=== PATIENT | female | born 1935 | race Caucasian/White ===

== ENCOUNTER → 2016-08-01 | Outpatient (CLI) | payer MEDICARE, BC ==
--- NOTE | 2016-08-01 14:17 | MM ---
Reason for exam: additional evaluation requested from abnormal screening. Last mammogram was performed 1 month ago. History: Patient is postmenopausal. Family history of breast cancer in daughter at age 50. Physical Findings: Nurse did not find any significant physical abnormalities on exam. MG 3D Work Up W/Cad LT Spot compression CC, spot compression MLO, and ML view(s) were taken of the left breast. Prior study comparison: July 16, 2016, bilateral MG 3d screening mammo w/cad. June 02, 2014, bilateral MG screening mammo w CAD. Nodularity upper outer left breast persists is less conspicuous. Ultrasound is recommended. These results were verbally communicated with the patient and result sheet given to the patient on 08/01/16. ASSESSMENT: Incomplete: need additional imaging evaluation, BI-RAD 0 RECOMMENDATION: Ultrasound of the left breast.
--- NOTE | 2016-08-01 14:18 | USB ---
Reason for exam: additional evaluation requested from abnormal screening. History: Patient is postmenopausal. Family history of breast cancer in daughter at age 50. US Breast Workup Limited LT Left breast ultrasound demonstrates no cystic or solid lesion seen greater than 0.50cm. These results were verbally communicated with the patient and result sheet given to the patient on 08/01/16. ASSESSMENT: Probably benign, BI-RAD 3 RECOMMENDATION: Follow-up diagnostic mammogram of the left breast in 6 months.
== END | disposition home or self-care (01) ==
LOC: RADMAMWWP 12:23
PROVIDERS: ATTEND Internal Medicine
DX: R92.8 Other abnormal and inconclusive findings on diagnostic imaging of breast (principal)
CPT/HCPCS: 77051; 76642; G0206; G0279

== ENCOUNTER 2019-05-24 14:25 | Emergency (ER) | payer MEDICARE, BC ==
[2019-05-24 14:34] VITALS: RESP 18; TEMP 97.8
--- NOTE | 2019-05-24 15:03 | ED ---
General Adult HPI - General Chief complaint: Chest Pain Stated complaint: Chest Pain, Abnormal EKG Time Seen by Provider: 05/24/19 14:55 Source: patient Mode of arrival: ambulatory Limitations: no limitations - History of Present Illness Initial comments: Dictation was produced using [employer] dictation software. please excuse any grammatical, word or spelling errors. Chief Complaint: 83-year-old female sent in by Dr. Sarkar for abnormal EKG. History of Present Illness: Patient is 83-year-old female presents today with abnormal EKG. Patient was at Dr. Sarkar's office who will be her new primary care physician. She states that she is finding PCP because her old PCP is not retired. Patient went in for routine visit. She had an EKG performed found to be abnormal. She denies any complaints at this time. She has no chest pain. No shortness of breath. She states that she has been at baseline. She has no medical complaints today. The ROS documented in this emergency department record has been reviewed and confirmed by me. Those systems with pertinent positive or negative responses have been documented in the HPI. All other systems are other negative and/or noncontributory. PHYSICAL EXAM: General Impression: Alert and oriented x3, not in acute distress HEENT: Normocephalic atraumatic, extra-ocular movements intact, pupils equal and reactive to light bilaterally, mucous membranes moist. Cardiovascular: Heart regular rate and rhythm, S1&S2 audible, no murmurs, rubs or gallops Chest: Lungs clear to auscultation bilaterally, no rhonchi, no wheeze, no rales Abdomen: Bowel sounds present, abdomen soft, non-tender, non-distended, no organomegaly Musculoskeletal: Pulses present and equal in all extremities, no peripheral edema Motor: no focal deficits noted Neurological: CN II-XII grossly intact, no focal motor or sensory deficits noted Skin: Intact with no visualized rashes Psych: Normal affect and mood ED course: 83 y Old female presents with abnormal EKG. Vital signs upon arrival shows blood pressure 187/75, rest of vital signs within acceptable limits. EKG from Dr. Sarkar's office was reviewed showing left bundle branch block. No criteria met for Sgarbossa. Furthermore she is asymptomatic. Repeat EKG was performed here at our facility 3 demonstrating left bundle branch block. Again no demonstration of scar Boso criteria. No old EKG for comparison. no complaints at this time. Laboratory evaluation obtained. CBC, metabolic panel, coag panel is unremarkable. Cardiac enzymes negative. Patient denies being symptomatic. She is observed in emergency department for several hours. Discussed patient case with Dr. Sarkar who states that he was not in the office today. It was likely 1 of his ancillary staff members and sent patient to the emergency department. Has left bundle branch block seen on EKG. He is unclear whether this is narcotic however given the patient's asymptomatic we will send patient home. Patient medically stable. She is given by mouth magnesium. Patient told to follow-up with Dr. Sarkar upon discharge. Temperature was discussed. EKG interpretation: Ventricular rate 75, normal sinus rhythm, FL interval 180, QS 160, QTc 556. On a branch block. No FL prolongation, no QTC prolongation, no ST or T-wave changes noted. - Related Data Home Medications Medication Instructions Recorded Confirmed Hydrochlorothiazide [Hydrodiuril] 25 mg PO DAILY 05/24/19 05/24/19 Ibuprofen [Advil] 400 mg PO DAILY 05/24/19 05/24/19 Metoprolol Succinate [Toprol XL] 25 mg PO DAILY 05/24/19 05/24/19 Ramipril 10 mg PO HS 05/24/19 05/24/19 Ramipril 20 mg PO DAILY 05/24/19 05/24/19 Allergies Allergy/AdvReac Type Severity Reaction Status Date / Time No Known Allergies Allergy Verified 05/24/19 15:12 Review of Systems ROS Statement: Those systems with pertinent positive or pertinent negative responses have been documented in the HPI. ROS Other: All systems not noted in ROS Statement are negative. Past Medical History Past Medical History: Cancer, Hypertension, Osteoarthritis (OA) History of Any Multi-Drug Resistant Organisms: None Reported Past Surgical History: Hysterectomy Additional Past Surgical History / Comment(s): skin cancer removal from R leg Past Psychological History: No Psychological Hx Reported Smoking Status: Never smoker Past Alcohol Use History: Occasional Past Drug Use History: None Reported General Exam Limitations: no limitations Course Vital Signs 05/24/19 05/24/19 14:31 14:34 Temperature 97.8 F Pulse Rate 81 Pulse Rate [ 62 Liquor Tester ] Respiratory 18 Rate Blood Pressure 187/75 O2 Sat by Pulse 99 Oximetry Medical Decision Making - Lab Data Result diagrams: 05/24/19 15:01 05/24/19 15:01 Lab Results 05/24/19 05/24/19 05/24/19 Range/Units 15:01 15:01 15:01 WBC 10.1 (3.8-10.6) k/uL RBC 4.22 (3.80-5.40) m/uL Hgb 13.6 (11.4-16.0) gm/dL Hct 40.3 (34.0-46.0) % MCV 95.3 (80.0-100.0) fL MCH 32.1 (25.0-35.0) pg MCHC 33.7 (31.0-37.0) g/dL RDW 12.4 (11.5-15.5) % Plt Count 234 (150-450) k/uL Neutrophils % 69 % Lymphocytes % 18 % Monocytes % 7 % Eosinophils % 2 % Basophils % 2 % Neutrophils # 7.0 (1.3-7.7) k/uL Lymphocytes # 1.8 (1.0-4.8) k/uL Monocytes # 0.7 (0-1.0) k/uL Eosinophils # 0.2 (0-0.7) k/uL Basophils # 0.2 (0-0.2) k/uL PT 10.7 (9.0-12.0) sec INR 1.0 (<1.2) APTT 27.0 (22.0-30.0) sec Sodium 139 (137-145) mmol/L Potassium 3.5 (3.5-5.1) mmol/L Chloride 103 (98-107) mmol/L Carbon Dioxide 24 (22-30) mmol/L Anion Gap 12 mmol/L BUN 24 H (7-17) mg/dL Creatinine 0.79 (0.52-1.04) mg/dL Est GFR (CKD-EPI)AfAm 82 (>60 ml/min/1.73 sqM) Est GFR (CKD-EPI)NonAf 71 (>60 ml/min/1.73 sqM) Glucose 117 H (74-99) mg/dL Calcium 9.7 (8.4-10.2) mg/dL Magnesium 1.3 L (1.6-2.3) mg/dL Total Bilirubin 0.9 (0.2-1.3) mg/dL AST 36 (14-36) U/L ALT 34 (9-52) U/L Alkaline Phosphatase 73 (38-126) U/L Troponin I (0.000-0.034) ng/mL Total Protein 7.0 (6.3-8.2) g/dL Albumin 4.3 (3.5-5.0) g/dL Lipase 140 (23-300) U/L 05/24/19 Range/Units 15:01 WBC (3.8-10.6) k/uL RBC (3.80-5.40) m/uL Hgb (11.4-16.0) gm/dL Hct (34.0-46.0) % MCV (80.0-100.0) fL MCH (25.0-35.0) pg MCHC (31.0-37.0) g/dL RDW (11.5-15.5) % Plt Count (150-450) k/uL Neutrophils % % Lymphocytes % % Monocytes % % Eosinophils % % Basophils % % Neutrophils # (1.3-7.7) k/uL Lymphocytes # (1.0-4.8) k/uL Monocytes # (0-1.0) k/uL Eosinophils # (0-0.7) k/uL Basophils # (0-0.2) k/uL PT (9.0-12.0) sec INR (<1.2) APTT (22.0-30.0) sec Sodium (137-145) mmol/L Potassium (3.5-5.1) mmol/L Chloride (98-107) mmol/L Carbon Dioxide (22-30) mmol/L Anion Gap mmol/L BUN (7-17) mg/dL Creatinine (0.52-1.04) mg/dL Est GFR (CKD-EPI)AfAm (>60 ml/min/1.73 sqM) Est GFR (CKD-EPI)NonAf (>60 ml/min/1.73 sqM) Glucose (74-99) mg/dL Calcium (8.4-10.2) mg/dL Magnesium (1.6-2.3) mg/dL Total Bilirubin (0.2-1.3) mg/dL AST (14-36) U/L ALT (9-52) U/L Alkaline Phosphatase (38-126) U/L Troponin I <0.012 (0.000-0.034) ng/mL Total Protein (6.3-8.2) g/dL Albumin (3.5-5.0) g/dL Lipase (23-300) U/L Disposition Clinical Impression: Abnormal EKG Disposition: HOME SELF-CARE Condition: Good Is patient prescribed a controlled substance at d/c from ED?: No Referrals: Jose M Sarkar MD [Primary Care Provider] - 1-2 days Time of Disposition: 15:58
[2019-05-24 15:19] LABS: Basophils # (A) 0.2 k/uL (0-0.2); Basophils % (A) 2 %; Eosinophils # (A) 0.2 k/uL (0-0.7); Eosinophils % (A) 2 %; HCT 40.3 % (34.0-46.0); HGB 13.6 gm/dL (11.4-16.0); Lymphocytes # (A) 1.8 k/uL (1.0-4.8); Lymphocytes % (A) 18 %; MCH 32.1 pg (25.0-35.0); MCHC 33.7 g/dL (31.0-37.0); MCV 95.3 fL (80.0-100.0); Mean Platelet Volume 7.3; Monocytes # (A) 0.7 k/uL (0-1.0); Monocytes % (A) 7 %; Neutrophils % (A) 69 %; Platelet Count 234 k/uL (150-450); RBC 4.22 m/uL (3.80-5.40); RDW 12.4 % (11.5-15.5); WBC 10.1 k/uL (3.8-10.6)
[2019-05-24 15:22] LABS: Albumin 4.3 g/dL (3.5-5.0); Calcium 9.7 mg/dL (8.4-10.2); Magnesium 1.3 mg/dL (1.6-2.3); Potassium 3.5 mmol/L (3.5-5.1); Total Bilirubin 0.9 mg/dL (0.2-1.3)
--- NOTE | 2019-05-24 15:32 | XR ---
EXAMINATION TYPE: XR chest 2V DATE OF EXAM: 05/24/2019 COMPARISON: NONE TECHNIQUE: PA and lateral views submitted. HISTORY: Chest pain FINDINGS: Limited inspiration with bibasilar subsegmental consolidation. No pneumothorax or overt failure. Hear t size mildly prominent. Degenerative change of the spine. Cannot exclude a right perihilar soft tiss ue nodule. Arthropathy of the AC joints. IMPRESSION: 1. Bibasilar infiltrate correlate clinically. 2. Nodularity in the left hilum recommend short-term follow-up CT chest.
[2019-05-24 15:33] LABS: Prothrombin Time 10.7 sec (9.0-12.0)
[2019-05-24] MEDS ORDERED: MAGNESIUM OXIDE 400 MG TAB PO STA (15:57)
[2019-05-24] MEDS ORDERED: MAGNESIUM SULFATE-D5W PMX 1 GM in DEXTROSE/WATER 1 100ML.BAG IVPB SCH (16:00)
[2019-05-24 16:13] VITALS: BP 173/77; PULSE 67
== END 2019-05-24 16:20 | disposition home or self-care (01) ==
LOC: EC 14:25
DX: R94.31 Abnormal electrocardiogram [ECG] [EKG] (principal); I44.7 Left bundle-branch block, unspecified; I10 Essential (primary) hypertension; Z79.899 Other long term (current) drug therapy; Z85.828 Personal history of other malignant neoplasm of skin
CPT/HCPCS: 36415; 71046; 80053; 83690; 83735; 84484; 85025; 85610; 85730; 93005; 99285

== ENCOUNTER → 2019-06-16 | Outpatient (CLI) | payer MEDICARE, BC ==
[~2019-06-16] MED LIST: REGADENOSON 0.4 MG/5 ML SYRINGE IV ONE
--- NOTE | 2019-06-16 10:29 | NM ---
EXAMINATION TYPE: NM stress lexiscan cardiolite DATE OF EXAM: 06/16/2019 COMPARISON: NONE HISTORY: Chest pain TECHNIQUE: After the intravenous administration of 9.9 mCi Tc 99m Sestamibi - Cardiolite resting SPE CT images acquired 45 minutes post injection. The patient received 0.4mg Lexiscan, 26.1 mCi Tc 99m Sestamibi - Stress images obtained [address] injection FINDINGS: Review of stress and rest SPECT images demonstrates no fixed defect in the mid and apical segments of the anterior septal ventricular wall greater on rest than stress imaging. No reversibility seen. Ga harshil analysis shows hypokinesis of the anteroseptal wall with an estimated left ventricular ejection f raction of 41 %. TID is calculated at 1.14. IMPRESSION: 1. No scintigraphic evidence for reversible ischemia. 2. 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 3. Abnormal estimated left ventricular ejection fraction of 41%.
--- NOTE | 2019-06-16 14:39 | EST ---
EXERCISE STRESS AGE: 83 SEX: F HT: 5'2" WT: 162 PROTOCOL: Lexiscan Cardiolite Stress Test HEART RATE REST: 62 BLOOD PRESSURE REST: 131/70 MAXIMUM HEART RATE ACHIEVED: 72 MAXIMUM BLOOD PRESSURE: 128/61 INDICATIONS: Chest pain. CLINICAL INFORMATION: Baseline EKG revealed normal sinus rhythm with a left bundle branch block pattern. With Lexiscan administration, patient's heart rate changed from 62-72 beats per minute, blood pressure changed from 131/70 to 128/61. EKG remained inconclusive. Patient did not have any significant symptoms. By EKG criteria, this is an inconclusive Lexiscan stress test because of resting EKG changes. The nuclear scan, which is more pertinent will be reported by the radiologist. MMODL / IJN: [id number] /
== END | disposition home or self-care (01) ==
LOC: RADNMMAIN 07:24
PROVIDERS: ATTEND Physician Assistant
DX: I51.89 Other ill-defined heart diseases (principal)
CPT/HCPCS: 93017; 78452; A9500; J2785

== ENCOUNTER → 2019-06-18 | Outpatient (CLI) | payer MEDICARE, BC ==
--- NOTE | 2019-06-18 12:44 | ECHOF ---
Referral Reason:R07.9 chest pain MEASUREMENTS -------- HEIGHT: 157.5 cm WEIGHT: 72.6 kg BP: RVIDd: 3.8 cm (< 3.3) IVSd: 1.5 cm (0.6 - 1.1) LVIDd: 3.9 cm (3.9 - 5.3) LVPWd: 1.4 cm (0.6 - 1.1) IVSs: 1.7 cm LVIDs: 2.4 cm LVPWs: 2.1 cm LAESV Index (A-L): 29.06 ml/m Ao Diam: 3.1 cm (2.0 - 3.7) AV Cusp: 1.9 cm (1.5 - 2.6) LA Diam: 2.9 cm (2.7 - 3.8) MV EXCURSION: 11.844 mm (> 18.000) MV EF SLOPE: 41 mm/s (70 - 150) EPSS: 0.9 cm MV E Gavino: 0.66 m/s MV DecT: 296 ms MV A Gavino: 1.04 m/s MV E/A Ratio: 0.63 RAP: 5.00 mmHg RVSP: 17.05 mmHg FINDINGS -------- Sinus rhythm. This was a technically adequate study. The left ventricular size is normal. There is moderate concentric left ventricular hypertrophy. O verall left ventricular systolic function is normal with, an EF between 55 - 60 %. Increased Lap Gr lucina II Diastolic Dysfunction. The right ventricle is mild to moderately enlarged. LA is midly dilated 29-33ml/m2. The right atrial size is normal. Interatrial and interventricular septum intact. There is moderate aortic valve sclerosis. There is no evidence of aortic regurgitation. There is no evidence of aortic stenosis. Mild mitral annular calcification present. Mild mitral regurgitation is present. Mild tricuspid regurgitation present. There is no evidence of pulmonary hypertension. The right v entricular systolic pressure, as measured by Doppler, is 17.05mmHg. There is no pulmonic regurgitation present. The aortic root size is normal. Normal inferior vena cava with normal inspiratory collapse consistent with estimated right atrial pre ssure of 5 mmHg. There is no pericardial effusion. CONCLUSIONS -------- 1. Sinus rhythm. 2. This was a technically adequate study. 3. The left ventricular size is normal. 4. There is moderate concentric left ventricular hypertrophy. 5. Overall left ventricular systolic function is normal with, an EF between 55 - 60 %. 6. Increased Lap Grade II Diastolic Dysfunction. 7. The right ventricle is mild to moderately enlarged. 8. LA is midly dilated 29-33ml/m2. 9. The right atrial size is normal. 10. Interatrial and interventricular septum intact. 11. There is moderate aortic valve sclerosis. 12. There is no evidence of aortic regurgitation. 13. There is no evidence of aortic stenosis. 14. Mild mitral annular calcification present. 15. Mild mitral regurgitation is present. 16. Mild tricuspid regurgitation present. 17. There is no evidence of pulmonary hypertension. 18. The right ventricular systolic pressure, as measured by Doppler, is 17.05mmHg. 19. There is no pulmonic regurgitation present. 20. The aortic root size is normal. 21. Normal inferior vena cava with normal inspiratory collapse consistent with estimated right atrial pressure of 5 mmHg. 22. There is no pericardial effusion. FLYING TEACHER: Dedra Brock RDCS
--- NOTE | 2019-06-18 13:05 | CT ---
EXAMINATION TYPE: CT chest w con DATE OF EXAM: 06/18/2019 COMPARISON: Chest x-ray dated 05/24/2019 HISTORY: Chest Pain CT DLP: 243.3 mGycm. Automated Exposure Control for Dose Reduction was Utilized. TECHNIQUE: CT scan of the thorax is performed following with IV Contrast, patient injected with 100 ml mL of Isovue 300. FINDINGS: LUNGS: There are numerous subtle groundglass subcentimeter scattered pulmonary nodules. These are mar ked on the images and there are approximately 6 on the right and 10 on the left. The lungs are grossl y clear, there is no concerning parenchymal mass or nodule identified. There is no pleural effusion or pneumothorax seen. The tracheobronchial tree is patent. Few pulmonary blebs and atelectasis. MEDIASTINUM: There are no greater than 1 cm hilar or mediastinal lymph nodes. Heart is borderline enl arged. No pericardial effusion. No significant coronary artery calcifications on CT. There is direct origin of the left vertebral artery from the aortic arch. OTHER: Numerous gallstones are seen within the gallbladder and appear laminated some containing minesh sterol. Mild multilevel degenerative changes of the spine. IMPRESSION: 1. There are multiple groundglass subcentimeter pulmonary nodules. Most typically these are infectiou s or inflammatory, possibly related to atelectasis given their subpleural location. Precautionary fol low-up CT could be performed in 6 months to ensure resolution. 2. Borderline cardiomegaly. 3. Cholelithiasis with numerous gallstones within the gallbladder.
== END ==
LOC: RADECHMAIN 08:00
PROVIDERS: ATTEND Family Medicine
DX: K80.20 Calculus of gallbladder without cholecystitis without obstruction (principal); I08.1 Rheumatic disorders of both mitral and tricuspid valves; R91.8 Other nonspecific abnormal finding of lung field
CPT/HCPCS: 93306; 82565; 84520; 71260; 36415; Q9967

== ENCOUNTER → 2022-05-21 | Outpatient (CLI) | payer MEDICARE ==
--- NOTE | 2022-05-21 09:59 | MM ---
Reason for Exam: Follow-up at short interval from prior study. Last mammogram was performed 5 year(s) and 10 month(s) ago. Patient History: Menarche at age 17. First Full-Term at age 23. Left ovary removed at age 48. Right ovary removed at age 48. Hysterectomy at age 48. Postmenopausal. Daughter had breast cancer, age 50. Risk Values: Supriya 5 year model risk: 2.4%. NCI Lifetime model risk: 2.7%. Prior Study Comparison: 05/30/2010 Screening Mammogram, [facility]. 11/15/2011 Screening Mammogram, [facility]. 06/02/2014 Bilateral Screening Mammogram, [facility]. 07/16/2016 Bilateral Screening Mammogram, [facility]. 08/01/2016 Left Diagnostic Mammogram, [facility]. 08/01/2016 Left Diagnostic Ultrasound, [facility]. Tissue Density: There are scattered fibroglandular densities. Findings: Analyzed By CAD. No new suspicious masses or worrisome cluster microcalcifications within either breast. Benign calcifications within both breasts. Overall Assessment: Benign, BI-RAD 2 Management: Screening Mammogram of both breasts in 1 year. A clinical breast exam by your physician is recommended on an annual basis and results should be correlated with mammographic findings. This exam should not preclude additional follow-up of suspicious palpable abnormalities. Results were given to the patient verbally at the time of exam. Electronically signed and approved by: Joey Clarke D.O.
--- NOTE | 2022-05-21 11:36 | BD ---
EXAMINATION TYPE: Axial Bone Density DATE OF EXAM: 05/21/2022 COMPARISON: 06/02/2014 CLINICAL HISTORY: 86 years year old Female. ICD-10 CODE: Z78.0 asymptomatic menopausal Height: 61 Weight: 154 FRAX RISK QUESTIONS: History of Fracture in Adulthood: YES ANKLE 10 YRS RISK FACTORS HISTORY OF: Active: LIMITED Diet low in dairy products/other sources of calcium: YES Postmenopausal woman: 52 MEDICATIONS: Additional Medications: HBP,MULTI VIT, EXAM MEASUREMENTS: Bone mineral densitometry was performed using the [employer] System. Bone mineral density as measured about the Lumbar spine is: ----- L1-L4(G/cm2): 1.491 T Score Values are as follows: ----- L1: -1.3 ----- L2: 1.6 ----- L3: 4.0 ----- L4: 6.0 ----- L1-L4: 2.6 Bone mineral density has: Increased 0.1% since study of: 06/02/2014 Bone mineral density about the R hip (g/cm2): 1.031 Bone mineral density about the L hip (g/cm2): 0.945 T Score values are as follows: -----R Neck: 0.0 -----L Neck: -0.7 -----R Total: 0.0 -----L Total: -0.4 Bone mineral density has: Decreased -0.4% since study of: 06/02/2014 FRAX%s: The graph provided illustrates a 15.2 chance for a major osteoporotic fx and a 2.7 chance for the hips probability for fx in 10 years time. IMPRESSION: Normal (Values between +1 and -1 indicate normal bone mass). Consider repeating this study in 5 year s or sooner if there is some new clinical indication. NOTE: T-SCORE=SD OF THE YOUNG ADULT MEAN.
== END | disposition home or self-care (01) ==
LOC: RADMAMWWP 09:28
PROVIDERS: ATTEND Family Medicine
DX: R92.8 Other abnormal and inconclusive findings on diagnostic imaging of breast (principal); Z78.0 Asymptomatic menopausal state; Z80.3 Family history of malignant neoplasm of breast
CPT/HCPCS: 77080; 77066; G0279; 77062

== ENCOUNTER → 2023-03-18 | Outpatient (CLI) | payer MEDICARE ==
--- NOTE | 2023-03-18 15:24 | US ---
EXAMINATION TYPE: US venous doppler duplex LE DATE OF EXAM: 03/18/2023 3:08 PM COMPARISON: NONE CLINICAL INDICATION: Female, 87 years old with history of R60.0 EDEMA; edema SIDE PERFORMED: Bilateral TECHNIQUE: The lower extremity deep venous system is examined utilizing real time linear array sonog toni with graded compression, doppler sonography and color-flow sonography. VESSELS IMAGED: Common Femoral Vein Deep Femoral Vein Greater Saphenous Vein * Femoral Vein Popliteal Vein Small Saphenous Vein * Proximal Calf Veins (* superficial vessels) Right Leg: Negative for DVT Left Leg: Negative for DVT rouleaux flow visualized color flow and compression seen. IMPRESSION: Grayscale, color doppler, spectral doppler imaging performed of the deep veins of the lo wer extremities. There is normal flow, compressibility, vascular waveforms.
== END | disposition home or self-care (01) ==
LOC: RADUSWWP 13:31
PROVIDERS: ATTEND Family Medicine
DX: R60.0 Localized edema (principal)
CPT/HCPCS: 93970

== ENCOUNTER → 2023-09-22 | Outpatient (CLI) | payer MEDICARE ==
[2023-09-22 11:47] LABS: INR 1.2 (<1.2); Partial Thromboplastin Time 31.1 sec (22.0-30.0); Prothrombin Time 12.6 sec (10.0-12.5)
[2023-09-22 15:37] LABS: ALT 25 U/L (8-44); AST 26 U/L (13-35); Albumin 4.4 g/dL (3.8-4.9); Alkaline Phosphatase 82 U/L (41-126); Blood Urea Nitrogen 32.8 mg/dL (9.0-27.0); Calcium 10.3 mg/dL (8.7-10.3); Carbon Dioxide 26.7 mmol/L (21.6-31.8); Chloride 104 mmol/L (96-109); Globulin 2.2 g/dL (1.6-3.3); Glucose 150 mg/dL (70-110); Sodium 142 mmol/L (135-145); Total Bilirubin 0.3 mg/dL (0.3-1.2); Total Protein 6.6 g/dL (6.2-8.2)
[2023-09-22 15:59] LABS: HCT 40.3 % (37.2-46.3); HGB 13.3 g/dL (12.0-15.0); MCH 33.2 pg (27.0-32.0); MCV 100.5 FL (80.0-97.0); NRBC Per 100 WBC 0 X 10*3/uL (0.00-0.01); Platelet Count 248 X 10*3/uL (140-440); RBC 4.01 X 10*6/uL (4.10-5.20); RDW 12.8 % (11.5-14.5)
== END | disposition home or self-care (01) ==
LOC: LABPAT 09:51
PROVIDERS: ATTEND Orthopaedic Surgery
DX: Z01.812 Encounter for preprocedural laboratory examination (principal); E11.9 Type 2 diabetes mellitus without complications
CPT/HCPCS: 36415; 80053; 83036; 85027; 85610; 85730; 86850; 86900; 86901; 87070

== ENCOUNTER 2023-11-12 10:23 | Inpatient (IN) | payer MEDICARE ==
[~2023-11-12 10:23] MED LIST changes: +ACETAMINOPHEN TAB 500 MG TAB PO PRN; +DEXAMETHASONE SOD PHOSPHATE 10 MG/ML 1 ML VIAL IV PRN; +DOCUSATE 100 MG CAP PO PRN; +FAMOTIDINE 20 MG/2 ML VIAL IVP PRN; +HYDROmorphone 0.5 MG/0.5 ML SYRINGE IVP PRN; +KETOROLAC 15 MG/ML 1 ML VIAL IVP PRN; +ONDANSETRON 4 MG/2 ML VIAL IVP PRN; -REGADENOSON 0.4 MG/5 ML SYRINGE IV ONE; +ROPIVACAINE/EPI/CLONIDINE/KET 50 ML SYRINGE MISCELLANE PRN; +TRANEXAMIC 1,000 MG/100ML-NACL 1,000 MG in SALINE 1 100ML.BAG IV PRN; +TRANEXAMIC 1,000 MG/100ML-NACL 1,000 MG in SALINE 1 100ML.BAG IVPB PRN; +oxyCODONE ER 10 MG TAB.ER.12H PO PRN
[2023-11-12 11:37] LABS: Glucose,Whole Blood 138 mg/dL (70-110)
[2023-11-12] MEDS: LACTATED RINGERS 1,000 ML IV SCH (11:48)
[2023-11-12] MEDS: ACETAMINOPHEN TAB 500 MG TAB PO PRN (11:54)
[2023-11-12] MEDS: oxyCODONE ER 10 MG TAB.ER.12H PO PRN (11:54)
[2023-11-12] MEDS: MIDAZOLAM 2 MG/2 ML VIAL IVP ONE (11:56)
[2023-11-12] MEDS: ONDANSETRON 4 MG/2 ML VIAL IVP PRN (12:07)
[2023-11-12 12:08] LABS: HCT 41.5 % (34.0-46.0); HGB 13.7 gm/dL (11.4-16.0); MCH 32.5 pg (25.0-35.0); MCV 98.5 fL (80.0-100.0); Mean Platelet Volume 9.4; Platelet Count 245 k/uL (150-450); RBC 4.22 m/uL (3.80-5.40); RDW 12.5 % (11.5-15.5); WBC 10.3 k/uL (3.8-10.6)
[2023-11-12] MEDS: DEXAMETHASONE SOD PHOSPHATE 10 MG/ML 1 ML VIAL IV PRN (12:08)
[2023-11-12] MEDS: FAMOTIDINE 20 MG/2 ML VIAL IVP PRN (12:09)
[2023-11-12] MEDS ORDERED: LIDOCAINE 1% INJ 10MG/ML (20 ML MDV) ONE (12:18)
[2023-11-12] MEDS ORDERED: ROPIVACAINE 5 MG/ML 30 ML VIAL ONE (12:18)
[2023-11-12] MEDS ORDERED: ESMOLOL 100 MG/10 ML VIAL ONE (12:18)
[2023-11-12] MEDS ORDERED: TRANEXAMIC 1,000 MG/100ML-NACL PREMIX BAG ONE (12:18)
[2023-11-12] MEDS ORDERED: PROPOFOL 10 MG/ML 20 ML VIAL IV ONE (12:18)
[2023-11-12] MEDS ORDERED: DEXAMETHASONE SOD PHOSPHATE 4 MG/ML 1 ML VIAL ONE (12:18)
[2023-11-12] MEDS ORDERED: HYDROmorphone (PF) 1 MG/ML ONE (12:18)
[2023-11-12] MEDS ORDERED: SUCCINYLCHOLINE CHLORIDE 200 MG/10 ML VIAL IV ONE (12:18)
[2023-11-12] MEDS ORDERED: GLYCOPYRROLATE 0.2 MG/ML 2 ML VIAL ONE (12:18)
[2023-11-12] MEDS ORDERED: NEOSTIGMINE 1 MG/ML 10 ML VIAL ONE (12:18)
[2023-11-12] MEDS ORDERED: ROCURONIUM 10 MG/ML (5 ML VIAL) IV ONE (12:18)
[2023-11-12] MEDS ORDERED: fentaNYL (PF) 50 MCG/ML 2 ML AMP ONE (12:18)
[2023-11-12 12:24] LABS: ALT 27 U/L (4-34); AST 35 U/L (14-36); African American GFR (CKD) 80 (>60 ml/min/1.73 sqM); Albumin 4.5 g/dL (3.5-5.0); Alkaline Phosphatase 79 U/L (38-126); Anion Gap 9 mmol/L; Blood Urea Nitrogen 23 mg/dL (7-17); Carbon Dioxide 24 mmol/L (22-30); Chloride 107 mmol/L (98-107); Glucose 137 mg/dL (74-99); Non-African American GFR(CKD) 69 (>60 ml/min/1.73 sqM); Potassium 4.2 mmol/L (3.5-5.1); Sodium 140 mmol/L (137-145); Total Bilirubin 0.7 mg/dL (0.2-1.3)
[2023-11-12] MEDS: ROPIVACAINE/EPI/CLONIDINE/KET 50 ML SYRINGE MISCELLANE PRN (13:15)
[2023-11-12 13:50] LABS: Partial Thromboplastin Time 26.7 sec (22.0-30.0); Prothrombin Time 11.4 sec (10.0-12.5)
[2023-11-12] MEDS: LACTATED RINGERS 1,000 ML IV ONE ×2 (13:54→16:58)
[2023-11-12] MEDS ORDERED: NALOXONE 0.4 MG/ML 1 ML VIAL IV PRN (14:25)
[2023-11-12] MEDS ORDERED: HYDROmorphone 0.5 MG/0.5 ML SYRINGE IVP PRN (14:25)
[2023-11-12] MEDS ORDERED: traMADol 50 MG TAB PO PRN (14:25)
[2023-11-12] MEDS ORDERED: ONDANSETRON 4 MG/2 ML VIAL IVP PRN (14:25)
[2023-11-12] MEDS ORDERED: MAGNESIUM HYDROXIDE 2,400 MG/30 ML CUP PO PRN (14:25)
--- NOTE | 2023-11-12 14:28 | XR ---
Fluoroscopy INDICATION: Pain FINDINGS: Fluoroscopy time: 36.6 seconds. Total dose area product (DAP) in uGy*m?, mGy*cm? (or similar): 1.3579 Images obtained: 6. IMPRESSION: 1. Documentation of fluoroscopy.
--- NOTE | 2023-11-12 14:33 | P.OP ---
Date of Procedure: 11/12/23 Preoperative Diagnosis: 1. Severe right hip osteoarthritis 2. History of DVT Postoperative Diagnosis: Same Procedure(s) Performed: Right direct anterior total hip arthroplasty Implants: 1. Lupe Trident II Acetabular Cup, Size #48 2. [place] Accolade C Size #3 Femoral Stem, Standard Offset 3. Dual Mobility OD 38 mm, ID 22.2 mm, +0 neck Anesthesia: JEREMY, regional Surgeon: Brody Brownlee Portable Power Tool Repairer #1: Sarmad Randle Estimated Blood Loss (ml): 200 IV fluids (ml): 800 Pathology: none sent Condition: stable Disposition: PACU Indications for Procedure: I had a long discussion with the patient in the office on the potential risks and complications of an elective total hip replacement through a direct anterior approach. Risks discussed include, but are certainly not limited to, risks from anesthesia, superficial infection requiring local wound care or antibiotics, deep nikki-prosthetic joint infection and the treatment required to eradicate infection, intraoperative fracture, postoperative periprosthetic fracture, damage to local blood vessels or nerves particularly the lateral femoral cutaneous nerve, delayed wound healing requiring local wound care or possibly surgical debridement, hip dislocation, leg length discrepancy, soft tissue irritation around the total hip implant such as iliopsoas tendinitis or trochanteric bursitis, wear and osteolysis from the implants, squeaking or audible noises, groin pain, thigh pain, heterotopic ossification, stiffness, aseptic loosening of the implants, dissatisfaction with surgical outcome, need for revision surgery, DVT, PE, swelling of the operative extremity, acute coronary event, stroke, failure to thrive, and possibly loss of life or limb. The patient understands that while these are the most common complications after an elective hip replacement there are certainly other less common complications possible. They were given ample time to ask questions regarding the potential complications of a hip replacement. Following our discussion the patient provided their verbal and written consent to go forward with an elective total hip replacement. Operative Findings: severe right hip osteoarthritis Description of Procedure: The patient was identified in the preoperative holding area and the correct hip was marked with my initials. I reviewed the procedure and consent with the patient. All of their questions were answered. The patient was then brought back into the operating room by anesthesia. While on the [facility] anesthesia was administered by the anesthesia team. Preoperative antibiotics and tranexamic acid were also given. After the patient was under anesthesia I examined their ankles to determine their preoperative leg length discrepancy. The skin over t he anterior aspect of the hip was shaved to remove hair over the site of planned incision. Both feet and ankles were padded with webril and boots for the [place] were applied. The patient was then carefully transferred onto the [place] table. A perineal post was immediately placed. The arms were placed on arm holders and were well-padded. Both boots were secured to the spars on the [place] table. The patient was positioned so that the pelvis was centered over the post. Nonsterile drapes were applied. A timeout was performed identifying the correct patient, operative extremity, and procedure. At this point fluoroscopy was brought in to take preoperative images of the pelvis and operative hip. Using the standing AP pelvis from the office as a template, a comparable image was obtained with fluoroscopy. A metallic bar was used to create a bi-ischial line for use as a reference to leg length adjustments during the procedure. Global offset was also measured on both the operative and nonoperative leg. Fluoroscopy was then brought out and a pre-scrub using a chlorhexidine scrub brush was performed. The operative limb was then prepped and draped in the standard sterile fashion. An anterior longitudinal incision was made lateral and distal to the ASIS. The skin and subcutaneous tissues were incised sharply. The underlying tensor fascia was identified and incised in its midportion. The fascia was dissected free from the underlying muscle and the muscle belly was retracted. A blunt tipped cobra retractor was placed over the superior neck under the muscle fibers of the gluteus minimus. The deep enveloping fascia of the tensor was incised. The anterior leash of vessels were then identified and cauterized. The fascia between the rectus and the capsule was then incised and the pre-capsular fat was excised. A second Cobra was placed inferior to the neck. The interval between the rectus and iliocapsularis and the hip capsule was developed and a retractor was placed carefully over the anterior rim of the acetabulum. A T-shaped anterior capsulotomy was performed. The superior capsular leaflet was left in place in the inferior capsular flap was excised. The Cobra retractors were placed intracapsularly. We then made a femoral neck osteotomy according to preoperative and intraoperative templating and confirmed the level of the osteotomy using fluoroscopic imaging. The femoral head was removed, passed off to the back table, and sized. The superior capsular flap was excised. Retractors were placed circumferentially exposing the acetabulum. We then circumferentially debrided the acetabulum free of labrum and osteophytes. The pulvinar was removed to fully visualize the cotyloid fossa. We then sequentially reamed to achieve peripheral fit and excellent bleeding subchondral bone. The socket was thoroughly irrigated. The acetabular component was impacted into the appropriate position using fluoroscopy to guide version, inclination, and depth of insertion taking care to have a comparable image of the AP pelvis to the standing image taken in the office. An excellent press-fit was achieved and final position was confirmed using fluoroscopy. The press fit was augmented with bony cancellus dome screws. The liner was then impacted into the socket. Attention was then turned to the femur. The remnant dorsal lateral capsule was excised. The short external rotators were visible and protected. A bone hook was used to confirm appropriate translation of the trochanter away from the acetabulum. The leg was then extended and adducted and the bone hook was used to elevate the femur for broaching. On inspection of the patient's proximal femur, they appeared to have poor bone quality so I elected to proceed with cemented fixation of the femoral component. A box osteotome and blunt tipped canal sound was then utilized to gain access to the femoral canal. We then sequentially broached the femur in appropriate anteversion until torsional stability was achieved and the implant was felt to have reached the appropriate size to allow trialing. The neck cut was brought flush to the trial broach with a calcar planar. A trial neck and head were then placed onto the broach and the hip was atraumatically reduced under direct visualization. External rotation to 90 was performed to assess stability. Fluoroscopy was brought in. An AP and lateral fluoroscopic image of the proximal femur was obtained to assess position and fill of the trial broach. An AP of the pelvis was then obtained and matched to the preoperative image taken. A bi-ischial bar was then placed and measurements were taken to assess changes in length and offset. The hip was then carefully dislocated, the proximal femur was exposed, and the trial implants were removed. The proximal femur was then prepared for cementing. The canal was thoroughly irrigated with pulsatile lavage to remove blood and marrow contents. A cement restrictor was placed to a depth just distal to the tip of the final implant. Epinephrine-soaked gauze was then packed into the proximal femur. 2 bags of cement were then mixed using a centrifuge and placed into a cement gun. Anesthesia was notified that cementing was about to commence to make sure the patient was appropriately ventilated and hydrated. Once the cement had reached appropriate consistency, the cement gun was used to fill the canal in a retrograde fashion starting at the restrictor. Cement was then pressurized into the canal with a blue tipped jacquard twine polisher operator. The stem was then carefully introduced into the cement taking care to guide the implant into appropriate version. The stem was held in position until the cement had fully set. All extra cement was removed while the cement was hardening. The trunnion was cleansed and the final head was tapped into place to engage the Chappell taper. The acetabulum was irrigated and visualized to be free of debris. The hip was carefully reduced. Stability was checked clinically with external rotation to 90 and there was no evidence of instability. Final fluoroscopic images were taken. The wound was then thoroughly irrigated and soaked with a dilute Betadine rinse for 3 minutes. 3 L of sterile saline was irrigated through the wound using pulsatile lavage. Local anesthetic cocktail was injected into the soft tissues around the surgical field. The wound was then closed in layers. A sterile dressing was placed over the surgical incision. The drapes were taken down and the patient was carefully transferred off of the [place] table. Following removal of the boots the leg lengths felt acceptable. The patient was then taken to recovery room having tolerated the procedure well. Sarmad Randle PA-C was required as a skilled assistant athletic trainer due to the complexity of surgery for patient positioning, draping, retraction, closure of wound, and application of dressing. PLAN: The patient can weight-bear as tolerated on the operative extremity. 2 doses of postoperative antibiotics. DVT prophylaxis with Eliquis given her history of DVT. Internal medicine for perioperative medical management. Physical therapy for gait training.
[2023-11-12 14:47] LABS: Glucose,Whole Blood 177 mg/dL (70-110)
[2023-11-12] MEDS: METOPROLOL TARTRATE 5 MG/5 ML VIAL IVP ONE ×4 (15:03→15:08)
[2023-11-12 15:44] LABS: INR 1.2 (<1.2); Prothrombin Time 12.6 sec (10.0-12.5)
--- NOTE | 2023-11-12 15:50 | CT ---
EXAMINATION TYPE: CODE STROKE: CT brain wo contr DATE OF EXAM: 11/12/2023 COMPARISON: 11/10/2023 HISTORY: 88-year-old female Neuro deficit, acute, stroke suspected, left leg weakness TECHNIQUE: Examination was done in axial plane without intravenous contrast. Coronal and sagittal r econstructions performed. CT DLP: 1647 mGycm Automated exposure control for dose reduction was used. FINDINGS: There is no evidence of acute intracranial hemorrhage, acute ischemic changes, mass, mass-effect, or extra-axial fluid collection. There is no effacement of cerebral sulci or basal subarachnoid cister ns. There is no hydrocephalus. There is no midline shift. Saleh-white matter distinction is preserv ed. Mild mucosal thickening floors of the maxillary sinuses. Otherwise, paranasal sinuses and mastoid air cells well pneumatized. Orbits and globes are intact. IMPRESSION: No acute intracranial abnormality seen.
[2023-11-12 15:57] LABS: ABG Base Excess -3.3 mmol/L; ABG HCO3 24 mmol/L (21-25); ABG PCO2 54 mmHg (35-45); ABG PH 7.25 (7.35-7.45); ABG TCO2 26 mmol/L (19-24); Allen Test Performed? Yes
[2023-11-12 15:58] LABS: ABG PO2 57 mmHg (83-108)
--- NOTE | 2023-11-12 16:01 | CT ---
EXAMINATION TYPE: CODE STROKE: CTA head neck DATE OF EXAM: 11/12/2023 COMPARISON: None HISTORY: 88-year-old female Neuro deficit, acute, stroke suspected, left leg weakness TECHNIQUE: Contiguous axial scanning of the head and neck performed with IV Contrast, patient injecte d with 65 mL of Isovue 370. Coronal and sagittal reconstructions performed. 3-D reconstructions gener ated on a dedicated independent workstation. CT DLP: 1647 mGycm Automated exposure control for dose reduction was used. FINDINGS: NECK: Small bilateral pleural effusions. Prominent left greater than right bibasilar opacities demonstrated . 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 Both vertebral arteries are codominant and patent throughout the course. The bilateral common carotid arteries are widely patent. Right internal carotid artery is widely rich nt. Atherosclerotic calcifications proximal left ICA resulting in mild, approximate 40% stenosis. Remaind er of the left ICA is patent. NASCET criteria was utilized. HEAD: Bilateral vertebral and basilar arteries as well as the remainder of the posterior circulation is pat ent. The dural venous sinuses are patent. There are scattered calcifications in the bilateral carotid siphons resulting in segmental mild to mo derate stenoses, left greater than right A1 segment left anterior cerebral artery is hypoplastic. There is tortuous proximal portion of the M1 segment left MCA with moderate focal stenosis, axial ser ies 509 image 56 Otherwise, the remainder of the anterior circulation is patent. No aneurysmal change is identified. IMPRESSION: Neck: 1. Mild, approximately 40% proximal left ICA stenosis. 2. 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 3. Small bilateral pleural effusions. Patchy left greater than right bibasilar opacities. Correlate w ith patient's respiratory symptoms and radiographic correlation. Head: 4. Atherosclerotic calcifications throughout the bilateral carotid siphons. This results in moderate segmental stenoses left ICA. 5. Additional moderate focal stenosis proximal M1 segment left MCA. 6. Otherwise, no large vessel intracranial arterial occlusion or aneurysmal change is seen.
[2023-11-12 16:05] LABS: Basophils # (A) 0.1 k/uL (0-0.2); Basophils % (A) 0 %; Eosinophils # (A) 0.1 k/uL (0-0.7); Eosinophils % (A) 0 %; HCT 33.8 % (34.0-46.0); HGB 11.1 gm/dL (11.4-16.0); Lymphocytes % (A) 13 %; MCH 32.8 pg (25.0-35.0); MCHC 32.8 g/dL (31.0-37.0); Mean Platelet Volume 9.1; Monocytes # (A) 0.3 k/uL (0-1.0); Monocytes % (A) 2 %; Neutrophils # (A) 13.2 k/uL (1.3-7.7); Neutrophils % (A) 83 %; Platelet Count 226 k/uL (150-450); RBC 3.39 m/uL (3.80-5.40); RDW 12.3 % (11.5-15.5); WBC 15.8 k/uL (3.8-10.6)
[2023-11-12 16:20] LABS: ALT 27 U/L (4-34); AST 45 U/L (14-36); African American GFR (CKD) 81 (>60 ml/min/1.73 sqM); Albumin 2.7 g/dL (3.5-5.0); Albumin/Globulin Ratio 1.3; Alkaline Phosphatase 61 U/L (38-126); Anion Gap 8 mmol/L; Blood Urea Nitrogen 21 mg/dL (7-17); Calcium 8.3 mg/dL (8.4-10.2); Carbon Dioxide 22 mmol/L (22-30); Chloride 107 mmol/L (98-107); Creatine Kinase 132 U/L (30-135); Globulin 2.1 g/dL; Glucose 206 mg/dL (74-99); Non-African American GFR(CKD) 70 (>60 ml/min/1.73 sqM); Potassium 3.4 mmol/L (3.5-5.1); Sodium 137 mmol/L (137-145); Total Bilirubin 0.5 mg/dL (0.2-1.3); Total Protein 4.8 g/dL (6.3-8.2)
--- NOTE | 2023-11-12 16:38 | XR ---
EXAMINATION TYPE: XR chest 1V portable DATE OF EXAM: 11/12/2023 4:30 PM CLINICAL INDICATION:Female, 88 years old with history of hypoxia, abnormal ABGs; COMPARISON: Chest radiographs from 05/24/2019 TECHNIQUE: XR chest 1V portable Frontal view of the chest. FINDINGS: Lungs/Pleura: There is no evidence of pleural effusion, focal consolidation, or pneumothorax. Pulmonary vascularity: Unremarkable. Heart/mediastinum: Cardiomediastinal silhouette is unremarkable. Musculoskeletal: No acute osseous pathology. Other findings: None IMPRESSION: No acute cardiopulmonary disease/process.
--- NOTE | 2023-11-12 17:18 | CT ---
EXAMINATION TYPE: CT chest angio for PE CT DLP: 292.8 mGycm, Automated exposure control for dose reduction was used. DATE OF EXAM: 11/12/2023 4:55 PM COMPARISON: CTA neck 11/12/2023. CLINICAL INDICATION:Female, 88 years old with history of RO PE; R/O PE post hip sx. TECHNIQUE/CONTRAST: CTA scan of the thorax is performed with IV Contrast, patient injected with 73ml of Isovue 370, MIP i mages are created and reviewed these are created on a separate workstation.. FINDINGS: Pulmonary Artery: Filling defects within the right lower lobe pulmonary arterial vasculature. Lungs/Pleura: Elevated right diaphragm with associated atelectasis. No evidence of focal consolidatio n, pleural effusion or pneumothorax. Airway: Large airways are patent. Heart: Atherosclerosis of the coronary arteries and aortic valve leaflets. Vasculature: No evidence of aortic aneurysm. There left vertebral artery originates off the aortic ar ch. Mediastinum: No gross evidence of adenopathy. Musculoskeletal: No acute osseous abnormalities Soft Tissues: Unremarkable. Lower neck: No significant findings. Upper Abdomen: Multiple layering gallstones in the gallbladder lumen. IMPRESSION: Couple small pulmonary emboli within the right upper and right lower lung. No evidence of right heart strain.
[2023-11-12 17:32] LABS: Glucose,Whole Blood 247 mg/dL (70-110)
[2023-11-12] MEDS ORDERED: HEPARIN SODIUM 1,000 UN/ML (10ML VL) IV PRN (17:39)
[2023-11-12] MEDS: CLEVIDIPINE BUTYRATE 25 MG in EMPTY BAG 1 BAG IV SCH (17:42)
[2023-11-12] MEDS: HEPARIN SODIUM 1,000 UN/ML (10ML VL) IV ONE (17:56)
[2023-11-12] MEDS: HEPARIN SOD,PORK IN 0.45% NACL 25,000 UNIT in 0.45% NACL 1 250ML.BAG IV SCH (17:56)
[2023-11-12] MEDS: SENNOSIDES-DOCUSATE SODIUM 1 EACH TAB PO SCH (21:11)
[2023-11-12] MEDS ORDERED: Potassium Replacement Protocol 1 EACH MISC MISCELLANE PRN (23:20)
[2023-11-12] MEDS ORDERED: Magnesium Replacement Protocol 1 EACH MISC MISCELLANE PRN (23:20)
[2023-11-12] MEDS: MAGNESIUM SULFATE-D5W PMX 1 GM in DEXTROSE/WATER 1 100ML.BAG IVPB SCH (23:53)
[2023-11-13] MEDS ORDERED: POTASSIUM CHLORIDE ER 20 MEQ TAB.ER PO SCH
[2023-11-13] MEDS: POTASSIUM CHLORIDE 10 MEQ in WATER FOR INJECTION 1 100ML.BAG IVPB SCH (00:19)
[2023-11-13] MEDS: HYDROmorphone 0.5 MG/0.5 ML SYRINGE IVP PRN ×2 (04:01→22:37)
[2023-11-13] MEDS: HYDROcodone/APAP 10-325MG 1 EACH TAB PO PRN (04:05)
--- NOTE | 2023-11-13 05:21 | P.CNPUL ---
History of Present Illness Consult date: 11/13/23 Requesting physician: Malia Casas Reason for consult: other (ICU management; code stroke; PE) Chief complaint: Status postelective right total hip replacement, left arm weakness History of present illness: Patient is an 88-year-old white female with past medical history significant for hypertension, osteoarthritis, and right lower extremity DVT. Patient recently diagnosed with right lower extremity DVT in March,, and she was placed on Eliquis. Eliquis was placed on hold 5 days prior to an elective right total hip arthroplasty. Patient was brought in yesterday for an elective right direct anterior total hip arthroplasty. While in PACU postoperatively, the patient could not move her left arm. A code stroke was initiated. Noncontrast brain CT did not show any acute intracranial abnormality, no hemorrhage or mass effect. Brain CTA showed mild approximately 40% left ICA stenosis, otherwise no large vessel intracranial arterial occlusion or aneurysmal change. Patient was evaluated by neuro-interventionalists, and risks outweighed benefits for thrombolytics. There were also some incidental pulmonary findings, warranting a dedicated film. Chest CTA showed a couple small pulmonary emboli within the right upper and lower lung gonzalez. No CT evidence of right-sided heart strain. There is also some bilateral atelectasis. The surgeon and Dr. Saldana discussed CT findings and the patient was ultimately started on a heparin infusion per protocol. Patient was also hypertensive postoperatively, and started on a Cleviprex infusion to be titrated to maintain systolic blood pressure of 170 or less to allow for permissive hypertension. Patient was transferred to the intensive care unit from PACU. Patient is currently lying in bed, on 6 L/min nasal cannula, in no acute distress. SpO2 currently 99%. Postoperative ABG showed a PaO2 of 77, pCO2 of 54, and pH of 7.25. She was temporarily on BiPAP support. No signs of hypercapnic encephalopathy. No focal neurological deficits. Patient's left upper extremity weakness has resolved. Overall, neurological exam is benign, consider TIA. Blood pressure is now normotensive. Heart rhythm is normal sinus on bedside monitor. Patient denies any chest pain. No lightheadedness or syncope. No coughing or hemoptysis. Postsurgical dressing is clean, dry, and intact. There is some nikki-incisional swelling. N eurovascular status intact. No obvious hematoma. Postoperative CBC: WBC count 15.8, hemoglobin 11.1, hematocrit 33.8, platelets 226. aPTT supratherapeutic, and heparin and was adjusted per protocol. Postoperative BMP: Sodium 137, testing 3.4, chloride 107, serum bicarb 22, BUN 21, creatinine 0.77, glucose 206. Magnesium 1.4. Electrolytes are being replaced. Troponins less 0.012. Patient will continue to be monitored in the intensive care unit at least overnight. Review of Systems REVIEW OF SYSTEMS: CONSTITUTIONAL: Denies any recent significant weight loss or weight gain. EYES: Denies change in vision. EARS, NOSE, MOUTH, THROAT: Denies headaches, denies sore throat. CARDIOVASCULAR: Denies chest pain, palpitations or syncopal episodes. RESPIRATORY: Denies shortness of breath, cough, congestion or hemoptysis. GASTROINTESTINAL: Denies change in appetite, abdominal pain, nausea and vomiting, or diarrhea GENITOURINARY: Denies hematuria, denies infections. MUSKULOSKELETAL: Admits postsurgical incisional pain. INTEGUMENTARY: Denies rash, denies eczema. NEUROLOGICAL: Denies recent memory loss, no recent seizure activity. No unilateral weakness. PSYCHIATRIC: Denies anxiety, denies depression. HEMATOLOGIC/LYMPHATIC: Denies anemia, denies enlarged lymph node Past Medical History Past Medical History: Cancer, Diabetes Mellitus, Deep Vein Thrombosis (DVT), Hypertension, Osteoarthritis (OA), Pulmonary Embolus (PE) Additional Past Medical History / Comment(s): Skin cancer on back of right leg, diet controlled dm, lft leg dvt 03/2023, bunion on rt foot with scab History of Any Multi-Drug Resistant Organisms: None Reported Past Surgical History: Hysterectomy, Orthopedic Surgery Additional Past Surgical History / Comment(s): skin cancer removal from R leg, thrombectomy lft leg Past Anesthesia/Blood Transfusion Reactions: No Reported Reaction Past Psychological History: No Psychological Hx Reported Smoking Status: Never smoker Past Alcohol Use History: Occasional Additional Past Alcohol Use History / Comment(s): wekends a couple of glasses of wine Past Drug Use History: None Reported - Past Family History Daughter(s) Family Medical History: Cancer Additional Family Medical History / Comment(s): breast Father Family Medical History: Hypertension Mother Family Medical History: Hypertension Brother(s) Family Medical History: Cancer, Hypertension Medications and Allergies Home Medications Medication Instructions Recorded Confirmed Type Ibuprofen [Advil] 400 mg PO DAILY 05/24/19 11/06/23 History Metoprolol Succinate [Toprol XL] 25 mg PO DAILY 05/24/19 11/06/23 History hydroCHLOROthiazide [Hydrodiuril] 25 mg PO DAILY 05/24/19 11/06/23 History ramipriL [Ramipril] 10 mg PO HS 05/24/19 11/12/23 History ramipriL [Ramipril] 20 mg PO DAILY 05/24/19 11/06/23 History Apixaban [Eliquis] 5 mg PO BID 09/29/23 11/12/23 History Allergies Allergy/AdvReac Type Severity Reaction Status Date / Time No Known Allergies Allergy Verified 11/12/23 10:59 Physical Exam Vitals: Vital Signs Temp Pulse Pulse Pulse Resp BP BP 11/13/23 02:00 77 13 113/62 11/13/23 01:00 80 15 115/67 11/13/23 00:00 97.9 F 93 15 111/69 11/12/23 23:00 84 13 170/71 11/12/23 22:07 11/12/23 22:05 16 11/12/23 22:00 76 12 113/72 11/12/23 21:00 71 12 138/75 11/12/23 20:01 11/12/23 20:00 78 12 145/72 11/12/23 19:45 72 12 120/77 11/12/23 19:30 78 12 135/74 11/12/23 19:15 83 14 170/88 11/12/23 19:00 81 18 178/85 11/12/23 18:10 84 20 166/70 11/12/23 18:00 83 18 162/71 11/12/23 17:50 81 12 162/71 11/12/23 17:40 79 16 185/91 11/12/23 17:30 80 14 11/12/23 17:29 13 11/12/23 17:08 74 18 211/85 11/12/23 16:59 11/12/23 16:53 79 12 189/80 11/12/23 16:35 74 18 174/73 11/12/23 16:31 73 18 174/73 11/12/23 16:26 76 18 180/77 11/12/23 16:16 79 14 158/65 11/12/23 16:12 11/12/23 16:11 11/12/23 16:10 83 14 183/72 11/12/23 16:05 85 20 135/64 11/12/23 16:00 84 23 139/64 11/12/23 15:50 90 19 125/58 11/12/23 15:44 87 18 137/62 11/12/23 15:30 90 20 145/67 11/12/23 15:25 90 19 199/81 11/12/23 15:20 86 15 165/74 11/12/23 15:15 82 37 H 127/68 11/12/23 15:13 82 23 151/67 11/12/23 15:05 227/93 11/12/23 15:03 201/92 11/12/23 14:43 89 18 185/80 11/12/23 14:32 97.0 F L 120 H 24 223/107 11/12/23 12:13 78 16 185/79 11/12/23 10:50 98.4 F 78 16 198/80 Pulse Ox FiO2 11/13/23 02:00 96 11/13/23 01:00 96 11/13/23 00:00 99 11/12/23 23:00 94 L 11/12/23 22:07 95 11/12/23 22:05 95 11/12/23 22:00 96 11/12/23 21:00 93 L 11/12/23 20:01 50 11/12/23 20:00 93 L 50 11/12/23 19:45 93 L 11/12/23 19:30 94 L 11/12/23 19:15 96 60 11/12/23 19:00 96 11/12/23 18:10 95 11/12/23 18:00 94 L 11/12/23 17:50 94 L 11/12/23 17:40 95 11/12/23 17:30 96 11/12/23 17:29 96 11/12/23 17:08 98 11/12/23 16:59 60 11/12/23 16:53 99 11/12/23 16:35 97 80 11/12/23 16:31 98 11/12/23 16:26 98 11/12/23 16:16 92 L 11/12/23 16:12 100 11/12/23 16:11 100 11/12/23 16:10 90 L 11/12/23 16:05 88 L 11/12/23 16:00 93 L 11/12/23 15:50 93 L 11/12/23 15:44 93 L 11/12/23 15:30 84 L 11/12/23 15:25 90 L 11/12/23 15:20 86 L 11/12/23 15:15 86 L 11/12/23 15:13 90 L 11/12/23 15:05 11/12/23 15:03 11/12/23 14:43 95 11/12/23 14:32 95 11/12/23 12:13 96 11/12/23 10:50 95 Intake and Output 11/12/23 11/12/23 11/13/23 14:59 22:59 06:59 Intake Total 1850 134.167 671.742 Output Total 200 300 150 Balance 1650 -165.833 521.742 Intake: IV 1850 130 580 Lactated Ringers 1,000 ml 80 80 @ 20 mls/hr IV .Q24H [facility] Rx#:[id number] Magnesium Sulfate-D5w Pmx 200 1 gm In Dextrose/Water 1 100ml.bag @ 100 mls/hr IVPB Q1H [facility] Rx#: [id number] Potassium Chloride 10 meq 300 In Water For Injection 1 100ml.bag @ 100 mls/hr IVPB Q1HR [facility] Rx#: [id number] ceFAZolin 2 gm In Sodium 50 Chloride 0.9% 50 ml @ 100 mls/hr IVPB ONCE PRN Rx# :[id number] Intake, IV Titration 4.167 91.742 Amount Clevidipine Butyrate 25 4.167 mg In Empty Bag 1 bag @ 1 MG/HR 2 mls/hr IV .Q24H [facility] Rx#:[id number] Heparin Sod,Pork in 0.45% 91.742 NaCl 25,000 unit In 0.45 % NaCl 1 250ml.bag @ 18 UNITS/KG/HR 12.654 mls/hr IV .[id number] [facility] Rx#: [id number] Output: Urine 300 150 Estimated Blood Loss 200 Other: Voiding Method External Catheter External Catheter # Voids 0 Weight 70.3 kg 70.307 kg GENERAL EXAM: Alert, 88-year-old white female, comfortable in no apparent distress. HEAD: Normocephalic and atraumatic EYES: Normal reaction of pupils, equal size. NOSE: Clear with pink turbinates. THROAT: No erythema or exudates. NECK: No masses, no JVD. CHEST: No chest wall deformity. LUNGS: Equal air entry with with diminished bibasilar lung sounds. No crackles, wheeze, rhonchi or dullness. On 6 L/min nasal cannula. No conversational dyspnea or accessory muscle use.. CVS: S1 and S2 normal with no audible murmur, regular rhythm. No extra heart sounds ABDOMEN: No hepatosplenomegaly, active bowel sounds, no guarding or rigidity. SPINE: No scoliosis or deformity SKIN: No rashes CENTRAL NERVOUS SYSTEM: Alert and oriented x 3, cranial nerves II through XII intact, bilateral upper extremity strength 5/5, left lower extremity strength 5/5, right lower extremity is postsurgical, bilateral patellar DTRs 2+ bilaterally, no ataxia, gait examination was deferred EXTREMITIES: There is no peripheral edema, clubbing, or cyanosis. Peripheral pulses are intact. Right hip incision is clean, dry, intact. There is some nikki-incisional edema, without ecchymosis or obvious hematoma. Results - Laboratory Findings CBC and BMP: 11/12/23 15:45 11/12/23 15:45 ABG ABG pH 7.25 (7.35-7.45) L 11/12/23 15:35 ABG pCO2 54 mmHg (35-45) H 11/12/23 15:35 ABG pO2 57 mmHg (83-108) L* 11/12/23 15:35 ABG O2 Saturation 87.0 % (94-97) L 11/12/23 15:35 PT/INR, D-dimer PT 12.6 sec (10.0-12.5) H 11/12/23 15:11 INR 1.2 (<1.2) H 11/12/23 15:11 Abnormal lab findings: Abnormal Labs 11/12/23 11/12/23 11/12/23 11:18 11:39 14:46 WBC RBC Hgb Hct Neutrophils # PT INR APTT ABG pH ABG pCO2 ABG pO2 ABG Total CO2 ABG O2 Saturation Potassium BUN 23 H Glucose 137 H POC Glucose (mg/dL) 138 H 177 H Calcium Magnesium AST Total Protein Albumin 11/12/23 11/12/23 11/12/23 15:11 15:35 15:45 WBC 15.8 H RBC 3.39 L Hgb 11.1 L Hct 33.8 L Neutrophils # 13.2 H PT 12.6 H INR 1.2 H APTT ABG pH 7.25 L ABG pCO2 54 H ABG pO2 57 L* ABG Total CO2 26 H ABG O2 Saturation 87.0 L Potassium BUN Glucose POC Glucose (mg/dL) Calcium Magnesium AST Total Protein Albumin 11/12/23 11/12/23 11/12/23 15:45 15:45 17:30 WBC RBC Hgb Hct Neutrophils # PT INR APTT ABG pH ABG pCO2 ABG pO2 ABG Total CO2 ABG O2 Saturation Potassium 3.4 L BUN 21 H Glucose 206 H POC Glucose (mg/dL) 247 H Calcium 8.3 L Magnesium 1.4 L AST 45 H Total Protein 4.8 L Albumin 2.7 L 11/12/23 23:57 WBC RBC Hgb Hct Neutrophils # PT INR APTT >200.0 H* ABG pH ABG pCO2 ABG pO2 ABG Total CO2 ABG O2 Saturation Potassium BUN Glucose POC Glucose (mg/dL) Calcium Magnesium AST Total Protein Albumin - Diagnostic Findings CT scan - chest: image reviewed Assessment and Plan Assessment: Right hip osteoarthritis status post operative day #1 following a direct right anterior total hip arthroplasty. Small pulmonary emboli, noted within the right upper and lower lung gonzalez, no CT evidence of right-sided heart strain. 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 Acute hypoxemic respiratory failure, secondary to above History of right lower extremity DVT, was on Eliquis, however placed on hold for the above-mentioned procedure. Left upper extremity weakness, improved, patient was code stroke while in PACU, Noncontrast brain CT did not show any acute intracranial abnormality, no he morrhage or mass effect. Brain CTA showed mild approximately 40% left ICA stenosis, otherwise no large vessel intracranial arterial occlusion or aneurysmal change. Patient was evaluated by neuro-interventionalists, and risks outweighed benefits for thrombolytics. Consider TIA Postoperative hypertension, transiently on Cleviprex infusion, improved Acute blood loss anemia, expected outcome of surgery Electrolyte abnormalities including hypokalemia and hypomagnesemia, being replaced Acute leukocytosis, likely reactive to surgery Plan: Patient's medications, labs, imaging reviewed Patient was moved to the intensive care unit postoperatively. Chest CTA results were reviewed, and a collaborative decision was made to start the patient on IV heparin per protocol. Monitor for postoperative bleeding. No CT evidence of right-sided heart strain. Currently on 6 L/min nasal cannula. Patient was also code stroke in PACU, neuro-interventionalist evaluated patient. No thrombolytics were given and patient's left arm weakness has resolved. Considered TIA and possible thromboembolic event Allow for permissive hypertension Transthoracic echocardiogram with bubble study ordered Neurology consulted As needed analgesics ordered Pepcid for GI prophylaxis Replace electrolytes per protocol Patient is asking to be made a DO NOT RESUSCITATE/DO NOT INTUBATE. She is of sound mind and able to make her own decisions. In the event of a cardiac arrest, she does not want any CPR, emergency medications, or defibrillation. She also does not want to be intubated for placed on the mechanical ventilator. Patient will remain in the intensive care unit at this time. I have personally seen and examined the patient, performed the documentation and the assessment and plan as written. Number of minutes spent on the visit:20 Time with Patient: Greater than 30
[2023-11-13 05:24] LABS: Basophils % (A) 0 %; Eosinophils % (A) 0 %; HCT 28.6 % (34.0-46.0); Lymphocytes # (A) 1.4 k/uL (1.0-4.8); Lymphocytes % (A) 7 %; MCH 32.8 pg (25.0-35.0); MCHC 32.2 g/dL (31.0-37.0); MCV 101.9 fL (80.0-100.0); Macrocytosis Slight; Mean Platelet Volume 8.9; Monocytes % (A) 5 %; Neutrophils # (A) 17.7 k/uL (1.3-7.7); Neutrophils % (A) 87 %; Platelet Count 219 k/uL (150-450); RBC 2.81 m/uL (3.80-5.40); RDW 13.1 % (11.5-15.5); WBC 20.3 k/uL (3.8-10.6)
[2023-11-13 05:25] LABS: HGB 9.2 gm/dL (11.4-16.0)
[2023-11-13 05:35] LABS: African American GFR (CKD) 52 (>60 ml/min/1.73 sqM); Anion Gap 9 mmol/L; Blood Urea Nitrogen 23 mg/dL (7-17); Calcium 8.3 mg/dL (8.4-10.2); Carbon Dioxide 19 mmol/L (22-30); Chloride 105 mmol/L (98-107); Glucose 240 mg/dL (74-99); Non-African American GFR(CKD) 45 (>60 ml/min/1.73 sqM); Potassium 5.2 mmol/L (3.5-5.1); Sodium 133 mmol/L (137-145)
[2023-11-13 06:39] LABS: Glucose,Whole Blood 268 mg/dL (70-110)
[2023-11-13] MEDS: INSULIN ASPART (NovoLOG) 100 UNIT/ML VIAL SQ SCH (06:43)
--- NOTE | 2023-11-13 07:33 | P.PN ---
Subjective Postoperative events noted.Per nursing the patient is presently on a heparin drip and has had labile blood pressures. The patient reports some pain in her hip overnight but it is better now. Objective - Vital Signs Vital signs: Vital Signs Temp 97.6 F 11/13/23 04:00 Pulse 90 11/13/23 07:00 Resp 14 11/13/23 07:00 BP 97/49 11/13/23 07:00 Pulse Ox 97 11/13/23 07:00 FiO2 50 11/12/23 20:01 Intake & Output 11/12/23 11/13/23 11/13/23 18:59 06:59 18:59 Intake Total 1850 1035.909 20 Output Total 200 450 0 Balance 1650 585.909 20 Weight 70.3 kg 71.6 kg Intake: IV 1850 940 20 Lactated Ringers 1,000 ml 240 20 @ 20 mls/hr IV .Q24H [facility] Rx#:[id number] Magnesium Sulfate-D5w Pmx 200 1 gm In Dextrose/Water 1 100ml.bag @ 100 mls/hr IVPB Q1H [facility] Rx#: [id number] Potassium Chloride 10 meq 400 In Water For Injection 1 100ml.bag @ 100 mls/hr IVPB Q1HR [facility] Rx#: [id number] ceFAZolin 2 gm In Sodium 100 Chloride 0.9% 50 ml @ 100 mls/hr IVPB ONCE PRN Rx# :[id number] Intake, IV Titration 95.909 Amount Clevidipine Butyrate 25 4.167 mg In Empty Bag 1 bag @ 1 MG/HR 2 mls/hr IV .Q24H [facility] Rx#:[id number] Heparin Sod,Pork in 0.45% 91.742 NaCl 25,000 unit In 0.45 % NaCl 1 250ml.bag @ 18 UNITS/KG/HR 12.654 mls/hr IV .[id number] [facility] Rx#: [id number] Output: Urine 450 0 Estimated Blood Loss 200 Other: Voiding Method External Catheter # Voids 1 0 - Exam Patient is resting comfortably in bed. She is no apparent distress and is able to answer questions. On inspection of the right hip there is no intact dressing with no drainage or strike through. There is moderate swelling over the right hip. Femoral nerve function is intact. She is able to actively plantarflex and dorsiflex her ankle and her toes. - Labs CBC & Chem 7: 11/13/23 04:53 11/13/23 04:53 Labs: Abnormal Lab Results - Last 24 Hours (Table) 11/12/23 11/12/23 11/12/23 Range/Units 11:18 11:39 14:46 WBC (3.8-10.6) k/uL RBC (3.80-5.40) m/uL Hgb (11.4-16.0) gm/dL Hct (34.0-46.0) % MCV (80.0-100.0) fL Neutrophils # (1.3-7.7) k/uL PT (10.0-12.5) sec INR (<1.2) APTT (22.0-30.0) sec ABG pH (7.35-7.45) ABG pCO2 (35-45) mmHg ABG pO2 (83-108) mmHg ABG Total CO2 (19-24) mmol/L ABG O2 Saturation (94-97) % Sodium (137-145) mmol/L Potassium (3.5-5.1) mmol/L Carbon Dioxide (22-30) mmol/L BUN 23 H (7-17) mg/dL Creatinine (0.52-1.04) mg/dL Glucose 137 H (74-99) mg/dL POC Glucose (mg/dL) 138 H 177 H (70-110) mg/dL Calcium (8.4-10.2) mg/dL Magnesium (1.6-2.3) mg/dL AST (14-36) U/L Total Protein (6.3-8.2) g/dL Albumin (3.5-5.0) g/dL 11/12/23 11/12/23 11/12/23 Range/Units 15:11 15:35 15:45 WBC 15.8 H (3.8-10.6) k/uL RBC 3.39 L (3.80-5.40) m/uL Hgb 11.1 L (11.4-16.0) gm/dL Hct 33.8 L (34.0-46.0) % MCV (80.0-100.0) fL Neutrophils # 13.2 H (1.3-7.7) k/uL PT 12.6 H (10.0-12.5) sec INR 1.2 H (<1.2) APTT (22.0-30.0) sec ABG pH 7.25 L (7.35-7.45) ABG pCO2 54 H (35-45) mmHg ABG pO2 57 L* (83-108) mmHg ABG Total CO2 26 H (19-24) mmol/L ABG O2 Saturation 87.0 L (94-97) % Sodium (137-145) mmol/L Potassium (3.5-5.1) mmol/L Carbon Dioxide (22-30) mmol/L BUN (7-17) mg/dL Creatinine (0.52-1.04) mg/dL Glucose (74-99) mg/dL POC Glucose (mg/dL) (70-110) mg/dL Calcium (8.4-10.2) mg/dL Magnesium (1.6-2.3) mg/dL AST (14-36) U/L Total Protein (6.3-8.2) g/dL Albumin (3.5-5.0) g/dL 11/12/23 11/12/23 11/12/23 Range/Units 15:45 15:45 17:30 WBC (3.8-10.6) k/uL RBC (3.80-5.40) m/uL Hgb (11.4-16.0) gm/dL Hct (34.0-46.0) % MCV (80.0-100.0) fL Neutrophils # (1.3-7.7) k/uL PT (10.0-12.5) sec INR (<1.2) APTT (22.0-30.0) sec ABG pH (7.35-7.45) ABG pCO2 (35-45) mmHg ABG pO2 (83-108) mmHg ABG Total CO2 (19-24) mmol/L ABG O2 Saturation (94-97) % Sodium (137-145) mmol/L Potassium 3.4 L (3.5-5.1) mmol/L Carbon Dioxide (22-30) mmol/L BUN 21 H (7-17) mg/dL Creatinine (0.52-1.04) mg/dL Glucose 206 H (74-99) mg/dL POC Glucose (mg/dL) 247 H (70-110) mg/dL Calcium 8.3 L (8.4-10.2) mg/dL Magnesium 1.4 L (1.6-2.3) mg/dL AST 45 H (14-36) U/L Total Protein 4.8 L (6.3-8.2) g/dL Albumin 2.7 L (3.5-5.0) g/dL 11/12/23 11/13/23 11/13/23 Range/Units 23:57 04:53 04:53 WBC 20.3 H (3.8-10.6) k/uL RBC 2.81 L (3.80-5.40) m/uL Hgb 9.2 L D (11.4-16.0) gm/dL Hct 28.6 L (34.0-46.0) % MCV 101.9 H (80.0-100.0) fL Neutrophils # 17.7 H (1.3-7.7) k/uL PT (10.0-12.5) sec INR (<1.2) APTT >200.0 H* (22.0-30.0) sec ABG pH (7.35-7.45) ABG pCO2 (35-45) mmHg ABG pO2 (83-108) mmHg ABG Total CO2 (19-24) mmol/L ABG O2 Saturation (94-97) % Sodium 133 L (137-145) mmol/L Potassium 5.2 H (3.5-5.1) mmol/L Carbon Dioxide 19 L (22-30) mmol/L BUN 23 H (7-17) mg/dL Creatinine 1.11 H (0.52-1.04) mg/dL Glucose 240 H (74-99) mg/dL POC Glucose (mg/dL) (70-110) mg/dL Calcium 8.3 L (8.4-10.2) mg/dL Magnesium (1.6-2.3) mg/dL AST (14-36) U/L Total Protein (6.3-8.2) g/dL Albumin (3.5-5.0) g/dL 11/13/23 Range/Units 06:38 WBC (3.8-10.6) k/uL RBC (3.80-5.40) m/uL Hgb (11.4-16.0) gm/dL Hct (34.0-46.0) % MCV (80.0-100.0) fL Neutrophils # (1.3-7.7) k/uL PT (10.0-12.5) sec INR (<1.2) APTT (22.0-30.0) sec ABG pH (7.35-7.45) ABG pCO2 (35-45) mmHg ABG pO2 (83-108) mmHg ABG Total CO2 (19-24) mmol/L ABG O2 Saturation (94-97) % Sodium (137-145) mmol/L Potassium (3.5-5.1) mmol/L Carbon Dioxide (22-30) mmol/L BUN (7-17) mg/dL Creatinine (0.52-1.04) mg/dL Glucose (74-99) mg/dL POC Glucose (mg/dL) 268 H (70-110) mg/dL Calcium (8.4-10.2) mg/dL Magnesium (1.6-2.3) mg/dL AST (14-36) U/L Total Protein (6.3-8.2) g/dL Albumin (3.5-5.0) g/dL Assessment and Plan Assessment: Postoperative day #1 status post right direct anterior total hip replacement Postoperative PE History of DVT and PE Plan: Appreciate internal medicine and ICU management. The patient can weight-bear as tolerated on her right hip. Mobilize out of bed to a chair when able. Leave surgical dressing in place. The patient is presently on a heparin drip for her PE And I will defer long-term choice of anticoagulation to internal medicine. Discharge planning and process.
[2023-11-13] MEDS: SODIUM CHLORIDE 0.9% 1,000 ML IV ONE (08:44)
[2023-11-13] MEDS: FAMOTIDINE 20 MG TAB PO SCH (08:44)
[2023-11-13 09:26] LABS: HCT 26.6 % (34.0-46.0); HGB 8.3 gm/dL (11.4-16.0); Hypochromasia Slight; MCH 32.4 pg (25.0-35.0); MCHC 31.3 g/dL (31.0-37.0); MCV 103.6 fL (80.0-100.0); Macrocytosis Slight; Mean Platelet Volume 8.8; Platelet Count 218 k/uL (150-450); RBC 2.57 m/uL (3.80-5.40); RDW 12.6 % (11.5-15.5); WBC 22.3 k/uL (3.8-10.6)
--- NOTE | 2023-11-13 10:03 | P.CNNES ---
History of Present Illness Consult date: 11/12/23 Requesting physician: Brody Brownlee Reason for Consult: Stroke History of Present Illness: Patient is a 88-year-old right-handed female, who has history of DVT, on anticoagulation with Eliquis, also had severe degenerative hip disease for which she came to the hospital this morning for elective right total hip arthroplasty. Patient underwent procedure well. Patient had stopped Eliquis for 5 days prior to the surgery. Postoperatively patient was noted to have weakness of the left arm and left leg. There was no facial droop. No slurred speech. Her initial NIH stroke scale was 13. Stroke code was activated. Patient underwent stat CT head, CTA of head and neck. Patient was not considered a candidate for tPA, because of recent hip surgery, and last known well > 4.5 hours. When she returned back from CT/CTA, her symptoms have remarkably improved with NIH stroke scale of 1. Patient was transferred to ICU. When I saw the patient, all symptoms have already resolved. Her NIH stroke scale was 0. Patient's daughter was also present by the bedside. Patient lives with her son. She has been using walker most of the time for the last 1 year because of bad hip. Sometimes she uses a cane. Patient has history of DVT in March 2023 for which she has been on Eliquis. No history of atrial fibri llation. Patient does have hypertension and mild diabetes. Denies any tobacco use. She drinks 2 glasses of wine a week. Denies any previous history of strokes or TIA. Patient and her daughter denies any history of memory loss or dementia. CT head revealed no acute intracranial abnormality. I personally reviewed CT head, agree with the findings. Blood test shows normal CBC, PT PTT, normal CMP. Review of Systems Constitutional: Denies chills, Denies fever Eyes: denies blurred vision, denies diplopia, denies pain, denies loss of peripheral vision, denies loss of vision Ears: deny: decreased hearing, ear discharge Ears, nose, mouth and throat: Denies headache, Denies sore throat, Denies vertigo Cardiovascular: Denies chest pain, Denies lightheadedness, Denies shortness of breath Respiratory: Denies cough, Denies excessive sputum Gastrointestinal: Denies abdominal pain, Denies diarrhea, Denies nausea, Denies vomiting Genitourinary: Reports mixed incontinence, Denies dysuria Musculoskeletal: Denies low back pain, Denies myalgias, Denies neck pain Integumentary: Denies pruritus, Denies rash Neurological: Reports as per HPI Psychiatric: Denies anxiety, Denies depression Hematologic/Lymphatic: Reports easy bruising, Denies easy bleeding Past Medical History Past Medical History: Cancer, Diabetes Mellitus, Deep Vein Thrombosis (DVT), Hypertension, Osteoarthritis (OA) Additional Past Medical History / Comment(s): skin on back of leg, diet controlled dm, lft leg dvt 03/2023, bunion on rt foot with scab History of Any Multi-Drug Resistant Organisms: None Reported Past Surgical History: Hysterectomy Additional Past Surgical History / Comment(s): skin cancer removal from R leg, removal of blood clot from lft leg Past Anesthesia/Blood Transfusion Reactions: No Reported Reaction Smoking Status: Never smoker - Past Family History Daughter(s) Family Medical History: Cancer Additional Family Medical History / Comment(s): breast Father Family Medical History: Hypertension Mother Family Medical History: Hypertension Brother(s) Family Medical History: Cancer, Hypertension Medications and Allergies Home Medications Medication Instructions Recorded Confirmed Type Ibuprofen [Advil] 400 mg PO DAILY 05/24/19 11/06/23 History Metoprolol Succinate [Toprol XL] 25 mg PO DAILY 05/24/19 11/06/23 History hydroCHLOROthiazide [Hydrodiuril] 25 mg PO DAILY 05/24/19 11/06/23 History ramipriL [Ramipril] 10 mg PO HS 05/24/19 11/12/23 History ramipriL [Ramipril] 20 mg PO DAILY 05/24/19 11/06/23 History Apixaban [Eliquis] 5 mg PO BID 09/29/23 11/12/23 History Allergies Allergy/AdvReac Type Severity Reaction Status Date / Time No Known Allergies Allergy Verified 11/12/23 10:59 Physical Examination - Vital Signs Vital Signs: Vital Signs Temp Pulse Pulse Resp BP Pulse Ox FiO2 11/12/23 16:59 60 11/12/23 16:53 79 12 189/80 99 11/12/23 16:35 74 18 174/73 97 80 11/12/23 16:31 73 18 174/73 98 11/12/23 16:26 76 18 180/77 98 11/12/23 16:16 79 14 158/65 92 L 11/12/23 16:12 100 11/12/23 16:11 100 11/12/23 16:10 83 14 183/72 90 L 11/12/23 16:05 85 20 135/64 88 L 11/12/23 16:00 84 23 139/64 93 L 11/12/23 15:50 90 19 125/58 93 L 11/12/23 15:44 87 18 137/62 93 L 11/12/23 15:30 90 20 145/67 84 L 11/12/23 15:25 90 19 199/81 90 L 11/12/23 15:20 86 15 165/74 86 L 11/12/23 15:15 82 37 H 127/68 86 L 11/12/23 15:13 82 23 151/67 90 L 11/12/23 15:05 227/93 11/12/23 15:03 201/92 11/12/23 14:43 89 18 185/80 95 11/12/23 14:32 97.0 F L 120 H 24 223/107 95 11/12/23 12:13 78 16 185/79 96 11/12/23 10:50 98.4 F 78 16 198/80 95 Intake and Output 11/12/23 11/12/23 11/12/23 06:59 14:59 22:59 Intake Total 1850 Output Total 200 Balance 1650 Intake: IV 1850 Output: Estimated Blood Loss 200 Other: Weight 70.3 kg Patient is an elderly female, very pleasant, in no acute distress. Patient is using BiPAP. Patient is alert awake oriented to time place and person. Speech and language functions are normal. Patient can name and repeat very well. No aphasia or dysarthria. Attention, concentration and fund of knowledge is adequate. On cranial nerve examination, pupils are equal, round and reacting to light, visual gonzalez are full on confrontation, with no neglect on double simultaneous stimulation. Extraocular muscles are intact with no nystagmus. Face is symmetric, tongue protrudes to the midline. Palatal elevation and sensation normal, hearing and shoulder shrug normal, facial sensation normal. On muscle strength testing, there is no pronator drift. 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 Deep tendon reflexes are symmetric 1+ at the biceps, 1+ brachioradialis, 1 at the knee bilaterally. Plantars downgoing. Sensory to touch is equal with no neglect on double simultaneous stimulation. Cerebellar function showed no ataxia for [id number] testing on either side. No dysdiadochokinesia. Did not check for ataxia in the lower limbs because of recent hip surgery. Tone and bulk of muscles normal. Gait deferred.. On general examination, there is no carotid bruit or murmur, S1-S2 audible. Chest is clear on consultation. Abdomen is soft nontender. No organomegaly, bowel sounds present. Peripheral pulses are present. No peripheral edema. Results - Laboratory Findings CBC and BMP: 11/13/23 09:07 11/13/23 04:53 Abnormal Lab Findings: Abnormal Labs 11/12/23 11/12/23 11/12/23 11:18 11:39 14:46 WBC RBC Hgb Hct Neutrophils # PT INR ABG pH ABG pCO2 ABG pO2 ABG Total CO2 ABG O2 Saturation Potassium BUN 23 H Glucose 137 H POC Glucose (mg/dL) 138 H 177 H Calcium AST Total Protein Albumin 11/12/23 11/12/23 11/12/23 15:11 15:35 15:45 WBC 15.8 H RBC 3.39 L Hgb 11.1 L Hct 33.8 L Neutrophils # 13.2 H PT 12.6 H INR 1.2 H ABG pH 7.25 L ABG pCO2 54 H ABG pO2 57 L* ABG Total CO2 26 H ABG O2 Saturation 87.0 L Potassium BUN Glucose POC Glucose (mg/dL) Calcium AST Total Protein Albumin 11/12/23 15:45 WBC RBC Hgb Hct Neutrophils # PT INR ABG pH ABG pCO2 ABG pO2 ABG Total CO2 ABG O2 Saturation Potassium 3.4 L BUN 21 H Glucose 206 H POC Glucose (mg/dL) Calcium 8.3 L AST 45 H Total Protein 4.8 L Albumin 2.7 L Assessment and Plan Assessment: * Acute stroke/TIA, manifesting with left hemiparesis, this seems to have mostly resolved. Although her NIH stroke scale at this time is 0, but she does have some weakness of the left biceps muscle, uncertain new or old. * Right hip osteoarthritis, status post total hip arthroplasty today, 11/12/2023. * History of DVT, on Eliquis. * Hypertension * Diabetes * Acute pulmonary embolism Plan: * Patient's symptoms have mostly resolved. * CTA of the neck revealed approximately 40% proximal left ICA stenosis. * CTA of the head showed atherosclerotic calcifications throughout the bilateral carotid siphons. This results in moderate segmental stenosis left ICA. Additional moderate focal stenosis proximal M1 segment left MCA. Otherwise no large vessel intracranial arterial occlusion or aneurysm. * Patient's vascular stenosis are on the ipsilateral side, therefore probably asymptomatic. Rule out cardiac source. * CTA of the chest performed showed couple small pulmonary emboli within the right upper and right lower lung. No evidence of right heart strain. * Patient has been started on heparin IV for PE. * Consider starting aspirin if cleared by orthopedic surgery. * Cleviprex started for uncontrolled blood pressure. Avoid hypotension. * 2D echo with bubble study rule out PFO * Fasting lipid panel * Hemoglobin A1c 6.9 on 09/22/2023. No need to repeat. * Telemetry monitoring. * PT OT. * DVT prophylaxis: Patient started on IV heparin. * Neurology will follow. Thank you for the consult. Time with Patient: Greater than 30
--- NOTE | 2023-11-13 10:38 | CA ---
Transthoracic Echo Report Name: Lucina Roberts Age: 88 Gender: F : 1935 Exam Date: 11/13/2023 07:08 Exam Location: [facility] Ht (in): 62 Wt (lb): 154 Ordering Physician: Edvin Smith MD Attending/Referring Phys: Roster Clerk Marga Retana RDCS Procedure CPT: Indications: stroke/tia Cardiac Hx: Technical Quality: Fair Contrast 1: Total Dose (mL): Contrast 2: Total Dose (mL): MEASUREMENTS (Male / Female) Normal Values 2D ECHO LV Diastolic Diameter PLAX 3.1 cm 4.2 - 5.9 / 3.9 - 5.3 cm LV Systolic Diameter PLAX 2.1 cm IVS Diastolic Thickness 1.3 cm 0.6 - 1.0 / 0.6 - 0.9 cm LVPW Diastolic Thickness 1.4 cm 0.6 - 1.0 / 0.6 - 0.9 cm LV Relative Wall Thickness 0.9 RV Internal Dim ED PLAX 2.1 cm LVOT Diameter 1.9 cm LA Systolic Diameter LX 3.3 cm 3.0 - 4.0 / 2.7 - 3.8 cm LV Diastolic Volume MOD BP 31.1 cm??? 67 - 155 / 56 - 104 cm??? LV Systolic Volume MOD BP 14.9 cm??? 22 - 58 / 19 - 49 cm??? LV Ejection Fraction MOD BP 52.1 % >= 55 % LV Cardiac Index MOD BP 788.0 cm???/min???m??? LV Diastolic Volume MOD 4C 32.1 cm??? LV Systolic Volume MOD 4C 11.3 cm??? LV Ejection Fraction MOD 4C 64.8 % LV Cardiac Index MOD 4C 1011.4 cm???/min???m??? LV Diastolic Length 4C 6.0 cm LV Systolic Length 4C 5.0 cm LV Diastolic Volume MOD 2C 28.5 cm??? LV Systolic Volume MOD 2C 16.2 cm??? LV Ejection Fraction MOD 2C 43.1 % LV Cardiac Index MOD 2C 597.1 cm???/min???m??? LV Diastolic Length 2C 5.4 cm LV Systolic Length 2C 4.9 cm M-MODE Aortic Root Diameter MM 3.0 cm LA Systolic Diameter MM 3.9 cm LA Ao Ratio MM 1.3 AV Cusp Separation MM 1.1 cm DOPPLER Mitral E Point Velocity 66.4 cm/s Mitral A Point Velocity 81.5 cm/s Mitral E to A Ratio 0.8 MV Deceleration Time 337.0 ms TR Peak Velocity 178.7 cm/s TR Peak Gradient 12.8 mmHg Right Ventricular Systolic Press 22.8 mmHg FINDINGS Left Ventricle Left ventricular ejection fraction is estimated at 50-55 %. Moderately increased septal wall thickness. Moderately increased posterior wall thickness. Mildly decreased left ventricular ejection fraction. Left ventricular cavity size normal. Atypical septal motin. Right Ventricle Normal right ventricular size and function. Right ventricular systolic pressure within normal limits. Right Atrium Normal right atrial size. Left Atrium Normal left atrial size. No hyzd-xy-oedac shunt seen at the atrial level. No yjubg-cx-jwga shunt seen at the atrial level with contrast. Mitral Valve Structurally normal mitral valve. No mitral stenosis. Trace mitral regurgitation. Mild mitral annular calcification. Aortic Valve Trileaflet aortic valve. Diffuse thickening of the aortic valve cusps with reduced excursion. Trace aortic regurgitation. Tricuspid Valve No tricuspid stenosis. Trace tricuspid regurgitation. Structurally normal tricuspid valve. Pulmonic Valve Structurally normal pulmonic valve. Trace pulmonic regurgitation. Pericardium No pericardial or pleural effusion. Aorta Normal size aortic root and proximal ascending aorta. CONCLUSIONS Normal LV function No swaal-vz-[id number] shunt seen with contrast Previewed by: Dr. Theodore Huggins MD (Electronically Signed) Final Date: 13 November 2023 10:37
[2023-11-13 11:29] LABS: Chol/HDL Ratio 3.53 Ratio; LDL Cholesterol,Calculated 83.4 mg/dL (0.0-131.0); VLDL Calculation 19.78 mg/dL (5.00-40.00)
--- NOTE | 2023-11-13 11:47 | XR ---
EXAMINATION TYPE: XR chest 1V DATE OF EXAM: 11/13/2023 COMPARISON: 11/12/2023 HISTORY: 88 year-old female shortness of breath TECHNIQUE: Single frontal view of the chest is obtained. FINDINGS: Patient is obliqued and rotated towards the left altering the normal cardiac and mediastin al contours. Lung volumes are also diminished with some crowded vascular markings. Focal patchy left basilar opacity has developed. IMPRESSION: Hypoventilatory changes and new focal patchy left basilar atelectasis versus infiltrate.
[2023-11-13 12:07] LABS: Glucose,Whole Blood 279 mg/dL (70-110)
[2023-11-13] MEDS: MULTIVITAMINS, THERA 1 EACH TAB PO SCH (12:20)
[2023-11-13] MEDS: NOREPINEPHRINE 4 MG in SODIUM CHLORIDE 0.9% 250 ML IV SCH (13:24)
[2023-11-13 13:27] LABS: HCT 24.6 % (34.0-46.0); HGB 7.7 gm/dL (11.4-16.0); Hypochromasia Moderate; MCH 32.9 pg (25.0-35.0); MCHC 31.2 g/dL (31.0-37.0); MCV 105.6 fL (80.0-100.0); Macrocytosis Slight; Mean Platelet Volume 8.8; Platelet Count 243 k/uL (150-450); RBC 2.33 m/uL (3.80-5.40); RDW 12.7 % (11.5-15.5); WBC 21.1 k/uL (3.8-10.6)
[2023-11-13] MEDS: HYDROcodone/APAP 5-325MG 1 EACH TAB PO PRN (13:39)
[2023-11-13 16:20] LABS: Glucose,Whole Blood 239 mg/dL (70-110)
[2023-11-13 19:51] LABS: Glucose,Whole Blood 228 mg/dL (70-110)
[2023-11-13 20:36] LABS: Basophils # (A) 0.1 k/uL (0-0.2); Basophils % (A) 0 %; Eosinophils % (A) 0 %; HCT 25.7 % (34.0-46.0); HGB 8.8 gm/dL (11.4-16.0); Lymphocytes # (A) 2.5 k/uL (1.0-4.8); Lymphocytes % (A) 11 %; MCH 33.3 pg (25.0-35.0); MCHC 34.1 g/dL (31.0-37.0); Mean Platelet Volume 9.7; Monocytes # (A) 1.7 k/uL (0-1.0); Monocytes % (A) 7 %; Neutrophils # (A) 18.2 k/uL (1.3-7.7); Neutrophils % (A) 80 %; Platelet Count 219 k/uL (150-450); RBC 2.64 m/uL (3.80-5.40); RDW 15.1 % (11.5-15.5); WBC 22.9 k/uL (3.8-10.6)
[2023-11-13 20:38] LABS: MCV 97.4 fL (80.0-100.0)
--- NOTE | 2023-11-13 21:11 | P.ANPRN ---
Procedure Note - Anesthesia - Nerve Block Performed Right Sandip Single Time Out Performed: Yes Date of Procedure: 11/12/23 Procedure Start Time: 11:54 Procedure Stop Time: 12:01 Location of Patient: PreOp Indication: Acute Post-Operative Pain, Requested by Surgeon Sedation Type: Sedate with meaningful contact maintained Preparation: Sterile Prep Position: Supine Needle Types: Pajunk Needle Gauge: 21 Ultrasound used to visualize needle placement: Yes Ultrasound used to observe medication spread: Yes Blood Aspirated: No Pain Paresthesia on Injection Noted: No Resistance on Injection: Normal Image Stored and Saved: Yes Events: Uneventful and Well Tolerated (Ropivacaine 0.5% 20 cc plus dexamethasone 4 mg)
--- NOTE | 2023-11-13 23:24 | CONS ---
CONSULTATION REASON FOR CONSULTATION: Advice regarding PE and other medical issues, requested by Orthopedics. HISTORY OF PRESENT ILLNESS: This is an 88-year-old woman with a past medical history of multiple medical problems, underwent right hip arthroplasty. Postoperatively, the patient had some weakness to the left side. The patient evaluated by TIA versus stroke. The patient also had evidence of pulmonary embolism in the right upper and lower lobe. The patient was started on IV heparin. The patient also had hypertension and after Cleviprex, the patient had hypotension. At this time, the patient is monitored closely in the ICU. There is no history of any fever, rigors, or chills at this time. PAST MEDICAL HISTORY: Diabetes mellitus and DVT. Rest of the history and rest of the chart is also reviewed. HOME MEDICATIONS: Reviewed include ramipril. Dose and rest of medications reviewed. ALLERGIES: None. FAMILY HISTORY: History of breast cancer in the family. SOCIAL HISTORY: No history of smoking or alcohol intake. REVIEW OF SYSTEMS: A 14-point review of systems negative except as mentioned earlier. PHYSICAL EXAMINATION: VITAL SIGNS: Pulse is 77, blood pressure 108/52, respirations 14. HEENT: Conjunctivae normal. NECK: No JVD. CARDIOVASCULAR: S1, S2. RESPIRATIONS: Breath sounds diminished at the bases. ABDOMEN: Soft, nontender. LEGS: Status post right hip surgery. NERVOUS SYSTEM: No focal deficits. SKIN: No ulcer, rash, bleeding. JOINTS: No active deforming arthropathy. LABORATORY DATA: Noted. ASSESSMENT: 1. Status post right hip arthroplasty. 2. Weakness of the left side, possible acute transient ischemic attack. 3. Possible pulmonary embolus on the right side, on IV heparin. 4. Labile hypertension with hypotension. 5. Diabetes mellitus, type 2. 6. Troponin 0.078. Rule out acute [id number]-elevation myocardial infarction. 7. History of deep venous thrombosis, pulmonary embolism. 8. Diabetes mellitus, type 2. 9. History of hypertension. RECOMMENDATIONS AND DISCUSSION: This is an 88-year-old woman, who presented with multiple complex medical issues. We will monitor the patient closely. Continue current medications, continue symptomatic treatment. Otherwise, closely monitor in ICU. Monitor blood pressure closely. We will continue with anticoagulation. Avoid antihypertensive medications. Prognosis guarded because of multiple complex medical issues. Further recommendations to follow. MMODL / IJN: [id number] /
[2023-11-14 06:25] LABS: Basophils % (A) 0 %; Eosinophils % (A) 0 %; HCT 22.4 % (34.0-46.0); Lymphocytes # (A) 2.6 k/uL (1.0-4.8); Lymphocytes % (A) 12 %; MCH 32.1 pg (25.0-35.0); MCHC 32.6 g/dL (31.0-37.0); MCV 98.4 fL (80.0-100.0); Mean Platelet Volume 9.6; Monocytes # (A) 1.9 k/uL (0-1.0); Monocytes % (A) 9 %; Neutrophils # (A) 17.1 k/uL (1.3-7.7); Neutrophils % (A) 78 %; Platelet Count 215 k/uL (150-450); Poikilocytosis Slight; RBC 2.28 m/uL (3.80-5.40); RDW 15.1 % (11.5-15.5); WBC 21.9 k/uL (3.8-10.6)
[2023-11-14 06:40] LABS: HGB 7.3 gm/dL (11.4-16.0)
[2023-11-14 07:01] LABS: ALT 11 U/L (4-34); AST 35 U/L (14-36); African American GFR (CKD) 23 (>60 ml/min/1.73 sqM); Albumin 2.7 g/dL (3.5-5.0); Alkaline Phosphatase 57 U/L (38-126); Anion Gap 11 mmol/L; Blood Urea Nitrogen 32 mg/dL (7-17); Calcium 7.7 mg/dL (8.4-10.2); Carbon Dioxide 14 mmol/L (22-30); Chloride 107 mmol/L (98-107); Glucose 170 mg/dL (74-99); Non-African American GFR(CKD) 20 (>60 ml/min/1.73 sqM); Potassium 4.7 mmol/L (3.5-5.1); Sodium 132 mmol/L (137-145); Total Bilirubin 0.3 mg/dL (0.2-1.3); Total Protein 4.7 g/dL (6.3-8.2)
--- NOTE | 2023-11-14 07:10 | XR ---
EXAMINATION TYPE: XR chest 1V portable DATE OF EXAM: 11/14/2023 COMPARISON: 11/13/2023 INDICATION: CHF TECHNIQUE: Single frontal view of the chest is obtained. FINDINGS: The heart size is normal. The pulmonary vasculature is normal. The lungs are clear. There is elevation of the right diaphragm. IMPRESSION: 1. No acute pulmonary process. 2. Elevation of the right diaphragm, changed from comparison.
--- NOTE | 2023-11-14 07:33 | P.CRDCN ---
History of Present Illness Consult date: 11/14/23 Chief complaint: Reason for the consult is abnormal cardiac enzymes History of present illness: The patient is an 88-year-old female patient with a past medical history significant for history of DVT she was on oral anticoagulation as an outpatient. No prior cardiac history of coronary artery disease or congestive heart failure or cardiac arrhythmia. We asked to see the patient in a consultation in the intensive care unit for sinus tachycardia as well as abnormal cardiac enzymes. The patient was admitted to the hospital and underwent an elective right hip surgery which was uneventful. During her recovery it was noted that she was madi ble to move her left side. Initially it was felt secondary to stroke. Stroke code was called and the patient underwent a workup including CT scan of the brain as well as carotid workup and all of that came in to be unremarkable for acute stroke. Also the workup including CT scan showed possible small pulmonary embolism. No history of pulmonary embolism in the past. She has history of DVT. She was not on oral anticoagulation because that was interrupted before the surgery. Subsequently the patient was admitted to the intensive care unit. It was noted that she was hypotensive requiring norepinephrine but at the same time her hemoglobin dropped significantly and her last hemoglobin from this morning is around 7. Her previous hemoglobin was 13. Currently the patient is hypotensive requiring norepinephrine. She was started on heparin IV. When she was seen and evaluated this morning her main symptoms is being tired and fatigue and no symptoms of any chest pain or chest discomfort or shortness of breath. She underwent an echocardiogram which revealed normal LV systolic function with no significant wall motion abnormalities. Cardiac enzymes were checked and came in to be slightly abnormal. We only have 1 abnormal troponin and I am going to obtain 2 more sets of troponin for further clarification. Beside that she has no EKG. Stat EKG is in process to be done. The examination revealed regular rhythm with a distant heart sounds and diminished breathing sounds bilaterally and no edema was noted in the lower extremities. Beside that the patient is in renal failure likely secondary to anemia and hypotension Assessment Status post right hip surgery Left-sided weakness which has improved. No acute stroke on the workup Recent diagnosis of small pulmonary embolism Anemia secondary to blood loss Evidence of myocardial injury likely secondary to anemia and type II myocardial infarction Sinus tachycardia likely secondary to anemia as well Plan Continue the current medical regimen Continue heparin IV Consider transition the patient to oral anticoagulation The echo showed normal LV systolic function The echo did not show any evidence of RV strain Obtain serial cardiac enzymes Obtain twelve-lead EKG I would not start the patient on any beta-lindsay or blunt the heart rate at this point because the tachycardia is secondary to anemia Monitor the hemoglobin and kidney function Past Medical History Past Medical History: Cancer, Diabetes Mellitus, Deep Vein Thrombosis (DVT), Hypertension, Osteoarthritis (OA) Additional Past Medical History / Comment(s): skin on back of leg, diet controlled dm, lft leg dvt 03/2023, bunion on rt foot with scab History of Any Multi-Drug Resistant Organisms: None Reported Past Surgical History: Hysterectomy Additional Past Surgical History / Comment(s): skin cancer removal from R leg, removal of blood clot from lft leg Past Anesthesia/Blood Transfusion Reactions: No Reported Reaction Smoking Status: Never smoker - Past Family History Daughter(s) Family Medical History: Cancer Additional Family Medical History / Comment(s): breast Father Family Medical History: Hypertension Mother Family Medical History: Hypertension Brother(s) Family Medical History: Cancer, Hypertension Medications and Allergies Home Medications Medication Instructions Recorded Confirmed Type Ibuprofen [Advil] 400 mg PO DAILY 05/24/19 11/06/23 History Metoprolol Succinate [Toprol XL] 25 mg PO DAILY 05/24/19 11/06/23 History hydroCHLOROthiazide [Hydrodiuril] 25 mg PO DAILY 05/24/19 11/06/23 History ramipriL [Ramipril] 10 mg PO HS 05/24/19 11/12/23 History ramipriL [Ramipril] 20 mg PO DAILY 05/24/19 11/06/23 History Apixaban [Eliquis] 5 mg PO BID 09/29/23 11/12/23 History Allergies Allergy/AdvReac Type Severity Reaction Status Date / Time No Known Allergies Allergy Verified 11/12/23 10:59 Physical Exam Vitals: Vital Signs Temp Pulse Resp BP Pulse Ox 11/14/23 07:00 114 H 20 129/68 98 11/14/23 06:45 120 H 14 122/49 11/14/23 06:30 124 H 19 118/63 11/14/23 06:15 118 H 13 112/47 95 11/14/23 06:00 112 H 17 117/57 97 11/14/23 05:45 113 H 14 88/54 95 11/14/23 05:30 120 H 16 96/58 97 11/14/23 05:15 121 H 23 102/55 95 11/14/23 05:00 116 H 21 120/57 89 L 11/14/23 04:45 123 H 20 129/70 11/14/23 04:30 130 H 15 121/56 11/14/23 04:15 117 H 14 117/61 11/14/23 04:00 97.6 F 121 H 22 82/58 11/14/23 03:45 120 H 16 98/62 11/14/23 03:30 117 H 13 116/62 11/14/23 03:15 116 H 11 L 106/52 94 L 11/14/23 03:00 115 H 18 107/47 94 L 11/14/23 02:45 115 H 15 94/45 91 L 11/14/23 02:30 126 H 8 L 97/37 11/14/23 02:15 118 H 13 103/60 11/14/23 02:00 115 H 26 H 104/67 11/14/23 01:45 122 H 20 110/60 11/14/23 01:30 116 H 18 99/63 11/14/23 01:15 122 H 16 96/41 11/14/23 01:00 118 H 14 113/51 91 L 11/14/23 00:45 120 H 14 97/62 11/14/23 00:30 118 H 14 100/60 11/14/23 00:15 121 H 5 L 87/66 95 11/14/23 00:00 98.0 F 124 H 14 88/48 11/13/23 23:45 124 H 21 120/56 96 11/13/23 23:30 122 H 14 106/64 96 11/13/23 23:15 118 H 12 108/55 96 11/13/23 23:00 121 H 15 104/52 11/13/23 22:45 115 H 15 95/63 11/13/23 22:30 114 H 13 96/56 11/13/23 22:15 113 H 14 100/52 96 11/13/23 22:00 112 H 13 102/76 96 11/13/23 21:45 110 H 13 106/63 11/13/23 21:30 112 H 20 103/64 97 11/13/23 21:15 112 H 17 111/54 97 11/13/23 21:12 111 H 27 H 111/54 95 11/13/23 21:00 110 H 16 113/63 11/13/23 20:45 113 H 18 97/65 96 11/13/23 20:30 98 11 L 102/59 95 11/13/23 20:15 117 H 11 L 126/49 91 L 11/13/23 20:00 97.9 F 112 H 15 121/51 93 L 11/13/23 19:45 99 13 93/47 93 L 11/13/23 19:30 101 H 14 101/46 94 L 11/13/23 19:15 98 12 91/58 93 L 11/13/23 19:00 103 H 20 94/52 96 11/13/23 18:45 95 12 111/52 97 11/13/23 18:30 99 13 102/33 97 11/13/23 18:15 98 13 99/65 95 11/13/23 18:00 100 12 122/81 98 11/13/23 17:56 97.8 F 104 H 15 122/81 97 11/13/23 17:45 107 H 12 100/79 97 11/13/23 17:30 108 H 17 105/38 95 11/13/23 17:15 111 H 28 H 91/48 97 11/13/23 17:00 110 H 22 111/48 97 11/13/23 16:53 97.4 F L 97 16 91/48 97 11/13/23 16:45 101 H 15 97/52 96 11/13/23 16:33 97.6 F 103 H 14 97/52 97 11/13/23 16:30 106 H 18 88/57 95 11/13/23 16:23 97.4 F L 106 H 16 88/57 92 L 11/13/23 16:15 100 15 88/37 96 11/13/23 16:00 99 15 86/28 95 11/13/23 15:45 97 12 104/40 95 11/13/23 15:30 97 14 98/51 97 11/13/23 15:15 98 15 92/48 96 11/13/23 15:00 98 13 109/64 97 11/13/23 14:45 97 15 91/55 97 11/13/23 14:30 96 21 92/55 96 11/13/23 14:00 96 12 96/37 95 11/13/23 13:00 97.4 F L 82 13 83/41 93 L 11/13/23 12:00 90 19 85/57 97 11/13/23 11:00 77 14 108/52 94 L 11/13/23 10:00 81 13 89/51 96 11/13/23 09:00 81 12 98/51 95 11/13/23 08:00 96 14 101/59 95 11/13/23 07:36 95 Intake and Output 11/13/23 11/14/23 11/14/23 22:59 06:59 14:59 Intake Total 553.394 449.644 Output Total 50 550 Balance 503.394 -100.356 Intake: IV 140 180 Lactated Ringers 1,000 ml 140 180 @ 20 mls/hr IV .Q24H [facility] Rx#:[id number] Intake, IV Titration 135.394 69.644 Amount Heparin Sod,Pork in 0.45% 57.646 36.908 NaCl 25,000 unit In 0.45 % NaCl 1 250ml.bag @ 18 UNITS/KG/HR 12.654 mls/hr IV .[id number] [facility] Rx#: [id number] Norepinephrine 4 mg In 77.748 32.736 Sodium Chloride 0.9% 250 ml @ 0.03 MCG/KG/MIN 8. 184 mls/hr IV .Q24H [facility] Rx#:[id number] Oral 200 Blood Product 278 Rc Pheresis 2 As3 Unit 278 [id number] Output: Urine 50 550 Other: Voiding Method External Catheter External Catheter Weight 81.6 kg Results 11/14/23 05:55 11/14/23 05:55 Cardiac Enzymes 11/13/23 11/14/23 Range/Units 09:07 05:55 AST 35 (14-36) U/L Troponin I 0.078 H* (0.000-0.034) ng/mL Coagulation 11/13/23 11/13/23 11/13/23 Range/Units 09:07 13:14 21:10 APTT >200.0 H* 78.7 H 110.0 H* (22.0-30.0) sec 11/14/23 Range/Units 05:55 APTT 93.9 H (22.0-30.0) sec Lipids 11/13/23 Range/Units 04:53 Triglycerides 98.90 (0.00-149.00) mg/dL Cholesterol 144.00 (0.00-200.00) mg/dL HDL Cholesterol 40.80 (40.00-60.00) mg/dL Cholesterol/HDL Ratio 3.53 Ratio CBC 11/13/23 11/13/23 11/13/23 Range/Units 09:07 13:14 20:05 WBC 22.3 H 21.1 H 22.9 H (3.8-10.6) k/uL RBC 2.57 L 2.33 L 2.64 L (3.80-5.40) m/uL Hgb 8.3 L 7.7 L 8.8 L (11.4-16.0) gm/dL Hct 26.6 L 24.6 L 25.7 L (34.0-46.0) % Plt Count 218 243 219 (150-450) k/uL 11/14/23 Range/Units 05:55 WBC 21.9 H (3.8-10.6) k/uL RBC 2.28 L (3.80-5.40) m/uL Hgb 7.3 L D (11.4-16.0) gm/dL Hct 22.4 L (34.0-46.0) % Plt Count 215 (150-450) k/uL Comprehensive Metabolic Panel 11/14/23 Range/Units 05:55 Sodium 132 L (137-145) mmol/L Potassium 4.7 (3.5-5.1) mmol/L Chloride 107 (98-107) mmol/L Carbon Dioxide 14 L (22-30) mmol/L BUN 32 H (7-17) mg/dL Creatinine 2.19 H (0.52-1.04) mg/dL Glucose 170 H (74-99) mg/dL Calcium 7.7 L (8.4-10.2) mg/dL AST 35 (14-36) U/L ALT 11 (4-34) U/L Alkaline Phosphatase 57 (38-126) U/L Total Protein 4.7 L (6.3-8.2) g/dL Albumin 2.7 L (3.5-5.0) g/dL Current Medications Generic Name Dose Route Start Last Admin Trade Name Freq PRN Reason Stop Dose Admin Acetaminophen 650 mg 11/12/23 14:25 Acetaminophen Tab 325 Mg Tab PO 12/12/23 14:26 Q4HR PRN Pain Scale 1 to 5 Hydrocodone Bitart/Acetaminophen 1 each 11/12/23 14:25 11/13/23 19:56 Hydrocodone/Apap 5-325mg 1 Each Tab PO 12/12/23 14:26 1 each Q6HR PRN Administration Pain Scale 1 to 5 Hydrocodone Bitart/Acetaminophen 1 each 11/12/23 14:25 11/13/23 04:05 Hydrocodone/Apap 10-325mg 1 Each Tab PO 12/12/23 14:26 1 each Q6H PRN Administration Pain Scale 6 to 10 Famotidine 20 mg 11/13/23 09:00 11/13/23 08:44 Famotidine 20 Mg Tab PO 12/13/23 09:01 20 mg DAILY [facility] Administration Heparin Sodium (Porcine) 0 unit 11/12/23 17:39 Heparin Sodium 1,000 Un/Ml (10ml Vl) IV PER PROTOCOL PRN Low PTT Protocol Hydromorphone HCl 0.125 mg 11/12/23 14:25 Hydromorphone 0.5 Mg/0.5 Ml Syringe IVP 12/12/23 14:26 Q3HR PRN Pain Scale 1 to 3 Hydromorphone HCl 0.5 mg 11/12/23 14:25 11/13/23 04:01 Hydromorphone 0.5 Mg/0.5 Ml Syringe IVP 12/12/23 14:26 0.5 mg Q3HR PRN Administration Pain Scale 7 to 10 Hydromorphone HCl 0.25 mg 11/12/23 14:25 11/13/23 22:37 Hydromorphone 0.5 Mg/0.5 Ml Syringe IVP 12/12/23 14:26 0.25 mg Q3HR PRN Administration Pain Scale 4 to 6 Lactated Ringer's 1,000 mls @ 20 mls/hr 11/11/23 12:30 11/13/23 18:04 Lactated Ringers IV 12/11/23 12:31 20 mls/hr .Q24H [facility] Administration Heparin Sodium/Sodium Chloride 250 mls @ 12.654 mls/hr 11/12/23 17:45 11/14/23 06:51 25,000 unit/ Sodium Chloride IV 5 units/kg/hr .[id number] [facility] 3.515 mls/hr Titration Protocol 18 UNITS/KG/HR Norepinephrine Bitartrate 4 mg 254 mls @ 8.184 mls/hr 11/13/23 13:15 11/14/23 00:00 / Sodium Chloride IV 0.1 mcg/kg/min .Q24H [facility] 27.28 mls/hr Titration Protocol 0.03 MCG/KG/MIN Insulin Aspart 0 unit 11/13/23 07:30 11/14/23 07:06 Insulin Aspart (Novolog) 100 Unit/Ml Vial SQ 2 unit ACHS [facility] Administration Protocol Magnesium Hydroxide 2,400 mg 11/12/23 14:25 Magnesium Hydroxide 2,400 Mg/30 Ml Cup PO 12/12/23 14:26 DAILY PRN Constipation Miscellaneous Information 1 each 11/12/23 23:20 Potassium Replacement Protocol 1 Each Misc MISCELLANE DAILY PRN Per Protocol Protocol Miscellaneous Information 1 each 11/12/23 23:20 Magnesium Replacement Protocol 1 Each Misc MISCELLANE DAILY PRN Per Protocol Protocol Multivitamins 1 each 11/13/23 12:00 11/13/23 12:20 Multivitamins, Thera 1 Each Tab PO 12/13/23 12:01 1 each DAILY@1200 [facility] Administration Naloxone HCl 0.2 mg 11/12/23 14:25 Naloxone 0.4 Mg/Ml 1 Ml Vial IV 12/12/23 14:26 Q2M PRN Opioid Reversal Ondansetron HCl 4 mg 11/12/23 14:25 Ondansetron 4 Mg/2 Ml Vial IVP 12/12/23 14:26 Q8HR PRN Nausea And Vomiting Senna/Docusate Sodium 2 each 11/12/23 21:00 11/13/23 19:57 Sennosides-Docusate Sodium 1 Each Tab PO 12/12/23 21:01 2 each HS [facility] Administration Tramadol HCl 50 mg 11/12/23 14:25 Tramadol 50 Mg Tab PO 12/12/23 14:26 Q6HR PRN Pain Scale 1 to 5 Intake and Output 11/13/23 11/14/23 11/14/23 22:59 06:59 14:59 Intake Total 553.394 449.644 Output Total 50 550 Balance 503.394 -100.356 Intake: IV 140 180 Lactated Ringers 1,000 ml 140 180 @ 20 mls/hr IV .Q24H [facility] Rx#:[id number] Intake, IV Titration 135.394 69.644 Amount Heparin Sod,Pork in 0.45% 57.646 36.908 NaCl 25,000 unit In 0.45 % NaCl 1 250ml.bag @ 18 UNITS/KG/HR 12.654 mls/hr IV .[id number] [facility] Rx#: [id number] Norepinephrine 4 mg In 77.748 32.736 Sodium Chloride 0.9% 250 ml @ 0.03 MCG/KG/MIN 8. 184 mls/hr IV .Q24H [facility] Rx#:[id number] Oral 200 Blood Product 278 Rc Pheresis 2 As3 Unit 278 [id number] Output: Urine 50 550 Other: Voiding Method External Catheter External Catheter Weight 81.6 kg 11/14/23 05:55 11/14/23 05:55
--- NOTE | 2023-11-14 10:30 | P.PN ---
Subjective Progress Note Date: 11/13/23 Patient was seen for a follow-up. Patient is currently on norepinephrine 0.03 mcg/kg/min, also on heparin drip. Patient's hemoglobin is going down slowly of unknown source. Patient used to be on Eliquis in the past. Patient overall appears much better, feels better. Offers no new complaints. Objective - Vital Signs Vital signs: Vital Signs Temp 97.8 F 11/13/23 17:56 Pulse 100 11/13/23 18:00 Resp 12 11/13/23 18:00 BP 122/81 11/13/23 18:00 Pulse Ox 98 11/13/23 18:00 FiO2 50 11/12/23 20:01 Intake & Output 11/12/23 11/13/23 11/13/23 18:59 06:59 18:59 Intake Total 1850 2836.762 1088.012 Output Total 200 450 0 Balance 1650 611.303 5775.012 Weight 70.3 kg 71.6 kg Intake: IV 3966 449 6186 Lactated Ringers 1,000 ml 240 240 @ 20 mls/hr IV .Q24H [facility] Rx#:[id number] Magnesium Sulfate-D5w Pmx 200 1 gm In Dextrose/Water 1 100ml.bag @ 100 mls/hr IVPB Q1H [facility] Rx#: [id number] Potassium Chloride 10 meq 400 In Water For Injection 1 100ml.bag @ 100 mls/hr IVPB Q1HR [facility] Rx#: [id number] Sodium Chloride 0.9% 1, 1000 000 ml @ 999 mls/hr IV . Q1H1M [facility] Rx#:[id number] ceFAZolin 2 gm In Sodium 100 Chloride 0.9% 50 ml @ 100 mls/hr IVPB ONCE PRN Rx# :[id number] Intake, IV Titration 95.909 102.012 Amount Clevidipine Butyrate 25 4.167 mg In Empty Bag 1 bag @ 1 MG/HR 2 mls/hr IV .Q24H [facility] Rx#:[id number] Heparin Sod,Pork in 0.45% 91.742 97.647 NaCl 25,000 unit In 0.45 % NaCl 1 250ml.bag @ 18 UNITS/KG/HR 12.654 mls/hr IV .[id number] [facility] Rx#: [id number] Norepinephrine 4 mg In 4.365 Sodium Chloride 0.9% 250 ml @ 0.03 MCG/KG/MIN 8. 184 mls/hr IV .Q24H [facility] Rx#:[id number] Oral 590 Blood Product 278 Rc Pheresis 2 As3 Unit 278 [id number] Output: Urine 450 0 Estimated Blood Loss 200 Other: Voiding Method External Catheter External Catheter # Voids 1 0 - Exam Patient's mental status, speech and language functions are normal. 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 Sensory to touch is equal. - Labs CBC & Chem 7: 11/14/23 05:55 11/14/23 05:55 Labs: Abnormal Lab Results - Last 24 Hours (Table) 11/12/23 11/12/23 11/12/23 Range/Units 12:23 15:45 23:57 WBC (3.8-10.6) k/uL RBC (3.80-5.40) m/uL Hgb (11.4-16.0) gm/dL Hct (34.0-46.0) % MCV (80.0-100.0) fL Neutrophils # (1.3-7.7) k/uL APTT >200.0 H* (22.0-30.0) sec Sodium (137-145) mmol/L Potassium (3.5-5.1) mmol/L Carbon Dioxide (22-30) mmol/L BUN (7-17) mg/dL Creatinine (0.52-1.04) mg/dL Glucose (74-99) mg/dL POC Glucose (mg/dL) (70-110) mg/dL Calcium (8.4-10.2) mg/dL Magnesium 1.4 L (1.6-2.3) mg/dL Troponin I (0.000-0.034) ng/mL Crossmatch See Detail 11/13/23 11/13/23 11/13/23 Range/Units 04:53 04:53 06:38 WBC 20.3 H (3.8-10.6) k/uL RBC 2.81 L (3.80-5.40) m/uL Hgb 9.2 L D (11.4-16.0) gm/dL Hct 28.6 L (34.0-46.0) % MCV 101.9 H (80.0-100.0) fL Neutrophils # 17.7 H (1.3-7.7) k/uL APTT (22.0-30.0) sec Sodium 133 L (137-145) mmol/L Potassium 5.2 H (3.5-5.1) mmol/L Carbon Dioxide 19 L (22-30) mmol/L BUN 23 H (7-17) mg/dL Creatinine 1.11 H (0.52-1.04) mg/dL Glucose 240 H (74-99) mg/dL POC Glucose (mg/dL) 268 H (70-110) mg/dL Calcium 8.3 L (8.4-10.2) mg/dL Magnesium (1.6-2.3) mg/dL Troponin I (0.000-0.034) ng/mL Crossmatch 11/13/23 11/13/23 11/13/23 Range/Units 09:07 09:07 09:07 WBC 22.3 H (3.8-10.6) k/uL RBC 2.57 L (3.80-5.40) m/uL Hgb 8.3 L (11.4-16.0) gm/dL Hct 26.6 L (34.0-46.0) % MCV 103.6 H (80.0-100.0) fL Neutrophils # (1.3-7.7) k/uL APTT >200.0 H* (22.0-30.0) sec Sodium (137-145) mmol/L Potassium (3.5-5.1) mmol/L Carbon Dioxide (22-30) mmol/L BUN (7-17) mg/dL Creatinine (0.52-1.04) mg/dL Glucose (74-99) mg/dL POC Glucose (mg/dL) (70-110) mg/dL Calcium (8.4-10.2) mg/dL Magnesium (1.6-2.3) mg/dL Troponin I 0.078 H* (0.000-0.034) ng/mL Crossmatch 11/13/23 11/13/23 11/13/23 Range/Units 12:05 13:14 13:14 WBC 21.1 H (3.8-10.6) k/uL RBC 2.33 L (3.80-5.40) m/uL Hgb 7.7 L (11.4-16.0) gm/dL Hct 24.6 L (34.0-46.0) % MCV 105.6 H (80.0-100.0) fL Neutrophils # (1.3-7.7) k/uL APTT 78.7 H (22.0-30.0) sec Sodium (137-145) mmol/L Potassium (3.5-5.1) mmol/L Carbon Dioxide (22-30) mmol/L BUN (7-17) mg/dL Creatinine (0.52-1.04) mg/dL Glucose (74-99) mg/dL POC Glucose (mg/dL) 279 H (70-110) mg/dL Calcium (8.4-10.2) mg/dL Magnesium (1.6-2.3) mg/dL Troponin I (0.000-0.034) ng/mL Crossmatch 11/13/23 Range/Units 16:18 WBC (3.8-10.6) k/uL RBC (3.80-5.40) m/uL Hgb (11.4-16.0) gm/dL Hct (34.0-46.0) % MCV (80.0-100.0) fL Neutrophils # (1.3-7.7) k/uL APTT (22.0-30.0) sec Sodium (137-145) mmol/L Potassium (3.5-5.1) mmol/L Carbon Dioxide (22-30) mmol/L BUN (7-17) mg/dL Creatinine (0.52-1.04) mg/dL Glucose (74-99) mg/dL POC Glucose (mg/dL) 239 H (70-110) mg/dL Calcium (8.4-10.2) mg/dL Magnesium (1.6-2.3) mg/dL Troponin I (0.000-0.034) ng/mL Crossmatch Assessment and Plan Assessment: * Acute stroke/TIA, manifesting with left hemiparesis, this seems to have mostly resolved. Although her NIH stroke scale at this time is 0, but she does have some weakness of the left biceps muscle, uncertain new or old. * Right hip osteoarthritis, status post total hip arthroplasty today, 11/12/2023. * History of DVT, on Eliquis. * Hypertension * Diabetes * Acute pulmonary embolism Plan: * Patient's symptoms have mostly resolved. * CTA of the neck revealed approximately 40% proximal left ICA stenosis. * CTA of the head showed atherosclerotic calcifications throughout the bilateral carotid siphons. This results in moderate segmental stenosis left ICA. Additional moderate focal stenosis proximal M1 segment left MCA. Otherwise no large vessel intracranial arterial occlusion or aneurysm. * Patient's vascular stenosis are on the ipsilateral side, therefore probably asymptomatic. Rule out cardiac source. * CTA of the chest performed showed couple small pulmonary emboli within the right upper and right lower lung. No evidence of right heart strain. * Patient has been started on heparin IV for PE. Resume Eliquis when medically cleared. Hold aspirin because of decreasing hemoglobin, and patient being on heparin IV. * Patient is now hypotensive, currently on norepinephrine. Avoid hypotension. * 2D echo revealed normal left ventricular function with EF 50 to 55%. Mode rately increased septal wall thickness. Moderately increased posterior wall thickness. Atypical septal motion. Normal left atrial size. No left to right shunt seen at the atrial level. No [id number] shunt seen in the atrial level with contrast. No valvular abnormalities. * Fasting lipid panel cholesterol 144, LDL 83, HDL 40, triglycerides 98. We will add Lipitor 20 mg daily. * Hemoglobin A1c 6.9 on 09/22/2023. No need to repeat. * Telemetry monitoring. * PT OT. * Other medical management as per IM, critical care and other specialties. * DVT prophylaxis: Patient started on IV heparin.
[2023-11-14 11:05] LABS: Glucose,Whole Blood 201 mg/dL (70-110)
[2023-11-14] MEDS: DEXTROSE 5% IN WATER 1,000 ML with SODIUM BICARB (1 MEQ/ML) 150 ML IV SCH (11:52)
--- NOTE | 2023-11-14 13:17 | P.PN ---
Subjective Progress Note Date: 11/14/23 Principal diagnosis: Acute pulmonary embolism post right hip arthroplasty, postoperative day #2 Patient is an 88-year-old white female with past medical history significant for hypertension, osteoarthritis, and right lower extremity DVT. Patient recently diagnosed with right lower extremity DVT in March,, and she was placed on Eliquis. Eliquis was placed on hold 5 days prior to an elective right total hip arthroplasty. Patient was brought in yesterday for an elective right direct anterior total hip arthroplasty. While in PACU postoperatively, the patient could not move her left arm. A code stroke was initiated. Noncontrast brain CT did not show any acute intracranial abnormality, no hemorrhage or mass effect. Brain CTA showed mild approximately 40% left ICA stenosis, otherwise no large vessel intracranial arterial occlusion or aneurysmal change. Patient was evaluated by neuro-interventionalists, and risks outweighed benefits for thrombolytics. There were also some incidental pulmonary findings, warranting a dedicated film. Chest CTA showed a couple small pulmonary emboli within the right upper and lower lung gonzalez. No CT evidence of right-sided heart strain. There is also some bilateral atelectasis. The surgeon and Dr. Saldana discussed CT findings and the patient was ultimately started on a heparin infusion per protocol. Patient was also hypertensive postoperatively, and started on a Cleviprex infusion to be titrated to maintain systolic blood pressure of 170 or less to allow for permissive hypertension. Patient was transferred to the intensive care unit from PACU. Patient is currently lying in bed, on 6 L/min nasal cannula, in no acute distress. SpO2 currently 99%. Postoperative ABG showed a PaO2 of 77, pCO2 of 54, and pH of 7.25. She was temporarily on BiPAP support. No signs of hypercapnic encephalopathy. No focal neurological deficits. Patient's left upper extremity weakness has resolved. Overall, neurological exam is benign, consider TIA. Blood pressure is now normotensive. Heart rhythm is normal sinus on bedside monitor. Patient denies any chest pain. No lightheadedness or syncope. No coughing or hemoptysis. Postsurgical dressing is clean, dry, and intact. There is some nikki-incisional swelling. Neurovascular status intact. No obvious hematoma. Postoperative CBC: WBC count 15.8, hemoglobin 11.1, hematocrit 33.8, platelets 226. aPTT supratherapeutic, and heparin and was adjusted per protocol. Postoperative BMP: Sodium 137, testing 3.4, chloride 107, serum bicarb 22, BUN 21, creatinine 0.77, glucose 206. Magnesium 1.4. Electrolytes are being replaced. Troponins less 0.012. Patient will continue to be monitored in the intensive care unit at least overnight. Patient reevaluated today on 11/14/2023, patient remains in the ICU, she is marginal at best. Patient required close for 3 units of packed RBCs and her last hemoglobin is 7.3. Patient is still requiring norepinephrine at 0.07 mcg/kg/min IV fluid is running D5W with 3 A of bicarb at 75 cc/h. Last night she had to be on BiPAP 10/5/50%, presently on 8 L high flow nasal cannula blood pressure is 109/59, mean arterial pressure of 67. However the patient is requiring norepinephrine to adequately maintain good blood pressure. WBC count this morning is 21.9 hemoglobin is 7.3. PTT is 93.9. Her bicarb is 14 BUN is 32 creatinine is 2.19, blood sugar is 201 patient had normal creatinine on admission 11/12/2023, however the patient did develop acute kidney injury most likely secondary to episodes of hypotension requiring pressors. Chest x-ray this morning showed no evidence of congestive heart failure, no pneumonia, right hemidiaphragm seems to be relatively elevated. Objective - Vital Signs Vital signs: Vital Signs Temp 97.1 F L 11/14/23 08:27 Pulse 101 H 11/14/23 11:30 Resp 8 L 11/14/23 11:30 BP 109/59 11/14/23 11:30 Pulse Ox 96 11/14/23 11:00 FiO2 50 11/12/23 20:01 Intake & Output 11/13/23 11/14/23 11/14/23 18:59 06:59 18:59 Intake Total 2230.012 618.910 661.613 Output Total 50 550 50 Balance 2180.012 68.910 611.613 Weight 81.6 kg Intake: IV 1260 240 60 Lactated Ringers 1,000 ml 260 240 60 @ 20 mls/hr IV .Q24H [facility] Rx#:[id number] Sodium Chloride 0.9% 1, 1000 000 ml @ 999 mls/hr IV . Q1H1M ONE Rx#:[id number] Intake, IV Titration 102.012 178.910 168.613 Amount Heparin Sod,Pork in 0.45% 97.647 68.426 NaCl 25,000 unit In 0.45 % NaCl 1 250ml.bag @ 18 UNITS/KG/HR 12.654 mls/hr IV .[id number] [facility] Rx#: [id number] Norepinephrine 4 mg In 4.365 110.484 168.613 Sodium Chloride 0.9% 250 ml @ 0.03 MCG/KG/MIN 8. 184 mls/hr IV .Q24H [facility] Rx#:[id number] Oral 590 200 118 Blood Product 278 265 Rc Pheresis 2 As3 Unit 278 [id number] Rc Pheresis As3 Unit 265 [id number] Other 50 Rc Pheresis As3 Unit 50 [id number] Output: Urine 50 550 50 Other: Voiding Method External Catheter External Catheter - Exam GENERAL EXAM: Alert, 88-year-old white female, comfortable in no apparent distress. However the patient is on 8 L high flow nasal cannula HEAD: Normocephalic and atraumatic EYES: Normal reaction of pupils, equal size. NOSE: Clear with pink turbinates. THROAT: No erythema or exudates. NECK: No masses, no JVD. CHEST: No chest wall deformity. LUNGS: Diminished breath sound bilaterally no crackles rhonchi or wheezes CVS: S1 and S2 normal with no audible murmur, regular rhythm. No extra heart sounds ABDOMEN: No hepatosplenomegaly, active bowel sounds, no guarding or rigidity. SKIN: No rashes CENTRAL NERVOUS SYSTEM: Alert oriented x 3 no gross focal deficit EXTREMITIES: There is no peripheral edema, clubbing, or cyanosis. Peripheral pulses are intact. Right hip incision is clean, dry, intact. There is some nikki-incisional edema, no clear-cut evidence of hematoma - Labs CBC & Chem 7: 11/14/23 05:55 11/14/23 05:55 Labs: Abnormal Lab Results - Last 24 Hours (Table) 11/12/23 11/13/23 11/13/23 Range/Units 12:23 13:14 13:14 WBC 21.1 H (3.8-10.6) k/uL RBC 2.33 L (3.80-5.40) m/uL Hgb 7.7 L (11.4-16.0) gm/dL Hct 24.6 L (34.0-46.0) % MCV 105.6 H (80.0-100.0) fL Neutrophils # (1.3-7.7) k/uL Monocytes # (0-1.0) k/uL APTT 78.7 H (22.0-30.0) sec Sodium (137-145) mmol/L Carbon Dioxide (22-30) mmol/L BUN (7-17) mg/dL Creatinine (0.52-1.04) mg/dL Glucose (74-99) mg/dL POC Glucose (mg/dL) (70-110) mg/dL Calcium (8.4-10.2) mg/dL Total Protein (6.3-8.2) g/dL Albumin (3.5-5.0) g/dL Crossmatch See Detail 11/13/23 11/13/23 11/13/23 Range/Units 16:18 19:50 20:05 WBC 22.9 H (3.8-10.6) k/uL RBC 2.64 L (3.80-5.40) m/uL Hgb 8.8 L (11.4-16.0) gm/dL Hct 25.7 L (34.0-46.0) % MCV (80.0-100.0) fL Neutrophils # 18.2 H (1.3-7.7) k/uL Monocytes # 1.7 H (0-1.0) k/uL APTT (22.0-30.0) sec Sodium (137-145) mmol/L Carbon Dioxide (22-30) mmol/L BUN (7-17) mg/dL Creatinine (0.52-1.04) mg/dL Glucose (74-99) mg/dL POC Glucose (mg/dL) 239 H 228 H (70-110) mg/dL Calcium (8.4-10.2) mg/dL Total Protein (6.3-8.2) g/dL Albumin (3.5-5.0) g/dL Crossmatch 11/13/23 11/14/23 11/14/23 Range/Units 21:10 05:55 05:55 WBC 21.9 H (3.8-10.6) k/uL RBC 2.28 L (3.80-5.40) m/uL Hgb 7.3 L D (11.4-16.0) gm/dL Hct 22.4 L (34.0-46.0) % MCV (80.0-100.0) fL Neutrophils # 17.1 H (1.3-7.7) k/uL Monocytes # 1.9 H (0-1.0) k/uL APTT 110.0 H* (22.0-30.0) sec Sodium 132 L (137-145) mmol/L Carbon Dioxide 14 L (22-30) mmol/L BUN 32 H (7-17) mg/dL Creatinine 2.19 H (0.52-1.04) mg/dL Glucose 170 H (74-99) mg/dL POC Glucose (mg/dL) (70-110) mg/dL Calcium 7.7 L (8.4-10.2) mg/dL Total Protein 4.7 L (6.3-8.2) g/dL Albumin 2.7 L (3.5-5.0) g/dL Crossmatch 11/14/23 11/14/23 Range/Units 05:55 11:03 WBC (3.8-10.6) k/uL RBC (3.80-5.40) m/uL Hgb (11.4-16.0) gm/dL Hct (34.0-46.0) % MCV (80.0-100.0) fL Neutrophils # (1.3-7.7) k/uL Monocytes # (0-1.0) k/uL APTT 93.9 H (22.0-30.0) sec Sodium (137-145) mmol/L Carbon Dioxide (22-30) mmol/L BUN (7-17) mg/dL Creatinine (0.52-1.04) mg/dL Glucose (74-99) mg/dL POC Glucose (mg/dL) 201 H (70-110) mg/dL Calcium (8.4-10.2) mg/dL Total Protein (6.3-8.2) g/dL Albumin (3.5-5.0) g/dL Crossmatch Assessment and Plan Assessment: Impression: Acute hypoxic respiratory failure secondary to acute pulmonary embolism Right hip osteoarthritis status post right anterior total hip arthroplasty postoperative day #2 History of deep vein thrombosis, normally patient is on Eliquis prior to her hip surgery Hypotension secondary to acute blood loss anemia, hypovolemia and also secondary to pulmonary embolism no clear-cut evidence of RV strain. As noted on echocardiogram on 11/13/2023 Acute blood loss anemia, most likely secondary to recent surgery and the fact the patient is receiving heparin however the benefits of heparin outweigh the risks at this point. Patient received a total of 2 units of packed RBCs so far. Acute leukocytosis secondary to surgery/reactive Acute TIA, resolved with left-sided weakness Sinus tachycardia secondary to anemia and secondary to pulmonary embolism Recommendation: Continue IV heparin and adjust dose accordingly based on PTT Continue to monitor in the ICU Blood transfusion maintaining hemoglobin above 7 at all times. Continue norepinephrine and titrate accordingly Continue oxygen and titrate accordingly Echocardiogram was reviewed there is no evidence of RV strain Orthopedics is very well aware of potential bleeding into the surgical site/right hip Will recommend venous Doppler of the lower extremities if we feel there is absolute current indication to heparin may arrange for IVC filter placement Remains critically ill and hemodynamically unstable Critical care time is over 40 Will continue to follow Time with Patient: Greater than 30
--- NOTE | 2023-11-14 13:35 | PN ---
PROGRESS NOTE DATE OF SERVICE: 11/14/2023 SUBJECTIVE: This is an 88-year-old woman who was admitted after surgery, had multiple complex medical issues. The patient initially had possible TIA., subsequently the patient had PE and the patient also was found to be hypertensive. Currently, the patient is hypotensive with Levophed. Blood pressure is improving significantly. Multiple consultants are following the patient closely. The white count is elevated up to 21.9, hemoglobin 7.3. PAST MEDICAL HISTORY: Reviewed. REVIEW OF SYSTEMS: A 14-point review is negative except as mentioned earlier. CURRENT MEDICATIONS: Current medications reviewed include Lipitor, dose and rest of medications noted. PHYSICAL EXAMINATION: VITAL SIGNS: Pulse is 108, blood pressure is 96/58, and respirations 19. HEENT: Conjunctivae normal. NECK: No jugular venous distention. CARDIOVASCULAR: S1, S2. RESPIRATIONS: Few scattered rhonchi. ABDOMEN: Soft. LEGS: Status post surgery. NERVOUS SYSTEM: No focal deficits. LABORATORY DATA: Noted. WBC 21.2, rest of the labs are noted. The chest x-ray done today showed no significant fluid overload. ASSESSMENT: 1. Status post right hip arthroplasty. 2. Weakness of the left side, possible acute TIA, improved. 3. Possible small pulmonary embolism on the right side, on anticoagulation. 4. Labile hypertension with hypotension, currently improving. 5. Elevated WBC. 6. Anemia, multifactorial. 7. Diabetes mellitus, type 2. 8. Troponin 0.078, possibly type 2 myocardial infarction per Cardiology. 9. History of DVT and pulmonary embolism. 10.Diabetes mellitus, type 2. 11.History of hypertension. 12.Multiple complex medical issues. 13.Acute renal failure. RECOMMENDATIONS: Recommended to continue current management, continue symptomatic treatment as mentioned earlier. The patient will be monitored in ICU. Levophed could be tapered off once the blood pressure is improving. Otherwise, repeat labs. White count is elevated, there is no evidence of any focal infection at this time. I will recommend UA and as well as repeat labs, creatinine also worsened up to 2.19. We will avoid hepatotoxic and nephrotoxic medications and continue to monitor. Bicarb drip has been initiated. Further recommendations to follow. See orders for details. Will order serum procalcitonin also. MMODL / IJN: [id number] /
--- NOTE | 2023-11-14 13:59 | US ---
EXAMINATION TYPE: US venous doppler duplex LE DATE OF EXAM: 11/14/2023 1:36 PM COMPARISON: US 03/18/2023 CLINICAL INDICATION: Female, 88 years old with history of PE; PE SIDE PERFORMED: Bilateral TECHNIQUE: The lower extremity deep venous system is examined utilizing real time linear array sonog toni with graded compression, doppler sonography and color-flow sonography. VESSELS IMAGED: Common Femoral Vein Deep Femoral Vein Greater Saphenous Vein * Femoral Vein Popliteal Vein Small Saphenous Vein * Proximal Calf Veins (* superficial vessels) Right Leg: Internal echoes seen within CFV and GSV. Unable to visualize color flow in mid and dist al femoral vein. Question thrombus within CFV, GSV, and femoral vein prox-distal. Veins do not appe ar to compress completely. *Anechoic area seen within right popliteal area: 7.4 x 2.4 x 0.8 cm. Left Leg: *CFV appears to compress incompletely. Question chronic thrombus within CFV. Popliteal vei n appears to compress incompletely. Question chronic thrombus within popliteal vein along vessel wall . Color flow seen within. IMPRESSION: 1. Bilateral lower extremity deep venous ultrasound with areas suspicious for deep venous thrombosis. This would include mid to distal right femoral vein possible extension beyond as well as thrombus in the left. Common femoral vein A Red level critical message alert has been initiated for Nancy Saldana MD~[id number] via the [employer] Critical Results System on 11/14/2023 1:56 PM. This message alert has been sent to Nancy Saldana MD ~[id number] via the preferences provided by the clinician for the receipt of Radiology Critical Findings. Message ID [id number].
--- NOTE | 2023-11-14 19:17 | P.PN ---
Subjective Events noted. Spoke with patient's nurse. Patient complaining of right hip pain. Denies chest pain/shortness of breath. Objective - Vital Signs Vital signs: Vital Signs Temp 97.1 F L 11/14/23 16:00 Pulse 87 11/14/23 19:00 Resp 17 11/14/23 19:00 BP 86/38 11/14/23 19:00 Pulse Ox 98 11/14/23 19:00 FiO2 50 11/12/23 20:01 Intake & Output 11/14/23 11/14/23 11/15/23 06:59 18:59 06:59 Intake Total 348.702 1359.385 75 Output Total 550 50 0 Balance 68.910 1860.385 75 Weight 81.6 kg Intake: IV 240 660 75 Dextrose 5% in Water 1, 600 75 000 ml @ 75 mls/hr IV . [id number] [facility] with Sodium Bicarb (1 Meq/ml) 150 ml Rx#:[id number] Lactated Ringers 1,000 ml 240 60 @ 20 mls/hr IV .Q24H [facility] Rx#:[id number] Intake, IV Titration 178.910 817.385 Amount Heparin Sod,Pork in 0.45% 68.426 31.342 NaCl 25,000 unit In 0.45 % NaCl 1 250ml.bag @ 18 UNITS/KG/HR 12.654 mls/hr IV .[id number] [facility] Rx#: [id number] Lactated Ringers 1,000 ml 540 @ 20 mls/hr IV .Q24H [facility] Rx#:[id number] Norepinephrine 4 mg In 110.484 246.043 Sodium Chloride 0.9% 250 ml @ 0.03 MCG/KG/MIN 8. 184 mls/hr IV .Q24H [facility] Rx#:[id number] Oral 200 118 Blood Product 265 Rc Pheresis As3 Unit 265 [id number] Other 50 Rc Pheresis As3 Unit 50 [id number] Output: Urine 550 50 0 Other: Voiding Method External Catheter External Catheter - Exam Resting comfortably in bed. Alert and answers questions. Focused exam of the left LE conducted. The dressing is intact with no active drainage. Her thigh if firm but compressible. Femoral and sciatic nerve function is intact. - Labs CBC & Chem 7: 11/14/23 05:55 11/14/23 05:55 Labs: Abnormal Lab Results - Last 24 Hours (Table) 11/12/23 11/12/23 11/13/23 Range/Units 12:23 15:45 19:50 WBC (3.8-10.6) k/uL RBC (3.80-5.40) m/uL Hgb (11.4-16.0) gm/dL Hct (34.0-46.0) % Neutrophils # (1.3-7.7) k/uL Monocytes # (0-1.0) k/uL APTT (22.0-30.0) sec Sodium (137-145) mmol/L Carbon Dioxide (22-30) mmol/L BUN (7-17) mg/dL Creatinine (0.52-1.04) mg/dL Glucose (74-99) mg/dL POC Glucose (mg/dL) 228 H (70-110) mg/dL Calcium (8.4-10.2) mg/dL CK-MM (CK-3) 95.9 L (96.7-100.0) % CK-BB (CK-1) 4.1 H (0.0) % Troponin I (0.000-0.034) ng/mL Total Protein (6.3-8.2) g/dL Albumin (3.5-5.0) g/dL Crossmatch See Detail 11/13/23 11/13/23 11/14/23 Range/Units 20:05 21:10 05:55 WBC 22.9 H 21.9 H (3.8-10.6) k/uL RBC 2.64 L 2.28 L (3.80-5.40) m/uL Hgb 8.8 L 7.3 L D (11.4-16.0) gm/dL Hct 25.7 L 22.4 L (34.0-46.0) % Neutrophils # 18.2 H 17.1 H (1.3-7.7) k/uL Monocytes # 1.7 H 1.9 H (0-1.0) k/uL APTT 110.0 H* (22.0-30.0) sec Sodium (137-145) mmol/L Carbon Dioxide (22-30) mmol/L BUN (7-17) mg/dL Creatinine (0.52-1.04) mg/dL Glucose (74-99) mg/dL POC Glucose (mg/dL) (70-110) mg/dL Calcium (8.4-10.2) mg/dL CK-MM (CK-3) (96.7-100.0) % CK-BB (CK-1) (0.0) % Troponin I (0.000-0.034) ng/mL Total Protein (6.3-8.2) g/dL Albumin (3.5-5.0) g/dL Crossmatch 11/14/23 11/14/23 11/14/23 Range/Units 05:55 05:55 11:03 WBC (3.8-10.6) k/uL RBC (3.80-5.40) m/uL Hgb (11.4-16.0) gm/dL Hct (34.0-46.0) % Neutrophils # (1.3-7.7) k/uL Monocytes # (0-1.0) k/uL APTT 93.9 H (22.0-30.0) sec Sodium 132 L (137-145) mmol/L Carbon Dioxide 14 L (22-30) mmol/L BUN 32 H (7-17) mg/dL Creatinine 2.19 H (0.52-1.04) mg/dL Glucose 170 H (74-99) mg/dL POC Glucose (mg/dL) 201 H (70-110) mg/dL Calcium 7.7 L (8.4-10.2) mg/dL CK-MM (CK-3) (96.7-100.0) % CK-BB (CK-1) (0.0) % Troponin I (0.000-0.034) ng/mL Total Protein 4.7 L (6.3-8.2) g/dL Albumin 2.7 L (3.5-5.0) g/dL Crossmatch 11/14/23 11/14/23 Range/Units 14:27 14:39 WBC (3.8-10.6) k/uL RBC (3.80-5.40) m/uL Hgb (11.4-16.0) gm/dL Hct (34.0-46.0) % Neutrophils # (1.3-7.7) k/uL Monocytes # (0-1.0) k/uL APTT 37.8 H (22.0-30.0) sec Sodium (137-145) mmol/L Carbon Dioxide (22-30) mmol/L BUN (7-17) mg/dL Creatinine (0.52-1.04) mg/dL Glucose (74-99) mg/dL POC Glucose (mg/dL) (70-110) mg/dL Calcium (8.4-10.2) mg/dL CK-MM (CK-3) (96.7-100.0) % CK-BB (CK-1) (0.0) % Troponin I 0.178 H* (0.000-0.034) ng/mL Total Protein (6.3-8.2) g/dL Albumin (3.5-5.0) g/dL Crossmatch Assessment and Plan Assessment: POD#2 s/p Left direct anterior total hip post-op DVT and PE history of DVT and PE Acute blood loss anemia requiring transfusion Plan: I appreciate the care provided by ICU, cardiology and IM. I reviewed the chart and reviewed the events with the patient's nurse over the past 24 hours. The patient's hemoglobin has dropped and has required several transfusions. This is expected post surgical with a heparin drip to treat her acute PE. The patient's exam is benign - there is no active drainage, she does not appear to have any major bleeding vessel, her thigh is compressible, and there are no nerve deficits from a compressing hematoma. I would recommend continued non-surgical treatment with ice, compression and observation. When the patient is able she should transfer out of bed to chair.
[2023-11-14] MEDS: ATORVASTATIN 20 MG TAB PO SCH (19:52)
[2023-11-14 20:10] LABS: Glucose,Whole Blood 265 mg/dL (70-110)
--- NOTE | 2023-11-14 23:09 | P.PN ---
Subjective Progress Note Date: 11/14/23 Patient was seen for a follow-up. Patient is currently on norepinephrine 0.01 mcg/kg/min, also on heparin drip. Patient's hemoglobin is going down slowly of unknown source. Patient has hematoma in the area of the hip surgery. Patient used to be on Eliquis in the past. Patient is asleep at this time. Did not wake her up. She just received Dilaudid per nurse. Objective - Vital Signs Vital signs: Vital Signs Temp 97.8 F 11/14/23 20:00 Pulse 89 11/14/23 20:15 Resp 26 H 11/14/23 20:15 BP 103/46 11/14/23 20:15 Pulse Ox 91 L 11/14/23 20:15 FiO2 50 11/12/23 20:01 Intake & Output 11/14/23 11/14/23 11/15/23 06:59 18:59 06:59 Intake Total 547.116 1793.299 153.91 Output Total 550 50 0 Balance 68.910 1880.299 153.91 Weight 81.6 kg Intake: IV 240 660 150 Dextrose 5% in Water 1, 600 150 000 ml @ 75 mls/hr IV . [id number] KACI with Sodium Bicarb (1 Meq/ml) 150 ml Rx#:[id number] Lactated Ringers 1,000 ml 240 60 @ 20 mls/hr IV .Q24H KACI Rx#:[id number] Intake, IV Titration 178.910 837.299 3.91 Amount Heparin Sod,Pork in 0.45% 68.426 31.342 NaCl 25,000 unit In 0.45 % NaCl 1 250ml.bag @ 18 UNITS/KG/HR 12.654 mls/hr IV .[id number] KACI Rx#: [id number] Lactated Ringers 1,000 ml 540 @ 20 mls/hr IV .Q24H KACI Rx#:[id number] Norepinephrine 4 mg In 110.484 265.957 3.91 Sodium Chloride 0.9% 250 ml @ 0.03 MCG/KG/MIN 8. 184 mls/hr IV .Q24H KACI Rx#:[id number] Oral 200 118 Blood Product 265 Rc Pheresis As3 Unit 265 [id number] Other 50 Rc Pheresis As3 Unit 50 [id number] Output: Urine 550 50 0 Other: Voiding Method External Catheter External Catheter External Catheter - Exam Detailed examination deferred. As of yesterday: Patient's mental status, speech and language functions are normal. 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 Sensory to touch is equal. - Labs CBC & Chem 7: 11/14/23 05:55 11/14/23 05:55 Labs: Abnormal Lab Results - Last 24 Hours (Table) 11/12/23 11/12/23 11/13/23 Range/Units 12:23 15:45 21:10 WBC (3.8-10.6) k/uL RBC (3.80-5.40) m/uL Hgb (11.4-16.0) gm/dL Hct (34.0-46.0) % Neutrophils # (1.3-7.7) k/uL Monocytes # (0-1.0) k/uL APTT 110.0 H* (22.0-30.0) sec Sodium (137-145) mmol/L Carbon Dioxide (22-30) mmol/L BUN (7-17) mg/dL Creatinine (0.52-1.04) mg/dL Glucose (74-99) mg/dL POC Glucose (mg/dL) (70-110) mg/dL Calcium (8.4-10.2) mg/dL CK-MM (CK-3) 95.9 L (96.7-100.0) % CK-BB (CK-1) 4.1 H (0.0) % Troponin I (0.000-0.034) ng/mL Total Protein (6.3-8.2) g/dL Albumin (3.5-5.0) g/dL Crossmatch See Detail 11/14/23 11/14/23 11/14/23 Range/Units 05:55 05:55 05:55 WBC 21.9 H (3.8-10.6) k/uL RBC 2.28 L (3.80-5.40) m/uL Hgb 7.3 L D (11.4-16.0) gm/dL Hct 22.4 L (34.0-46.0) % Neutrophils # 17.1 H (1.3-7.7) k/uL Monocytes # 1.9 H (0-1.0) k/uL APTT 93.9 H (22.0-30.0) sec Sodium 132 L (137-145) mmol/L Carbon Dioxide 14 L (22-30) mmol/L BUN 32 H (7-17) mg/dL Creatinine 2.19 H (0.52-1.04) mg/dL Glucose 170 H (74-99) mg/dL POC Glucose (mg/dL) (70-110) mg/dL Calcium 7.7 L (8.4-10.2) mg/dL CK-MM (CK-3) (96.7-100.0) % CK-BB (CK-1) (0.0) % Troponin I (0.000-0.034) ng/mL Total Protein 4.7 L (6.3-8.2) g/dL Albumin 2.7 L (3.5-5.0) g/dL Crossmatch 11/14/23 11/14/23 11/14/23 Range/Units 11:03 14:27 14:39 WBC (3.8-10.6) k/uL RBC (3.80-5.40) m/uL Hgb (11.4-16.0) gm/dL Hct (34.0-46.0) % Neutrophils # (1.3-7.7) k/uL Monocytes # (0-1.0) k/uL APTT 37.8 H (22.0-30.0) sec Sodium (137-145) mmol/L Carbon Dioxide (22-30) mmol/L BUN (7-17) mg/dL Creatinine (0.52-1.04) mg/dL Glucose (74-99) mg/dL POC Glucose (mg/dL) 201 H (70-110) mg/dL Calcium (8.4-10.2) mg/dL CK-MM (CK-3) (96.7-100.0) % CK-BB (CK-1) (0.0) % Troponin I 0.178 H* (0.000-0.034) ng/mL Total Protein (6.3-8.2) g/dL Albumin (3.5-5.0) g/dL Crossmatch 11/14/23 Range/Units 20:09 WBC (3.8-10.6) k/uL RBC (3.80-5.40) m/uL Hgb (11.4-16.0) gm/dL Hct (34.0-46.0) % Neutrophils # (1.3-7.7) k/uL Monocytes # (0-1.0) k/uL APTT (22.0-30.0) sec Sodium (137-145) mmol/L Carbon Dioxide (22-30) mmol/L BUN (7-17) mg/dL Creatinine (0.52-1.04) mg/dL Glucose (74-99) mg/dL POC Glucose (mg/dL) 265 H (70-110) mg/dL Calcium (8.4-10.2) mg/dL CK-MM (CK-3) (96.7-100.0) % CK-BB (CK-1) (0.0) % Troponin I (0.000-0.034) ng/mL Total Protein (6.3-8.2) g/dL Albumin (3.5-5.0) g/dL Crossmatch Assessment and Plan Assessment: * Acute stroke/TIA, manifesting with left hemiparesis, this seems to have mostly resolved. Although her NIH stroke scale at this time is 0, but she does have some weakness of the left biceps muscle, uncertain new or old. * Right hip osteoarthritis, status post total hip arthroplasty, 11/12/2023. * History of DVT, on Eliquis. * Hypertension * Diabetes * Bilateral lower extremity DVT, with acute pulmonary embolism Plan: * Patient's symptoms have mostly resolved. * CTA of the neck revealed approximately 40% proximal left ICA stenosis. * CTA of the head showed atherosclerotic calcifications throughout the bilateral carotid siphons. This results in moderate segmental stenosis left ICA. Additional moderate focal stenosis proximal M1 segment left MCA. Otherwise no large vessel intracranial arterial occlusion or aneurysm. * Patient's vascular stenosis are on the ipsilateral side, therefore probably asymptomatic. Rule out cardiac source. * CTA of the chest performed showed couple small pulmonary emboli within the right upper and right lower lung. No evidence of right heart strain. * Ultrasound of bilateral lower extremity positive for DVT. * Patient has been started on heparin IV for PE. Resume Eliquis when medically cleared. Patient has some intracranial atherosclerotic disease. Aspirin would be beneficial, but risks more than benefits at this time. May consider aspirin 81 mg, if medically cleared. * Patient is now hypotensive, currently on norepinephrine. Avoid hypotension. * 2D echo revealed normal left ventricular function with EF 50 to 55%. Moderately increased septal wall thickness. Moderately increased posterior wall thickness. Atypical septal motion. Normal left atrial size. No left to right shunt seen at the atrial level. No [id number] shunt seen in the atrial level with contrast. No valvular abnormalities. * Fasting lipid panel cholesterol 144, LDL 83, HDL 40, triglycerides 98. We will add Lipitor 20 mg daily. * Hemoglobin A1c 6.9 on 09/22/2023. No need to repeat. * Telemetry monitoring. * PT OT. * Other medical management as per IM, critical care and other specialties. * DVT prophylaxis: Patient started on IV heparin. * Dr. Burger covering neurology service over the weekend for any concerns. Dr. Armijo to resume neurology service from Friday.
[2023-11-15] MEDS: FUROSEMIDE 10 MG/ML 2 ML VIAL IV ONE ×2 (03:03→08:27)
[2023-11-15 04:27] LABS: ALT 6 U/L (4-34); AST 40 U/L (14-36); African American GFR (CKD) 15 (>60 ml/min/1.73 sqM); Albumin 2.5 g/dL (3.5-5.0); Alkaline Phosphatase 55 U/L (38-126); Anion Gap 10 mmol/L; Basophils % (A) 0 %; Blood Urea Nitrogen 45 mg/dL (7-17); Calcium 7.6 mg/dL (8.4-10.2); Carbon Dioxide 21 mmol/L (22-30); Chloride 100 mmol/L (98-107); Eosinophils % (A) 0 %; Glucose 172 mg/dL (74-99); Lymphocytes # (A) 2.3 k/uL (1.0-4.8); Lymphocytes % (A) 12 %; MCH 32.1 pg (25.0-35.0); MCV 94.4 fL (80.0-100.0); Mean Platelet Volume 9.6; Monocytes # (A) 1.8 k/uL (0-1.0); Monocytes % (A) 9 %; Neutrophils # (A) 15.5 k/uL (1.3-7.7); Neutrophils % (A) 77 %; Non-African American GFR(CKD) 13 (>60 ml/min/1.73 sqM); Platelet Count 161 k/uL (150-450); Potassium 4.4 mmol/L (3.5-5.1); RBC 1.98 m/uL (3.80-5.40); RDW 15.4 % (11.5-15.5); Sodium 131 mmol/L (137-145); Total Bilirubin 0.3 mg/dL (0.2-1.3); Total Protein 4.4 g/dL (6.3-8.2); WBC 20.1 k/uL (3.8-10.6)
[2023-11-15 05:01] LABS: HCT 18.7 % (34.0-46.0); HGB 6.3 gm/dL (11.4-16.0)
[2023-11-15 05:26] LABS: RBC Morphology Normal
[2023-11-15 06:36] LABS: Glucose,Whole Blood 229 mg/dL (70-110)
[2023-11-15] MEDS: PANTOPRAZOLE 40 MG/10 ML VIAL IVP SCH (08:19)
--- NOTE | 2023-11-15 08:43 | XR ---
EXAMINATION TYPE: XR chest 1V portable DATE OF EXAM: 11/15/2023 Comparison: 11/14/2023 Clinical History: 88-year-old female CHF Findings: Low lung volumes with crowded vascular markings. Hardware alignment size. Interstitium showing increa sed density. Patchy bibasilar opacities, left greater than right. Impression: Hypoventilatory changes with increased interstitial density and developing patchy bibasilar opacities . Possible mild CHF as an etiology.
[2023-11-15] MEDS: FUROSEMIDE 10 MG/ML 10 ML VIAL IV STA (08:55)
--- NOTE | 2023-11-15 08:55 | P.PN ---
Subjective Progress Note Date: 11/15/23 Principal diagnosis: Elevated cardiac enzymes The patient is an 88-year-old female patient with a past medical history significant for history of DVT she was on oral anticoagulation as an outpatient. No prior cardiac history of coronary artery disease or congestive heart failure or cardiac arrhythmia. We asked to see the patient in a consultation in the intensive care unit for sinus tachycardia as well as abnormal cardiac enzymes. The patient was admitted to the hospital and underwent an elective right hip surgery which was uneventful. During her recovery it was noted that she was unable to move her left side. Initially it was felt secondary to stroke. Stroke code was called and the patient underwent a workup including CT scan of the brain as well as carotid workup and all of that came in to be unremarkable for acute stroke. Also the workup including CT scan showed possible small pulmonary embolism. No history of pulmonary embolism in the past. She has his tory of DVT. She was not on oral anticoagulation because that was interrupted before the surgery. Subsequently the patient was admitted to the intensive care unit. It was noted that she was hypotensive requiring norepinephrine but at the same time her hemoglobin dropped significantly and her last hemoglobin from this morning is around 7. Her previous hemoglobin was 13. Currently the patient is hypotensive requiring norepinephrine. She was started on heparin IV. When she was seen and evaluated this morning her main symptoms is being tired and fatigue and no symptoms of any chest pain or chest discomfort or shortness of breath. She underwent an echocardiogram which revealed normal LV systolic function with no significant wall motion abnormalities. Cardiac enzymes were checked and came in to be slightly abnormal. We only have 1 abnormal troponin and I am going to obtain 2 more sets of troponin for further clarification. Beside that she has no EKG. Stat EKG is in process to be done. The examination revealed regular rhythm with a distant heart sounds and diminished breathing sounds bilaterally and no edema was noted in the lower extremities. Beside that the patient is in renal failure likely secondary to anemia and hypotension November 15, 2023 The patient was seen and evaluated this morning. She was anemic and she is in process of receiving 1 unit of packed RBC. Her hemoglobin was 6. She was hypotensive requiring norepinephrine but that has improved and currently she is not on any vasopressors after she received the blood. The creatinine continues to be elevated and currently nephrology is consulted to see the patient. Because of the anemia which is secondary to the hematoma by the right hip the heparin was stopped the patient is in process of having an IVC filter placement. Otherwise she is not reporting any chest pain or chest discomfort at this point. The EKG showed LBBB. The echo showed normal LV systolic function with no wall motion abnormalities and no evidence of RV strain. The examination revealed regular rhythm with a systolic murmur and clear breathing sounds bilaterally and no edema was noted. Assessment Status post right hip surgery Left-sided weakness which has improved. No acute stroke on the workup Recent diagnosis of small pulmonary embolism and deep venous thrombosis Anemia secondary to blood loss Evidence of myocardial injury likely secondary to anemia and type II myocardial infarction Renal failure Plan Continue the current dose of atorvastatin Consider medical treatment for the elevated cardiac enzymes Monitor the hemoglobin and consider blood transfusion if the hemoglobin drop below 7 Heparin is on hold at this point. The patient is in process of having IVC filter placement Consider adding small dose of beta-lindsay if the pressure remains stable Follow-up with the patient Objective - Vital Signs Vital signs: Vital Signs Temp 97.5 F L 11/15/23 08:00 Pulse 94 11/15/23 08:00 Resp 10 L 11/15/23 08:00 BP 136/56 11/15/23 08:00 Pulse Ox 95 11/15/23 08:00 FiO2 50 11/12/23 20:01 Intake & Output 11/14/23 11/15/23 11/15/23 18:59 06:59 18:59 Intake Total 3779.676 3172.230 81.365 Output Total 50 0 0 Balance 0305.814 5437.230 81.365 Weight 77.2 kg Intake: IV 660 975 75 Dextrose 5% in Water 1, 600 975 75 000 ml @ 75 mls/hr IV . [id number] KACI with Sodium Bicarb (1 Meq/ml) 150 ml Rx#:[id number] Lactated Ringers 1,000 ml 60 @ 20 mls/hr IV .Q24H KACI Rx#:[id number] Intake, IV Titration 837.299 99.230 6.365 Amount Heparin Sod,Pork in 0.45% 31.342 69.222 NaCl 25,000 unit In 0.45 % NaCl 1 250ml.bag @ 18 UNITS/KG/HR 12.654 mls/hr IV .[id number] KACI Rx#: [id number] Lactated Ringers 1,000 ml 540 @ 20 mls/hr IV .Q24H KACI Rx#:[id number] Norepinephrine 4 mg In 265.957 30.008 6.365 Sodium Chloride 0.9% 250 ml @ 0.03 MCG/KG/MIN 8. 184 mls/hr IV .Q24H KACI Rx#:[id number] Oral 118 Blood Product 265 0 Unit 0 Rc Pheresis As3 Unit 265 [id number] Other 50 Rc Pheresis As3 Unit 50 [id number] Output: Urine 50 0 0 Other: Voiding Method External Catheter External Catheter - Labs CBC & Chem 7: 11/15/23 03:38 11/15/23 03:38 Labs: Abnormal Lab Results - Last 24 Hours (Table) 11/12/23 11/12/23 11/14/23 Range/Units 12:23 15:45 11:03 WBC (3.8-10.6) k/uL RBC (3.80-5.40) m/uL Hgb (11.4-16.0) gm/dL Hct (34.0-46.0) % Neutrophils # (1.3-7.7) k/uL Monocytes # (0-1.0) k/uL APTT (22.0-30.0) sec Sodium (137-145) mmol/L Carbon Dioxide (22-30) mmol/L BUN (7-17) mg/dL Creatinine (0.52-1.04) mg/dL Glucose (74-99) mg/dL POC Glucose (mg/dL) 201 H (70-110) mg/dL Calcium (8.4-10.2) mg/dL AST (14-36) U/L CK-MM (CK-3) 95.9 L (96.7-100.0) % CK-BB (CK-1) 4.1 H (0.0) % Troponin I (0.000-0.034) ng/mL Total Protein (6.3-8.2) g/dL Albumin (3.5-5.0) g/dL Procalcitonin (0.02-0.09) ng/mL Crossmatch See Detail 11/14/23 11/14/23 11/14/23 Range/Units 14:27 14:39 14:39 WBC (3.8-10.6) k/uL RBC (3.80-5.40) m/uL Hgb (11.4-16.0) gm/dL Hct (34.0-46.0) % Neutrophils # (1.3-7.7) k/uL Monocytes # (0-1.0) k/uL APTT 37.8 H (22.0-30.0) sec Sodium (137-145) mmol/L Carbon Dioxide (22-30) mmol/L BUN (7-17) mg/dL Creatinine (0.52-1.04) mg/dL Glucose (74-99) mg/dL POC Glucose (mg/dL) (70-110) mg/dL Calcium (8.4-10.2) mg/dL AST (14-36) U/L CK-MM (CK-3) (96.7-100.0) % CK-BB (CK-1) (0.0) % Troponin I 0.178 H* (0.000-0.034) ng/mL Total Protein (6.3-8.2) g/dL Albumin (3.5-5.0) g/dL Procalcitonin 1.20 H (0.02-0.09) ng/mL Crossmatch 11/14/23 11/14/23 11/14/23 Range/Units 20:09 21:26 21:26 WBC (3.8-10.6) k/uL RBC (3.80-5.40) m/uL Hgb (11.4-16.0) gm/dL Hct (34.0-46.0) % Neutrophils # (1.3-7.7) k/uL Monocytes # (0-1.0) k/uL APTT 66.2 H (22.0-30.0) sec Sodium (137-145) mmol/L Carbon Dioxide (22-30) mmol/L BUN (7-17) mg/dL Creatinine (0.52-1.04) mg/dL Glucose (74-99) mg/dL POC Glucose (mg/dL) 265 H (70-110) mg/dL Calcium (8.4-10.2) mg/dL AST (14-36) U/L CK-MM (CK-3) (96.7-100.0) % CK-BB (CK-1) (0.0) % Troponin I 0.184 H* (0.000-0.034) ng/mL Total Protein (6.3-8.2) g/dL Albumin (3.5-5.0) g/dL Procalcitonin (0.02-0.09) ng/mL Crossmatch 11/15/23 11/15/23 11/15/23 Range/Units 03:38 03:38 03:38 WBC 20.1 H (3.8-10.6) k/uL RBC 1.98 L (3.80-5.40) m/uL Hgb 6.3 L* (11.4-16.0) gm/dL Hct 18.7 L* (34.0-46.0) % Neutrophils # 15.5 H (1.3-7.7) k/uL Monocytes # 1.8 H (0-1.0) k/uL APTT 75.7 H (22.0-30.0) sec Sodium 131 L (137-145) mmol/L Carbon Dioxide 21 L (22-30) mmol/L BUN 45 H (7-17) mg/dL Creatinine 3.09 H (0.52-1.04) mg/dL Glucose 172 H (74-99) mg/dL POC Glucose (mg/dL) (70-110) mg/dL Calcium 7.6 L (8.4-10.2) mg/dL AST 40 H (14-36) U/L CK-MM (CK-3) (96.7-100.0) % CK-BB (CK-1) (0.0) % Troponin I (0.000-0.034) ng/mL Total Protein 4.4 L (6.3-8.2) g/dL Albumin 2.5 L (3.5-5.0) g/dL Procalcitonin (0.02-0.09) ng/mL Crossmatch 11/15/23 Range/Units 06:34 WBC (3.8-10.6) k/uL RBC (3.80-5.40) m/uL Hgb (11.4-16.0) gm/dL Hct (34.0-46.0) % Neutrophils # (1.3-7.7) k/uL Monocytes # (0-1.0) k/uL APTT (22.0-30.0) sec Sodium (137-145) mmol/L Carbon Dioxide (22-30) mmol/L BUN (7-17) mg/dL Creatinine (0.52-1.04) mg/dL Glucose (74-99) mg/dL POC Glucose (mg/dL) 229 H (70-110) mg/dL Calcium (8.4-10.2) mg/dL AST (14-36) U/L CK-MM (CK-3) (96.7-100.0) % CK-BB (CK-1) (0.0) % Troponin I (0.000-0.034) ng/mL Total Protein (6.3-8.2) g/dL Albumin (3.5-5.0) g/dL Procalcitonin (0.02-0.09) ng/mL Crossmatch
--- NOTE | 2023-11-15 11:51 | P.PN ---
Subjective Progress Note Date: 11/15/23 Principal diagnosis: Acute pulmonary embolism post right hip arthroplasty, postoperative day #3 Patient is an 88-year-old white female with past medical history significant for hypertension, osteoarthritis, and right lower extremity DVT. Patient recently diagnosed with right lower extremity DVT in March,, and she was placed on Eliquis. Eliquis was placed on hold 5 days prior to an elective right total hip arthroplasty. Patient was brought in yesterday for an elective right direct anterior total hip arthroplasty. While in PACU postoperatively, the patient could not move her left arm. A code stroke was initiated. Noncontrast brain CT did not show any acute intracranial abnormality, no hemorrhage or mass effect. Brain CTA showed mild approximately 40% left ICA stenosis, otherwise no large vessel intracranial arterial occlusion or aneurysmal change. Patient was evaluated by neuro-interventionalists, and risks outweighed benefits for thrombolytics. There were also some incidental pulmonary findings, warranting a dedicated film. Chest CTA showed a couple small pulmonary emboli within the right upper and lower lung gonzalez. No CT evidence of right-sided heart strain. There is also some bilateral atelectasis. The surgeon and Dr. Saldana discussed CT findings and the patient was ultimately started on a heparin infusion per protocol. Patient was also hypertensive postoperatively, and started on a Cleviprex infusion to be titrated to maintain systolic blood pressure of 170 or less to allow for permissive hypertension. Patient was transferred to the intensive care unit from PACU. Patient is currently lying in bed, on 6 L/min nasal cannula, in no acute distress. SpO2 currently 99%. Postoperative ABG showed a PaO2 of 77, pCO2 of 54, and pH of 7.25. She was temporarily on BiPAP support. No signs of hypercapnic encephalopathy. No focal neurological deficits. Patient's left upper extremity weakness has resolved. Overall, neurological exam is benign, consider TIA. Blood pressure is now normotensive. Heart rhythm is normal sinus on bedside monitor. Patient denies any chest pain. No lightheadedness or syncope. No coughing or hemoptysis. Postsurgical dressing is clean, dry, and intact. There is some nikki-incisional swelling. Neurovascular status intact. No obvious hematoma. Postoperative CBC: WBC count 15.8, hemoglobin 11.1, hematocrit 33.8, platelets 226. aPTT supratherapeutic, and heparin and was adjusted per protocol. Postoperative BMP: Sodium 137, testing 3.4, chloride 107, serum bicarb 22, BUN 21, creatinine 0.77, glucose 206. Magnesium 1.4. Electrolytes are being replaced. Troponins less 0.012. Patient will continue to be monitored in the intensive care unit at least overnight. Patient reevaluated today on 11/14/2023, patient remains in the ICU, she is marginal at best. Patient required close for 3 units of packed RBCs and her last hemoglobin is 7.3. Patient is still requiring norepinephrine at 0.07 mcg/kg/min IV fluid is running D5W with 3 A of bicarb at 75 cc/h. Last night she had to be on BiPAP 10/5/50%, presently on 8 L high flow nasal cannula blood pressure is 109/59, mean arterial pressure of 67. However the patient is requiring norepinephrine to adequately maintain good blood pressure. WBC count this morning is 21.9 hemoglobin is 7.3. PTT is 93.9. Her bicarb is 14 BUN is 32 creatinine is 2.19, blood sugar is 201 patient had normal creatinine on admission 11/12/2023, however the patient did develop acute kidney injury most likely secondary to episodes of hypotension requiring pressors. Chest x-ray this morning showed no evidence of congestive heart failure, no pneumonia, right hemidiaphragm seems to be relatively elevated. Patient was reevaluated today on 11/15/2023, patient remains in the ICU, continues to have ongoing bleeding with drop in hemoglobin down to 6.3 today, and I am recommending another unit of packed RBCs to be given today. Obviously the patient is unable to tolerate heparin considering her recent surgery, and she continues to have bleeding most likely into the surgical site/right hip. At this point I believe the patient has absolute current indication to heparin, and I am planning to arrange for vascular surgery to visit to see the patient for possible IVC filter. In addition the patient is developing worsening L kidney injury, and need to have nephrology consultation, her urine output is extremely poor and the patient is getting to be oliguric 60 mg of Lasix was ordered, patient received lots of fluids and blood products since admission. Procalcitonin level is 1.20, antibiotic cefazolin empirically. Patient is still requiring norepinephrine at 0.02 mcg/kg/min to maintain adequate blood pressure, and she is on bicarb drip at 75 cc/h. Heparin is presently on hold. Patient has received already 3 units of packed RBCs since admission to the ICU with acute pulmonary embolism. And DVT. WBC count is 20.1 hemoglobin 6.3 basic m etabolic profile is normal BUN is 45 creatinine 3.09 PTT was 75 chest x-ray does not show any evidence of congestive heart failure, but does show left basilar atelectasis Objective - Vital Signs Vital signs: Vital Signs Temp 98.1 F 11/15/23 09:11 Pulse 91 11/15/23 09:15 Resp 13 11/15/23 09:15 BP 120/56 11/15/23 09:15 Pulse Ox 95 11/15/23 09:15 FiO2 50 11/12/23 20:01 Intake & Output 11/14/23 11/15/23 11/15/23 18:59 06:59 18:59 Intake Total 9886.500 3086.230 467.593 Output Total 50 0 0 Balance 5133.032 2293.230 467.593 Weight 77.2 kg 77.2 kg Intake: IV 660 975 150 Dextrose 5% in Water 1, 600 975 150 000 ml @ 75 mls/hr IV . [id number] [facility] with Sodium Bicarb (1 Meq/ml) 150 ml Rx#:[id number] Lactated Ringers 1,000 ml 60 @ 20 mls/hr IV .Q24H [facility] Rx#:[id number] Intake, IV Titration 837.299 99.230 7.593 Amount Heparin Sod,Pork in 0.45% 31.342 69.222 NaCl 25,000 unit In 0.45 % NaCl 1 250ml.bag @ 18 UNITS/KG/HR 12.654 mls/hr IV .[id number] [facility] Rx#: [id number] Lactated Ringers 1,000 ml 540 @ 20 mls/hr IV .Q24H [facility] Rx#:[id number] Norepinephrine 4 mg In 265.957 30.008 7.593 Sodium Chloride 0.9% 250 ml @ 0.03 MCG/KG/MIN 8. 184 mls/hr IV .Q24H [facility] Rx#:[id number] Oral 118 Blood Product 265 0 310 Rc As-1 Unit 0 [id number] Rc As-1 Unit 0 310 [id number] Rc Pheresis As3 Unit 265 [id number] Other 50 Rc Pheresis As3 Unit 50 [id number] Output: Urine 50 0 0 Other: Voiding Method External Catheter External Catheter - Exam GENERAL EXAM: Alert, 88-year-old white female, comfortable i however O2 requirement has gone up, patient is now on 13 L high flow cannula. HEAD: Normocephalic and atraumatic EYES: Normal reaction of pupils, equal size. NOSE: Clear with pink turbinates. THROAT: No erythema or exudates. NECK: No masses, no JVD. CHEST: No chest wall deformity. LUNGS: Diminished breath sound bilaterally no crackles rhonchi or wheezes CVS: S1 and S2 normal with no audible murmur, regular rhythm. No extra heart sounds ABDOMEN: No hepatosplenomegaly, active bowel sounds, no guarding or rigidity. SKIN: No rashes CENTRAL NERVOUS SYSTEM: Alert oriented x 3 no gross focal deficit EXTREMITIES: There is no peripheral edema, clubbing, or cyanosis. Peripheral pulses are intact. Right hip incision is clean, dry, intact. There is some nikki-incisional edema, findings are suspicious for ongoing bleeding into the right hip and thigh - Labs CBC & Chem 7: 11/15/23 03:38 11/15/23 03:38 Labs: Abnormal Lab Results - Last 24 Hours (Table) 11/12/23 11/12/23 11/14/23 Range/Units 12:23 15:45 14:27 WBC (3.8-10.6) k/uL RBC (3.80-5.40) m/uL Hgb (11.4-16.0) gm/dL Hct (34.0-46.0) % Neutrophils # (1.3-7.7) k/uL Monocytes # (0-1.0) k/uL APTT 37.8 H (22.0-30.0) sec Sodium (137-145) mmol/L Carbon Dioxide (22-30) mmol/L BUN (7-17) mg/dL Creatinine (0.52-1.04) mg/dL Glucose (74-99) mg/dL POC Glucose (mg/dL) (70-110) mg/dL Calcium (8.4-10.2) mg/dL AST (14-36) U/L CK-MM (CK-3) 95.9 L (96.7-100.0) % CK-BB (CK-1) 4.1 H (0.0) % Troponin I (0.000-0.034) ng/mL Total Protein (6.3-8.2) g/dL Albumin (3.5-5.0) g/dL Procalcitonin (0.02-0.09) ng/mL Crossmatch See Detail 11/14/23 11/14/23 11/14/23 Range/Units 14:39 14:39 20:09 WBC (3.8-10.6) k/uL RBC (3.80-5.40) m/uL Hgb (11.4-16.0) gm/dL Hct (34.0-46.0) % Neutrophils # (1.3-7.7) k/uL Monocytes # (0-1.0) k/uL APTT (22.0-30.0) sec Sodium (137-145) mmol/L Carbon Dioxide (22-30) mmol/L BUN (7-17) mg/dL Creatinine (0.52-1.04) mg/dL Glucose (74-99) mg/dL POC Glucose (mg/dL) 265 H (70-110) mg/dL Calcium (8.4-10.2) mg/dL AST (14-36) U/L CK-MM (CK-3) (96.7-100.0) % CK-BB (CK-1) (0.0) % Troponin I 0.178 H* (0.000-0.034) ng/mL Total Protein (6.3-8.2) g/dL Albumin (3.5-5.0) g/dL Procalcitonin 1.20 H (0.02-0.09) ng/mL Crossmatch 11/14/23 11/14/23 11/15/23 Range/Units 21:26 21:26 03:38 WBC 20.1 H (3.8-10.6) k/uL RBC 1.98 L (3.80-5.40) m/uL Hgb 6.3 L* (11.4-16.0) gm/dL Hct 18.7 L* (34.0-46.0) % Neutrophils # 15.5 H (1.3-7.7) k/uL Monocytes # 1.8 H (0-1.0) k/uL APTT 66.2 H (22.0-30.0) sec Sodium (137-145) mmol/L Carbon Dioxide (22-30) mmol/L BUN (7-17) mg/dL Creatinine (0.52-1.04) mg/dL Glucose (74-99) mg/dL POC Glucose (mg/dL) (70-110) mg/dL Calcium (8.4-10.2) mg/dL AST (14-36) U/L CK-MM (CK-3) (96.7-100.0) % CK-BB (CK-1) (0.0) % Troponin I 0.184 H* (0.000-0.034) ng/mL Total Protein (6.3-8.2) g/dL Albumin (3.5-5.0) g/dL Procalcitonin (0.02-0.09) ng/mL Crossmatch 11/15/23 11/15/23 11/15/23 Range/Units 03:38 03:38 06:34 WBC (3.8-10.6) k/uL RBC (3.80-5.40) m/uL Hgb (11.4-16.0) gm/dL Hct (34.0-46.0) % Neutrophils # (1.3-7.7) k/uL Monocytes # (0-1.0) k/uL APTT 75.7 H (22.0-30.0) sec Sodium 131 L (137-145) mmol/L Carbon Dioxide 21 L (22-30) mmol/L BUN 45 H (7-17) mg/dL Creatinine 3.09 H (0.52-1.04) mg/dL Glucose 172 H (74-99) mg/dL POC Glucose (mg/dL) 229 H (70-110) mg/dL Calcium 7.6 L (8.4-10.2) mg/dL AST 40 H (14-36) U/L CK-MM (CK-3) (96.7-100.0) % CK-BB (CK-1) (0.0) % Troponin I (0.000-0.034) ng/mL Total Protein 4.4 L (6.3-8.2) g/dL Albumin 2.5 L (3.5-5.0) g/dL Procalcitonin (0.02-0.09) ng/mL Crossmatch Assessment and Plan Assessment: Impression: Acute hypoxic respiratory failure secondary to acute pulmonary embolism Right hip osteoarthritis status post right anterior total hip arthroplasty postoperative day #3 History of deep vein thrombosis, normally patient is on Eliquis prior to her hip surgery Hypotension secondary to acute blood loss anemia, hypovolemia and also secondary to pulmonary embolism no clear-cut evidence of RV strain. As noted on echocardiogram on 11/13/2023 Acute blood loss anemia, most likely secondary to recent surgery and the fact the patient is receiving heparin however the benefits of heparin outweigh the risks at this point. Patient received a total of 2 units of packed RBCs so far. Acute leukocytosis secondary to surgery/reactive Acute TIA, resolved with left-sided weakness Sinus tachycardia secondary to anemia and secondary to pulmonary embolism Acute kidney injury with oliguria, will give the patient a Lasix challenge of 60 mg IV push, will consult nephrology. Recommendation: Hold IV heparin for now Continue present IV fluid and transfuse patient with 1 unit of packed RBCs today Consult vascular surgery for IVC filter placement as the patient seems to have absolute contraindication to heparin with ongoing bleeding and blood loss Consult nephrology for acute kidney injury and worsening renal failure Continue to monitor in the ICU Continue norepinephrine and titrate accordingly Continue oxygen and titrate accordingly Orthopedics is very well aware of potential bleeding into the surgical site/right hip Venous Doppler showed evidence of deep vein thrombosis Remains critically ill and hemodynamically unstable Critical care time is over 30 Will continue to follow Time with Patient: Greater than 30
[2023-11-15 11:56] LABS: Glucose,Whole Blood 162 mg/dL (70-110)
--- NOTE | 2023-11-15 12:40 | P.NPCON ---
History of Present Illness - Reason for Consult acute renal failure - History of Present Illness patient is an 88-year-old female with history of DVT who was admitted to the hospital for right total hip arthroplasty which was performed on 11/12/2023.patient developed respiratory distress postop and was noted to have PE on a chest CTA. Heparin was started and unfortunately hemoglobin dropped to 6.3 mg/dL. Patient has been transfused packed RBCs. Few readings of low blood pressure noted on 11/14/2023 with systolic in the 80s. Urine output dropped yesterday and has been 0 since last night. no response to IV Lasix Serum creatinine increased from 0.7 on initial admission to 3.0 today.potassium is 4.4. Currently maintained on IV fluids, IV bicarb Review of Systems as per HPI Past Medical History Past Medical History: Cancer, Diabetes Mellitus, Deep Vein Thrombosis (DVT), Hypertension, Osteoarthritis (OA) Additional Past Medical History / Comment(s): skin on back of leg, diet controlled dm, lft leg dvt 03/2023, bunion on rt foot with scab History of Any Multi-Drug Resistant Organisms: None Reported Past Surgical History: Hysterectomy Additional Past Surgical History / Comment(s): skin cancer removal from R leg, removal of blood clot from lft leg Past Anesthesia/Blood Transfusion Reactions: No Reported Reaction Smoking Status: Never smoker - Past Family History Daughter(s) Family Medical History: Cancer Additional Family Medical History / Comment(s): breast Father Family Medical History: Hypertension Mother Family Medical History: Hypertension Brother(s) Family Medical History: Cancer, Hypertension Medications and Allergies Home Medications Medication Instructions Recorded Confirmed Type Ibuprofen [Advil] 400 mg PO DAILY 05/24/19 11/06/23 History Metoprolol Succinate [Toprol XL] 25 mg PO DAILY 05/24/19 11/06/23 History hydroCHLOROthiazide [Hydrodiuril] 25 mg PO DAILY 05/24/19 11/06/23 History ramipriL [Ramipril] 10 mg PO HS 05/24/19 11/12/23 History ramipriL [Ramipril] 20 mg PO DAILY 05/24/19 11/06/23 History Apixaban [Eliquis] 5 mg PO BID 09/29/23 11/12/23 History Allergies Allergy/AdvReac Type Severity Reaction Status Date / Time No Known Allergies Allergy Verified 11/12/23 10:59 Physical Exam Vitals: Vital Signs Temp Pulse Resp BP Pulse Ox 11/15/23 09:42 97.2 F L 88 12 126/45 95 11/15/23 09:22 97.1 F L 89 13 119/53 95 11/15/23 09:15 91 13 120/56 95 11/15/23 09:11 98.1 F 93 14 120/56 94 L 11/15/23 09:00 98.1 F 91 11 L 133/58 95 11/15/23 08:45 91 11 L 136/47 95 11/15/23 08:30 94 18 127/51 94 L 11/15/23 08:15 96 9 L 141/51 93 L 11/15/23 08:00 97.5 F L 94 10 L 136/56 95 11/15/23 07:45 91 11 L 130/50 96 11/15/23 07:30 100 18 124/46 95 11/15/23 07:15 101 H 45 H 105/50 96 11/15/23 07:00 82 10 L 123/48 97 11/15/23 06:45 84 11 L 117/44 95 11/15/23 06:30 97.7 F 86 25 H 113/49 96 11/15/23 06:20 92 13 129/51 96 11/15/23 06:10 92 24 129/51 96 11/15/23 06:00 90 18 131/62 95 11/15/23 05:50 87 10 L 131/62 94 L 11/15/23 05:40 97.8 F 89 16 118/45 95 11/15/23 05:30 90 17 124/45 95 11/15/23 05:20 93 15 124/45 92 L 11/15/23 05:00 98 9 L 121/49 92 L 11/15/23 04:45 94 10 L 128/46 95 11/15/23 04:30 90 10 L 123/43 95 11/15/23 04:15 90 9 L 109/44 96 11/15/23 04:00 97.9 F 93 11 L 125/46 95 11/15/23 03:45 101 H 13 134/44 11/15/23 03:30 89 9 L 127/41 96 11/15/23 03:15 87 10 L 98/39 97 04/20/24 03:00 85 9 L 111/43 11/15/23 02:45 83 9 L 109/40 95 11/15/23 02:30 86 17 110/38 95 11/15/23 02:15 98 17 127/47 83 L 11/15/23 02:00 89 13 113/49 96 11/15/23 01:45 87 11 L 128/40 96 11/15/23 01:30 90 8 L 115/67 95 11/15/23 01:15 100 21 111/59 94 L 11/15/23 01:00 87 11 L 111/48 95 11/15/23 00:45 84 17 120/39 95 11/15/23 00:30 87 10 L 108/56 93 L 11/15/23 00:16 95 19 108/56 95 11/15/23 00:15 94 34 H 103/48 93 L 11/15/23 00:00 98.2 F 84 11 L 103/47 96 11/14/23 23:45 84 10 L 108/55 95 11/14/23 23:30 84 11 L 104/52 11/14/23 23:15 89 13 101/59 11/14/23 23:00 92 14 111/48 94 L 11/14/23 22:45 92 18 99/46 93 L 11/14/23 22:30 86 12 106/54 96 11/14/23 22:15 89 13 123/51 92 L 11/14/23 22:00 89 10 L 114/50 93 L 11/14/23 21:45 101 H 30 H 110/55 92 L 11/14/23 21:30 94 19 116/46 96 11/14/23 21:15 89 10 L 115/54 96 11/14/23 21:00 89 10 L 108/46 97 11/14/23 20:45 86 10 L 104/45 95 11/14/23 20:30 89 11 L 105/45 92 L 11/14/23 20:15 89 26 H 103/46 91 L 11/14/23 20:00 97.8 F 88 12 113/56 93 L 11/14/23 19:45 98 7 L 101/52 94 L 11/14/23 19:30 92 16 112/42 98 11/14/23 19:15 94 24 102/57 97 11/14/23 19:00 87 17 86/38 98 11/14/23 18:45 93 22 108/43 98 11/14/23 18:30 89 16 110/57 97 11/14/23 18:15 92 11 L 99/44 11/14/23 18:00 89 14 109/43 11/14/23 17:45 92 11 L 115/38 97 11/14/23 17:30 93 10 L 108/44 98 11/14/23 17:15 94 11 L 101/45 97 11/14/23 17:00 93 10 L 119/60 96 11/14/23 16:45 112 H 11 L 109/32 98 11/14/23 16:30 111 H 19 112/54 94 L 11/14/23 16:15 106 H 13 119/50 96 11/14/23 16:00 97.1 F L 101 H 31 H 115/56 97 11/14/23 15:45 96 10 L 121/56 97 11/14/23 15:30 102 H 9 L 129/54 95 11/14/23 15:15 103 H 10 L 124/50 11/14/23 15:00 110 H 18 107/40 96 11/14/23 14:45 105 H 12 101/76 11/14/23 14:30 106 H 14 11/14/23 14:15 104 H 11 L 104/63 11/14/23 14:00 102 H 27 H 98/68 96 11/14/23 13:45 97 6 L 103/69 11/14/23 13:30 105 H 8 L 97/59 89 L 11/14/23 13:15 102 H 12 86/35 95 11/14/23 13:00 101 H 7 L 95/47 96 11/14/23 12:45 100 14 131/69 96 Intake and Output 11/14/23 11/15/23 11/15/23 22:59 06:59 14:59 Intake Total 674.080 529.193 2235.593 Output Total 0 0 0 Balance 674.080 164.966 5884.593 Intake: IV 600 675 375 Dextrose 5% in Water 1, 600 675 375 000 ml @ 75 mls/hr IV . [id number] [facility] with Sodium Bicarb (1 Meq/ml) 150 ml Rx#:[id number] Intake, IV Titration 74.080 95.320 7.593 Amount Heparin Sod,Pork in 0.45% 31.342 69.222 NaCl 25,000 unit In 0.45 % NaCl 1 250ml.bag @ 18 UNITS/KG/HR 12.654 mls/hr IV .[id number] [facility] Rx#: [id number] Norepinephrine 4 mg In 42.738 26.098 7.593 Sodium Chloride 0.9% 250 ml @ 0.03 MCG/KG/MIN 8. 184 mls/hr IV .Q24H [facility] Rx#:[id number] Blood Product 0 620 Rc As-1 Unit 310 [id number] Rc As-1 Unit 0 310 [id number] Output: Urine 0 0 0 Other: Voiding Method External Catheter External Catheter Weight 77.2 kg 77.2 kg patient is sleeping but arousable. She is comfortable. Examination of the heart S1 and S2 Examination of the lungs bilateral breath sounds are heard Abdomen is soft nontender Examination of lower extremities shows no significant edema, right thigh slightly edematous postop BIRD SITTER exam grossly intact Results - Lab Results Most recent lab results ABG pH 7.25 (7.35-7.45) L 11/12/23 15:35 ABG pCO2 54 mmHg (35-45) H 11/12/23 15:35 ABG pO2 57 mmHg (83-108) L* 11/12/23 15:35 ABG HCO3 24 mmol/L (21-25) 11/12/23 15:35 ABG O2 Saturation 87.0 % (94-97) L 11/12/23 15:35 Calcium 7.6 mg/dL (8.4-10.2) L 11/15/23 03:38 Magnesium 2.0 mg/dL (1.6-2.3) 11/13/23 04:53 11/15/23 03:38 11/15/23 03:38 Assessment and Plan Assessment: 1. Acute kidney injury, ATN currently oliguric secondary to hypotension and severe anemia. No nephrotoxic agents on board. Patient has been transfused packed RBCs. We will continue to monitor renal function. Check ultrasound of the kidneys. If patient remains and uric she will need renal replacement therapy. 2. PE with history of lower extremity DVT scheduled for IVC filter placement. IV heparin on hold due to postoperative bleeding 3. Status post right hip total arthroplasty on 11/12/2023 4. Acute blood loss anemia status post packed RBCs transfusion 5. non-gap metabolic acidosis secondary to acute kidney injury Plan: continue bicarb drip Check ultrasound of the kidneys Check UA Continue to avoid nephrotoxic agents Patient will need renal replacement therapy if renal function continues to worsen and she remains anuric. Thank you for the consultation. We will continue to follow the patient with you during her hospitalization.
--- NOTE | 2023-11-15 13:10 | P.PN ---
Subjective Progress Note Date: 11/15/23 Patient has some minor discomfort in her right hip. She denies chest pain or shortness of breath. Spoke with events since yesterday with nursing. Objective - Vital Signs Vital signs: Vital Signs Temp 97.7 F 11/15/23 12:30 Pulse 89 11/15/23 12:30 Resp 12 11/15/23 12:30 BP 133/54 11/15/23 12:30 Pulse Ox 95 11/15/23 12:30 FiO2 50 11/12/23 20:01 Intake & Output 11/14/23 11/15/23 11/15/23 18:59 06:59 18:59 Intake Total 3804.766 9207.230 1002.593 Output Total 50 0 0 Balance 3111.025 3042.230 1002.593 Weight 77.2 kg 77.2 kg Intake: IV 660 975 375 Dextrose 5% in Water 1, 600 975 375 000 ml @ 75 mls/hr IV . [id number] KACI with Sodium Bicarb (1 Meq/ml) 150 ml Rx#:[id number] Lactated Ringers 1,000 ml 60 @ 20 mls/hr IV .Q24H KACI Rx#:[id number] Intake, IV Titration 837.299 99.230 7.593 Amount Heparin Sod,Pork in 0.45% 31.342 69.222 NaCl 25,000 unit In 0.45 % NaCl 1 250ml.bag @ 18 UNITS/KG/HR 12.654 mls/hr IV .[id number] KACI Rx#: [id number] Lactated Ringers 1,000 ml 540 @ 20 mls/hr IV .Q24H KACI Rx#:[id number] Norepinephrine 4 mg In 265.957 30.008 7.593 Sodium Chloride 0.9% 250 ml @ 0.03 MCG/KG/MIN 8. 184 mls/hr IV .Q24H KACI Rx#:[id number] Oral 118 Blood Product 265 0 620 Rc As-1 Unit 310 [id number] Rc As-1 Unit 0 310 [id number] Rc Pheresis As3 Unit 265 [id number] Other 50 Rc Pheresis As3 Unit 50 [id number] Output: Urine 50 0 0 Other: Voiding Method External Catheter External Catheter - Exam The patient is resting comfortably in bed. She is alert and able to answer questions. The dressing over the anterior aspect of her right hip is intact. There is diffuse swelling throughout the right leg but her thigh is soft and compressible and there is no active drainage. Femoral nerve function is intact. She is able to actively plantarflex and dorsiflex her ankle and her toes. - Labs CBC & Chem 7: 11/15/23 03:38 11/15/23 03:38 Labs: Abnormal Lab Results - Last 24 Hours (Table) 11/12/23 11/12/23 11/14/23 Range/Units 12:23 15:45 14:27 WBC (3.8-10.6) k/uL RBC (3.80-5.40) m/uL Hgb (11.4-16.0) gm/dL Hct (34.0-46.0) % Neutrophils # (1.3-7.7) k/uL Monocytes # (0-1.0) k/uL APTT 37.8 H (22.0-30.0) sec Sodium (137-145) mmol/L Carbon Dioxide (22-30) mmol/L BUN (7-17) mg/dL Creatinine (0.52-1.04) mg/dL Glucose (74-99) mg/dL POC Glucose (mg/dL) (70-110) mg/dL Calcium (8.4-10.2) mg/dL AST (14-36) U/L CK-MM (CK-3) 95.9 L (96.7-100.0) % CK-BB (CK-1) 4.1 H (0.0) % Troponin I (0.000-0.034) ng/mL Total Protein (6.3-8.2) g/dL Albumin (3.5-5.0) g/dL Procalcitonin (0.02-0.09) ng/mL Crossmatch See Detail 11/14/23 11/14/23 11/14/23 Range/Units 14:39 14:39 20:09 WBC (3.8-10.6) k/uL RBC (3.80-5.40) m/uL Hgb (11.4-16.0) gm/dL Hct (34.0-46.0) % Neutrophils # (1.3-7.7) k/uL Monocytes # (0-1.0) k/uL APTT (22.0-30.0) sec Sodium (137-145) mmol/L Carbon Dioxide (22-30) mmol/L BUN (7-17) mg/dL Creatinine (0.52-1.04) mg/dL Glucose (74-99) mg/dL POC Glucose (mg/dL) 265 H (70-110) mg/dL Calcium (8.4-10.2) mg/dL AST (14-36) U/L CK-MM (CK-3) (96.7-100.0) % CK-BB (CK-1) (0.0) % Troponin I 0.178 H* (0.000-0.034) ng/mL Total Protein (6.3-8.2) g/dL Albumin (3.5-5.0) g/dL Procalcitonin 1.20 H (0.02-0.09) ng/mL Crossmatch 11/14/23 11/14/23 11/15/23 Range/Units 21:26 21:26 03:38 WBC 20.1 H (3.8-10.6) k/uL RBC 1.98 L (3.80-5.40) m/uL Hgb 6.3 L* (11.4-16.0) gm/dL Hct 18.7 L* (34.0-46.0) % Neutrophils # 15.5 H (1.3-7.7) k/uL Monocytes # 1.8 H (0-1.0) k/uL APTT 66.2 H (22.0-30.0) sec Sodium (137-145) mmol/L Carbon Dioxide (22-30) mmol/L BUN (7-17) mg/dL Creatinine (0.52-1.04) mg/dL Glucose (74-99) mg/dL POC Glucose (mg/dL) (70-110) mg/dL Calcium (8.4-10.2) mg/dL AST (14-36) U/L CK-MM (CK-3) (96.7-100.0) % CK-BB (CK-1) (0.0) % Troponin I 0.184 H* (0.000-0.034) ng/mL Total Protein (6.3-8.2) g/dL Albumin (3.5-5.0) g/dL Procalcitonin (0.02-0.09) ng/mL Crossmatch 11/15/23 11/15/23 11/15/23 Range/Units 03:38 03:38 06:34 WBC (3.8-10.6) k/uL RBC (3.80-5.40) m/uL Hgb (11.4-16.0) gm/dL Hct (34.0-46.0) % Neutrophils # (1.3-7.7) k/uL Monocytes # (0-1.0) k/uL APTT 75.7 H (22.0-30.0) sec Sodium 131 L (137-145) mmol/L Carbon Dioxide 21 L (22-30) mmol/L BUN 45 H (7-17) mg/dL Creatinine 3.09 H (0.52-1.04) mg/dL Glucose 172 H (74-99) mg/dL POC Glucose (mg/dL) 229 H (70-110) mg/dL Calcium 7.6 L (8.4-10.2) mg/dL AST 40 H (14-36) U/L CK-MM (CK-3) (96.7-100.0) % CK-BB (CK-1) (0.0) % Troponin I (0.000-0.034) ng/mL Total Protein 4.4 L (6.3-8.2) g/dL Albumin 2.5 L (3.5-5.0) g/dL Procalcitonin (0.02-0.09) ng/mL Crossmatch 11/15/23 Range/Units 11:55 WBC (3.8-10.6) k/uL RBC (3.80-5.40) m/uL Hgb (11.4-16.0) gm/dL Hct (34.0-46.0) % Neutrophils # (1.3-7.7) k/uL Monocytes # (0-1.0) k/uL APTT (22.0-30.0) sec Sodium (137-145) mmol/L Carbon Dioxide (22-30) mmol/L BUN (7-17) mg/dL Creatinine (0.52-1.04) mg/dL Glucose (74-99) mg/dL POC Glucose (mg/dL) 162 H (70-110) mg/dL Calcium (8.4-10.2) mg/dL AST (14-36) U/L CK-MM (CK-3) (96.7-100.0) % CK-BB (CK-1) (0.0) % Troponin I (0.000-0.034) ng/mL Total Protein (6.3-8.2) g/dL Albumin (3.5-5.0) g/dL Procalcitonin (0.02-0.09) ng/mL Crossmatch Assessment and Plan Assessment: Postoperative day 3 status post right direct anterior total hip arthroplasty Postoperative DVT and PE History of DVT and PE Acute blood loss anemia requiring multiple transfusions Acute renal insufficiency Plan: I continue to appreciate care provided by all medical services involved. Events over the last 24 hours were noted with the patient's nurse. Patient has required an additional 2 units of packed red blood cells due to low hemoglobin. Her heparin drip has been discontinued and she is going later today for an IVC filter. Her creatinine has been steadily increasing over the last several days and is being managed by nephrology.
[2023-11-15] MEDS ORDERED: IPRATROPIUM-ALBUTEROL 3 ML NEB INHALATION PRN (13:29)
--- NOTE | 2023-11-15 13:51 | US ---
EXAMINATION TYPE: US kidneys/renal and bladder DATE OF EXAM: 11/15/2023 COMPARISON: NONE CLINICAL INDICATION: Female, 88 years old with history of anuria, increased creat; anuria. Elevated c reatinine EXAM MEASUREMENTS: Right Kidney: 9.9 x 4.6 x 4.1 cm Left Kidney: 9.5 x 4.4 x 4.0 cm *Technical limitations, ICU patient with limited mobility Right Kidney: no evidence of hydronephrosis Left Kidney: no evidence of hydronephrosis Bladder: appears wnl Bilateral Jets seen: no IMPRESSION: No hydronephrosis. No specific abnormality seen.
[2023-11-15 14:09] LABS: INR 1.4 (<1.2); Prothrombin Time 14.5 sec (10.0-12.5)
[2023-11-15] MEDS: SODIUM CHLORIDE 0.9% 250 ML IV ONE (14:25)
[2023-11-15] MEDS: LIDOCAINE 1% INJ 10MG/ML (20 ML MDV) SQ ONE (14:30)
[2023-11-15] MEDS: IOPAMIDOL-370 100ML BTL INJ ONE (14:53)
--- NOTE | 2023-11-15 15:21 | P.OP ---
Date of Procedure: 11/15/23 Preoperative Diagnosis: Bilateral lower extremity deep venous thrombosis with a relative contraindication to anticoagulation. (Postoperative bleeding with need for transfusion) Postoperative Diagnosis: Same. Procedure(s) Performed: 1: Ultrasound-guided cannulation left common femoral vein. 2: Left iliac venogram and inferior venacavogram. 3: Placement of IVC filter. Implants: [employer] [place] IVC filter Anesthesia: local (1% Xylocaine.) Surgeon: Kevin Kidd Estimated Blood Loss (ml): 2 Urine output (ml): 0 Pathology: none sent Condition: stable Disposition: no change Description of Procedure: Patient was brought to the cardiac catheterization laboratory. Both groins were sterilely prepped and draped in usual manner. Ultrasound was utilized to identify the left common femoral vein which was normally compressible and free of visible thrombus. 1% Xylocaine was utilized for local anesthesia tissues overlying the left femoral vein. Through this anesthetized area and with the aid of ultrasound a micropuncture needle was utilized to cannulate the vein. Once cannulated a micropuncture wire was advanced and the needle was withdrawn. A micropuncture sheath and dilator were advanced over the guidewire. Guidewire and dilator were withdrawn and a 0.035 guidewire was advanced into the inferior vena cava. The micropuncture sheath was withdrawn and exchanged for a 5 [place] sheath. Left iliac venogram as well as inferior venacavogram was performed. This demonstrated normal anatomy with no evidence of venous thrombus. The confluence of the left and right renal veins with the vena cava was noted. Guidewire was then advanced through the 5 [place] sheath which was then removed and exchanged for the IVC filter and sheath. This combination was advanced to the L2-L3 level. The guidewire and dilator were withdrawn and the [employer] [place] IVC filter was advanced and deployed at the L2-L3 interspace. Completion venogram demonstrated the filter to be in proper position without evidence of complication. With the above findings noted the sheath was withdrawn and pressure was held at the puncture site until all evidence of bleeding ceased. Appropriate dressing was applied. Patient tolerated the procedure well and was returned to her room in satisfactory and stable condition.
--- NOTE | 2023-11-15 15:24 | P.GSCN ---
History of Present Illness Consult date: 11/15/23 Reason for Consult: Deep venous thrombosis with a history of bleeding postoperatively requiring transfusion, thus relative indication to anticoagulation History of present illness: Patient is an 88-year-old female who recently underwent a right hip replacement. Postoperatively the patient developed bleeding into the surgical site. Venous duplex had been performed which demonstrated acute deep venous thrombosis involving the femoral venous segment bilaterally. Her anticoagulation was stopped and request for IVC filter was placed. Past Medical History Past Medical History: Cancer, Diabetes Mellitus, Deep Vein Thrombosis (DVT), Hypertension, Osteoarthritis (OA) Additional Past Medical History / Comment(s): skin on back of leg, diet controlled dm, lft leg dvt 03/2023, bunion on rt foot with scab History of Any Multi-Drug Resistant Organisms: None Reported Past Surgical History: Hysterectomy Additional Past Surgical History / Comment(s): skin cancer removal from R leg, removal of blood clot from lft leg Past Anesthesia/Blood Transfusion Reactions: No Reported Reaction Smoking Status: Never smoker - Past Family History Daughter(s) Family Medical History: Cancer Additional Family Medical History / Comment(s): breast Father Family Medical History: Hypertension Mother Family Medical History: Hypertension Brother(s) Family Medical History: Cancer, Hypertension Medications and Allergies Home Medications Medication Instructions Recorded Confirmed Type Ibuprofen [Advil] 400 mg PO DAILY 05/24/19 11/06/23 History Metoprolol Succinate [Toprol XL] 25 mg PO DAILY 05/24/19 11/06/23 History hydroCHLOROthiazide [Hydrodiuril] 25 mg PO DAILY 05/24/19 11/06/23 History ramipriL [Ramipril] 10 mg PO HS 05/24/19 11/12/23 History ramipriL [Ramipril] 20 mg PO DAILY 05/24/19 11/06/23 History Apixaban [Eliquis] 5 mg PO BID 09/29/23 11/12/23 History Allergies Allergy/AdvReac Type Severity Reaction Status Date / Time No Known Allergies Allergy Verified 11/12/23 10:59 Surgical - Exam Osteopathic Statement: *. No significant issues noted on an osteopathic structural exam other than those noted in the History and Physical/Consult. Vital Signs Temp Pulse Resp BP Pulse Ox 98.4 F 78 16 198/80 95 11/12/23 10:50 11/12/23 10:50 11/12/23 10:50 11/12/23 10:50 11/12/23 10:50 Patient Seen Date: 11/15/23 Patient Seen Time: 14:10 Patient is awake and alert. I reviewed her clinical situation of deep venous thrombosis and relative contraindication to anticoagulation and thus recommendation for IVC filter. The procedure, risk and benefits were discussed. Patient wishes to proceed. Results - Labs 11/15/23 03:38 11/15/23 03:38 Abnormal Lab Results - Last 24 Hours (Table) 11/12/23 11/14/23 11/14/23 Range/Units 12:23 14:39 14:39 WBC (3.8-10.6) k/uL RBC (3.80-5.40) m/uL Hgb (11.4-16.0) gm/dL Hct (34.0-46.0) % Neutrophils # (1.3-7.7) k/uL Monocytes # (0-1.0) k/uL PT (10.0-12.5) sec INR (<1.2) APTT (22.0-30.0) sec Sodium (137-145) mmol/L Carbon Dioxide (22-30) mmol/L BUN (7-17) mg/dL Creatinine (0.52-1.04) mg/dL Glucose (74-99) mg/dL POC Glucose (mg/dL) (70-110) mg/dL Calcium (8.4-10.2) mg/dL AST (14-36) U/L Troponin I 0.178 H* (0.000-0.034) ng/mL Total Protein (6.3-8.2) g/dL Albumin (3.5-5.0) g/dL Procalcitonin 1.20 H (0.02-0.09) ng/mL Crossmatch See Detail 11/14/23 11/14/23 11/14/23 Range/Units 20:09 21:26 21:26 WBC (3.8-10.6) k/uL RBC (3.80-5.40) m/uL Hgb (11.4-16.0) gm/dL Hct (34.0-46.0) % Neutrophils # (1.3-7.7) k/uL Monocytes # (0-1.0) k/uL PT (10.0-12.5) sec INR (<1.2) APTT 66.2 H (22.0-30.0) sec Sodium (137-145) mmol/L Carbon Dioxide (22-30) mmol/L BUN (7-17) mg/dL Creatinine (0.52-1.04) mg/dL Glucose (74-99) mg/dL POC Glucose (mg/dL) 265 H (70-110) mg/dL Calcium (8.4-10.2) mg/dL AST (14-36) U/L Troponin I 0.184 H* (0.000-0.034) ng/mL Total Protein (6.3-8.2) g/dL Albumin (3.5-5.0) g/dL Procalcitonin (0.02-0.09) ng/mL Crossmatch 11/15/23 11/15/23 11/15/23 Range/Units 03:38 03:38 03:38 WBC 20.1 H (3.8-10.6) k/uL RBC 1.98 L (3.80-5.40) m/uL Hgb 6.3 L* (11.4-16.0) gm/dL Hct 18.7 L* (34.0-46.0) % Neutrophils # 15.5 H (1.3-7.7) k/uL Monocytes # 1.8 H (0-1.0) k/uL PT (10.0-12.5) sec INR (<1.2) APTT 75.7 H (22.0-30.0) sec Sodium 131 L (137-145) mmol/L Carbon Dioxide 21 L (22-30) mmol/L BUN 45 H (7-17) mg/dL Creatinine 3.09 H (0.52-1.04) mg/dL Glucose 172 H (74-99) mg/dL POC Glucose (mg/dL) (70-110) mg/dL Calcium 7.6 L (8.4-10.2) mg/dL AST 40 H (14-36) U/L Troponin I (0.000-0.034) ng/mL Total Protein 4.4 L (6.3-8.2) g/dL Albumin 2.5 L (3.5-5.0) g/dL Procalcitonin (0.02-0.09) ng/mL Crossmatch 11/15/23 11/15/23 11/15/23 Range/Units 06:34 11:55 13:43 WBC (3.8-10.6) k/uL RBC (3.80-5.40) m/uL Hgb (11.4-16.0) gm/dL Hct (34.0-46.0) % Neutrophils # (1.3-7.7) k/uL Monocytes # (0-1.0) k/uL PT 14.5 H (10.0-12.5) sec INR 1.4 H (<1.2) APTT (22.0-30.0) sec Sodium (137-145) mmol/L Carbon Dioxide (22-30) mmol/L BUN (7-17) mg/dL Creatinine (0.52-1.04) mg/dL Glucose (74-99) mg/dL POC Glucose (mg/dL) 229 H 162 H (70-110) mg/dL Calcium (8.4-10.2) mg/dL AST (14-36) U/L Troponin I (0.000-0.034) ng/mL Total Protein (6.3-8.2) g/dL Albumin (3.5-5.0) g/dL Procalcitonin (0.02-0.09) ng/mL Crossmatch Diabetes panel 11/15/23 Range/Units 03:38 Sodium 131 L (137-145) mmol/L Potassium 4.4 (3.5-5.1) mmol/L Chloride 100 (98-107) mmol/L Carbon Dioxide 21 L (22-30) mmol/L BUN 45 H (7-17) mg/dL Creatinine 3.09 H (0.52-1.04) mg/dL Glucose 172 H (74-99) mg/dL Calcium 7.6 L (8.4-10.2) mg/dL AST 40 H (14-36) U/L ALT 6 (4-34) U/L Alkaline Phosphatase 55 (38-126) U/L Total Protein 4.4 L (6.3-8.2) g/dL Albumin 2.5 L (3.5-5.0) g/dL Calcium panel 11/15/23 Range/Units 03:38 Calcium 7.6 L (8.4-10.2) mg/dL Albumin 2.5 L (3.5-5.0) g/dL Pituitary panel 11/15/23 Range/Units 03:38 Sodium 131 L (137-145) mmol/L Potassium 4.4 (3.5-5.1) mmol/L Chloride 100 (98-107) mmol/L Carbon Dioxide 21 L (22-30) mmol/L BUN 45 H (7-17) mg/dL Creatinine 3.09 H (0.52-1.04) mg/dL Glucose 172 H (74-99) mg/dL Calcium 7.6 L (8.4-10.2) mg/dL Adrenal panel 11/15/23 Range/Units 03:38 Sodium 131 L (137-145) mmol/L Potassium 4.4 (3.5-5.1) mmol/L Chloride 100 (98-107) mmol/L Carbon Dioxide 21 L (22-30) mmol/L BUN 45 H (7-17) mg/dL Creatinine 3.09 H (0.52-1.04) mg/dL Glucose 172 H (74-99) mg/dL Calcium 7.6 L (8.4-10.2) mg/dL Total Bilirubin 0.3 (0.2-1.3) mg/dL AST 40 H (14-36) U/L ALT 6 (4-34) U/L Alkaline Phosphatase 55 (38-126) U/L Total Protein 4.4 L (6.3-8.2) g/dL Albumin 2.5 L (3.5-5.0) g/dL Assessment and Plan Assessment: Deep venous thrombosis involving bilateral femoral venous segments with relative contraindication anticoagulation. Plan: Placement of IVC filter.
[2023-11-15 16:34] LABS: Glucose,Whole Blood 187 mg/dL (70-110)
[2023-11-15] MEDS: PIPERACILLIN-TAZOBACTAM 3.375 GM in SODIUM CHLORIDE 0.9% 100 ML IVPB SCH (17:32)
[2023-11-15] MEDS: IPRATROPIUM-ALBUTEROL 3 ML NEB INHALATION SCH (19:40)
[2023-11-15 20:06] LABS: Glucose,Whole Blood 225 mg/dL (70-110)
--- NOTE | 2023-11-15 22:33 | PN ---
PROGRESS NOTE DATE OF SERVICE: 11/15/2023 SUBJECTIVE: This 88-year-old woman was admitted after surgery and multiple complex medical issues. Patient initially thought to have CVA, subsequently the patient had PE, hypertension, and now the patient's hemoglobin today is 6.3. The patient was transfused. White count is elevated. Troponin is found to be 0.184 the most recent. The patient is on cefazolin also. The cultures are negative so far. The most recent chest x-ray done today showed some opacities also in the bases. PAST MEDICAL HISTORY: Reviewed. REVIEW OF SYSTEMS: A 14-point review is negative except as mentioned earlier. CURRENT MEDICATIONS: Reviewed include cefazolin, dose and rest of medications noted. PHYSICAL EXAMINATION: VITAL SIGNS: Pulse is 83, blood pressure n HEENT: Conjunctivae normal. CARDIOVASCULAR: S1, S2. RESPIRATIONS: Diminished at the bases, few scattered rhonchi. ABDOMEN: Soft. NERVOUS SYSTEM: No focal deficits. LABORATORY DATA: Noted. ASSESSMENT: 1. Status post right hip arthroplasty. 2. Weakness of the left side, possible acute TIA, improved. 3. Possible small pulmonary embolism on the right side, on anticoagulation possible bibasilar pneumonia, consider aspiration. 4. Labile hypertension, hypotension, currently improved. 5. Elevated WBC. 6. Anemia, multifactorial. 7. Diabetes type 2. 8. Troponin 0.078, possibly type 2 myocardial infarction per cardiology. 9. History of DVT, pulmonary embolism. 10.Diabetes mellitus, type 2. 11.History of hypertension. 12.Multiple complex medical issues. 13.Acute renal failure. RECOMMENDATIONS AND DISCUSSION: I recommended to continue current medications, continue symptomatic treatment. I recommended treating with antibiotics for possible anaerobic coverage also, otherwise continue rest of medications. Closely follow with Pulmonary, bronchodilators. Prognosis guarded because of multiple complex medical conditions, further recommendations to follow. See orders for further details. Prognosis guarded. DVT prophylaxis. MMODL / IJN: [id number] / KAM
[2023-11-15 22:39] LABS: HCT 25.3 % (34.0-46.0); MCH 31.4 pg (25.0-35.0); MCHC 34.8 g/dL (31.0-37.0); MCV 90.1 fL (80.0-100.0); Mean Platelet Volume 8.8; Platelet Count 135 k/uL (150-450); RBC 2.81 m/uL (3.80-5.40); RDW 15.8 % (11.5-15.5); WBC 15.7 k/uL (3.8-10.6)
[2023-11-15 23:03] LABS: HGB 8.8 gm/dL (11.4-16.0)
[2023-11-16 06:37] LABS: Glucose,Whole Blood 220 mg/dL (70-110)
[2023-11-16 06:45] LABS: Basophils % (A) 0 %; Eosinophils % (A) 0 %; HCT 25.1 % (34.0-46.0); HGB 8.7 gm/dL (11.4-16.0); Lymphocytes # (A) 1.5 k/uL (1.0-4.8); Lymphocytes % (A) 11 %; MCH 31.4 pg (25.0-35.0); MCHC 34.8 g/dL (31.0-37.0); MCV 90.2 fL (80.0-100.0); Mean Platelet Volume 8.8; Monocytes # (A) 1.1 k/uL (0-1.0); Monocytes % (A) 8 %; Neutrophils # (A) 10.7 k/uL (1.3-7.7); Neutrophils % (A) 79 %; Platelet Count 131 k/uL (150-450); RBC 2.78 m/uL (3.80-5.40); RDW 15.7 % (11.5-15.5); WBC 13.5 k/uL (3.8-10.6)
[2023-11-16 07:11] LABS: ALT 7 U/L (4-34); AST 48 U/L (14-36); African American GFR (CKD) 20 (>60 ml/min/1.73 sqM); Albumin 2.5 g/dL (3.5-5.0); Alkaline Phosphatase 58 U/L (38-126); Anion Gap 8 mmol/L; Blood Urea Nitrogen 49 mg/dL (7-17); Calcium 7.2 mg/dL (8.4-10.2); Carbon Dioxide 27 mmol/L (22-30); Chloride 97 mmol/L (98-107); Glucose 167 mg/dL (74-99); Non-African American GFR(CKD) 17 (>60 ml/min/1.73 sqM); Potassium 3.8 mmol/L (3.5-5.1); Sodium 132 mmol/L (137-145); Total Bilirubin 0.8 mg/dL (0.2-1.3); Total Protein 4.5 g/dL (6.3-8.2)
--- NOTE | 2023-11-16 08:16 | XR ---
EXAMINATION TYPE: XR chest 1V portable DATE OF EXAM: 11/16/2023 Comparison: 11/15/2023 Clinical History: 88-year-old female CHF Findings: Heart upper limits of normal in size. Asymmetric elevation right hemidiaphragm. Some mild patchy left basilar opacity remains. Overall improved appearance to the pulmonary vasculature. Low lung volumes. Impression: Hypoventilatory changes. Mild patchy left basilar opacity remains. The appearance of the pulmonary va sculature has improved.
--- NOTE | 2023-11-16 08:33 | P.PN ---
Subjective Progress Note Date: 11/16/23 Principal diagnosis: Elevated cardiac enzymes The patient is an 88-year-old female patient with a past medical history significant for history of DVT she was on oral anticoagulation as an outpatient. No prior cardiac history of coronary artery disease or congestive heart failure or cardiac arrhythmia. We asked to see the patient in a consultation in the intensive care unit for sinus tachycardia as well as abnormal cardiac enzymes. The patient was admitted to the hospital and underwent an elective right hip surgery which was uneventful. During her recovery it was noted that she was unable to move her left side. Initially it was felt secondary to stroke. Stroke code was called and the patient underwent a workup including CT scan of the brain as well as carotid workup and all of that came in to be unremarkable for acute stroke. Also the workup including CT scan showed possible small pulmonary embolism. No history of pulmonary embolism in the past. She has his tory of DVT. She was not on oral anticoagulation because that was interrupted before the surgery. Subsequently the patient was admitted to the intensive care unit. It was noted that she was hypotensive requiring norepinephrine but at the same time her hemoglobin dropped significantly and her last hemoglobin from this morning is around 7. Her previous hemoglobin was 13. Currently the patient is hypotensive requiring norepinephrine. She was started on heparin IV. When she was seen and evaluated this morning her main symptoms is being tired and fatigue and no symptoms of any chest pain or chest discomfort or shortness of breath. She underwent an echocardiogram which revealed normal LV systolic function with no significant wall motion abnormalities. Cardiac enzymes were checked and came in to be slightly abnormal. We only have 1 abnormal troponin and I am going to obtain 2 more sets of troponin for further clarification. Beside that she has no EKG. Stat EKG is in process to be done. The examination revealed regular rhythm with a distant heart sounds and diminished breathing sounds bilaterally and no edema was noted in the lower extremities. Beside that the patient is in renal failure likely secondary to anemia and hypotension November 15, 2023 The patient was seen and evaluated this morning. She was anemic and she is in process of receiving 1 unit of packed RBC. Her hemoglobin was 6. She was hypotensive requiring norepinephrine but that has improved and currently she is not on any vasopressors after she received the blood. The creatinine continues to be elevated and currently nephrology is consulted to see the patient. Because of the anemia which is secondary to the hematoma by the right hip the heparin was stopped the patient is in process of having an IVC filter placement. Otherwise she is not reporting any chest pain or chest discomfort at this point. The EKG showed LBBB. The echo showed normal LV systolic function with no wall motion abnormalities and no evidence of RV strain. The examination revealed regular rhythm with a systolic murmur and clear breathing sounds bilaterally and no edema was noted. November 16, 2023 The patient was seen and evaluated this morning. She is asymptomatic. She is maintaining normal sinus mechanism. She underwent an IVC filter placement yesterday. Currently she is not on any oral anticoagulation or IV anti coagulations since she underwent the filter placement. Hemoglobin is stable and she is not bleeding anymore. The right hip hematoma has been stable. Creatinine has been trending in the right direction. She is on a statin which we will continue. Hold adding any aspirin at this point giving the h ematoma/bleeding. Consider starting the patient on small dose of beta-lindsay. The examination revealed regular rhythm with a systolic murmur and diminished breathing sounds bilaterally and she does have mild bilateral lower extremities edema noted. She was given Lasix yesterday. Assessment Status post right hip surgery Left-sided weakness which has improved. No acute stroke on the workup Recent diagnosis of small pulmonary embolism and deep venous thrombosis Anemia secondary to blood loss Status post IVC filter placement Evidence of myocardial injury likely secondary to anemia and type II myocardial infarction Renal failure Plan Continue the current dose of atorvastatin Consider medical treatment for the elevated cardiac enzymes Small dose of beta-lindsay to the current medical regimen No need for any further cardiovascular intervention at this point Objective - Vital Signs Vital signs: Vital Signs Temp 98.1 F 11/16/23 08:00 Pulse 84 11/16/23 08:00 Resp 16 11/16/23 08:00 BP 141/75 11/16/23 08:00 Pulse Ox 93 L 11/16/23 08:00 FiO2 50 11/12/23 20:01 Intake & Output 11/15/23 11/16/23 11/16/23 18:59 06:59 18:59 Intake Total 1229.066 6110 150 Output Total 200 100 150 Balance 8489.917 4299 0 Weight 77.2 kg 78.7 kg Intake: IV 700 1100 150 Dextrose 5% in Water 1, 675 900 150 000 ml @ 75 mls/hr IV . [id number] [facility] with Sodium Bicarb (1 Meq/ml) 150 ml Rx#:[id number] Piperacillin-Tazobactam 3 200 .375 gm In Sodium Chloride 0.9% 100 ml @ 25 mls/hr IVPB Q12H [facility] Rx# :[id number] Intake, IV Titration 7.593 Amount Norepinephrine 4 mg In 7.593 Sodium Chloride 0.9% 250 ml @ 0.03 MCG/KG/MIN 8. 184 mls/hr IV .Q24H [facility] Rx#:[id number] Blood Product 620 Rc As-1 Unit 310 [id number] Rc As-1 Unit 310 [id number] Output: Urine 200 100 150 Other: Voiding Method External Catheter External Catheter # Voids 1 - Labs CBC & Chem 7: 11/16/23 05:54 11/16/23 05:54 Labs: Abnormal Lab Results - Last 24 Hours (Table) 11/12/23 11/15/23 11/15/23 Range/Units 12:23 11:55 13:43 WBC (3.8-10.6) k/uL RBC (3.80-5.40) m/uL Hgb (11.4-16.0) gm/dL Hct (34.0-46.0) % RDW (11.5-15.5) % Plt Count (150-450) k/uL Neutrophils # (1.3-7.7) k/uL Monocytes # (0-1.0) k/uL PT (10.0-12.5) sec INR (<1.2) APTT (22.0-30.0) sec Sodium (137-145) mmol/L Chloride (98-107) mmol/L BUN (7-17) mg/dL Creatinine (0.52-1.04) mg/dL Glucose (74-99) mg/dL POC Glucose (mg/dL) 162 H (70-110) mg/dL Calcium (8.4-10.2) mg/dL AST (14-36) U/L Total Protein (6.3-8.2) g/dL Albumin (3.5-5.0) g/dL Procalcitonin 0.87 H (0.02-0.09) ng/mL Crossmatch See Detail 11/15/23 11/15/23 11/15/23 Range/Units 13:43 16:32 20:05 WBC (3.8-10.6) k/uL RBC (3.80-5.40) m/uL Hgb (11.4-16.0) gm/dL Hct (34.0-46.0) % RDW (11.5-15.5) % Plt Count (150-450) k/uL Neutrophils # (1.3-7.7) k/uL Monocytes # (0-1.0) k/uL PT 14.5 H (10.0-12.5) sec INR 1.4 H (<1.2) APTT (22.0-30.0) sec Sodium (137-145) mmol/L Chloride (98-107) mmol/L BUN (7-17) mg/dL Creatinine (0.52-1.04) mg/dL Glucose (74-99) mg/dL POC Glucose (mg/dL) 187 H 225 H (70-110) mg/dL Calcium (8.4-10.2) mg/dL AST (14-36) U/L Total Protein (6.3-8.2) g/dL Albumin (3.5-5.0) g/dL Procalcitonin (0.02-0.09) ng/mL Crossmatch 11/15/23 11/16/23 11/16/23 Range/Units 22:01 05:54 05:54 WBC 15.7 H 13.5 H (3.8-10.6) k/uL RBC 2.81 L 2.78 L (3.80-5.40) m/uL Hgb 8.8 L D 8.7 L (11.4-16.0) gm/dL Hct 25.3 L 25.1 L (34.0-46.0) % RDW 15.8 H 15.7 H (11.5-15.5) % Plt Count 135 L 131 L (150-450) k/uL Neutrophils # 10.7 H (1.3-7.7) k/uL Monocytes # 1.1 H (0-1.0) k/uL PT (10.0-12.5) sec INR (<1.2) APTT 31.8 H (22.0-30.0) sec Sodium (137-145) mmol/L Chloride (98-107) mmol/L BUN (7-17) mg/dL Creatinine (0.52-1.04) mg/dL Glucose (74-99) mg/dL POC Glucose (mg/dL) (70-110) mg/dL Calcium (8.4-10.2) mg/dL AST (14-36) U/L Total Protein (6.3-8.2) g/dL Albumin (3.5-5.0) g/dL Procalcitonin (0.02-0.09) ng/mL Crossmatch 11/16/23 11/16/23 Range/Units 05:54 06:35 WBC (3.8-10.6) k/uL RBC (3.80-5.40) m/uL Hgb (11.4-16.0) gm/dL Hct (34.0-46.0) % RDW (11.5-15.5) % Plt Count (150-450) k/uL Neutrophils # (1.3-7.7) k/uL Monocytes # (0-1.0) k/uL PT (10.0-12.5) sec INR (<1.2) APTT (22.0-30.0) sec Sodium 132 L (137-145) mmol/L Chloride 97 L (98-107) mmol/L BUN 49 H (7-17) mg/dL Creatinine 2.47 H (0.52-1.04) mg/dL Glucose 167 H (74-99) mg/dL POC Glucose (mg/dL) 220 H (70-110) mg/dL Calcium 7.2 L (8.4-10.2) mg/dL AST 48 H (14-36) U/L Total Protein 4.5 L (6.3-8.2) g/dL Albumin 2.5 L (3.5-5.0) g/dL Procalcitonin (0.02-0.09) ng/mL Crossmatch Microbiology - Last 24 Hours (Table) 11/14/23 14:39 Blood Culture - Preliminary Blood
--- NOTE | 2023-11-16 08:49 | IR ---
EXAMINATION TYPE: IR IVC filter placement DATE OF EXAM: 11/15/2023 FLUOROSCOPY Indication: DVT. 0.6min fluoro time, DAP: [id number] 27 total images provided.
--- NOTE | 2023-11-16 09:47 | P.PN ---
Subjective Progress Note Date: 11/16/23 Principal diagnosis: Status post right total hip arthroplasty This is a 88 year-old female post right total hip arthroplasty. This is post-op day 4. The patient was evaluated at the bedside today. The patient denies nausea, vomiting, abdominal pain, shortness of breath, and chest pain this morning. She states her pain is controlled at this time. The patient has not been up out of bed yet. She had a IVC filter placed yesterday. She is not on oral anticoagulants at this time. Objective - Vital Signs Vital signs: Vital Signs Temp 98.1 F 11/16/23 08:00 Pulse 82 11/16/23 09:00 Resp 11 L 11/16/23 09:00 BP 126/50 11/16/23 09:00 Pulse Ox 95 11/16/23 09:00 FiO2 50 11/12/23 20:01 Intake & Output 11/15/23 11/16/23 11/16/23 18:59 06:59 18:59 Intake Total 1808.512 2286 225 Output Total 200 100 150 Balance 9129.666 3943 75 Weight 77.2 kg 78.7 kg Intake: IV 700 1100 225 Dextrose 5% in Water 1, 675 900 150 000 ml @ 75 mls/hr IV . [id number] [facility] with Sodium Bicarb (1 Meq/ml) 150 ml Rx#:[id number] Piperacillin-Tazobactam 3 200 .375 gm In Sodium Chloride 0.9% 100 ml @ 25 mls/hr IVPB Q12H [facility] Rx# :[id number] Sodium Chloride 0.9% 1, 75 000 ml @ 75 mls/hr IV . [id number] [facility] Rx#: [id number] Intake, IV Titration 7.593 Amount Norepinephrine 4 mg In 7.593 Sodium Chloride 0.9% 250 ml @ 0.03 MCG/KG/MIN 8. 184 mls/hr IV .Q24H [facility] Rx#:[id number] Blood Product 620 Rc As-1 Unit 310 [id number] Rc As-1 Unit 310 [id number] Output: Urine 200 100 150 Other: Voiding Method External Catheter External Catheter # Voids 1 - Exam The patient does not appear in acute distress. Alert and orientated x3. Dress ing is clean dry and intact. Incision appears fine with no erythema or active drainage. Calf is soft and nontender. Good foot and ankle motion without difficulty. Sensation and circulatory status is intact. - Labs CBC & Chem 7: 11/16/23 05:54 11/16/23 05:54 Labs: Abnormal Lab Results - Last 24 Hours (Table) 11/12/23 11/15/23 11/15/23 Range/Units 12:23 11:55 13:43 WBC (3.8-10.6) k/uL RBC (3.80-5.40) m/uL Hgb (11.4-16.0) gm/dL Hct (34.0-46.0) % RDW (11.5-15.5) % Plt Count (150-450) k/uL Neutrophils # (1.3-7.7) k/uL Monocytes # (0-1.0) k/uL PT (10.0-12.5) sec INR (<1.2) APTT (22.0-30.0) sec Sodium (137-145) mmol/L Chloride (98-107) mmol/L BUN (7-17) mg/dL Creatinine (0.52-1.04) mg/dL Glucose (74-99) mg/dL POC Glucose (mg/dL) 162 H (70-110) mg/dL Calcium (8.4-10.2) mg/dL AST (14-36) U/L Total Protein (6.3-8.2) g/dL Albumin (3.5-5.0) g/dL Procalcitonin 0.87 H (0.02-0.09) ng/mL Crossmatch See Detail 11/15/23 11/15/23 11/15/23 Range/Units 13:43 16:32 20:05 WBC (3.8-10.6) k/uL RBC (3.80-5.40) m/uL Hgb (11.4-16.0) gm/dL Hct (34.0-46.0) % RDW (11.5-15.5) % Plt Count (150-450) k/uL Neutrophils # (1.3-7.7) k/uL Monocytes # (0-1.0) k/uL PT 14.5 H (10.0-12.5) sec INR 1.4 H (<1.2) APTT (22.0-30.0) sec Sodium (137-145) mmol/L Chloride (98-107) mmol/L BUN (7-17) mg/dL Creatinine (0.52-1.04) mg/dL Glucose (74-99) mg/dL POC Glucose (mg/dL) 187 H 225 H (70-110) mg/dL Calcium (8.4-10.2) mg/dL AST (14-36) U/L Total Protein (6.3-8.2) g/dL Albumin (3.5-5.0) g/dL Procalcitonin (0.02-0.09) ng/mL Crossmatch 11/15/23 11/16/23 11/16/23 Range/Units 22:01 05:54 05:54 WBC 15.7 H 13.5 H (3.8-10.6) k/uL RBC 2.81 L 2.78 L (3.80-5.40) m/uL Hgb 8.8 L D 8.7 L (11.4-16.0) gm/dL Hct 25.3 L 25.1 L (34.0-46.0) % RDW 15.8 H 15.7 H (11.5-15.5) % Plt Count 135 L 131 L (150-450) k/uL Neutrophils # 10.7 H (1.3-7.7) k/uL Monocytes # 1.1 H (0-1.0) k/uL PT (10.0-12.5) sec INR (<1.2) APTT 31.8 H (22.0-30.0) sec Sodium (137-145) mmol/L Chloride (98-107) mmol/L BUN (7-17) mg/dL Creatinine (0.52-1.04) mg/dL Glucose (74-99) mg/dL POC Glucose (mg/dL) (70-110) mg/dL Calcium (8.4-10.2) mg/dL AST (14-36) U/L Total Protein (6.3-8.2) g/dL Albumin (3.5-5.0) g/dL Procalcitonin (0.02-0.09) ng/mL Crossmatch 11/16/23 11/16/23 Range/Units 05:54 06:35 WBC (3.8-10.6) k/uL RBC (3.80-5.40) m/uL Hgb (11.4-16.0) gm/dL Hct (34.0-46.0) % RDW (11.5-15.5) % Plt Count (150-450) k/uL Neutrophils # (1.3-7.7) k/uL Monocytes # (0-1.0) k/uL PT (10.0-12.5) sec INR (<1.2) APTT (22.0-30.0) sec Sodium 132 L (137-145) mmol/L Chloride 97 L (98-107) mmol/L BUN 49 H (7-17) mg/dL Creatinine 2.47 H (0.52-1.04) mg/dL Glucose 167 H (74-99) mg/dL POC Glucose (mg/dL) 220 H (70-110) mg/dL Calcium 7.2 L (8.4-10.2) mg/dL AST 48 H (14-36) U/L Total Protein 4.5 L (6.3-8.2) g/dL Albumin 2.5 L (3.5-5.0) g/dL Procalcitonin (0.02-0.09) ng/mL Crossmatch Microbiology - Last 24 Hours (Table) 11/14/23 14:39 Blood Culture - Preliminary Blood Assessment and Plan (1) S/P total right hip arthroplasty Current Visit: Yes Status: Acute Code(s): Z96.641 - PRESENCE OF RIGHT ARTIF ICIAL HIP JOINT SNOMED Code(s): 795826069259 (2) Osteoarthritis of right hip Current Visit: Yes Status: Acute Code(s): M16.11 - UNILATERAL PRIMARY OSTEOARTHRITIS, RIGHT HIP SNOMED Code(s): 450462481101892 Plan: 1. Continue pain control 2. No oral anticoagulation. IVC filter placed yesterday. 3. Start physical therapy and ambulation when cleared medically. 4. Discharge planning depending on clinical course.
[2023-11-16] MEDS: METOPROLOL SUCCINATE (ER) 25 MG TAB.ER.24H PO SCH (10:42)
[2023-11-16] MEDS: SODIUM CHLORIDE 0.9% 1,000 ML IV SCH (10:43)
--- NOTE | 2023-11-16 11:19 | P.PN ---
Subjective Patient is seen for follow-up for acute kidney injury. This morning she is doing much better. Urine output picked up yesterday and patient has had about 200 cc over the last few hours. Patient is sitting on a bedside chair. No complaints of shortness of breath. Serum creatinine decreased to 2.4 today. Hemoglobin is 8.7 Objective - Vital Signs Vital signs: Vital Signs Temp 98.1 F 11/16/23 08:00 Pulse 84 11/16/23 11:00 Resp 14 11/16/23 11:00 BP 146/60 11/16/23 11:00 Pulse Ox 93 L 11/16/23 11:00 FiO2 50 11/12/23 20:01 Intake & Output 11/15/23 11/16/23 11/16/23 18:59 06:59 18:59 Intake Total 4205.460 3664 375 Output Total 200 100 200 Balance 0984.543 3449 175 Weight 77.2 kg 78.7 kg Intake: IV 700 1100 375 Dextrose 5% in Water 1, 675 900 150 000 ml @ 75 mls/hr IV . [id number] [facility] with Sodium Bicarb (1 Meq/ml) 150 ml Rx#:[id number] Piperacillin-Tazobactam 3 200 .375 gm In Sodium Chloride 0.9% 100 ml @ 25 mls/hr IVPB Q12H [facility] Rx# :[id number] Sodium Chloride 0.9% 1, 225 000 ml @ 75 mls/hr IV . [id number] [facility] Rx#:[id number] Intake, IV Titration 7.593 Amount Norepinephrine 4 mg In 7.593 Sodium Chloride 0.9% 250 ml @ 0.03 MCG/KG/MIN 8. 184 mls/hr IV .Q24H [facility] Rx#:[id number] Blood Product 620 Rc As-1 Unit 310 [id number] As-1 Unit 310 [id number] Output: Urine 200 100 200 Other: Voiding Method External Catheter External Catheter External Catheter # Voids 1 1 # Bowel Movements 1 - Exam patient is awake, comfortable, alert oriented x 3. Examination of the heart S1 and S2 Examination of the lungs bilateral breath sounds are heard Abdomen is soft nontender Examination of lower extremities shows no significant edema, right thigh slightly edematous postop [employer] exam grossly intact - Labs CBC & Chem 7: 11/16/23 05:54 11/16/23 05:54 Labs: Abnormal Lab Results - Last 24 Hours (Table) 11/12/23 11/15/23 11/15/23 Range/Units 12:23 11:55 13:43 WBC (3.8-10.6) k/uL RBC (3.80-5.40) m/uL Hgb (11.4-16.0) gm/dL Hct (34.0-46.0) % RDW (11.5-15.5) % Plt Count (150-450) k/uL Neutrophils # (1.3-7.7) k/uL Monocytes # (0-1.0) k/uL PT (10.0-12.5) sec INR (<1.2) APTT (22.0-30.0) sec Sodium (137-145) mmol/L Chloride (98-107) mmol/L BUN (7-17) mg/dL Creatinine (0.52-1.04) mg/dL Glucose (74-99) mg/dL POC Glucose (mg/dL) 162 H (70-110) mg/dL Calcium (8.4-10.2) mg/dL AST (14-36) U/L Total Protein (6.3-8.2) g/dL Albumin (3.5-5.0) g/dL Procalcitonin 0.87 H (0.02-0.09) ng/mL Crossmatch See Detail 11/15/23 11/15/23 11/15/23 Range/Units 13:43 16:32 20:05 WBC (3.8-10.6) k/uL RBC (3.80-5.40) m/uL Hgb (11.4-16.0) gm/dL Hct (34.0-46.0) % RDW (11.5-15.5) % Plt Count (150-450) k/uL Neutrophils # (1.3-7.7) k/uL Monocytes # (0-1.0) k/uL PT 14.5 H (10.0-12.5) sec INR 1.4 H (<1.2) APTT (22.0-30.0) sec Sodium (137-145) mmol/L Chloride (98-107) mmol/L BUN (7-17) mg/dL Creatinine (0.52-1.04) mg/dL Glucose (74-99) mg/dL POC Glucose (mg/dL) 187 H 225 H (70-110) mg/dL Calcium (8.4-10.2) mg/dL AST (14-36) U/L Total Protein (6.3-8.2) g/dL Albumin (3.5-5.0) g/dL Procalcitonin (0.02-0.09) ng/mL Crossmatch 11/15/23 11/16/23 11/16/23 Range/Units 22:01 05:54 05:54 WBC 15.7 H 13.5 H (3.8-10.6) k/uL RBC 2.81 L 2.78 L (3.80-5.40) m/uL Hgb 8.8 L D 8.7 L (11.4-16.0) gm/dL Hct 25.3 L 25.1 L (34.0-46.0) % RDW 15.8 H 15.7 H (11.5-15.5) % Plt Count 135 L 131 L (150-450) k/uL Neutrophils # 10.7 H (1.3-7.7) k/uL Monocytes # 1.1 H (0-1.0) k/uL PT (10.0-12.5) sec INR (<1.2) APTT 31.8 H (22.0-30.0) sec Sodium (137-145) mmol/L Chloride (98-107) mmol/L BUN (7-17) mg/dL Creatinine (0.52-1.04) mg/dL Glucose (74-99) mg/dL POC Glucose (mg/dL) (70-110) mg/dL Calcium (8.4-10.2) mg/dL AST (14-36) U/L Total Protein (6.3-8.2) g/dL Albumin (3.5-5.0) g/dL Procalcitonin (0.02-0.09) ng/mL Crossmatch 11/16/23 11/16/23 Range/Units 05:54 06:35 WBC (3.8-10.6) k/uL RBC (3.80-5.40) m/uL Hgb (11.4-16.0) gm/dL Hct (34.0-46.0) % RDW (11.5-15.5) % Plt Count (150-450) k/uL Neutrophils # (1.3-7.7) k/uL Monocytes # (0-1.0) k/uL PT (10.0-12.5) sec INR (<1.2) APTT (22.0-30.0) sec Sodium 132 L (137-145) mmol/L Chloride 97 L (98-107) mmol/L BUN 49 H (7-17) mg/dL Creatinine 2.47 H (0.52-1.04) mg/dL Glucose 167 H (74-99) mg/dL POC Glucose (mg/dL) 220 H (70-110) mg/dL Calcium 7.2 L (8.4-10.2) mg/dL AST 48 H (14-36) U/L Total Protein 4.5 L (6.3-8.2) g/dL Albumin 2.5 L (3.5-5.0) g/dL Procalcitonin (0.02-0.09) ng/mL Crossmatch Microbiology - Last 24 Hours (Table) 11/14/23 14:39 Blood Culture - Preliminary Blood Assessment and Plan Assessment: 1. Acute kidney injury, ATN currently oliguric secondary to hypotension and severe anemia. No nephrotoxic agents on board. Patient has been transfused p acked RBCs. No obstruction noted on ultrasound of the kidneys. Renal function has improved. Continue with IV hydration. Repeat labs in a.m. and continue to avoid nephrotoxic agents. 2. PE with history of lower extremity DVT status post IVC filter placement. IV heparin on hold due to postoperative bleeding 3. Status post right hip total arthroplasty on 11/12/2023 4. Acute blood loss anemia status post packed RBCs transfusion 5. non-gap metabolic acidosis secondary to acute kidney injury Plan: Check UA Continue with normal saline Repeat labs in a.m.
[2023-11-16 11:33] LABS: Glucose,Whole Blood 184 mg/dL (70-110)
[2023-11-16] MEDS ORDERED: ZINC OXIDE PASTE (Z-GUARD) 1 APPLIC TOPICAL PRN (11:54)
--- NOTE | 2023-11-16 13:25 | P.PN ---
Subjective Progress Note Date: 11/16/23 Principal diagnosis: Acute pulmonary embolism post right hip arthroplasty, postoperative day #4 Patient is an 88-year-old white female with past medical history significant for hypertension, osteoarthritis, and right lower extremity DVT. Patient recently diagnosed with right lower extremity DVT in March,, and she was placed on Eliquis. Eliquis was placed on hold 5 days prior to an elective right total hip arthroplasty. Patient was brought in yesterday for an elective right direct anterior total hip arthroplasty. While in PACU postoperatively, the patient could not move her left arm. A code stroke was initiated. Noncontrast brain CT did not show any acute intracranial abnormality, no hemorrhage or mass effect. Brain CTA showed mild approximately 40% left ICA stenosis, otherwise no large vessel intracranial arterial occlusion or aneurysmal change. Patient was evaluated by neuro-interventionalists, and risks outweighed benefits for thrombolytics. There were also some incidental pulmonary findings, warranting a dedicated film. Chest CTA showed a couple small pulmonary emboli within the right upper and lower lung gonzalez. No CT evidence of right-sided heart strain. There is also some bilateral atelectasis. The surgeon and Dr. Saldana discussed CT findings and the patient was ultimately started on a heparin infusion per protocol. Patient was also hypertensive postoperatively, and started on a Cleviprex infusion to be titrated to maintain systolic blood pressure of 170 or less to allow for permissive hypertension. Patient was transferred to the intensive care unit from PACU. Patient is currently lying in bed, on 6 L/min nasal cannula, in no acute distress. SpO2 currently 99%. Postoperative ABG showed a PaO2 of 77, pCO2 of 54, and pH of 7.25. She was temporarily on BiPAP support. No signs of hypercapnic encephalopathy. No focal neurological deficits. Patient's left upper extremity weakness has resolved. Overall, neurological exam is benign, consider TIA. Blood pressure is now normotensive. Heart rhythm is normal sinus on bedside monitor. Patient denies any chest pain. No lightheadedness or syncope. No coughing or hemoptysis. Postsurgical dressing is clean, dry, and intact. There is some nikki-incisional swelling. Neurovascular status intact. No obvious hematoma. Postoperative CBC: WBC count 15.8, hemoglobin 11.1, hematocrit 33.8, platelets 226. aPTT supratherapeutic, and heparin and was adjusted per protocol. Postoperative BMP: Sodium 137, testing 3.4, chloride 107, serum bicarb 22, BUN 21, creatinine 0.77, glucose 206. Magnesium 1.4. Electrolytes are being replaced. Troponins less 0.012. Patient will continue to be monitored in the intensive care unit at least overnight. Patient reevaluated today on 11/14/2023, patient remains in the ICU, she is marginal at best. Patient required close for 3 units of packed RBCs and her last hemoglobin is 7.3. Patient is still requiring norepinephrine at 0.07 mcg/kg/min IV fluid is running D5W with 3 A of bicarb at 75 cc/h. Last night she had to be on BiPAP 10/5/50%, presently on 8 L high flow nasal cannula blood pressure is 109/59, mean arterial pressure of 67. However the patient is requiring norepinephrine to adequately maintain good blood pressure. WBC count this morning is 21.9 hemoglobin is 7.3. PTT is 93.9. Her bicarb is 14 BUN is 32 creatinine is 2.19, blood sugar is 201 patient had normal creatinine on admission 11/12/2023, however the patient did develop acute kidney injury most likely secondary to episodes of hypotension requiring pressors. Chest x-ray this morning showed no evidence of congestive heart failure, no pneumonia, right hemidiaphragm seems to be relatively elevated. Patient was reevaluated today on 11/15/2023, patient remains in the ICU, continues to have ongoing bleeding with drop in hemoglobin down to 6.3 today, and I am recommending another unit of packed RBCs to be given today. Obviously the patient is unable to tolerate heparin considering her recent surgery, and she continues to have bleeding most likely into the surgical site/right hip. At this point I believe the patient has absolute current indication to heparin, and I am planning to arrange for vascular surgery to visit to see the patient for possible IVC filter. In addition the patient is developing worsening L kidney injury, and need to have nephrology consultation, her urine output is extremely poor and the patient is getting to be oliguric 60 mg of Lasix was ordered, patient received lots of fluids and blood products since admission. Procalcitonin level is 1.20, antibiotic cefazolin empirically. Patient is still requiring norepinephrine at 0.02 mcg/kg/min to maintain adequate blood pressure, and she is on bicarb drip at 75 cc/h. Heparin is presently on hold. Patient has received already 3 units of packed RBCs since admission to the ICU with acute pulmonary embolism. And DVT. WBC count is 20.1 hemoglobin 6.3 basic m etabolic profile is normal BUN is 45 creatinine 3.09 PTT was 75 chest x-ray does not show any evidence of congestive heart failure, but does show left basilar atelectasis Patient was reevaluated today on 11/16/2023, patient is feeling much better today. Her urine output has picked up on its own and now is about 50 cc/h. She had 200 cc in the last few hours. Patient is now off IV heparin, but I would recommend at least subcu heparin for now she had IVC filter placed. Her renal functioning is improving with creatinine down to 2.4. Hemoglobin is holding, it is today 8.7.However the patient did receive a total of 4 units of packed RBCs after her surgery for postoperative bleeding after she was placed on heparin. Patient is also off pressors, not requiring any norepinephrine, it is presently on hold she is on 2 L nasal cannula, she is on D5 4 5 at 75 cc/h her urine output again is excellent, patient remains on Zosyn today I added heparin subcu 5000 units subcu every 8 hours WBC count today 13.5 hemoglobin 8.7 platelets are 131 basic metabolic profile is normal BUN is 49 creatinine 2.47. Chest x-ray showed hypoventilatory changes, left basilar opacity/atelectasis, minimal prominence of the pulmonary vasculature but has improved compared to 2 days ago Objective - Vital Signs Vital signs: Vital Signs Temp 98.1 F 11/16/23 08:00 Pulse 84 11/16/23 11:00 Resp 14 11/16/23 11:00 BP 146/60 11/16/23 11:00 Pulse Ox 93 L 11/16/23 11:00 FiO2 50 11/12/23 20:01 Intake & Output 11/15/23 11/16/23 11/16/23 18:59 06:59 18:59 Intake Total 2508.812 9376 690 Output Total 200 100 250 Balance 6984.109 5802 440 Weight 77.2 kg 78.7 kg Intake: IV 700 1100 450 Dextrose 5% in Water 1, 675 900 150 000 ml @ 75 mls/hr IV . [id number] [facility] with Sodium Bicarb (1 Meq/ml) 150 ml Rx#:[id number] Piperacillin-Tazobactam 3 200 .375 gm In Sodium Chloride 0.9% 100 ml @ 25 mls/hr IVPB Q12H [facility] Rx# :[id number] Sodium Chloride 0.9% 1, 300 000 ml @ 75 mls/hr IV . [id number] [facility] Rx#:[id number] Intake, IV Titration 7.593 Amount Norepinephrine 4 mg In 7.593 Sodium Chloride 0.9% 250 ml @ 0.03 MCG/KG/MIN 8. 184 mls/hr IV .Q24H [facility] Rx#:[id number] Oral 240 Blood Product 620 Rc As-1 Unit 310 [id number] Rc As-1 Unit 310 [id number] Output: Urine 200 100 250 Other: Voiding Method External Catheter External Catheter External Catheter # Voids 1 1 # Bowel Movements 1 - Exam GENERAL EXAM: Alert, 88-year-old white female, comfortable, on 2 L nasal cannula with O2 sat is 93% HEAD: Normocephalic and atraumatic EYES: Normal reaction of pupils, equal size. NOSE: Clear with pink turbinates. THROAT: No erythema or exudates. NECK: No masses, no JVD. CHEST: No chest wall deformity. LUNGS: Diminished breath sound bilaterally no crackles rhonchi or wheezes CVS: S1 and S2 normal with no audible murmur, regular rhythm. No extra heart sounds ABDOMEN: No hepatosplenomegaly, active bowel sounds, no guarding or rigidity. SKIN: No rashes CENTRAL NERVOUS SYSTEM: Alert oriented x 3 no gross focal deficit EXTREMITIES: There is bipedal edema, no clubbing, or cyanosis. Right lower extremity seems to be more swollen than the left lower extremity. Peripheral pulses are intact. Right hip incision is clean, dry, intact. There is some nikki-incisional edema, findings are suspicious for bleeding into the right hip and thigh - Labs CBC & Chem 7: 11/16/23 05:54 11/16/23 05:54 Labs: Abnormal Lab Results - Last 24 Hours (Table) 11/15/23 11/15/23 11/15/23 Range/Units 13:43 13:43 16:32 WBC (3.8-10.6) k/uL RBC (3.80-5.40) m/uL Hgb (11.4-16.0) gm/dL Hct (34.0-46.0) % RDW (11.5-15.5) % Plt Count (150-450) k/uL Neutrophils # (1.3-7.7) k/uL Monocytes # (0-1.0) k/uL PT 14.5 H (10.0-12.5) sec INR 1.4 H (<1.2) APTT (22.0-30.0) sec Sodium (137-145) mmol/L Chloride (98-107) mmol/L BUN (7-17) mg/dL Creatinine (0.52-1.04) mg/dL Glucose (74-99) mg/dL POC Glucose (mg/dL) 187 H (70-110) mg/dL Calcium (8.4-10.2) mg/dL AST (14-36) U/L Total Protein (6.3-8.2) g/dL Albumin (3.5-5.0) g/dL Procalcitonin 0.87 H (0.02-0.09) ng/mL 11/15/23 11/15/23 11/16/23 Range/Units 20:05 22:01 05:54 WBC 15.7 H (3.8-10.6) k/uL RBC 2.81 L (3.80-5.40) m/uL Hgb 8.8 L D (11.4-16.0) gm/dL Hct 25.3 L (34.0-46.0) % RDW 15.8 H (11.5-15.5) % Plt Count 135 L (150-450) k/uL Neutrophils # (1.3-7.7) k/uL Monocytes # (0-1.0) k/uL PT (10.0-12.5) sec INR (<1.2) APTT 31.8 H (22.0-30.0) sec Sodium (137-145) mmol/L Chloride (98-107) mmol/L BUN (7-17) mg/dL Creatinine (0.52-1.04) mg/dL Glucose (74-99) mg/dL POC Glucose (mg/dL) 225 H (70-110) mg/dL Calcium (8.4-10.2) mg/dL AST (14-36) U/L Total Protein (6.3-8.2) g/dL Albumin (3.5-5.0) g/dL Procalcitonin (0.02-0.09) ng/mL 11/16/23 11/16/23 11/16/23 Range/Units 05:54 05:54 06:35 WBC 13.5 H (3.8-10.6) k/uL RBC 2.78 L (3.80-5.40) m/uL Hgb 8.7 L (11.4-16.0) gm/dL Hct 25.1 L (34.0-46.0) % RDW 15.7 H (11.5-15.5) % Plt Count 131 L (150-450) k/uL Neutrophils # 10.7 H (1.3-7.7) k/uL Monocytes # 1.1 H (0-1.0) k/uL PT (10.0-12.5) sec INR (<1.2) APTT (22.0-30.0) sec Sodium 132 L (137-145) mmol/L Chloride 97 L (98-107) mmol/L BUN 49 H (7-17) mg/dL Creatinine 2.47 H (0.52-1.04) mg/dL Glucose 167 H (74-99) mg/dL POC Glucose (mg/dL) 220 H (70-110) mg/dL Calcium 7.2 L (8.4-10.2) mg/dL AST 48 H (14-36) U/L Total Protein 4.5 L (6.3-8.2) g/dL Albumin 2.5 L (3.5-5.0) g/dL Procalcitonin (0.02-0.09) ng/mL 11/16/23 Range/Units 11:31 WBC (3.8-10.6) k/uL RBC (3.80-5.40) m/uL Hgb (11.4-16.0) gm/dL Hct (34.0-46.0) % RDW (11.5-15.5) % Plt Count (150-450) k/uL Neutrophils # (1.3-7.7) k/uL Monocytes # (0-1.0) k/uL PT (10.0-12.5) sec INR (<1.2) APTT (22.0-30.0) sec Sodium (137-145) mmol/L Chloride (98-107) mmol/L BUN (7-17) mg/dL Creatinine (0.52-1.04) mg/dL Glucose (74-99) mg/dL POC Glucose (mg/dL) 184 H (70-110) mg/dL Calcium (8.4-10.2) mg/dL AST (14-36) U/L Total Protein (6.3-8.2) g/dL Albumin (3.5-5.0) g/dL Procalcitonin (0.02-0.09) ng/mL Microbiology - Last 24 Hours (Table) 11/14/23 14:39 Blood Culture - Preliminary Blood Assessment and Plan Assessment: Impression: Acute hypoxic respiratory failure secondary to acute pulmonary embolism Right hip osteoarthritis status post right anterior total hip arthroplasty postoperative day #4 History of deep vein thrombosis, normally patient is on Eliquis prior to her hip surgery Hypotension secondary to acute blood loss anemia, hypovolemia and also secondary to pulmonary embolism no clear-cut evidence of RV strain. As noted on echocardiogram on 11/13/2023 Acute blood loss anemia, most likely secondary to recent surgery and the fact the patient is receiving heparin however the benefits of heparin outweigh the risks at this point. Patient received a total of 4 units of packed RBCs total then we decided to stop IV heparin and recommended IVC filter placement. Status post IVC filter placement because of contraindication for IV heparinongoing bleeding requiring multiple blood transfusions Acute leukocytosis secondary to surgery/reactive Acute TIA, resolved with left-sided weakness Sinus tachycardia secondary to anemia and secondary to pulmonary embolism Acute kidney injury, improving today compared to yesterday with improvement in her creatinine and improvement in her urine output Acute on chronic deep vein thrombosis Recommendation: Continue present supportive care measures Continue to monitor in the ICU Continue norepinephrine at hold presently since the patient is better Resume subcu heparin 5000 units subcu every 12 hours, doubt if this will cause a major bleed however if hemoglobin continues to drop, the dose can be adjusted or stopped Continue IV fluids at 75 cc/h Continue to monitor renal status as the patient developed acute kidney injury, today improving Continue oxygen and titrate accordingly, O2 requirement has improved compared to yesterday down to 2 L instead of 13 L yesterday If the patient continues to do as well tomorrow, then she can be transferred out of the ICU Will continue to follow Time with Patient: Less than 30
[2023-11-16] MEDS: HEPARIN SODIUM,PORCINE 5,000 UNIT/ML 1 ML VIAL SQ SCH (15:27)
[2023-11-16 16:38] LABS: Glucose,Whole Blood 152 mg/dL (70-110)
[2023-11-16 20:06] LABS: Glucose,Whole Blood 200 mg/dL (70-110)
[2023-11-16] MEDS: CLEVIDIPINE BUTYRATE 25 MG in EMPTY BAG 1 BAG IV SCH (20:06)
--- NOTE | 2023-11-16 23:39 | PN ---
PROGRESS NOTE DATE OF SERVICE: 11/16/2023 SUBJECTIVE: This is an 88-year-old woman who was admitted after right hip arthroplasty and multiple medical issues including TIA, possible pulmonary embolism, and labile hypertension. The patient is slowly improving significantly today. The patient developed renal failure also. The most recent chest x-ray which I reviewed personally showed some atelectasis. PAST MEDICAL HISTORY: Reviewed. REVIEW OF SYSTEMS: A 14-point review of systems is negative. CURRENT MEDICATIONS: Reviewed include DuoNeb, dose and rest of medications reviewed. PHYSICAL EXAMINATION: VITAL SIGNS: Pulse 91, blood pressure 140/60, respirations 14. HEENT: Conjunctivae normal. NECK: No jugular venous distention. CARDIOVASCULAR: S1, S2. RESPIRATIONS: Diminished at the bases, few scattered rhonchi and crackles. ABDOMEN: Soft. NERVOUS SYSTEM: Nonfocal. LABORATORY DATA: Creatinine 2.47. ASSESSMENT: 1. Status post right hip arthroplasty. 2. Weakness of the left side with possible acute TIA, improved. 3. Possible small pulmonary embolism on the right side, on anticoagulation. 4. Possible bibasilar pneumonia, consider aspiration. 5. Labile hypertension and hypotension, currently improved. 6. Increased WBC. 7. Anemia, multifactorial. 8. Diabetes mellitus type 2. 9. Troponin 0.078, possibly type 2 myocardial infarction per Cardiology. 10.History of DVT, pulmonary embolus. 11.Hypertension. 12.Multiple complex medical issues. 13.Acute renal failure. RECOMMENDATIONS: Recommended to continue current management, continue symptomatic treatment. Continue with broad-spectrum IV antibiotics. Continue bronchodilators. Monitor fluid electrolyte balance closely. Repeat labs. Creatinine is stabilize at this time. Avoid nephrotoxic medications and closely follow with multiple consultants. Further recommendations to follow. MMODL / IJN: [id number] /
[2023-11-17 03:56] LABS: Appearance,Urine Clear (Clear); Bilirubin,Urine Negative (Negative); Blood,Urine Small (Negative); Color,Urine Light Yellow; Glucose,Urine (UA) Negative (Negative); Ketones,Urine Negative (Negative); Leukocyte Esterase,Urine Negative (Negative); Mucus,Urine Rare /hpf; Nitrite,Urine Negative (Negative); PH, Urine 5.5 (5.0-8.0); Protein,Urine Trace (Negative); RBC,Urine <1 /hpf (0-5); Specific Gravity,Urine 1.019 (1.001-1.035); Squamous Epithelial Cell,Urine <1 /hpf (0-4); Urobilinogen,Urine <2.0 mg/dL (<2.0); WBC,Urine 1 /hpf (0-5)
[2023-11-17 06:23] LABS: Basophils % (A) 0 %; Eosinophils # (A) 0.2 k/uL (0-0.7); Eosinophils % (A) 2 %; HCT 23.4 % (34.0-46.0); HGB 7.8 gm/dL (11.4-16.0); Lymphocytes % (A) 18 %; MCH 30.9 pg (25.0-35.0); MCHC 33.2 g/dL (31.0-37.0); Mean Platelet Volume 8.6; Monocytes # (A) 0.9 k/uL (0-1.0); Monocytes % (A) 8 %; Neutrophils # (A) 7.6 k/uL (1.3-7.7); Neutrophils % (A) 70 %; Platelet Count 137 k/uL (150-450); RBC 2.52 m/uL (3.80-5.40); RDW 15.6 % (11.5-15.5); WBC 10.9 k/uL (3.8-10.6)
[2023-11-17 06:42] LABS: Glucose,Whole Blood 149 mg/dL (70-110)
[2023-11-17 06:48] LABS: ALT 6 U/L (4-34); AST 42 U/L (14-36); African American GFR (CKD) 25 (>60 ml/min/1.73 sqM); Albumin 2.3 g/dL (3.5-5.0); Alkaline Phosphatase 62 U/L (38-126); Anion Gap 2 mmol/L; Blood Urea Nitrogen 41 mg/dL (7-17); Calcium 7.1 mg/dL (8.4-10.2); Carbon Dioxide 32 mmol/L (22-30); Chloride 101 mmol/L (98-107); Glucose 123 mg/dL (74-99); Non-African American GFR(CKD) 22 (>60 ml/min/1.73 sqM); Potassium 3.2 mmol/L (3.5-5.1); Sodium 135 mmol/L (137-145); Total Bilirubin 0.8 mg/dL (0.2-1.3); Total Protein 4.2 g/dL (6.3-8.2)
[2023-11-17] MEDS: POTASSIUM CHLORIDE ER 20 MEQ TAB.ER PO SCH (09:17)
--- NOTE | 2023-11-17 09:26 | P.PN ---
Subjective Progress Note Date: 11/17/23 Principal diagnosis: Bilateral lower extremity DVTs Patient is seen and examined in the ICU. She is sitting up and just finished her breakfast. She denies any acute changes. 6 Friday she underwent IVC filter placement. She denies any bleeding or pain at the left groin access site. Objective - Vital Signs Vital signs: Vital Signs Temp 98.4 F 11/17/23 08:00 Pulse 84 11/17/23 08:12 Resp 20 11/17/23 08:00 BP 158/73 11/17/23 08:00 Pulse Ox 94 L 11/17/23 08:00 FiO2 50 11/12/23 20:01 Intake & Output 11/16/23 11/17/23 11/17/23 18:59 06:59 18:59 Intake Total 1140 825 75 Output Total 250 520 0 Balance 890 305 75 Weight 80.7 kg Intake: IV 900 825 75 Dextrose 5% in Water 1, 150 000 ml @ 75 mls/hr IV . [id number] [facility] with Sodium Bicarb (1 Meq/ml) 150 ml Rx#:[id number] Piperacillin-Tazobactam 3 225 .375 gm In Sodium Chloride 0.9% 100 ml @ 25 mls/hr IVPB Q12H [facility] Rx# :[id number] Sodium Chloride 0.9% 1, 750 600 75 000 ml @ 75 mls/hr IV . [id number] [facility] Rx#:[id number] Oral 240 Output: Urine 250 520 0 Other: Voiding Method External Catheter External Catheter # Voids 1 # Bowel Movements 1 - Exam General appearance: The patient is alert, oriented, appears in no acute distress. HET: Head is normocephalic and atraumatic. Pupils are equal and reactive. Neck: Supple. Heart: Regular. Lungs: Equal expansion, normal respiratory effort. Abdomen: Soft, nondistended. Extremities: Normal skin color and turgor. Left groin access site without any bleeding or hematoma noted. Right thigh with ecchymosis and surgical dressing in place. Swelling. Neurological: No focal deficits. Alert and oriented. - Labs CBC & Chem 7: 11/17/23 05:43 11/17/23 05:43 Labs: Abnormal Lab Results - Last 24 Hours (Table) 11/16/23 11/16/23 11/16/23 Range/Units 11:31 16:36 20:03 WBC (3.8-10.6) k/uL RBC (3.80-5.40) m/uL Hgb (11.4-16.0) gm/dL Hct (34.0-46.0) % RDW (11.5-15.5) % Plt Count (150-450) k/uL Sodium (137-145) mmol/L Potassium (3.5-5.1) mmol/L Carbon Dioxide (22-30) mmol/L BUN (7-17) mg/dL Creatinine (0.52-1.04) mg/dL Glucose (74-99) mg/dL POC Glucose (mg/dL) 184 H 152 H 200 H (70-110) mg/dL Calcium (8.4-10.2) mg/dL AST (14-36) U/L Total Protein (6.3-8.2) g/dL Albumin (3.5-5.0) g/dL Urine Protein (Negative) Urine Blood (Negative) Urine Mucus (None) /hpf 11/17/23 11/17/23 11/17/23 Range/Units 02:30 05:43 05:43 WBC 10.9 H (3.8-10.6) k/uL RBC 2.52 L (3.80-5.40) m/uL Hgb 7.8 L (11.4-16.0) gm/dL Hct 23.4 L (34.0-46.0) % RDW 15.6 H (11.5-15.5) % Plt Count 137 L (150-450) k/uL Sodium 135 L (137-145) mmol/L Potassium 3.2 L (3.5-5.1) mmol/L Carbon Dioxide 32 H (22-30) mmol/L BUN 41 H (7-17) mg/dL Creatinine 2.03 H (0.52-1.04) mg/dL Glucose 123 H (74-99) mg/dL POC Glucose (mg/dL) (70-110) mg/dL Calcium 7.1 L (8.4-10.2) mg/dL AST 42 H (14-36) U/L Total Protein 4.2 L (6.3-8.2) g/dL Albumin 2.3 L (3.5-5.0) g/dL Urine Protein Trace H (Negative) Urine Blood Small H (Negative) Urine Mucus Rare H (None) /hpf 11/17/23 Range/Units 06:40 WBC (3.8-10.6) k/uL RBC (3.80-5.40) m/uL Hgb (11.4-16.0) gm/dL Hct (34.0-46.0) % RDW (11.5-15.5) % Plt Count (150-450) k/uL Sodium (137-145) mmol/L Potassium (3.5-5.1) mmol/L Carbon Dioxide (22-30) mmol/L BUN (7-17) mg/dL Creatinine (0.52-1.04) mg/dL Glucose (74-99) mg/dL POC Glucose (mg/dL) 149 H (70-110) mg/dL Calcium (8.4-10.2) mg/dL AST (14-36) U/L Total Protein (6.3-8.2) g/dL Albumin (3.5-5.0) g/dL Urine Protein (Negative) Urine Blood (Negative) Urine Mucus (None) /hpf Microbiology - Last 24 Hours (Table) 11/15/23 13:43 Blood Culture - Preliminary Blood 11/14/23 14:39 Blood Culture - Preliminary Blood Assessment and Plan Assessment: 1. Bilateral lower extremity deep vein thrombosis with relative contraindication to anticoagulation status post IVC filter placement 2. Recent right direct anterior total hip arthroplasty 3. Right pulmonary emboli 4. Acute blood loss anemia Plan: 1. Activity as tolerated and per recommendations from orthopedics 2. No further indication for any vascular surgical intervention 3. Patient instructed to follow-up with vascular surgery in 1 to 2 months 4. Rest of medical management per primary medical team Thank you for this consultation, we will sign off at this time. The impression and plan of care has been dictated as directed. I performed a history and examination of this patient, discussed the same with the dictator. I agree with the dictator's note ,documented as a scribe. Any additional findings or plans will be noted.
--- NOTE | 2023-11-17 09:29 | P.PN ---
Subjective Patient is seen in follow-up for acute kidney injury. Renal function improving. Receiving normal saline. Oral intake fair. Nonoliguric. Denies chest pain or shortness of breath. Vital signs are stable. General: No acute distress. HEENT: Head exam is unremarkable. On nasal cannula. LUNGS: No audible rhonchi or wheezes. HEART: Rate and Rhythm are regular. ABDOMEN: Nontender. EXTREMITITES: Trace edema. Objective - Vital Signs Vital signs: Vital Signs Temp 98.4 F 11/17/23 08:00 Pulse 84 11/17/23 08:12 Resp 20 11/17/23 08:00 BP 158/73 11/17/23 08:00 Pulse Ox 94 L 11/17/23 08:00 FiO2 50 11/12/23 20:01 Intake & Output 11/16/23 11/17/23 11/17/23 18:59 06:59 18:59 Intake Total 1140 825 75 Output Total 250 520 0 Balance 890 305 75 Weight 80.7 kg Intake: IV 900 825 75 Dextrose 5% in Water 1, 150 000 ml @ 75 mls/hr IV . [id number] [facility] with Sodium Bicarb (1 Meq/ml) 150 ml Rx#:[id number] Piperacillin-Tazobactam 3 225 .375 gm In Sodium Chloride 0.9% 100 ml @ 25 mls/hr IVPB Q12H [facility] Rx# :[id number] Sodium Chloride 0.9% 1, 750 600 75 000 ml @ 75 mls/hr IV . [id number] [facility] Rx#:[id number] Oral 240 Output: Urine 250 520 0 Other: Voiding Method External Catheter External Catheter # Voids 1 # Bowel Movements 1 - Labs CBC & Chem 7: 11/17/23 05:43 11/17/23 05:43 Labs: Abnormal Lab Results - Last 24 Hours (Table) 11/16/23 11/16/23 11/16/23 Range/Units 11:31 16:36 20:03 WBC (3.8-10.6) k/uL RBC (3.80-5.40) m/uL Hgb (11.4-16.0) gm/dL Hct (34.0-46.0) % RDW (11.5-15.5) % Plt Count (150-450) k/uL Sodium (137-145) mmol/L Potassium (3.5-5.1) mmol/L Carbon Dioxide (22-30) mmol/L BUN (7-17) mg/dL Creatinine (0.52-1.04) mg/dL Glucose (74-99) mg/dL POC Glucose (mg/dL) 184 H 152 H 200 H (70-110) mg/dL Calcium (8.4-10.2) mg/dL AST (14-36) U/L Total Protein (6.3-8.2) g/dL Albumin (3.5-5.0) g/dL Urine Protein (Negative) Urine Blood (Negative) Urine Mucus (None) /hpf 11/17/23 11/17/23 11/17/23 Range/Units 02:30 05:43 05:43 WBC 10.9 H (3.8-10.6) k/uL RBC 2.52 L (3.80-5.40) m/uL Hgb 7.8 L (11.4-16.0) gm/dL Hct 23.4 L (34.0-46.0) % RDW 15.6 H (11.5-15.5) % Plt Count 137 L (150-450) k/uL Sodium 135 L (137-145) mmol/L Potassium 3.2 L (3.5-5.1) mmol/L Carbon Dioxide 32 H (22-30) mmol/L BUN 41 H (7-17) mg/dL Creatinine 2.03 H (0.52-1.04) mg/dL Glucose 123 H (74-99) mg/dL POC Glucose (mg/dL) (70-110) mg/dL Calcium 7.1 L (8.4-10.2) mg/dL AST 42 H (14-36) U/L Total Protein 4.2 L (6.3-8.2) g/dL Albumin 2.3 L (3.5-5.0) g/dL Urine Protein Trace H (Negative) Urine Blood Small H (Negative) Urine Mucus Rare H (None) /hpf 11/17/23 Range/Units 06:40 WBC (3.8-10.6) k/uL RBC (3.80-5.40) m/uL Hgb (11.4-16.0) gm/dL Hct (34.0-46.0) % RDW (11.5-15.5) % Plt Count (150-450) k/uL Sodium (137-145) mmol/L Potassium (3.5-5.1) mmol/L Carbon Dioxide (22-30) mmol/L BUN (7-17) mg/dL Creatinine (0.52-1.04) mg/dL Glucose (74-99) mg/dL POC Glucose (mg/dL) 149 H (70-110) mg/dL Calcium (8.4-10.2) mg/dL AST (14-36) U/L Total Protein (6.3-8.2) g/dL Albumin (3.5-5.0) g/dL Urine Protein (Negative) Urine Blood (Negative) Urine Mucus (None) /hpf Microbiology - Last 24 Hours (Table) 11/15/23 13:43 Blood Culture - Preliminary Blood 11/14/23 14:39 Blood Culture - Preliminary Blood Assessment and Plan Plan: Assessment: 1. Acute kidney injury secondary to ATN secondary to hypotension and acute blood loss anemia. No hydronephrosis noted on kidney ultrasound. UA fairly benign. Renal function improving. Creatinine 2.03 today. Baseline creatinine near 0.8. 2. Acute blood loss anemia status post blood transfusion this admission. 3. 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 4. Status post right total hip arthroplasty. 5. Metabolic acidosis secondary to acute kidney injury status post bicarb drip. Resolved. 6. Hypokalemia from intracellular shifting from IV bicarb. Being replaced. Plan: Maintain normal saline. Encouraged oral intake. Potassium being replaced. Check magnesium level and replace per protocol.
[2023-11-17 11:21] LABS: Glucose,Whole Blood 215 mg/dL (70-110)
--- NOTE | 2023-11-17 11:34 | P.PN ---
Subjective Progress Note Date: 11/17/23 Patient is an 88-year-old white female with past medical history significant for hypertension, osteoarthritis, and right lower extremity DVT. Patient recently diagnosed with right lower extremity DVT in March,, and she was placed on Eliquis. Eliquis was placed on hold 5 days prior to an elective right total hip arthroplasty. Patient was brought in yesterday for an elective right direct anterior total hip arthroplasty. While in PACU postoperatively, the patient could not move her left arm. A code stroke was initiated. Noncontrast brain CT did not show any acute intracranial abnormality, no hemorrhage or mass effect. Brain CTA showed mild approximately 40% left ICA stenosis, otherwise no large vessel intracranial arterial occlusion or aneurysmal change. Patient was evaluated by neuro-interventionalists, and risks outweighed benefits for thrombolytics. There were also some incidental pulmonary findings, warranting a dedicated film. Chest CTA showed a couple small pulmonary emboli within the right upper and lower lung gonzalez. No CT evidence of right-sided heart strain. There is also some bilateral atelectasis. The surgeon and Dr. Saldana discussed CT findings and the patient was ultimately started on a heparin infusion per protocol. Patient was also hypertensive postoperatively, and started on a Cleviprex infusion to be titrated to maintain systolic blood pressure of 170 or less to allow for permissive hypertension. Patient was transferred to the intensive care unit from PACU. Patient is currently lying in bed, on 6 L/min nasal cannula, in no acute distress. SpO2 currently 99%. Postoperative ABG showed a PaO2 of 77, pCO2 of 54, and pH of 7.25. She was temporarily on BiPAP support. No signs of hypercapnic encephalopathy. No focal neurological deficits. Patient's left upper extremity weakness has resolved. Overall, neurological exam is benign, consider TIA. Blood pressure is now normotensive. Heart rhythm is normal sinus on bedside monitor. Patient denies any chest pain. No lightheadedness or syncope. No coughing or hemoptysis. Postsurgical dressing is clean, dry, and intact. There is some nikki-incisional swelling. Neurovascular status intact. No obvious hematoma. Postoperative CBC: WBC count 15.8, hemoglobin 11.1, hematocrit 33.8, platelets 226. aPTT supratherapeutic, and heparin and was adjusted per protocol. Postoperative BMP: Sodium 137, testing 3.4, chloride 107, serum bicarb 22, BUN 21, creatinine 0.77, glucose 206. Magnesium 1.4. Electrolytes are being replaced. Troponins less 0.012. Patient will continue to be monitored in the intensive care unit at least overnight. Patient reevaluated today on 11/14/2023, patient remains in the ICU, she is marginal at best. Patient required close for 3 units of packed RBCs and her last hemoglobin is 7.3. Patient is still requiring norepinephrine at 0.07 mcg/kg/min IV fluid is running D5W with 3 A of bicarb at 75 cc/h. Last night she had to be on BiPAP 10/5/50%, presently on 8 L high flow nasal cannula blood pressure is 109/59, mean arterial pressure of 67. However the patient is requiring norepinephrine to adequately maintain good blood pressure. WBC count this morning is 21.9 hemoglobin is 7.3. PTT is 93.9. Her bicarb is 14 BUN is 32 creatinine is 2.19, blood sugar is 201 patient had normal creatinine on admission 11/12/2023, however the patient did develop acute kidney injury most likely secondary to episodes of hypotension requiring pressors. Chest x-ray this morning showed no evidence of congestive heart failure, no pneumonia, right hemidiaphragm seems to be relatively elevated. Patient was reevaluated today on 11/15/2023, patient remains in the ICU, continues to have ongoing bleeding with drop in hemoglobin down to 6.3 today, and I am recommending another unit of packed RBCs to be given today. Obviously the patient is unable to tolerate heparin considering her recent surgery, and she continues to have bleeding most likely into the surgical site/right hip. At this point I believe the patient has absolute current indication to heparin, and I am planning to arrange for vascular surgery to visit to see the patient for possible IVC filter. In addition the patient is developing worsening L kidney injury, and need to have nephrology consultation, her urine output is extremely poor and the patient is getting to be oliguric 60 mg of Lasix was ordered, patient received lots of fluids and blood products since admission. Procalcitonin level is 1.20, antibiotic cefazolin empirically. Patient is still requiring norepinephrine at 0.02 mcg/kg/min to maintain adequate blood pressure, and she is on bicarb drip at 75 cc/h. Heparin is presently on hold. Patient has received already 3 units of packed RBCs since admission to the ICU with acute pulmonary embolism. And DVT. WBC count is 20.1 hemoglobin 6.3 basic metabolic profile is normal BUN is 45 creatinine 3.09 PTT was 75 chest x-ray does not show any evidence of congestive heart failure, but does show left basilar atelectasis Patient was reevaluated today on 11/16/2023, patient is feeling much better today. Her urine output has picked up on its own and now is about 50 cc/h. She had 200 cc in the last few hours. Patient is now off IV heparin, but I would recommend at least subcu heparin for now she had IVC filter placed. Her renal functioning is improving with creatinine down to 2.4. Hemoglobin is holding, it is today 8.7.However the patient did receive a total of 4 units of packed RBCs after her surgery for postoperative bleeding after she was placed on heparin. Patient is also off pressors, not requiring any norepinephrine, it is presently on hold she is on 2 L nasal cannula, she is on D5 4 5 at 75 cc/h her urine output again is excellent, patient remains on Zosyn today I added heparin subcu 5000 units subcu every 8 hours WBC count today 13.5 hemoglobin 8.7 platelets are 131 basic metabolic profile is normal BUN is 49 creatinine 2.47. Chest x-ray showed hypoventilatory changes, left basilar opacity/atelectasis, minimal prominence of the pulmonary vasculature but has improved compared to 2 days ago The patient is seen today November 17, 2023 in follow-up on the regular medical floor. She is sitting up in bed. Awake and alert in no acute distress. Maintaining good O2 saturations in the 90s on 2 L/min per nasal cannula. She is status post 4 units of packed red blood cells this admission. Current hemoglobin 7.8. Platelets 137. White count 10.9. Sodium 135. Potassium 3.2. Bicarb 32. BUN 41. Creatinine 2.03. Glucose 123. She remains on bronchodilators. Antibiotics in the form of Zosyn. She remained stable and off pressors. Off Cleviprex. Objective - Vital Signs Vital signs: Vital Signs Temp 98.4 F 11/17/23 08:00 Pulse 70 11/17/23 11:00 Resp 14 11/17/23 11:00 BP 151/61 11/17/23 11:00 Pulse Ox 92 L 11/17/23 11:00 FiO2 50 11/12/23 20:01 Intake & Output 11/16/23 11/17/23 11/17/23 18:59 06:59 18:59 Intake Total 1140 825 300 Output Total 250 520 150 Balance 890 305 150 Weight 80.7 kg Intake: IV 900 825 300 Dextrose 5% in Water 1, 150 000 ml @ 75 mls/hr IV . [id number] KACI with Sodium Bicarb (1 Meq/ml) 150 ml Rx#:[id number] Piperacillin-Tazobactam 3 225 .375 gm In Sodium Chloride 0.9% 100 ml @ 25 mls/hr IVPB Q12H KACI Rx# :[id number] Sodium Chloride 0.9% 1, 750 600 300 000 ml @ 75 mls/hr IV . [id number] KACI Rx#:[id number] Oral 240 Output: Urine 250 520 150 Other: Voiding Method External Catheter External Catheter External Catheter # Voids 1 1 # Bowel Movements 1 1 - Exam GENERAL EXAM: Alert, pleasant 88-year-old female, on 2 L nasal cannula, comfortable in no apparent distress. HEAD: Normocephalic. EYES: Normal reaction of pupils, equal size. NOSE: Clear with pink turbinates. THROAT: No erythema or exudates. NECK: No masses, no JVD. CHEST: No chest wall deformity. LUNGS: Equal air entry with no crackles, wheeze, rhonchi or dullness. CVS: S1 and S2 normal with no audible murmur, regular rhythm. ABDOMEN: No hepatosplenomegaly, normal bowel sounds, no guarding or rigidity. SPINE: No scoliosis or deformity SKIN: No rashes CENTRAL NERVOUS SYSTEM: No focal deficits, tone is normal in all 4 extremities. EXTREMITIES: Right hip incision clean dry well-approximated. Some edema. There is no peripheral edema. No clubbing, no cyanosis. Peripheral pulses are intact. - Labs CBC & Chem 7: 11/17/23 05:43 11/17/23 05:43 Labs: Abnormal Lab Results - Last 24 Hours (Table) 11/16/23 11/16/23 11/16/23 Range/Units 11:31 16:36 20:03 WBC (3.8-10.6) k/uL RBC (3.80-5.40) m/uL Hgb (11.4-16.0) gm/dL Hct (34.0-46.0) % RDW (11.5-15.5) % Plt Count (150-450) k/uL Sodium (137-145) mmol/L Potassium (3.5-5.1) mmol/L Carbon Dioxide (22-30) mmol/L BUN (7-17) mg/dL Creatinine (0.52-1.04) mg/dL Glucose (74-99) mg/dL POC Glucose (mg/dL) 184 H 152 H 200 H (70-110) mg/dL Calcium (8.4-10.2) mg/dL AST (14-36) U/L Total Protein (6.3-8.2) g/dL Albumin (3.5-5.0) g/dL Urine Protein (Negative) Urine Blood (Negative) Urine Mucus (None) /hpf 11/17/23 11/17/23 11/17/23 Range/Units 02:30 05:43 05:43 WBC 10.9 H (3.8-10.6) k/uL RBC 2.52 L (3.80-5.40) m/uL Hgb 7.8 L (11.4-16.0) gm/dL Hct 23.4 L (34.0-46.0) % RDW 15.6 H (11.5-15.5) % Plt Count 137 L (150-450) k/uL Sodium 135 L (137-145) mmol/L Potassium 3.2 L (3.5-5.1) mmol/L Carbon Dioxide 32 H (22-30) mmol/L BUN 41 H (7-17) mg/dL Creatinine 2.03 H (0.52-1.04) mg/dL Glucose 123 H (74-99) mg/dL POC Glucose (mg/dL) (70-110) mg/dL Calcium 7.1 L (8.4-10.2) mg/dL AST 42 H (14-36) U/L Total Protein 4.2 L (6.3-8.2) g/dL Albumin 2.3 L (3.5-5.0) g/dL Urine Protein Trace H (Negative) Urine Blood Small H (Negative) Urine Mucus Rare H (None) /hpf 11/17/23 11/17/23 Range/Units 06:40 11:18 WBC (3.8-10.6) k/uL RBC (3.80-5.40) m/uL Hgb (11.4-16.0) gm/dL Hct (34.0-46.0) % RDW (11.5-15.5) % Plt Count (150-450) k/uL Sodium (137-145) mmol/L Potassium (3.5-5.1) mmol/L Carbon Dioxide (22-30) mmol/L BUN (7-17) mg/dL Creatinine (0.52-1.04) mg/dL Glucose (74-99) mg/dL POC Glucose (mg/dL) 149 H 215 H (70-110) mg/dL Calcium (8.4-10.2) mg/dL AST (14-36) U/L Total Protein (6.3-8.2) g/dL Albumin (3.5-5.0) g/dL Urine Protein (Negative) Urine Blood (Negative) Urine Mucus (None) /hpf Microbiology - Last 24 Hours (Table) 11/15/23 13:43 Blood Culture - Preliminary Blood 11/14/23 14:39 Blood Culture - Preliminary Blood Assessment and Plan Assessment: Acute hypoxic respiratory failure secondary to acute pulmonary embolism Right hip osteoarthritis status post right anterior total hip arthroplasty postoperative day #5 History of deep vein thrombosis, normally patient is on Eliquis prior to her hip surgery Hypotension secondary to acute blood loss anemia, hypovolemia and also secondary to pulmonary embolism no clear-cut evidence of RV strain. As noted on echocardiogram on 11/13/2023 Acute blood loss anemia, most likely secondary to recent surgery and the fact the patient is receiving heparin however the benefits of heparin outweigh the risks at this point. Patient received a total of 4 units of packed RBCs total then we decided to stop IV heparin and recommended IVC filter placement. Status post IVC filter placement because of contraindication for IV heparinongoing bleeding requiring multiple blood transfusions Acute leukocytosis secondary to surgery/reactive Acute TIA, resolved with left-sided weakness Sinus tachycardia secondary to anemia and secondary to pulmonary embolism Acute kidney injury, improving today compared to yesterday with improvement in her creatinine and improvement in her urine output Acute on chronic deep vein thrombosis Plan: The patient was seen and evaluated Labs and medications reviewed Currently stable with a hemoglobin of 7.8 On 2 L of oxygen per nasal cannula Stable for transfer out of the ICU We will continue to follow I have personally seen and examined the patient, performed the documentation and the assessment and plan as written. Number of minutes spent on the visit: 10.
--- NOTE | 2023-11-17 12:28 | P.PN ---
Subjective Progress Note Date: 11/17/23 Events over the past 24 hours noted. Patient up at bedside in chair. Her pain is better in the hip. She denies chest pain or shortness of breath. Objective - Vital Signs Vital signs: Vital Signs Temp 98.4 F 11/17/23 08:00 Pulse 70 11/17/23 11:00 Resp 14 11/17/23 11:00 BP 151/61 11/17/23 11:00 Pulse Ox 92 L 11/17/23 11:00 FiO2 50 11/12/23 20:01 Intake & Output 11/16/23 11/17/23 11/17/23 18:59 06:59 18:59 Intake Total 1140 825 300 Output Total 250 520 150 Balance 890 305 150 Weight 80.7 kg Intake: IV 900 825 300 Dextrose 5% in Water 1, 150 000 ml @ 75 mls/hr IV . [id number] KACI with Sodium Bicarb (1 Meq/ml) 150 ml Rx#:[id number] Piperacillin-Tazobactam 3 225 .375 gm In Sodium Chloride 0.9% 100 ml @ 25 mls/hr IVPB Q12H KACI Rx# :[id number] Sodium Chloride 0.9% 1, 750 600 300 000 ml @ 75 mls/hr IV . [id number] KACI Rx#:[id number] Oral 240 Output: Urine 250 520 150 Other: Voiding Method External Catheter External Catheter External Catheter # Voids 1 1 # Bowel Movements 1 1 - Exam Sitting up in chair. Alert and can answer questions. Dressing over the hip is intact with no drainage or strikethrough. Moderate swelling throughout the thigh, but the thigh is soft and compressible. Femoral nerve function is intact. Able to actively plantarflex and dorsiflex ankle and toes. - Labs CBC & Chem 7: 11/17/23 05:43 11/17/23 05:43 Labs: Abnormal Lab Results - Last 24 Hours (Table) 11/16/23 11/16/23 11/17/23 Range/Units 16:36 20:03 02:30 WBC (3.8-10.6) k/uL RBC (3.80-5.40) m/uL Hgb (11.4-16.0) gm/dL Hct (34.0-46.0) % RDW (11.5-15.5) % Plt Count (150-450) k/uL Sodium (137-145) mmol/L Potassium (3.5-5.1) mmol/L Carbon Dioxide (22-30) mmol/L BUN (7-17) mg/dL Creatinine (0.52-1.04) mg/dL Glucose (74-99) mg/dL POC Glucose (mg/dL) 152 H 200 H (70-110) mg/dL Calcium (8.4-10.2) mg/dL AST (14-36) U/L Total Protein (6.3-8.2) g/dL Albumin (3.5-5.0) g/dL Urine Protein Trace H (Negative) Urine Blood Small H (Negative) Urine Mucus Rare H (None) /hpf 11/17/23 11/17/23 11/17/23 Range/Units 05:43 05:43 06:40 WBC 10.9 H (3.8-10.6) k/uL RBC 2.52 L (3.80-5.40) m/uL Hgb 7.8 L (11.4-16.0) gm/dL Hct 23.4 L (34.0-46.0) % RDW 15.6 H (11.5-15.5) % Plt Count 137 L (150-450) k/uL Sodium 135 L (137-145) mmol/L Potassium 3.2 L (3.5-5.1) mmol/L Carbon Dioxide 32 H (22-30) mmol/L BUN 41 H (7-17) mg/dL Creatinine 2.03 H (0.52-1.04) mg/dL Glucose 123 H (74-99) mg/dL POC Glucose (mg/dL) 149 H (70-110) mg/dL Calcium 7.1 L (8.4-10.2) mg/dL AST 42 H (14-36) U/L Total Protein 4.2 L (6.3-8.2) g/dL Albumin 2.3 L (3.5-5.0) g/dL Urine Protein (Negative) Urine Blood (Negative) Urine Mucus (None) /hpf 11/17/23 Range/Units 11:18 WBC (3.8-10.6) k/uL RBC (3.80-5.40) m/uL Hgb (11.4-16.0) gm/dL Hct (34.0-46.0) % RDW (11.5-15.5) % Plt Count (150-450) k/uL Sodium (137-145) mmol/L Potassium (3.5-5.1) mmol/L Carbon Dioxide (22-30) mmol/L BUN (7-17) mg/dL Creatinine (0.52-1.04) mg/dL Glucose (74-99) mg/dL POC Glucose (mg/dL) 215 H (70-110) mg/dL Calcium (8.4-10.2) mg/dL AST (14-36) U/L Total Protein (6.3-8.2) g/dL Albumin (3.5-5.0) g/dL Urine Protein (Negative) Urine Blood (Negative) Urine Mucus (None) /hpf Microbiology - Last 24 Hours (Table) 11/15/23 13:43 Blood Culture - Preliminary Blood 11/14/23 14:39 Blood Culture - Preliminary Blood Assessment and Plan Assessment: POD #5 s/p right DA UMESH Post-op DVT/PE History of DVT/PE Elevated creatinine acute blood loss anemia requiring multiple transfusions Plan: Events noted. Appreciate all the care provided by ICU and medical specialties. The patient seems better today and will transfer out of ICU when a bed is available. Continue to mobilize out of bed to chair and attempt to ambulate with walker and therapy when able.
--- NOTE | 2023-11-17 13:46 | P.PN ---
Subjective Progress Note Date: 11/17/23 I am seeing the patient for the first time during this admission. Please refer to Dr. Smith's notes for further details. procedure the patient had a right hip arthroplasty on 11/12/2023 and postop she developed the left-sided weakness which resolved. She was found to have a pulmonary embolism and had an IVC. Also has DVT lowers. Per the nurse she had significant anemia and hypotensive in which the her hemoglobin was as low as 6.3 and had multiple of blood transfusion. No further weakness or new neurological issues. She denies history of stroke in the past. Objective - Vital Signs Vital signs: Vital Signs Temp 98.1 F 11/17/23 12:00 Pulse 84 11/17/23 12:00 Resp 15 11/17/23 12:00 BP 157/68 11/17/23 12:00 Pulse Ox 95 11/17/23 12:00 FiO2 50 11/12/23 20:01 Intake & Output 11/16/23 11/17/23 11/17/23 18:59 06:59 18:59 Intake Total 1140 825 300 Output Total 250 520 150 Balance 890 305 150 Weight 80.7 kg Intake: IV 900 825 300 Dextrose 5% in Water 1, 150 000 ml @ 75 mls/hr IV . [id number] KACI with Sodium Bicarb (1 Meq/ml) 150 ml Rx#:[id number] Piperacillin-Tazobactam 3 225 .375 gm In Sodium Chloride 0.9% 100 ml @ 25 mls/hr IVPB Q12H KACI Rx# :[id number] Sodium Chloride 0.9% 1, 750 600 300 000 ml @ 75 mls/hr IV . [id number] KACI Rx#:[id number] Oral 240 Output: Urine 250 520 150 Other: Voiding Method External Catheter External Catheter External Catheter # Voids 1 1 # Bowel Movements 1 1 - Exam General: Lying in bed and is not in acute distress. Neuro: The patient is awake, alert, oriented to self, place and time. Is following simple commands. No aphasia or neglect. Pupils are round, equal and reactive to light. Visual gonzalez are full to confrontation. EOM intact and no nystamgus. No facial weakness. No dysarthria. Motor: Limited because of pain especially over the right hip. Uppers are equal and are 5-5-/5. Left lower is 5/5. Right lower is limited because of pain around the hip abut has antigravity. sensation: Normal to touch throughout. - Labs CBC & Chem 7: 11/17/23 05:43 11/17/23 05:43 Labs: Abnormal Lab Results - Last 24 Hours (Table) 11/16/23 11/16/23 11/17/23 Range/Units 16:36 20:03 02:30 WBC (3.8-10.6) k/uL RBC (3.80-5.40) m/uL Hgb (11.4-16.0) gm/dL Hct (34.0-46.0) % RDW (11.5-15.5) % Plt Count (150-450) k/uL Sodium (137-145) mmol/L Potassium (3.5-5.1) mmol/L Carbon Dioxide (22-30) mmol/L BUN (7-17) mg/dL Creatinine (0.52-1.04) mg/dL Glucose (74-99) mg/dL POC Glucose (mg/dL) 152 H 200 H (70-110) mg/dL Calcium (8.4-10.2) mg/dL AST (14-36) U/L Total Protein (6.3-8.2) g/dL Albumin (3.5-5.0) g/dL Urine Protein Trace H (Negative) Urine Blood Small H (Negative) Urine Mucus Rare H (None) /hpf 11/17/23 11/17/23 11/17/23 Range/Units 05:43 05:43 06:40 WBC 10.9 H (3.8-10.6) k/uL RBC 2.52 L (3.80-5.40) m/uL Hgb 7.8 L (11.4-16.0) gm/dL Hct 23.4 L (34.0-46.0) % RDW 15.6 H (11.5-15.5) % Plt Count 137 L (150-450) k/uL Sodium 135 L (137-145) mmol/L Potassium 3.2 L (3.5-5.1) mmol/L Carbon Dioxide 32 H (22-30) mmol/L BUN 41 H (7-17) mg/dL Creatinine 2.03 H (0.52-1.04) mg/dL Glucose 123 H (74-99) mg/dL POC Glucose (mg/dL) 149 H (70-110) mg/dL Calcium 7.1 L (8.4-10.2) mg/dL AST 42 H (14-36) U/L Total Protein 4.2 L (6.3-8.2) g/dL Albumin 2.3 L (3.5-5.0) g/dL Urine Protein (Negative) Urine Blood (Negative) Urine Mucus (None) /hpf 11/17/23 Range/Units 11:18 WBC (3.8-10.6) k/uL RBC (3.80-5.40) m/uL Hgb (11.4-16.0) gm/dL Hct (34.0-46.0) % RDW (11.5-15.5) % Plt Count (150-450) k/uL Sodium (137-145) mmol/L Potassium (3.5-5.1) mmol/L Carbon Dioxide (22-30) mmol/L BUN (7-17) mg/dL Creatinine (0.52-1.04) mg/dL Glucose (74-99) mg/dL POC Glucose (mg/dL) 215 H (70-110) mg/dL Calcium (8.4-10.2) mg/dL AST (14-36) U/L Total Protein (6.3-8.2) g/dL Albumin (3.5-5.0) g/dL Urine Protein (Negative) Urine Blood (Negative) Urine Mucus (None) /hpf Microbiology - Last 24 Hours (Table) 11/15/23 13:43 Blood Culture - Preliminary Blood 11/14/23 14:39 Blood Culture - Preliminary Blood Assessment and Plan Assessment: * Acute stroke/TIA, manifesting with left hemiparesis, this seems to have mostly resolved. Although her NIH stroke scale at this time is 0. Unsure if had hypotensive during episode that exacerbated symptoms * Right hip osteoarthritis, status post total hip arthroplasty, 11/12/2023. * Bilateral lower extremity DVT, with acute pulmonary embolism was on IV heparin but discontinue due to anemia. S/P IVC filter. * Acute anemia and received blood transfusion (as low as 6.3). Most recent is 7.8. She on on IV heparin. * Hypotensive and was on Norepinephrine---improved * History of DVT, on Eliquis. * Hypertension * Diabetes Plan: * CTA of the neck revealed approximately 40% proximal left ICA stenosis. * CTA of the head showed atherosclerotic calcifications throughout the bilateral carotid siphons. This results in moderate segmental stenosis left ICA. Additional moderate focal stenosis proximal M1 segment left MCA. Otherwise no large vessel intracranial arterial occlusion or aneurysm. * Patient's vascular stenosis are on the ipsilateral side, therefore probably asymptomatic. Rule out cardiac source. * CTA of the chest performed showed couple small pulmonary emboli within the right upper and right lower lung. No evidence of right heart strain. * Ultrasound of bilateral lower extremity positive for DVT. * Patient was on heparin IV for PE and DVT but discontinue due to anemia. she was placed on IVC. Resume ASA 81mg daily when medically cleared. Also down the line, if the benefit outweigh the risk of resuming eliquis but will leave that decision to primary team. * Avoid hypotensive episode * 2D echo revealed normal left ventricular function with EF 50 to 55%. Moderately increased septal wall thickness. Moderately increased posterior wall thickness. Atypical septal motion. Normal left atrial size. No left to right shunt seen at the atrial level. No [id number] shunt seen in the atrial level with contrast. No valvular abnormalities. * Fasting lipid panel cholesterol 144, LDL 83, HDL 40, triglycerides 98. We will add Lipitor 20 mg daily. * Hemoglobin A1c 6.9 on 09/22/2023. No need to repeat. * Telemetry monitoring. * PT OT. * Other medical management as per IM, critical care and other specialties. * DVT prophylaxis: On subq heparin. The plan is discussed with patient, her son who is at bedside and ICU nurse. Time with Patient: Less than 30
[2023-11-17 14:37] LABS: Magnesium 1.8 mg/dL (1.6-2.3); Potassium 3.7 mmol/L (3.5-5.1)
[2023-11-17] MEDS: HEPARIN SODIUM,PORCINE 5,000 UNIT/ML 1 ML VIAL SQ SCH (14:52)
[2023-11-17 16:44] LABS: Glucose,Whole Blood 171 mg/dL (70-110)
[2023-11-17 20:09] LABS: Glucose,Whole Blood 192 mg/dL (70-110)
[2023-11-18] MEDS: DEXTROSE 5% IN WATER 100 ML with AMIODARONE 150 MG IV ONE (02:45)
[2023-11-18] MEDS: AMIODARONE 360 MG in DEXTROSE 5% IN WATER 200 ML IV ONE (02:59)
[2023-11-18 06:16] LABS: Glucose,Whole Blood 154 mg/dL (70-110)
[2023-11-18] MEDS: AMIODARONE 450 MG in DEXTROSE 5% IN WATER 250 ML IV SCH (08:56)
--- NOTE | 2023-11-18 10:32 | P.PN ---
Subjective Progress Note Date: 11/18/23 Principal diagnosis: Status post right total hip arthroplasty This is a 88 year-old female post right total hip arthroplasty. This is post-op day 6. The patient was evaluated at the bedside today on the telemetry floor. The patient denies nausea, vomiting, abdominal pain, shortness of breath, and chest pain this morning. She states her pain is controlled at this time. The patient has been up out of bed and sat in the chair yesterday. Nursing staff states that she went into a. fib with RVR last night and cardiology will address anticoagulation. She had a IVC filter placed. She is not on oral anticoagulants at this time. Objective - Vital Signs Vital signs: Vital Signs Temp 97.8 F 11/18/23 08:17 Pulse 80 11/18/23 08:58 Resp 16 11/18/23 08:17 BP 145/59 11/18/23 08:17 Pulse Ox 97 11/18/23 08:17 FiO2 50 11/12/23 20:01 Intake & Output 11/17/23 11/18/23 11/18/23 18:59 06:59 18:59 Intake Total 418 180 Output Total 150 500 Balance 268 -500 180 Intake: IV 300 Sodium Chloride 0.9% 1, 300 000 ml @ 75 mls/hr IV . [id number] [facility] Rx#:[id number] Oral 118 180 Output: Urine 150 500 Other: Voiding Method External Catheter External Catheter External Catheter # Voids 1 # Bowel Movements 1 - Exam The patient does not appear in acute distress. Alert and orientated x3. Dressing is clean dry and intact. Incision appears fine with no erythema or active drainage. Calf is soft and nontender. Good foot and ankle motion without difficulty. Sensation and circulatory status is intact. - Labs CBC & Chem 7: 11/17/23 05:43 11/17/23 14:10 Labs: Abnormal Lab Results - Last 24 Hours (Table) 11/17/23 11/17/23 11/17/23 Range/Units 11:18 16:42 20:07 POC Glucose (mg/dL) 215 H 171 H 192 H (70-110) mg/dL 11/18/23 Range/Units 06:13 POC Glucose (mg/dL) 154 H (70-110) mg/dL Microbiology - Last 24 Hours (Table) 11/15/23 13:43 Blood Culture - Preliminary Blood 11/14/23 14:39 Blood Culture - Preliminary Blood Assessment and Plan (1) S/P total right hip arthroplasty Current Visit: Yes Status: Acute Code(s): Z96.641 - PRESENCE OF RIGHT ARTIFICIAL HIP JOINT SNOMED Code(s): 391872992841 (2) Osteoarthritis of right hip Current Visit: Yes Status: Acute Code(s): M16.11 - UNILATERAL PRIMARY OSTEO ARTHRITIS, RIGHT HIP SNOMED Code(s): 868870318777167 Plan: 1. Continue pain control 2. No oral anticoagulation. IVC filter placed. 3. Continue physical therapy and ambulation when cleared medically. 4. Discharge planning depending on clinical course.
--- NOTE | 2023-11-18 10:42 | P.PN ---
Subjective Patient is seen in follow-up for acute kidney injury. Renal function improving. Receiving normal saline. Oral intake fair. Nonoliguric. Denies chest pain or shortness of breath. Vital signs are stable. General: No acute distress. HEENT: Head exam is unremarkable. On nasal cannula. LUNGS: No audible rhonchi or wheezes. HEART: Rate and Rhythm are regular. ABDOMEN: Nontender. EXTREMITITES: Trace edema. Objective - Vital Signs Vital signs: Vital Signs Temp 97.8 F 11/18/23 08:17 Pulse 80 11/18/23 08:58 Resp 16 11/18/23 08:17 BP 145/59 11/18/23 08:17 Pulse Ox 97 11/18/23 08:17 FiO2 50 11/12/23 20:01 Intake & Output 11/17/23 11/18/23 11/18/23 18:59 06:59 18:59 Intake Total 418 180 Output Total 150 500 Balance 268 -500 180 Intake: IV 300 Sodium Chloride 0.9% 1, 300 000 ml @ 75 mls/hr IV . [id number] [facility] Rx#:[id number] Oral 118 180 Output: Urine 150 500 Other: Voiding Method External Catheter External Catheter External Catheter # Voids 1 # Bowel Movements 1 - Labs CBC & Chem 7: 11/17/23 05:43 11/17/23 14:10 Labs: Abnormal Lab Results - Last 24 Hours (Table) 11/17/23 11/17/23 11/17/23 Range/Units 11:18 16:42 20:07 POC Glucose (mg/dL) 215 H 171 H 192 H (70-110) mg/dL 11/18/23 Range/Units 06:13 POC Glucose (mg/dL) 154 H (70-110) mg/dL Microbiology - Last 24 Hours (Table) 11/15/23 13:43 Blood Culture - Preliminary Blood 11/14/23 14:39 Blood Culture - Preliminary Blood Assessment and Plan Plan: Assessment: 1. Acute kidney injury secondary to ATN secondary to hypotension and acute blood loss anemia. No hydronephrosis noted on kidney ultrasound. UA fairly benign. Renal function improving. Creatinine 2.03 yesterday. Nonoliguric. Baseline creatinine near 0.8. 2. Acute blood loss anemia status post blood transfusion this admission. 3. 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 4. Status post right total hip arthroplasty. 5. Metabolic acidosis secondary to acute kidney injury status post bicarb drip. Resolved. 6. Hypokalemia from intracellular shifting from IV bicarb. Replaced. Plan: Maintain normal saline. Encouraged oral intake. Morning labs pending.
[2023-11-18 10:56] LABS: Anisocytosis Slight; Basophils % (A) 0 %; Eosinophils # (A) 0.3 k/uL (0-0.7); Eosinophils % (A) 2 %; HCT 24.3 % (34.0-46.0); HGB 7.8 gm/dL (11.4-16.0); Hypochromasia Slight; Lymphocytes # (A) 1.5 k/uL (1.0-4.8); Lymphocytes % (A) 13 %; MCH 31.1 pg (25.0-35.0); MCV 97.1 fL (80.0-100.0); Macrocytosis Slight; Mean Platelet Volume 8.9; Monocytes # (A) 0.8 k/uL (0-1.0); Monocytes % (A) 7 %; Neutrophils # (A) 8.4 k/uL (1.3-7.7); Neutrophils % (A) 74 %; Platelet Count 163 k/uL (150-450); RBC 2.51 m/uL (3.80-5.40); RDW 16.3 % (11.5-15.5); WBC 11.2 k/uL (3.8-10.6)
[2023-11-18 10:58] LABS: African American GFR (CKD) 46 (>60 ml/min/1.73 sqM); Anion Gap 3 mmol/L; Blood Urea Nitrogen 31 mg/dL (7-17); Calcium 6.6 mg/dL (8.4-10.2); Carbon Dioxide 26 mmol/L (22-30); Chloride 108 mmol/L (98-107); Glucose 274 mg/dL (74-99); Non-African American GFR(CKD) 40 (>60 ml/min/1.73 sqM); Potassium 3.5 mmol/L (3.5-5.1); Sodium 137 mmol/L (137-145)
[2023-11-18 11:31] LABS: Glucose,Whole Blood 264 mg/dL (70-110)
--- NOTE | 2023-11-18 11:32 | P.PN ---
Subjective Progress Note Date: 11/17/23 Patient is a 88-year-old female was admitted to hospital after right hip total arthroplasty. Patient also Acute blood loss anemia requiring 4 units of PRBC transfusion. Also developed acute kidney injury and 11/17/2023 Patient is currently in the MICU. Sitting in the chair. Awake alert and oriented. Feels weak. Able to participate in physical therapy. Currently requiring 2 L oxygen via nasal cannula.Laboratory data showed WBC 10.9 hemoglobin 7.8 and platelets 137 Sodium 135 potassium 3.2 chloride 101 bicarb 32 BUN 41 and creatinine 2.03 and blood sugar 123 Calcium 7.1 albumin 2.3 Current medications reviewed. Objective - Vital Signs Vital signs: Vital Signs Temp 98.4 F 11/17/23 08:00 Pulse 84 11/17/23 08:12 Resp 20 11/17/23 08:00 BP 158/73 11/17/23 08:00 Pulse Ox 94 L 11/17/23 08:00 FiO2 50 11/12/23 20:01 Intake & Output 11/16/23 11/17/23 11/17/23 18:59 06:59 18:59 Intake Total 1140 825 75 Output Total 250 520 0 Balance 890 305 75 Weight 80.7 kg Intake: IV 900 825 75 Dextrose 5% in Water 1, 150 000 ml @ 75 mls/hr IV . [id number] [facility] with Sodium Bicarb (1 Meq/ml) 150 ml Rx#:[id number] Piperacillin-Tazobactam 3 225 .375 gm In Sodium Chloride 0.9% 100 ml @ 25 mls/hr IVPB Q12H [facility] Rx# :[id number] Sodium Chloride 0.9% 1, 750 600 75 000 ml @ 75 mls/hr IV . [id number] [facility] Rx#:[id number] Oral 240 Output: Urine 250 520 0 Other: Voiding Method External Catheter External Catheter # Voids 1 # Bowel Movements 1 - Exam PHYSICAL EXAMINATION: Patient is lying in the bed comfortably, no acute distress, awake alert and oriented. Became lethargic.. HEENT: Normocephalic. Neck is supple. Pupils reactive. Nostrils clear. Oral cavity is moist. Neck reveals no JVD, carotid bruits, or thyromegaly. CHEST EXAMINATION: Trachea is central. Symmetrical expansion. Bibasilar diminished sounds. CARDIAC: Normal S1, S2 with no gallops. No murmurs ABDOMEN: Soft. Bowel sounds normal. No organomegaly. No abdominal bruits. Extremities: reveal no edema. No clubbing or cyanosis Neurologically awake, alert, oriented x3. Able to move all extremities. No gross focal deficits noted Skin: No rash or skin lesions. Psychiatric: Coperative. Nonsuicidal Musculoskeletal: No joint swelling or deformity. - Labs CBC & Chem 7: 11/18/23 10:16 11/18/23 10:16 Labs: Abnormal Lab Results - Last 24 Hours (Table) 11/16/23 11/16/23 11/16/23 Range/Units 11:31 16:36 20:03 WBC (3.8-10.6) k/uL RBC (3.80-5.40) m/uL Hgb (11.4-16.0) gm/dL Hct (34.0-46.0) % RDW (11.5-15.5) % Plt Count (150-450) k/uL Sodium (137-145) mmol/L Potassium (3.5-5.1) mmol/L Carbon Dioxide (22-30) mmol/L BUN (7-17) mg/dL Creatinine (0.52-1.04) mg/dL Glucose (74-99) mg/dL POC Glucose (mg/dL) 184 H 152 H 200 H (70-110) mg/dL Calcium (8.4-10.2) mg/dL AST (14-36) U/L Total Protein (6.3-8.2) g/dL Albumin (3.5-5.0) g/dL Urine Protein (Negative) Urine Blood (Negative) Urine Mucus (None) /hpf 11/17/23 11/17/23 11/17/23 Range/Units 02:30 05:43 05:43 WBC 10.9 H (3.8-10.6) k/uL RBC 2.52 L (3.80-5.40) m/uL Hgb 7.8 L (11.4-16.0) gm/dL Hct 23.4 L (34.0-46.0) % RDW 15.6 H (11.5-15.5) % Plt Count 137 L (150-450) k/uL Sodium 135 L (137-145) mmol/L Potassium 3.2 L (3.5-5.1) mmol/L Carbon Dioxide 32 H (22-30) mmol/L BUN 41 H (7-17) mg/dL Creatinine 2.03 H (0.52-1.04) mg/dL Glucose 123 H (74-99) mg/dL POC Glucose (mg/dL) (70-110) mg/dL Calcium 7.1 L (8.4-10.2) mg/dL AST 42 H (14-36) U/L Total Protein 4.2 L (6.3-8.2) g/dL Albumin 2.3 L (3.5-5.0) g/dL Urine Protein Trace H (Negative) Urine Blood Small H (Negative) Urine Mucus Rare H (None) /hpf 11/17/23 Range/Units 06:40 WBC (3.8-10.6) k/uL RBC (3.80-5.40) m/uL Hgb (11.4-16.0) gm/dL Hct (34.0-46.0) % RDW (11.5-15.5) % Plt Count (150-450) k/uL Sodium (137-145) mmol/L Potassium (3.5-5.1) mmol/L Carbon Dioxide (22-30) mmol/L BUN (7-17) mg/dL Creatinine (0.52-1.04) mg/dL Glucose (74-99) mg/dL POC Glucose (mg/dL) 149 H (70-110) mg/dL Calcium (8.4-10.2) mg/dL AST (14-36) U/L Total Protein (6.3-8.2) g/dL Albumin (3.5-5.0) g/dL Urine Protein (Negative) Urine Blood (Negative) Urine Mucus (None) /hpf Microbiology - Last 24 Hours (Table) 11/15/23 13:43 Blood Culture - Preliminary Blood 11/14/23 14:39 Blood Culture - Preliminary Blood Assessment and Plan Assessment: Acute hypoxic respiratory failure secondary to acute pulmonary embolism. status post IVC filter placement because of contraindication for IV heparinongoing bl eeding requiring multiple blood transfusions Acute blood loss anemia likely due to recent surgery. Hemoglobin is fairly stable now. Status post right total hip arthroplasty. Postoperative day 5 Left-sided weakness possible TIA resolved now. Acute kidney injury secondary to ATN due to hypotension and acute blood loss anemia. Improving. 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 Hypokalemia. Replaced. DVT prophylaxis patient is on heparin subcu Plan: Currently on IV hydration and encourage oral intake. Patient has been turned on metoprolol and DuoNeb's and antibiotics in the form of Zosyn. Cardiac pain management. PT OT and follow-up closely. Cardiology, pulmonary and nephrology is on board. Time with Patient: Greater than 30
[2023-11-18] MEDS: PIPERACILLIN-TAZOBACTAM 3.375 GM in SODIUM CHLORIDE 0.9% 100 ML IVPB SCH (12:23)
[2023-11-18] MEDS: CALCIUM GLUCONATE IN NACL 1 GM in SALINE 1 100ML.BAG IVPB ONE (12:23)
--- NOTE | 2023-11-18 12:23 | P.PN ---
Subjective Progress Note Date: 11/18/23 Principal diagnosis: Arthritis, right hip. Patient is an 88-year-old white female with past medical history significant for hypertension, osteoarthritis, and right lower extremity DVT. Patient recently diagnosed with right lower extremity DVT in March,, and she was placed on Eliquis. Eliquis was placed on hold 5 days prior to an elective right total hip arthroplasty. Patient was brought in yesterday for an elective right direct anterior total hip arthroplasty. While in PACU postoperatively, the patient could not move her left arm. A code stroke was initiated. Noncontrast brain CT did not show any acute intracranial abnormality, no hemorrhage or mass effect. Brain CTA showed mild approximately 40% left ICA stenosis, otherwise no large vessel intracranial arterial occlusion or aneurysmal change. Patient was evaluated by neuro-interventionalists, and risks outweighed benefits for thrombolytics. There were also some incidental pulmonary findings, warranting a dedicated film. Chest CTA showed a couple small pulmonary emboli within the right upper and lower lung gonzalez. No CT evidence of right-sided heart strain. There is also some bilateral atelectasis. The surgeon and Dr. Saldana discussed CT findings and the patient was ultimately started on a heparin infusion per protocol. Patient was also hypertensive postoperatively, and started on a Cl eviprex infusion to be titrated to maintain systolic blood pressure of 170 or less to allow for permissive hypertension. Patient was transferred to the intensive care unit from PACU. Patient is currently lying in bed, on 6 L/min nasal cannula, in no acute distress. SpO2 currently 99%. Postoperative ABG showed a PaO2 of 77, pCO2 of 54, and pH of 7.25. She was temporarily on BiPAP support. No signs of hypercapnic encephalopathy. No focal neurological deficits. Patient's left upper extremity weakness has resolved. Overall, neurological exam is benign, consider TIA. Blood pressure is now normotensive. Heart rhythm is normal sinus on bedside monitor. Patient denies any chest pain. No lightheadedness or syncope. No coughing or hemoptysis. Postsurgical dressing is clean, dry, and intact. There is some nikki-incisional swelling. Neurovascular status intact. No obvious hematoma. Postoperative CBC: WBC count 15.8, hemoglobin 11.1, hematocrit 33.8, platelets 226. aPTT supratherapeutic, and heparin and was adjusted per protocol. Postoperative BMP: Sodium 137, testing 3.4, chloride 107, serum bicarb 22, BUN 21, creatinine 0.77, glucose 206. Magnesium 1.4. Electrolytes are being replaced. Troponins less 0.012. Patient will continue to be monitored in the intensive care unit at least overnight. Patient reevaluated today on 11/14/2023, patient remains in the ICU, she is marginal at best. Patient required close for 3 units of packed RBCs and her last hemoglobin is 7.3. Patient is still requiring norepinephrine at 0.07 mcg/kg/min IV fluid is running D5W with 3 A of bicarb at 75 cc/h. Last night she had to be on BiPAP 10/5/50%, presently on 8 L high flow nasal cannula blood pressure is 109/59, mean arterial pressure of 67. However the patient is requiring norepinephrine to adequately maintain good blood pressure. WBC count this morning is 21.9 hemoglobin is 7.3. PTT is 93.9. Her bicarb is 14 BUN is 32 creatinine is 2.19, blood sugar is 201 patient had normal creatinine on admission 11/12/2023, however the patient did develop acute kidney injury most likely secondary to episodes of hypotension requiring pressors. Chest x-ray this morning showed no evidence of congestive heart failure, no pneumonia, right hemidiaphragm seems to be relatively elevated. Patient was reevaluated today on 11/15/2023, patient remains in the ICU, continues to have ongoing bleeding with drop in hemoglobin down to 6.3 today, and I am recommending another unit of packed RBCs to be given today. Obviously the patient is unable to tolerate heparin considering her recent surgery, and she continues to have bleeding most likely into the surgical site/right hip. At this point I believe the patient has absolute current indication to heparin, and I am planning to arrange for vascular surgery to visit to see the patient for possible IVC filter. In addition the patient is developing worsening L kidney injury, and need to have nephrology consultation, her urine output is extremely poor and the patient is getting to be oliguric 60 mg of Lasix was ordered, patient received lots of fluids and blood products since admission. Procalcitonin level is 1.20, antibiotic cefazolin empirically. Patient is still requiring norepinephrine at 0.02 mcg/kg/min to maintain adequate blood pressure, and she is on bicarb drip at 75 cc/h. Heparin is presently on hold. Patient has received already 3 units of packed RBCs since admission to the ICU with acute pulmonary embolism. And DVT. WBC count is 20.1 hemoglobin 6.3 basic metabolic profile is normal BUN is 45 creatinine 3.09 PTT was 75 chest x-ray does not show any evidence of congestive heart failure, but does show left ba silar atelectasis Patient was reevaluated today on 11/16/2023, patient is feeling much better today. Her urine output has picked up on its own and now is about 50 cc/h. She had 200 cc in the last few hours. Patient is now off IV heparin, but I would recommend at least subcu heparin for now she had IVC filter placed. Her renal functioning is improving with creatinine down to 2.4. Hemoglobin is holding, it is today 8.7.However the patient did receive a total of 4 units of packed RBCs after her surgery for postoperative bleeding after she was placed on heparin. Patient is also off pressors, not requiring any norepinephrine, it is presently on hold she is on 2 L nasal cannula, she is on D5 4 5 at 75 cc/h her urine output again is excellent, patient remains on Zosyn today I added heparin subcu 5000 units subcu every 8 hours WBC count today 13.5 hemoglobin 8.7 platelets are 131 basic metabolic profile is normal BUN is 49 creatinine 2.47. Chest x-ray showed hypoventilatory changes, left basilar opacity/atelectasis, minimal prominence of the pulmonary vasculature but has improved compared to 2 days ago The patient is seen today November 17, 2023 in follow-up on the regular medical [facility] or. She is sitting up in bed. Awake and alert in no acute distress. Maintaining good O2 saturations in the 90s on 2 L/min per nasal cannula. She is status post 4 units of packed red blood cells this admission. Current hemoglobin 7.8. Platelets 137. White count 10.9. Sodium 135. Potassium 3.2. Bicarb 32. BUN 41. Creatinine 2.03. Glucose 123. She remains on bronchodilators. Antibiotics in the form of Zosyn. She remained stable and off pressors. Off Cleviprex. Progress note dated November 18, 2023. The patient is seen today in room 368. The patient is currently on 2 L of oxygen. She is getting saline at 75 cc an hour. She appears to be relatively comfortable. Earlier this week, she was in the intensive care unit. Current laboratory data includes a white count 11.2, hemoglobin 7.8, hematocrit 24.3, and platelet count 163,000. Sodium 137, potassium 3.5, chlorides 108, CO2 26, BUN 41, and creatinine 1.23. Glucose is 264. Calcium is 6.6. Blood cultures are currently negative. No recent chest x-ray to review. Objective - Vital Signs Vital signs: Vital Signs Temp 98.6 F 11/18/23 11:18 Pulse 75 11/18/23 11:18 Resp 16 11/18/23 11:18 BP 145/59 11/18/23 08:17 Pulse Ox 98 11/18/23 11:18 FiO2 50 11/12/23 20:01 Intake & Output 11/17/23 11/18/23 11/18/23 18:59 06:59 18:59 Intake Total 418 180 Output Total 150 500 Balance 268 -500 180 Intake: IV 300 Sodium Chloride 0.9% 1, 300 000 ml @ 75 mls/hr IV . [id number] [facility] Rx#:[id number] Oral 118 180 Output: Urine 150 500 Other: Voiding Method External Catheter External Catheter External Catheter # Voids 1 # Bowel Movements 1 - Exam No acute distress, oriented 3. Currently on 2 L nasal cannula. HEENT examination is grossly unremarkable. Mucous membranes are moist. No oral lesions. Neck supple. Full range of motion. No adenopathy thyromegaly or neck vein distention. Cardiovascular examination reveals regular rhythm rate. S1-S2 normal. No S3 or S4. No discernible murmur noted. Heart sounds are distant. Heart rate 80 bpm. Lungs reveal clear breath sounds. Breath sounds are equal bilaterally. No adventitious lung sounds including wheezes rhonchi or crackles. Saturations are 98% on 2 L. Abdomen soft with bowel sounds. No masses or tenderness. Extremities are intact. No cyanosis clubbing or edema. Skin is without rash or lesion. Neurologic examination is brief but nonfocal. - Labs CBC & Chem 7: 11/18/23 10:16 11/18/23 10:16 Labs: Abnormal Lab Results - Last 24 Hours (Table) 11/17/23 11/17/23 11/18/23 Range/Units 16:42 20:07 06:13 WBC (3.8-10.6) k/uL RBC (3.80-5.40) m/uL Hgb (11.4-16.0) gm/dL Hct (34.0-46.0) % RDW (11.5-15.5) % Neutrophils # (1.3-7.7) k/uL Chloride (98-107) mmol/L BUN (7-17) mg/dL Creatinine (0.52-1.04) mg/dL Glucose (74-99) mg/dL POC Glucose (mg/dL) 171 H 192 H 154 H (70-110) mg/dL Calcium (8.4-10.2) mg/dL 11/18/23 11/18/23 11/18/23 Range/Units 10:16 10:16 11:30 WBC 11.2 H (3.8-10.6) k/uL RBC 2.51 L (3.80-5.40) m/uL Hgb 7.8 L (11.4-16.0) gm/dL Hct 24.3 L (34.0-46.0) % RDW 16.3 H (11.5-15.5) % Neutrophils # 8.4 H (1.3-7.7) k/uL Chloride 108 H (98-107) mmol/L BUN 31 H (7-17) mg/dL Creatinine 1.23 H (0.52-1.04) mg/dL Glucose 274 H (74-99) mg/dL POC Glucose (mg/dL) 264 H (70-110) mg/dL Calcium 6.6 L (8.4-10.2) mg/dL Microbiology - Last 24 Hours (Table) 11/15/23 13:43 Blood Culture - Preliminary Blood 11/14/23 14:39 Blood Culture - Preliminary Blood Assessment and Plan Assessment: Acute hypoxic respiratory failure secondary to acute pulmonary embolism. Right hip osteoarthritis status post right anterior total hip arthroplasty postoperative day #6. History of deep vein thrombosis. Hypotension secondary to acute blood loss anemia, hypovolemia and also secondary to pulmonary embolism, no clear-cut evidence of RV strain. Acute blood loss anemia, most likely secondary to recent surgery. Status post IVC filter placement because of contraindication for IV heparinongoing bleeding requiring multiple blood transfusions. Acute leukocytosis secondary to surgery/reactive. Acute TIA, resolved with left-sided weakness. Sinus tachycardia secondary to anemia and secondary to pulmonary embolism. Acute kidney injury. Acute on chronic deep vein thrombosis. Plan: Plan dated November 18, 2023. The patient is seen today in room 368. The patient continues on oxygen at 2 L. The patient is getting saline at 75 cc an hour. Labs, x-rays, medications are reviewed. The patient was in the intensive care unit, on Friday, but transferred out to the floor, later on that day. Labs, x-rays, medications are reviewed. We will continue to follow make recommendations along the way. Prognosis is thought to be guarded. Time with Patient: Less than 30
[2023-11-18] MEDS: POTASSIUM CHLORIDE ER 20 MEQ TAB.ER PO STA (12:29)
--- NOTE | 2023-11-18 14:02 | P.PN ---
Subjective Progress Note Date: 11/18/23 I am following-up with patient and she denies any new neurological issues. Objective - Vital Signs Vital signs: Vital Signs Temp 98.6 F 11/18/23 11:18 Pulse 80 11/18/23 12:54 Resp 16 11/18/23 11:18 BP 145/59 11/18/23 08:17 Pulse Ox 98 11/18/23 11:18 FiO2 50 11/12/23 20:01 Intake & Output 11/17/23 11/18/23 11/18/23 18:59 06:59 18:59 Intake Total 418 360 Output Total 150 500 Balance 268 -500 360 Weight 80.7 kg Intake: IV 300 Sodium Chloride 0.9% 1, 300 000 ml @ 75 mls/hr IV . [id number] [facility] Rx#:[id number] Oral 118 360 Output: Urine 150 500 Other: Voiding Method External Catheter External Catheter External Catheter # Voids 1 # Bowel Movements 1 - Exam General: Lying in bed and is not in acute distress. Neuro: The patient is awake, alert, oriented to self, place and time. Is following simple commands. No aphasia or neglect. Pupils are round, equal and reactive to light. Visual gonzalez are full to confrontation. EOM intact and no nystamgus. No facial weakness. No dysarthria. Motor: Limited because of pain especially over the right hip. Uppers are equal and are 5-5-/5. Left lower is 5/5. Right lower is limited because of pain around the hip abut has antigravity. sensation: Normal to touch throughout. - Labs CBC & Chem 7: 11/18/23 10:16 11/18/23 10:16 Labs: Abnormal Lab Results - Last 24 Hours (Table) 11/17/23 11/17/23 11/18/23 Range/Units 16:42 20:07 06:13 WBC (3.8-10.6) k/uL RBC (3.80-5.40) m/uL Hgb (11.4-16.0) gm/dL Hct (34.0-46.0) % RDW (11.5-15.5) % Neutrophils # (1.3-7.7) k/uL Chloride (98-107) mmol/L BUN (7-17) mg/dL Creatinine (0.52-1.04) mg/dL Glucose (74-99) mg/dL POC Glucose (mg/dL) 171 H 192 H 154 H (70-110) mg/dL Calcium (8.4-10.2) mg/dL 11/18/23 11/18/23 11/18/23 Range/Units 10:16 10:16 11:30 WBC 11.2 H (3.8-10.6) k/uL RBC 2.51 L (3.80-5.40) m/uL Hgb 7.8 L (11.4-16.0) gm/dL Hct 24.3 L (34.0-46.0) % RDW 16.3 H (11.5-15.5) % Neutrophils # 8.4 H (1.3-7.7) k/uL Chloride 108 H (98-107) mmol/L BUN 31 H (7-17) mg/dL Creatinine 1.23 H (0.52-1.04) mg/dL Glucose 274 H (74-99) mg/dL POC Glucose (mg/dL) 264 H (70-110) mg/dL Calcium 6.6 L (8.4-10.2) mg/dL Microbiology - Last 24 Hours (Table) 11/15/23 13:43 Blood Culture - Preliminary Blood 11/14/23 14:39 Blood Culture - Preliminary Blood Assessment and Plan Assessment: * Acute stroke/TIA, manifesting with left hemiparesis, this seems to have mostly resolved. Although her NIH stroke scale at this time is 0. Unsure if had hypotensive during episode that exacerbated symptoms * Right hip osteoarthritis, status post total hip arthroplasty, 11/12/2023. * Bilateral lower extremity DVT, with acute pulmonary embolism was on IV heparin but discontinue due to anemia. S/P IVC filter. * Acute anemia and received blood transfusion (as low as 6.3). Most recent is 7.8. She on on IV heparin. * Hypotensive and was on Norepinephrine---improved * History of DVT, on Eliquis. * Hypertension * Diabetes Plan: * CTA of the neck revealed approximately 40% proximal left ICA stenosis. * CTA of the head showed atherosclerotic calcifications throughout the bilateral carotid siphons. This results in moderate segmental stenosis left ICA. Additional moderate focal stenosis proximal M1 segment left MCA. Otherwise no large vessel intracranial arterial occlusion or aneurysm. * I will obtain a repeat CT head to assess if any changes not seen on initial CT. * Patient's vascular stenosis are on the ipsilateral side, therefore probably asymptomatic. Rule out cardiac source. * CTA of the chest performed showed couple small pulmonary emboli within the right upper and right lower lung. No evidence of right heart strain. * Ultrasound of bilateral lower extremity positive for DVT. * Patient was on heparin IV for PE and DVT but discontinue due to anemia. she was placed on IVC. Resume ASA 81mg daily when medically cleared. Also down the line, if the benefit outweigh the risk of resuming eliquis but will leave that decision to primary team. * Avoid hypotensive episode * 2D echo revealed normal left ventricular function with EF 50 to 55%. Moderately increased septal wall thickness. Moderately increased posterior wall thickness. Atypical septal motion. Normal left atrial size. No left to right shunt seen at the atrial level. No [id number] shunt seen in the atrial level with contrast. No valvular abnormalities. * Fasting lipid panel cholesterol 144, LDL 83, HDL 40, triglycerides 98. We will add Lipitor 20 mg daily. * Hemoglobin A1c 6.9 on 09/22/2023. No need to repeat. * Telemetry monitoring. * PT OT. * Other medical management as per IM, critical care and other specialties. * DVT prophylaxis: On subq heparin. The plan is discussed with patient and her nurse. If repeat CT head is negative for acute or subacute process then no further neurological work-up. ADDENDUM: Repeat CT head is negative for acute process. Time with Patient: Less than 30
--- NOTE | 2023-11-18 15:33 | P.PN ---
Subjective Elevated cardiac enzymes The patient is an 88-year-old female patient with a past medical history significant for history of DVT she was on oral anticoagulation as an outpatient. No prior cardiac history of coronary artery disease or congestive heart failure or cardiac arrhythmia. We asked to see the patient in a consultation in the intensive care unit for sinus tachycardia as well as abnormal cardiac enzymes. The patient was admitted to the hospital and underwent an elective right hip surgery which was uneventful. During her recovery it was noted that she was unable to move her left side. Initially it was felt secondary to stroke. S troke code was called and the patient underwent a workup including CT scan of the brain as well as carotid workup and all of that came in to be unremarkable for acute stroke. Also the workup including CT scan showed possible small pulmonary embolism. No history of pulmonary embolism in the past. She has history of DVT. She was not on oral anticoagulation because that was interrupted before the surgery. Subsequently the patient was admitted to the intensive care unit. It was noted that she was hypotensive requiring norepinephrine but at the same time her hemoglobin dropped significantly and her last hemoglobin from this morning is around 7. Her previous hemoglobin was 13. Currently the patient is hypotensive requiring norepinephrine. She was started on heparin IV. When she was seen and evaluated this morning her main symptoms is being tired and fatigue and no symptoms of any chest pain or chest discomfort or shortness of breath. She underwent an echocardiogram which revealed normal LV systolic function with no significant wall motion abnormalities. Cardiac enzymes were checked and came in to be slightly abnormal. We only have 1 abnormal troponin and I am going to obtain 2 more sets of troponin for further clarification. Beside that she has no EKG. Stat EKG is in process to be done. The examination revealed regular rhythm with a distant heart sounds and diminished breathing sounds bilaterally and no edema was noted in the lower extremities. Beside that the patient is in renal failure likely secondary to anemia and hypotension November 15, 2023 The patient was seen and evaluated this morning. She was anemic and she is in process of receiving 1 unit of packed RBC. Her hemoglobin was 6. She was hypotensive requiring norepinephrine but that has improved and currently she is not on any vasopressors after she received the blood. The creatinine continues to be elevated and currently nephrology is consulted to see the patient. Because of the anemia which is secondary to the hematoma by the right hip the heparin was stopped the patient is in process of having an IVC filter placement. Otherwise she is not reporting any chest pain or chest discomfort at this point. The EKG showed LBBB. The echo showed normal LV systolic function with no wall motion abnormalities and no evidence of RV strain. The examination revealed regular rhythm with a systolic murmur and clear breathing sounds bilaterally and no edema was noted. November 16, 2023 The patient was seen and evaluated this morning. She is asymptomatic. She is maintaining normal sinus mechanism. She underwent an IVC filter placement yesterday. Currently she is not on any oral anticoagulation or IV anticoagulations since she underwent the filter placement. Hemoglobin is stable and she is not bleeding anymore. The right hip hematoma has been stable. Creatinine has been trending in the right direction. She is on a statin which we will continue. Hold adding any aspirin at this point giving the hematoma/bleeding. Consider starting the patient on small dose of beta-lindsay. The examination revealed regular rhythm with a systolic murmur and diminished breathing sounds bilaterally and she does have mild bilateral lower extremities edema noted. She was given Lasix yesterday. 11/16 Cardiology was reconsulted secondary to patient going in A. fib with RVR. Patient had IVC filter placed. She does have a history of prior DVT from March at [facility] and has been on anticoagulation at home. She has however had issues with anemia after her surgery and hematoma. Therefore anticoagulation has been on hold. She admits to feeling palpitations similar to last night about once a month and usually are fairly mild to moderate symptom verma. Assessment Status post right hip surgery Left-sided weakness which has improved. No acute stroke on the workup Recent diagnosis of small pulmonary embolism and deep venous thrombosis Anemia secondary to blood loss Status post IVC filter placement Evidence of myocardial injury likely secondary to anemia and type II myocardial infarction Renal failure new-onset paroxysmal atrial fibrillation Plan patient with new onset of atrial fibrillation. Especially given recent TIA type symptoms strongly recommended anticoagulation. She has been on anticoagulation with Alquist secondary to DVT from [facility] in March. We discussed restarting anticoagulation in approximately a week if hematoma stays stable. Finish out amiodarone however if has recurrent A. fib episodes may consider long-term ablation. Continue with beta lindsay. Objective - Vital Signs Vital signs: Vital Signs Temp 98.6 F 11/18/23 11:18 Pulse 80 11/18/23 12:54 Resp 18 11/18/23 14:00 BP 145/59 11/18/23 08:17 Pulse Ox 98 11/18/23 11:18 FiO2 50 11/12/23 20:01 Intake & Output 11/17/23 11/18/23 11/18/23 18:59 06:59 18:59 Intake Total 418 360 Output Total 150 500 200 Balance 268 -500 160 Weight 80.7 kg Intake: IV 300 Sodium Chloride 0.9% 1, 300 000 ml @ 75 mls/hr IV . [id number] [facility] Rx#:[id number] Oral 118 360 Output: Urine 150 500 200 Other: Voiding Method External Catheter External Catheter External Catheter # Voids 1 # Bowel Movements 1 - Labs CBC & Chem 7: 11/18/23 10:16 11/18/23 10:16 Labs: Abnormal Lab Results - Last 24 Hours (Table) 11/17/23 11/17/23 11/18/23 Range/Units 16:42 20:07 06:13 WBC (3.8-10.6) k/uL RBC (3.80-5.40) m/uL Hgb (11.4-16.0) gm/dL Hct (34.0-46.0) % RDW (11.5-15.5) % Neutrophils # (1.3-7.7) k/uL Chloride (98-107) mmol/L BUN (7-17) mg/dL Creatinine (0.52-1.04) mg/dL Glucose (74-99) mg/dL POC Glucose (mg/dL) 171 H 192 H 154 H (70-110) mg/dL Calcium (8.4-10.2) mg/dL 11/18/23 11/18/23 11/18/23 Range/Units 10:16 10:16 11:30 WBC 11.2 H (3.8-10.6) k/uL RBC 2.51 L (3.80-5.40) m/uL Hgb 7.8 L (11.4-16.0) gm/dL Hct 24.3 L (34.0-46.0) % RDW 16.3 H (11.5-15.5) % Neutrophils # 8.4 H (1.3-7.7) k/uL Chloride 108 H (98-107) mmol/L BUN 31 H (7-17) mg/dL Creatinine 1.23 H (0.52-1.04) mg/dL Glucose 274 H (74-99) mg/dL POC Glucose (mg/dL) 264 H (70-110) mg/dL Calcium 6.6 L (8.4-10.2) mg/dL Microbiology - Last 24 Hours (Table) 11/15/23 13:43 Blood Culture - Preliminary Blood 11/14/23 14:39 Blood Culture - Preliminary Blood
--- NOTE | 2023-11-18 15:39 | CT ---
EXAMINATION TYPE: CT brain wo con CT DLP: 1095.4 mGycm, Automated exposure control for dose reduction was used. DATE OF EXAM: 11/18/2023 2:51 PM COMPARISON: . CLINICAL INDICATION:Female, 88 years old with history of left sided weakness. Resolved, left sided we akness TECHNIQUE: Brain: Axial CT images of the brain were obtained with coronal and sagittal reformats created and rev iewed. Contrast used: None. Oral contrast used: None. FINDINGS: Brain: Extra-axial spaces: No abnormal extra-axial fluid collections. Ventricular system: Within normal limits Cerebral parenchyma: No acute intraparenchymal hemorrhage or mass effect. The ortiz-white junction is well differentiated. Cerebellum: Unremarkable. Mass effect: No evidence of midline shift. Intracranial vasculature: unremarkable Soft tissues: Normal. Calvarium/osseous structures: No depressed skull fracture. Paranasal sinuses and mastoid air cells: Mild scattered paranasal sinus disease. Visualized orbits: Orbital contents are intact. IMPRESSION: No acute intracranial process.
[2023-11-18 16:25] LABS: Glucose,Whole Blood 148 mg/dL (70-110)
[2023-11-18] MEDS: MAG HYDROX/AL HYDROX/SIMETH 30 ML, LIDOCAINE VISCOUS 2% 30 ML, NYSTATIN 100,000 UNIT/ML... PO SCH (17:17)
--- NOTE | 2023-11-18 20:01 | CDI ---
Documentation Clarification Form Date: 11/18/2023 07:55:38 PM From: Norma Crawford RN, CCDS Phone: [phone] Admit Date: 11/13/2023 11:34:00 AM Patient Name: Lucina Roberts Visit Number: [id number] Discharge Date: ATTENTION: The Clinical Documentation Specialists (CDI) and [facility] Coding Staff appreciate your assistance in clarifying documentation. Please respond to the clarification below the line at the bottom and electronically sign. The CDI & [facility] Coding staff will review the response and follow-up if needed. Please note: Queries are made part of the Legal Health Record. If you have any questions, please contact the author of this message via ITS. Dr. Brody Brownlee There is documented of postoperative DVT and PE with history of DVT and PE in the progress notes on 11/15/23 direct anterior total hip arthroplasty on 11/12/23. Additional clarification is requested regarding the relationship, if any, that exists between the diagnosis and the procedure. Patients Admitting Diagnosis: Unilateral primary osteoarthritis, right hip Post-Operative Diagnosis: Same Procedure performed: Right direct anterior total hip arthroplasty History/Risk Factors: DVT, Hypertension, Hyperlipidemia Diabetes-type 2, Skin cancer Clinical Indicators: 88-year-old white female Patient recently diagnosed with right lower extremity DVT in March,, and she was placed on Eliquis which was placed on hold 5 days prior to an elective right total hip arthroplasty. Chest CTA showed a couple small pulmonary emboli within the right upper and lower lung gonzalez. No CT evidence of right-sided heart strain. There is also some bilateral atelectasis. 11/13 venous doppler: Bilateral lower extremity deep venous ultrasound with areas suspicious for deep venous thrombosis. This would include mid to distal right femoral vein possible extension beyond as well as thrombus in the left Common femoral vein. Treatment: Telemetry/ICU monitoring Heparin Drip per orders 11/15-11/16 IVC filter placement .9NS @75 ML HR 11/11-11/17 What relationship, if any, exists between the diagnosis of postoperative pulmonary embolism and DVT the procedure? [ ] Acute pulmonary embolism and acute deep vein thrombosis is a complication of surgical procedure. [ ] Acute pulmonary embolism and acute deep vein thrombosis is an expected outcome of the surgical procedure [ ] Acute pulmonary embolism and acute deep vein thrombosis is related to patients co-morbid condition(s) of [insert co-morbid dxs] & not a complication of the procedure [ ] Other please specify ____ [ ] Unable to determine (Template Last Revised: September 2020) MTDD
[2023-11-18 20:11] LABS: Glucose,Whole Blood 233 mg/dL (70-110)
[2023-11-19 06:24] LABS: Glucose,Whole Blood 170 mg/dL (70-110)
[2023-11-19 08:48] LABS: African American GFR (CKD) 51 (>60 ml/min/1.73 sqM); Anion Gap 4 mmol/L; Blood Urea Nitrogen 28 mg/dL (7-17); Carbon Dioxide 26 mmol/L (22-30); Chloride 108 mmol/L (98-107); Glucose 135 mg/dL (74-99); Magnesium 1.6 mg/dL (1.6-2.3); Non-African American GFR(CKD) 44 (>60 ml/min/1.73 sqM); Potassium 4.5 mmol/L (3.5-5.1); Sodium 138 mmol/L (137-145)
--- NOTE | 2023-11-19 10:48 | P.PN ---
Subjective Progress Note Date: 11/18/23 Patient is a 88-year-old female was admitted to hospital after right hip total arthroplasty. Patient also Acute blood loss anemia requiring 4 units of PRBC transfusion. Also developed acute kidney injury and 11/17/2023 Patient is currently in the MICU. Sitting in the chair. Awake alert and oriented. Feels weak. Able to participate in physical therapy. Currently requiring 2 L oxygen via nasal cannula.Laboratory data showed WBC 10.9 hemoglobin 7.8 and platelets 137 Sodium 135 potassium 3.2 chloride 101 bicarb 32 BUN 41 and creatinine 2.03 and blood sugar 123 Calcium 7.1 albumin 2.3 11/18/2023 Patient is in the telemetry unit. Currently sitting on side of bed. Able to participate in physical therapy. No complaints of chest pain or shortness of breath. Patient otherwise went into atrial fibrillation with rapid ventricular rate this morning patient was started on amiodarone drip. Continued on metoprolol XL. Patient had a swallow evaluation today and recommended pured diet by dietitian. Laboratory data showed WBC 11.2 hemoglobin 7.8 and platelets 163 Sodium 137 potassium 3.5 chloride 108 bicarb is 26 BUN 31 and creatinine 1.23 and blood sugar 274. Cardiology and pulmonary is on board. Current medications reviewed. Objective - Vital Signs Vital signs: Vital Signs Temp 98.6 F 11/18/23 11:18 Pulse 75 11/18/23 11:18 Resp 16 11/18/23 11:18 BP 145/59 11/18/23 08:17 Pulse Ox 98 11/18/23 11:18 FiO2 50 11/12/23 20:01 Intake & Output 11/17/23 11/18/23 11/18/23 18:59 06:59 18:59 Intake Total 418 180 Output Total 150 500 Balance 268 -500 180 Intake: IV 300 Sodium Chloride 0.9% 1, 300 000 ml @ 75 mls/hr IV . [id number] [facility] Rx#:[id number] Oral 118 180 Output: Urine 150 500 Other: Voiding Method External Catheter External Catheter External Catheter # Voids 1 # Bowel Movements 1 - Exam PHYSICAL EXAMINATION: Patient is lying in the bed comfortably, no acute distress, awake alert and oriented. Became lethargic.. HEENT: Normocephalic. Neck is supple. Pupils reactive. Nostrils clear. Oral cavity is moist. Neck reveals no JVD, carotid bruits, or thyromegaly. CHEST EXAMINATION: Trachea is central. Symmetrical expansion. Bibasilar diminished sounds. CARDIAC: Normal S1, S2 with no gallops. No murmurs ABDOMEN: Soft. Bowel sounds normal. No organomegaly. No abdominal bruits. Extremities: reveal no edema. No clubbing or cyanosis Neurologically awake, alert, oriented x3. Able to move all extremities. No gross focal deficits noted Skin: No rash or skin lesions. Psychiatric: Coperative. Nonsuicidal Musculoskeletal: No joint swelling or deformity. - Labs CBC & Chem 7: 11/18/23 10:16 11/19/23 08:09 Labs: Abnormal Lab Results - Last 24 Hours (Table) 11/17/23 11/17/23 11/18/23 Range/Units 16:42 20:07 06:13 WBC (3.8-10.6) k/uL RBC (3.80-5.40) m/uL Hgb (11.4-16.0) gm/dL Hct (34.0-46.0) % RDW (11.5-15.5) % Neutrophils # (1.3-7.7) k/uL Chloride (98-107) mmol/L BUN (7-17) mg/dL Creatinine (0.52-1.04) mg/dL Glucose (74-99) mg/dL POC Glucose (mg/dL) 171 H 192 H 154 H (70-110) mg/dL Calcium (8.4-10.2) mg/dL 11/18/23 11/18/23 11/18/23 Range/Units 10:16 10:16 11:30 WBC 11.2 H (3.8-10.6) k/uL RBC 2.51 L (3.80-5.40) m/uL Hgb 7.8 L (11.4-16.0) gm/dL Hct 24.3 L (34.0-46.0) % RDW 16.3 H (11.5-15.5) % Neutrophils # 8.4 H (1.3-7.7) k/uL Chloride 108 H (98-107) mmol/L BUN 31 H (7-17) mg/dL Creatinine 1.23 H (0.52-1.04) mg/dL Glucose 274 H (74-99) mg/dL POC Glucose (mg/dL) 264 H (70-110) mg/dL Calcium 6.6 L (8.4-10.2) mg/dL Microbiology - Last 24 Hours (Table) 11/15/23 13:43 Blood Culture - Preliminary Blood 11/14/23 14:39 Blood Culture - Preliminary Blood Assessment and Plan Assessment: New onset paroxysmal atrial fibrillation with RVR Acute hypoxic respiratory failure secondary to acute pulmonary embolism. status post IVC filter placement because of contraindication for IV heparinongoing bleeding requiring multiple blood transfusions Acute blood loss anemia likely due to recent surgery. Hemoglobin is fairly stable now. Status post right total hip arthroplasty. Postoperative day 6 Left-sided weakness possible TIA resolved now. Acute kidney injury secondary to ATN due to hypotension and acute blood loss anemia. Improving. Possible bilateral pneumonia consider aspiration Labile hypertension and hypotension currently stable fairly Anemia Diabetes type 2 Elevated troponin level possible type II MT History of DVT/PE on Eliquis at home. Hypokalemia. Replaced. DVT prophylaxis patient is on heparin subcu Plan: Currently on IV hydration and encourage oral intake. Patient was started on amiodarone drip due to new onset atrial fibrillation. Cardiology recommends anticoagulation especially with recent history of TIA-like symptoms. Patient has been turned on metoprolol and DuoNeb's and antibiotics in the form of Zosyn. Cardiac pain management. PT OT and follow-up closely. Cardiology, pulmonary and nephrology is on board. Time with Patient: Greater than 30
--- NOTE | 2023-11-19 11:18 | P.PN ---
Subjective Patient is seen in follow-up for acute kidney injury. Renal function improved. Receiving normal saline. Oral intake fair. Nonoliguric. Denies chest pain or shortness of breath. Vital signs are stable. General: No acute distress. HEENT: Head exam is unremarkable. On nasal cannula. LUNGS: No audible rhonchi or wheezes. HEART: Rate and Rhythm are regular. ABDOMEN: Nontender. EXTREMITITES: Trace edema. Objective - Vital Signs Vital signs: Vital Signs Temp 98.8 F 11/18/23 20:48 Pulse 81 11/19/23 09:24 Resp 18 11/19/23 09:24 BP 186/74 11/19/23 08:00 Pulse Ox 97 11/19/23 09:15 FiO2 50 11/12/23 20:01 Intake & Output 11/18/23 11/19/23 11/19/23 18:59 06:59 18:59 Intake Total 540 180 Output Total 200 500 Balance 340 -500 180 Weight 80.7 kg Intake: Oral 540 180 Output: Urine 200 500 Other: Voiding Method External Catheter External Catheter # Bowel Movements 1 1 - Labs CBC & Chem 7: 11/18/23 10:16 11/19/23 08:09 Labs: Abnormal Lab Results - Last 24 Hours (Table) 11/18/23 11/18/23 11/18/23 Range/Units 11:30 16:23 20:10 Chloride (98-107) mmol/L BUN (7-17) mg/dL Creatinine (0.52-1.04) mg/dL Glucose (74-99) mg/dL POC Glucose (mg/dL) 264 H 148 H 233 H (70-110) mg/dL Calcium (8.4-10.2) mg/dL 11/19/23 11/19/23 Range/Units 06:23 08:09 Chloride 108 H (98-107) mmol/L BUN 28 H (7-17) mg/dL Creatinine 1.14 H (0.52-1.04) mg/dL Glucose 135 H (74-99) mg/dL POC Glucose (mg/dL) 170 H (70-110) mg/dL Calcium 8.0 L (8.4-10.2) mg/dL Microbiology - Last 24 Hours (Table) 11/15/23 13:43 Blood Culture - Preliminary Blood Assessment and Plan Plan: Assessment: 1. Acute kidney injury secondary to ATN secondary to hypotension and acute blood loss anemia. No hydronephrosis noted on kidney ultrasound. UA fairly benign. Renal function improving. Creatinine 1.14 today. Nonoliguric. Baseline creatinine near 0.8. 2. Acute blood loss anemia status post blood transfusion this admission. 3. 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 4. Status post right total hip arthroplasty. 5. Metabolic acidosis secondary to acute kidney injury status post bicarb drip. Resolved. 6. Hypokalemia from intracellular shifting from IV bicarb. Replaced. Improved. 7. Hypomagnesemia from poor intake. Plan: Hep-Lock IV fluids. Encouraged oral intake. Avoid nephrotoxins. Add oral magnesium oxide. Add amlodipine 5 mg once daily.
[2023-11-19 11:45] LABS: Glucose,Whole Blood 246 mg/dL (70-110)
[2023-11-19] MEDS: amLODIPine 5 MG TAB PO SCH (12:00)
--- NOTE | 2023-11-19 12:03 | P.PN ---
Subjective Progress Note Date: 11/19/23 Principal diagnosis: Status post right total hip arthroplasty This is a 88 year-old female post right total hip arthroplasty. This is post-op day 7. The patient was evaluated in the recliner at the bedside today on the telemetry floor. The patient denies nausea, vomiting, abdominal pain, shortness of breath, and chest pain this morning. She states her pain is controlled at this time. The patient has been up out of bed and sat in the chair yesterday. Nursing staff states that she went into a. fib with RVR last and cardiology will address anticoagulation. She had a IVC filter placed. She is not on oral anticoagulants but is on heparin subq now. Physical therapy is planning on having her walk this morning. Objective - Vital Signs Vital signs: Vital Signs Temp 98.8 F 11/18/23 20:48 Pulse 81 11/19/23 09:24 Resp 18 11/19/23 09:24 BP 186/74 11/19/23 08:00 Pulse Ox 97 11/19/23 09:15 FiO2 50 11/12/23 20:01 Intake & Output 11/18/23 11/19/23 11/19/23 18:59 06:59 18:59 Intake Total 540 180 Output Total 200 500 Balance 340 -500 180 Weight 80.7 kg Intake: Oral 540 180 Output: Urine 200 500 Other: Voiding Method External Catheter External Catheter # Bowel Movements 1 1 - Exam The patient does not appear in acute distress. Alert and orientated x3. Dressing is clean dry and intact. Incision appears fine with no erythema or active drainage. Calf is soft and nontender. Good foot and ankle motion without difficulty. Sensation and circulatory status is intact. - Labs CBC & Chem 7: 11/18/23 10:16 11/19/23 08:09 Labs: Abnormal Lab Results - Last 24 Hours (Table) 11/18/23 11/18/23 11/19/23 Range/Units 16:23 20:10 06:23 Chloride (98-107) mmol/L BUN (7-17) mg/dL Creatinine (0.52-1.04) mg/dL Glucose (74-99) mg/dL POC Glucose (mg/dL) 148 H 233 H 170 H (70-110) mg/dL Calcium (8.4-10.2) mg/dL 11/19/23 11/19/23 Range/Units 08:09 11:44 Chloride 108 H (98-107) mmol/L BUN 28 H (7-17) mg/dL Creatinine 1.14 H (0.52-1.04) mg/dL Glucose 135 H (74-99) mg/dL POC Glucose (mg/dL) 246 H (70-110) mg/dL Calcium 8.0 L (8.4-10.2) mg/dL Microbiology - Last 24 Hours (Table) 11/15/23 13:43 Blood Culture - Preliminary Blood Assessment and Plan (1) S/P total right hip arthroplasty Current Visit: Yes Status: Acute Code(s): Z96.641 - PRESENCE OF RIGHT ARTIFICIAL HIP JOINT SNOMED Code(s): 060032176074 (2) Osteoarthritis of right hip Current Visit: Yes Status: Acute Code(s): M16.11 - UNILATERAL PRIMARY OSTEOARTHRITIS, RIGHT HIP SNOMED Code(s): 069920911574787 Plan: 1. Continue pain control 2. Anticoagulation managed by medicine team. IVC filter placed. 3. Continue physical therapy and ambulation when cleared medically. 4. Discharge planning depending on clinical course.
--- NOTE | 2023-11-19 14:05 | P.PN ---
Subjective Progress Note Date: 11/19/23 Principal diagnosis: Arthritis, right hip. Patient is an 88-year-old white female with past medical history significant for hypertension, osteoarthritis, and right lower extremity DVT. Patient recently diagnosed with right lower extremity DVT in March,, and she was placed on Eliquis. Eliquis was placed on hold 5 days prior to an elective right total hip arthroplasty. Patient was brought in yesterday for an elective right direct anterior total hip arthroplasty. While in PACU postoperatively, the patient could not move her left arm. A code stroke was initiated. Noncontrast brain CT did not show any acute intracranial abnormality, no hemorrhage or mass effect. Brain CTA showed mild approximately 40% left ICA stenosis, otherwise no large vessel intracranial arterial occlusion or aneurysmal change. Patient was evaluated by neuro-interventionalists, and risks outweighed benefits for thrombolytics. There were also some incidental pulmonary findings, warranting a dedicated film. Chest CTA showed a couple small pulmonary emboli within the right upper and lower lung gonzalez. No CT evidence of right-sided heart strain. There is also some bilateral atelectasis. The surgeon and Dr. Saldana discussed CT findings and the patient was ultimately started on a heparin infusion per protocol. Patient was also hypertensive postoperatively, and started on a Cl eviprex infusion to be titrated to maintain systolic blood pressure of 170 or less to allow for permissive hypertension. Patient was transferred to the intensive care unit from PACU. Patient is currently lying in bed, on 6 L/min nasal cannula, in no acute distress. SpO2 currently 99%. Postoperative ABG showed a PaO2 of 77, pCO2 of 54, and pH of 7.25. She was temporarily on BiPAP support. No signs of hypercapnic encephalopathy. No focal neurological deficits. Patient's left upper extremity weakness has resolved. Overall, neurological exam is benign, consider TIA. Blood pressure is now normotensive. Heart rhythm is normal sinus on bedside monitor. Patient denies any chest pain. No lightheadedness or syncope. No coughing or hemoptysis. Postsurgical dressing is clean, dry, and intact. There is some nikki-incisional swelling. Neurovascular status intact. No obvious hematoma. Postoperative CBC: WBC count 15.8, hemoglobin 11.1, hematocrit 33.8, platelets 226. aPTT supratherapeutic, and heparin and was adjusted per protocol. Postoperative BMP: Sodium 137, testing 3.4, chloride 107, serum bicarb 22, BUN 21, creatinine 0.77, glucose 206. Magnesium 1.4. Electrolytes are being replaced. Troponins less 0.012. Patient will continue to be monitored in the intensive care unit at least overnight. Patient reevaluated today on 11/14/2023, patient remains in the ICU, she is marginal at best. Patient required close for 3 units of packed RBCs and her last hemoglobin is 7.3. Patient is still requiring norepinephrine at 0.07 mcg/kg/min IV fluid is running D5W with 3 A of bicarb at 75 cc/h. Last night she had to be on BiPAP 10/5/50%, presently on 8 L high flow nasal cannula blood pressure is 109/59, mean arterial pressure of 67. However the patient is requiring norepinephrine to adequately maintain good blood pressure. WBC count this morning is 21.9 hemoglobin is 7.3. PTT is 93.9. Her bicarb is 14 BUN is 32 creatinine is 2.19, blood sugar is 201 patient had normal creatinine on admission 11/12/2023, however the patient did develop acute kidney injury most likely secondary to episodes of hypotension requiring pressors. Chest x-ray this morning showed no evidence of congestive heart failure, no pneumonia, right hemidiaphragm seems to be relatively elevated. Patient was reevaluated today on 11/15/2023, patient remains in the ICU, continues to have ongoing bleeding with drop in hemoglobin down to 6.3 today, and I am recommending another unit of packed RBCs to be given today. Obviously the patient is unable to tolerate heparin considering her recent surgery, and she continues to have bleeding most likely into the surgical site/right hip. At this point I believe the patient has absolute current indication to heparin, and I am planning to arrange for vascular surgery to visit to see the patient for possible IVC filter. In addition the patient is developing worsening L kidney injury, and need to have nephrology consultation, her urine output is extremely poor and the patient is getting to be oliguric 60 mg of Lasix was ordered, patient received lots of fluids and blood products since admission. Procalcitonin level is 1.20, antibiotic cefazolin empirically. Patient is still requiring norepinephrine at 0.02 mcg/kg/min to maintain adequate blood pressure, and she is on bicarb drip at 75 cc/h. Heparin is presently on hold. Patient has received already 3 units of packed RBCs since admission to the ICU with acute pulmonary embolism. And DVT. WBC count is 20.1 hemoglobin 6.3 basic metabolic profile is normal BUN is 45 creatinine 3.09 PTT was 75 chest x-ray does not show any evidence of congestive heart failure, but does show left ba silar atelectasis Patient was reevaluated today on 11/16/2023, patient is feeling much better today. Her urine output has picked up on its own and now is about 50 cc/h. She had 200 cc in the last few hours. Patient is now off IV heparin, but I would recommend at least subcu heparin for now she had IVC filter placed. Her renal functioning is improving with creatinine down to 2.4. Hemoglobin is holding, it is today 8.7.However the patient did receive a total of 4 units of packed RBCs after her surgery for postoperative bleeding after she was placed on heparin. Patient is also off pressors, not requiring any norepinephrine, it is presently on hold she is on 2 L nasal cannula, she is on D5 4 5 at 75 cc/h her urine output again is excellent, patient remains on Zosyn today I added heparin subcu 5000 units subcu every 8 hours WBC count today 13.5 hemoglobin 8.7 platelets are 131 basic metabolic profile is normal BUN is 49 creatinine 2.47. Chest x-ray showed hypoventilatory changes, left basilar opacity/atelectasis, minimal prominence of the pulmonary vasculature but has improved compared to 2 days ago The patient is seen today November 17, 2023 in follow-up on the regular medical kyea or. She is sitting up in bed. Awake and alert in no acute distress. Maintaining good O2 saturations in the 90s on 2 L/min per nasal cannula. She is status post 4 units of packed red blood cells this admission. Current hemoglobin 7.8. Platelets 137. White count 10.9. Sodium 135. Potassium 3.2. Bicarb 32. BUN 41. Creatinine 2.03. Glucose 123. She remains on bronchodilators. Antibiotics in the form of Zosyn. She remained stable and off pressors. Off Cleviprex. Progress note dated November 18, 2023. The patient is seen today in room 368. The patient is currently on 2 L of oxygen. She is getting saline at 75 cc an hour. She appears to be relatively comfortable. Earlier this week, she was in the intensive care unit. Current laboratory data includes a white count 11.2, hemoglobin 7.8, hematocrit 24.3, and platelet count 163,000. Sodium 137, potassium 3.5, chlorides 108, CO2 26, BUN 41, and creatinine 1.23. Glucose is 264. Calcium is 6.6. Blood cultures are currently negative. No recent chest x-ray to review. Progress note dated November 19, 2023. The patient is seen today in room 368. She is sitting in a chair next to her hospital bed. She is in no distress. She denies any shortness of breath or difficulty breathing. She is on room air. She is not receiving any IV fluids. She denies any chest pain or chest discomfort. She appears very stable. Current labs include a sodium 138, potassium 4.5, chlorides 108, CO2 26, BUN 28, creatinine 1.14. Glucose is 246. Calcium 8, and magnesium 1.6. Objective - Vital Signs Vital signs: Vital Signs Temp 98.8 F 11/18/23 20:48 Pulse 79 11/19/23 12:06 Resp 16 11/19/23 12:06 BP 173/72 11/19/23 12:06 Pulse Ox 98 11/19/23 12:06 FiO2 50 11/12/23 20:01 Intake & Output 11/18/23 11/19/23 11/19/23 18:59 06:59 18:59 Intake Total 540 360 Output Total 200 500 Balance 340 -500 360 Weight 80.7 kg Intake: Oral 540 360 Output: Urine 200 500 Other: Voiding Method External Catheter External Catheter # Bowel Movements 1 1 - Exam No acute distress, oriented 3. Currently on room air. Saturations are 98%. HEENT examination is grossly unremarkable. Mucous membranes are moist. No oral lesions. Neck supple. Full range of motion. No adenopathy thyromegaly or neck vein distention. Cardiovascular examination reveals regular rhythm rate. S1-S2 normal. No S3 or S4. No discernible murmur noted. Heart sounds are distant. Heart rate 81 bpm. Lungs reveal clear breath sounds. Breath sounds are equal bilaterally. No adventitious lung sounds including wheezes rhonchi or crackles. Saturations are 98% on room air. Abdomen soft with bowel sounds. No masses or tenderness. Extremities are intact. No cyanosis clubbing or edema. Skin is without rash or lesion. Neurologic examination is brief but nonfocal. - Labs CBC & Chem 7: 11/18/23 10:16 11/19/23 08:09 Labs: Abnormal Lab Results - Last 24 Hours (Table) 11/18/23 11/18/23 11/19/23 Range/Units 16:23 20:10 06:23 Chloride (98-107) mmol/L BUN (7-17) mg/dL Creatinine (0.52-1.04) mg/dL Glucose (74-99) mg/dL POC Glucose (mg/dL) 148 H 233 H 170 H (70-110) mg/dL Calcium (8.4-10.2) mg/dL 11/19/23 11/19/23 Range/Units 08:09 11:44 Chloride 108 H (98-107) mmol/L BUN 28 H (7-17) mg/dL Creatinine 1.14 H (0.52-1.04) mg/dL Glucose 135 H (74-99) mg/dL POC Glucose (mg/dL) 246 H (70-110) mg/dL Calcium 8.0 L (8.4-10.2) mg/dL Microbiology - Last 24 Hours (Table) 11/15/23 13:43 Blood Culture - Preliminary Blood Assessment and Plan Assessment: Acute hypoxic respiratory failure secondary to acute pulmonary embolism. Right hip osteoarthritis status post right anterior total hip arthroplasty postoperative day #7. History of deep vein thrombosis. Hypotension secondary to acute blood loss anemia, hypovolemia and also secondary to pulmonary embolism, no clear-cut evidence of RV strain. Acute blood loss anemia, most likely secondary to recent surgery. Status post IVC filter placement because of contraindication for IV heparinongoing bleeding requiring multiple blood transfusions. Acute leukocytosis secondary to surgery/reactive. Acute TIA, resolved with left-sided weakness. Sinus tachycardia secondary to anemia and secondary to pulmonary embolism. Acute kidney injury. Acute on chronic deep vein thrombosis. Plan: Plan dated November 18, 2023. The patient is seen today in room 368. The patient continues on oxygen at 2 L. The patient is getting saline at 75 cc an hour. Labs, x-rays, medications are reviewed. The patient was in the intensive care unit, on Friday, but transferred out to the floor, later on that day. Labs, x-rays, medications are reviewed. We will continue to follow make recommendations along the way. Prognosis is thought to be guarded. Plan dated November 19, 2023. The patient is seen today in room 368. As mentioned above, she is sitting in the chair next to her hospital bed. She is on room air. She is not receiving any IV fluids. Labs, x-rays, medications are reviewed. From the pulmonary standpoint, the patient could be considered for possible discharge. We will continue to follow the patient, and make recommendations. Prognosis is certainly guarded, given her age. Time with Patient: Less than 30
--- NOTE | 2023-11-19 15:01 | P.PN ---
Subjective Progress Note Date: 11/19/23 Elevated cardiac enzymes The patient is an 88-year-old female patient with a past medical history signifi cant for history of DVT she was on oral anticoagulation as an outpatient. No prior cardiac history of coronary artery disease or congestive heart failure or cardiac arrhythmia. We asked to see the patient in a consultation in the intensive care unit for sinus tachycardia as well as abnormal cardiac enzymes. The patient was admitted to the hospital and underwent an elective right hip surgery which was uneventful. During her recovery it was noted that she was unable to move her left side. Initially it was felt secondary to stroke. Stroke code was called and the patient underwent a workup including CT scan of the brain as well as carotid workup and all of that came in to be unremarkable f or acute stroke. Also the workup including CT scan showed possible small pulmonary embolism. No history of pulmonary embolism in the past. She has history of DVT. She was not on oral anticoagulation because that was interrupted before the surgery. Subsequently the patient was admitted to the in tensive care unit. It was noted that she was hypotensive requiring norepinephrine but at the same time her hemoglobin dropped significantly and her last hemoglobin from this morning is around 7. Her previous hemoglobin was 13. Currently the patient is hypotensive requiring norepinephrine. She was started on heparin IV. When she was seen and evaluated this morning her main symptoms is being tired and fatigue and no symptoms of any chest pain or chest discomfort or shortness of breath. She underwent an echocardiogram which revealed normal LV systolic function with no significant wall motion abnormalities. Cardiac enzymes were checked and came in to be slightly abnormal. We only have 1 abnormal troponin and I am going to obtain 2 more sets of troponin for further clarification. Beside that she has no EKG. Stat EKG is in process to be done. The examination revealed regular rhythm with a distant heart sounds and diminished breathing sounds bilaterally and no edema was noted in the lower extremities. Beside that the patient is in renal failure likely secondary to anemia and hypotension November 15, 2023 The patient was seen and evaluated this morning. She was anemic and she is in process of receiving 1 unit of packed RBC. Her hemoglobin was 6. She was hypotensive requiring norepinephrine but that has improved and currently she is not on any vasopressors after she received the blood. The creatinine continues to be elevated and currently nephrology is consulted to see the patient. Because of the anemia which is secondary to the hematoma by the right hip the heparin was stopped the patient is in process of having an IVC filter placement. Otherwise she is not reporting any chest pain or chest discomfort at this point. The EKG showed LBBB. The echo showed normal LV systolic function with no wall motion abnormalities and no evidence of RV strain. The examination revealed regular rhythm with a systolic murmur and clear breathing sounds bilaterally and no edema was noted. November 16, 2023 The patient was seen and evaluated this morning. She is asymptomatic. She is maintaining normal sinus mechanism. She underwent an IVC filter placement yesterday. Currently she is not on any oral anticoagulation or IV anticoagulations since she underwent the filter placement. Hemoglobin is stable and she is not bleeding anymore. The right hip hematoma has been stable. Creatinine has been trending in the right direction. She is on a statin which we will continue. Hold adding any aspirin at this point giving the hematoma/bleeding. Consider starting the patient on small dose of beta-lindsay. The examination revealed regular rhythm with a systolic murmur and diminished breathing sounds bilaterally and she does have mild bilateral lower extremities edema noted. She was given Lasix yesterday. 11/16 Cardiology was reconsulted secondary to patient going in A. fib with RVR. Patient had IVC filter placed. She does have a history of prior DVT from March at [facility] and has been on anticoagulation at home. She has however had issues with anemia after her surgery and hematoma. Therefore anticoagulation has been on hold. She admits to feeling palpitations similar to last night about once a month and usually are fairly mild to moderate symptom verma. 11/17 Orthopedics has cleared the patient to resume Eliquis. Heart rate in the 70s, blood pressure 173/72 Assessment Status post right hip surgery Left-sided weakness which has improved. No acute stroke on the workup Recent diagnosis of small pulmonary embolism and deep venous thrombosis Anemia secondary to blood loss Status post IVC filter placement Evidence of myocardial injury likely secondary to anemia and type II myocardial infarction Renal failure new-onset paroxysmal atrial fibrillation Plan Orthopedic surgery has cleared the patient to resume Eliquis which will be start ed tonight Blood pressure readings have been elevated and patient will be resumed on lisinopril 10 mg at night and Toprol-XL in the morning as renal function is improved Monitor hematoma closely for worsening on Eliquis Patient is cleared for discharge from cardiology Cardiology will sign off this case and follow on an as-needed basis. Please reconsult for any new concerns. Patient may follow-up in the office in one to 2 weeks. Nurse practitioner note has been reviewed, I agree with documented findings and plan of care. Patient was seen and examined. Objective - Vital Signs Vital signs: Vital Signs Temp 98.8 F 11/18/23 20:48 Pulse 79 11/19/23 12:06 Resp 16 11/19/23 12:06 BP 173/72 11/19/23 12:06 Pulse Ox 98 11/19/23 12:06 FiO2 50 11/12/23 20:01 Intake & Output 11/18/23 11/19/23 11/19/23 18:59 06:59 18:59 Intake Total 540 360 Output Total 200 500 Balance 340 -500 360 Weight 80.7 kg Intake: Oral 540 360 Output: Urine 200 500 Other: Voiding Method External Catheter External Catheter # Bowel Movements 1 1 - Labs CBC & Chem 7: 11/18/23 10:16 11/19/23 08:09 Labs: Abnormal Lab Results - Last 24 Hours (Table) 11/18/23 11/18/23 11/19/23 Range/Units 16:23 20:10 06:23 Chloride (98-107) mmol/L BUN (7-17) mg/dL Creatinine (0.52-1.04) mg/dL Glucose (74-99) mg/dL POC Glucose (mg/dL) 148 H 233 H 170 H (70-110) mg/dL Calcium (8.4-10.2) mg/dL 11/19/23 11/19/23 Range/Units 08:09 11:44 Chloride 108 H (98-107) mmol/L BUN 28 H (7-17) mg/dL Creatinine 1.14 H (0.52-1.04) mg/dL Glucose 135 H (74-99) mg/dL POC Glucose (mg/dL) 246 H (70-110) mg/dL Calcium 8.0 L (8.4-10.2) mg/dL Microbiology - Last 24 Hours (Table) 11/15/23 13:43 Blood Culture - Preliminary Blood
--- NOTE | 2023-11-19 15:09 | FL ---
Modified barium swallow. HISTORY: Dysphagia. Modified barium swallow was performed with the department of speech pathology. The patient was prese nted with various consistencies of barium. There is no evidence for aspiration. Mild transient penetration. Hypertrophy of the cricopharyngeus m usculature. Full report is to follow from the department of speech pathology. Impression: As above
[2023-11-19 16:22] LABS: Glucose,Whole Blood 193 mg/dL (70-110)
[2023-11-19 20:00] LABS: Glucose,Whole Blood 228 mg/dL (70-110)
[2023-11-19] MEDS: lisinopriL 20 MG TAB PO SCH (21:20)
[2023-11-19] MEDS: APIXABAN 5 MG TAB PO SCH (21:20)
[2023-11-20 06:10] LABS: Glucose,Whole Blood 143 mg/dL (70-110)
[2023-11-20] MEDS ORDERED: METOPROLOL SUCCINATE (ER) 25 MG TAB.ER.24H PO SCH (09:00)
[2023-11-20] MEDS: MAGNESIUM OXIDE 400 MG TAB PO SCH ×2 (09:16→20:30)
--- NOTE | 2023-11-20 10:20 | P.PN ---
Subjective Progress Note Date: 11/19/23 Patient is a 88-year-old female was admitted to hospital after right hip total arthroplasty. Patient also Acute blood loss anemia requiring 4 units of PRBC transfusion. Also developed acute kidney injury and 11/17/2023 Patient is currently in the MICU. Sitting in the chair. Awake alert and oriented. Feels weak. Able to participate in physical therapy. Currently requiring 2 L oxygen via nasal cannula.Laboratory data showed WBC 10.9 hemoglobin 7.8 and platelets 137 Sodium 135 potassium 3.2 chloride 101 bicarb 32 BUN 41 and creatinine 2.03 and blood sugar 123 Calcium 7.1 albumin 2.3 11/18/2023 Patient is in the telemetry unit. Currently sitting on side of bed. Able to participate in physical therapy. No complaints of chest pain or shortness of breath. Patient otherwise went into atrial fibrillation with rapid ventricular rate this morning patient was started on amiodarone drip. Continued on metoprolol XL. Patient had a swallow evaluation today and recommended pured diet by dietitian. Laboratory data showed WBC 11.2 hemoglobin 7.8 and platelets 163 Sodium 137 potassium 3.5 chloride 108 bicarb is 26 BUN 31 and creatinine 1.23 and blood sugar 274. Cardiology and pulmonary is on board. 11/19/2023 Patient is currently sitting in the recliner. Awake alert and oriented x 3. Heart rate is controlled. Amiodarone drip was discontinued yesterday. Continued on metoprolol. Patient will be started on anticoagulation once cleared by orthopedic surgery. Hemoglobin is fairly stable. Patient is participating in physical therapy. Currently on pured diet. General surgery was consulted due to dysphagia. Laboratory data showed BUN 28 and creatinine 1.14 and blood sugar 135. Magnesi um and potassium replacement as per protocol. Cardiology, pulmonary and nephrology is on board. Current medications reviewed. Objective - Vital Signs Vital signs: Vital Signs Temp 98.8 F 11/18/23 20:48 Pulse 81 11/19/23 09:24 Resp 18 11/19/23 09:24 BP 186/74 11/19/23 08:00 Pulse Ox 97 11/19/23 09:15 FiO2 50 11/12/23 20:01 Intake & Output 11/18/23 11/19/23 11/19/23 18:59 06:59 18:59 Intake Total 540 180 Output Total 200 500 Balance 340 -500 180 Weight 80.7 kg Intake: Oral 540 180 Output: Urine 200 500 Other: Voiding Method External Catheter External Catheter # Bowel Movements 1 1 - Labs CBC & Chem 7: 11/18/23 10:16 11/20/23 09:49 Labs: Abnormal Lab Results - Last 24 Hours (Table) 11/18/23 11/18/23 11/18/23 Range/Units 10:16 10:16 11:30 WBC 11.2 H (3.8-10.6) k/uL RBC 2.51 L (3.80-5.40) m/uL Hgb 7.8 L (11.4-16.0) gm/dL Hct 24.3 L (34.0-46.0) % RDW 16.3 H (11.5-15.5) % Neutrophils # 8.4 H (1.3-7.7) k/uL Chloride 108 H (98-107) mmol/L BUN 31 H (7-17) mg/dL Creatinine 1.23 H (0.52-1.04) mg/dL Glucose 274 H (74-99) mg/dL POC Glucose (mg/dL) 264 H (70-110) mg/dL Calcium 6.6 L (8.4-10.2) mg/dL 11/18/23 11/18/23 11/19/23 Range/Units 16:23 20:10 06:23 WBC (3.8-10.6) k/uL RBC (3.80-5.40) m/uL Hgb (11.4-16.0) gm/dL Hct (34.0-46.0) % RDW (11.5-15.5) % Neutrophils # (1.3-7.7) k/uL Chloride (98-107) mmol/L BUN (7-17) mg/dL Creatinine (0.52-1.04) mg/dL Glucose (74-99) mg/dL POC Glucose (mg/dL) 148 H 233 H 170 H (70-110) mg/dL Calcium (8.4-10.2) mg/dL 11/19/23 Range/Units 08:09 WBC (3.8-10.6) k/uL RBC (3.80-5.40) m/uL Hgb (11.4-16.0) gm/dL Hct (34.0-46.0) % RDW (11.5-15.5) % Neutrophils # (1.3-7.7) k/uL Chloride 108 H (98-107) mmol/L BUN 28 H (7-17) mg/dL Creatinine 1.14 H (0.52-1.04) mg/dL Glucose 135 H (74-99) mg/dL POC Glucose (mg/dL) (70-110) mg/dL Calcium 8.0 L (8.4-10.2) mg/dL Microbiology - Last 24 Hours (Table) 11/15/23 13:43 Blood Culture - Preliminary Blood Assessment and Plan Assessment: New onset paroxysmal atrial fibrillation with RVR. Rate is controlled. Acute hypoxic respiratory failure secondary to acute pulmonary embolism. status post IVC filter placement because of contraindication for IV heparinongoing bleeding requiring multiple blood transfusions Acute blood loss anemia likely due to recent surgery. Hemoglobin is fairly stable now. Status post right total hip arthroplasty. Postoperative day 7 Left-sided weakness possible TIA resolved now. Acute kidney injury secondary to ATN due to hypotension and acute blood loss anemia. Improving. 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 Hypokalemia. Replaced. DVT prophylaxis patient is on heparin subcu Plan: Currently on IV hydration and encourage oral intake. Heart rate is controlled. Imaging drip has been discontinued. Patient is being continued on metoprolol. Cardiology recommends anticoagulation especially with recent history of TIA-like symptoms. Initiate anticoagulation once cleared by orthopedic surgery. Patient has been turned on metoprolol and DuoNeb's and antibiotics in the form of Zosyn. Cardiac pain management. PT OT and follow-up closely. Patient will be continued on pured diet and general surgery consult for dysphagia. Seen by [employer]. Cardiology, pulmonary and nephrology is on board. Time with Patient: Greater than 30
--- NOTE | 2023-11-20 10:34 | P.PN ---
Subjective Patient is seen in follow-up for acute kidney injury. Renal function improved. Oral intake fair. Nonoliguric. Denies chest pain or shortness of breath. Vital signs are stable. General: No acute distress. HEENT: Head exam is unremarkable. On nasal cannula. LUNGS: No audible rhonchi or wheezes. HEART: Rate and Rhythm are regular. ABDOMEN: Nontender. EXTREMITITES: Trace edema. Objective - Vital Signs Vital signs: Vital Signs Temp 98.2 F 11/20/23 08:15 Pulse 83 11/20/23 08:15 Resp 14 11/20/23 08:15 BP 137/71 11/20/23 08:15 Pulse Ox 98 11/20/23 08:15 FiO2 50 11/12/23 20:01 Intake & Output 11/19/23 11/20/23 11/20/23 18:59 06:59 18:59 Intake Total 540 118 Balance 540 118 Intake: Oral 540 118 Other: Voiding Method External Catheter # Voids 1 # Bowel Movements 1 1 - Labs CBC & Chem 7: 11/18/23 10:16 11/19/23 08:09 Labs: Abnormal Lab Results - Last 24 Hours (Table) 11/19/23 11/19/23 11/19/23 Range/Units 11:44 16:20 19:58 POC Glucose (mg/dL) 246 H 193 H 228 H (70-110) mg/dL 11/20/23 Range/Units 06:08 POC Glucose (mg/dL) 143 H (70-110) mg/dL Microbiology - Last 24 Hours (Table) 11/14/23 14:39 Blood Culture - Final Blood Assessment and Plan Plan: Assessment: 1. Acute kidney injury secondary to ATN secondary to hypotension and acute blood loss anemia. No hydronephrosis noted on kidney ultrasound. UA fairly benign. Renal function improving. Creatinine 1.14 yesterday. Nonoliguric. Baseline creatinine near 0.8. 2. Acute blood loss anemia status post blood transfusion this admission. 3. 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 4. Status post right total hip arthroplasty. 5. Metabolic acidosis secondary to acute kidney injury status post bicarb drip. Resolved. 6. Hypokalemia from intracellular shifting from IV bicarb. Replaced. Improved. 7. Hypomagnesemia from poor intake. On oral magnesium oxide. 8. Benign hypertension. Better controlled. Plan: Off IV fluids. Encouraged oral intake. Avoid nephrotoxins.
[2023-11-20 10:59] LABS: African American GFR (CKD) 70 (>60 ml/min/1.73 sqM); Anion Gap 4 mmol/L; Blood Urea Nitrogen 25 mg/dL (7-17); Calcium 8.2 mg/dL (8.4-10.2); Carbon Dioxide 24 mmol/L (22-30); Chloride 111 mmol/L (98-107); Glucose 181 mg/dL (74-99); Magnesium 1.4 mg/dL (1.6-2.3); Non-African American GFR(CKD) 61 (>60 ml/min/1.73 sqM); Potassium 4.9 mmol/L (3.5-5.1); Sodium 139 mmol/L (137-145)
[2023-11-20 11:46] LABS: Glucose,Whole Blood 181 mg/dL (70-110)
--- NOTE | 2023-11-20 14:47 | P.PN ---
Subjective Progress Note Date: 11/20/23 Principal diagnosis: Arthritis, right hip. Patient is an 88-year-old white female with past medical history significant for hypertension, osteoarthritis, and right lower extremity DVT. Patient recently diagnosed with right lower extremity DVT in March,, and she was placed on Eliquis. Eliquis was placed on hold 5 days prior to an elective right total hip arthroplasty. Patient was brought in yesterday for an elective right direct anterior total hip arthroplasty. While in PACU postoperatively, the patient could not move her left arm. A code stroke was initiated. Noncontrast brain CT did not show any acute intracranial abnormality, no hemorrhage or mass effect. Brain CTA showed mild approximately 40% left ICA stenosis, otherwise no large vessel intracranial arterial occlusion or aneurysmal change. Patient was evaluated by neuro-interventionalists, and risks outweighed benefits for thrombolytics. There were also some incidental pulmonary findings, warranting a dedicated film. Chest CTA showed a couple small pulmonary emboli within the right upper and lower lung gonzalez. No CT evidence of right-sided heart strain. There is also some bilateral atelectasis. The surgeon and Dr. Saldana discussed CT findings and the patient was ultimately started on a heparin infusion per protocol. Patient was also hypertensive postoperatively, and started on a Cl eviprex infusion to be titrated to maintain systolic blood pressure of 170 or less to allow for permissive hypertension. Patient was transferred to the intensive care unit from PACU. Patient is currently lying in bed, on 6 L/min nasal cannula, in no acute distress. SpO2 currently 99%. Postoperative ABG showed a PaO2 of 77, pCO2 of 54, and pH of 7.25. She was temporarily on BiPAP support. No signs of hypercapnic encephalopathy. No focal neurological deficits. Patient's left upper extremity weakness has resolved. Overall, neurological exam is benign, consider TIA. Blood pressure is now normotensive. Heart rhythm is normal sinus on bedside monitor. Patient denies any chest pain. No lightheadedness or syncope. No coughing or hemoptysis. Postsurgical dressing is clean, dry, and intact. There is some nikki-incisional swelling. Neurovascular status intact. No obvious hematoma. Postoperative CBC: WBC count 15.8, hemoglobin 11.1, hematocrit 33.8, platelets 226. aPTT supratherapeutic, and heparin and was adjusted per protocol. Postoperative BMP: Sodium 137, testing 3.4, chloride 107, serum bicarb 22, BUN 21, creatinine 0.77, glucose 206. Magnesium 1.4. Electrolytes are being replaced. Troponins less 0.012. Patient will continue to be monitored in the intensive care unit at least overnight. Patient reevaluated today on 11/14/2023, patient remains in the ICU, she is marginal at best. Patient required close for 3 units of packed RBCs and her last hemoglobin is 7.3. Patient is still requiring norepinephrine at 0.07 mcg/kg/min IV fluid is running D5W with 3 A of bicarb at 75 cc/h. Last night she had to be on BiPAP 10/5/50%, presently on 8 L high flow nasal cannula blood pressure is 109/59, mean arterial pressure of 67. However the patient is requiring norepinephrine to adequately maintain good blood pressure. WBC count this morning is 21.9 hemoglobin is 7.3. PTT is 93.9. Her bicarb is 14 BUN is 32 creatinine is 2.19, blood sugar is 201 patient had normal creatinine on admission 11/12/2023, however the patient did develop acute kidney injury most likely secondary to episodes of hypotension requiring pressors. Chest x-ray this morning showed no evidence of congestive heart failure, no pneumonia, right hemidiaphragm seems to be relatively elevated. Patient was reevaluated today on 11/15/2023, patient remains in the ICU, continues to have ongoing bleeding with drop in hemoglobin down to 6.3 today, and I am recommending another unit of packed RBCs to be given today. Obviously the patient is unable to tolerate heparin considering her recent surgery, and she continues to have bleeding most likely into the surgical site/right hip. At this point I believe the patient has absolute current indication to heparin, and I am planning to arrange for vascular surgery to visit to see the patient for possible IVC filter. In addition the patient is developing worsening L kidney injury, and need to have nephrology consultation, her urine output is extremely poor and the patient is getting to be oliguric 60 mg of Lasix was ordered, patient received lots of fluids and blood products since admission. Procalcitonin level is 1.20, antibiotic cefazolin empirically. Patient is still requiring norepinephrine at 0.02 mcg/kg/min to maintain adequate blood pressure, and she is on bicarb drip at 75 cc/h. Heparin is presently on hold. Patient has received already 3 units of packed RBCs since admission to the ICU with acute pulmonary embolism. And DVT. WBC count is 20.1 hemoglobin 6.3 basic metabolic profile is normal BUN is 45 creatinine 3.09 PTT was 75 chest x-ray does not show any evidence of congestive heart failure, but does show left ba silar atelectasis Patient was reevaluated today on 11/16/2023, patient is feeling much better today. Her urine output has picked up on its own and now is about 50 cc/h. She had 200 cc in the last few hours. Patient is now off IV heparin, but I would recommend at least subcu heparin for now she had IVC filter placed. Her renal functioning is improving with creatinine down to 2.4. Hemoglobin is holding, it is today 8.7.However the patient did receive a total of 4 units of packed RBCs after her surgery for postoperative bleeding after she was placed on heparin. Patient is also off pressors, not requiring any norepinephrine, it is presently on hold she is on 2 L nasal cannula, she is on D5 4 5 at 75 cc/h her urine output again is excellent, patient remains on Zosyn today I added heparin subcu 5000 units subcu every 8 hours WBC count today 13.5 hemoglobin 8.7 platelets are 131 basic metabolic profile is normal BUN is 49 creatinine 2.47. Chest x-ray showed hypoventilatory changes, left basilar opacity/atelectasis, minimal prominence of the pulmonary vasculature but has improved compared to 2 days ago The patient is seen today November 17, 2023 in follow-up on the regular medical [facility] or. She is sitting up in bed. Awake and alert in no acute distress. Maintaining good O2 saturations in the 90s on 2 L/min per nasal cannula. She is status post 4 units of packed red blood cells this admission. Current hemoglobin 7.8. Platelets 137. White count 10.9. Sodium 135. Potassium 3.2. Bicarb 32. BUN 41. Creatinine 2.03. Glucose 123. She remains on bronchodilators. Antibiotics in the form of Zosyn. She remained stable and off pressors. Off Cleviprex. Progress note dated November 18, 2023. The patient is seen today in room 368. The patient is currently on 2 L of oxygen. She is getting saline at 75 cc an hour. She appears to be relatively comfortable. Earlier this week, she was in the intensive care unit. Current laboratory data includes a white count 11.2, hemoglobin 7.8, hematocrit 24.3, and platelet count 163,000. Sodium 137, potassium 3.5, chlorides 108, CO2 26, BUN 41, and creatinine 1.23. Glucose is 264. Calcium is 6.6. Blood cultures are currently negative. No recent chest x-ray to review. Progress note dated November 19, 2023. The patient is seen today in room 368. She is sitting in a chair next to her hospital bed. She is in no distress. She denies any shortness of breath or difficulty breathing. She is on room air. She is not receiving any IV fluids. She denies any chest pain or chest discomfort. She appears very stable. Current labs include a sodium 138, potassium 4.5, chlorides 108, CO2 26, BUN 28, creatinine 1.14. Glucose is 246. Calcium 8, and magnesium 1.6. Progress note dated November 20, 2023. 88-year-old female seen today in room 368. Currently, the patient is on 2 L of oxygen. She is getting saline at 10 cc an hour, she continues on Zosyn. She has no specific complaints today. Current labs include a sodium 139, potassium 4.9, chlorides 111, CO2 24, BUN 25, creatinine 0.87. Anion gap is 4. Glucose 181. Calcium 8.2, magnesium 1.4. Blood cultures are currently negative. No recent chest x-ray. Objective - Vital Signs Vital signs: Vital Signs Temp 98.2 F 11/20/23 08:15 Pulse 98 11/20/23 13:49 Resp 14 11/20/23 08:15 BP 137/71 11/20/23 08:15 Pulse Ox 98 11/20/23 08:15 FiO2 50 11/12/23 20:01 Intake & Output 11/19/23 11/20/23 11/20/23 18:59 06:59 18:59 Intake Total 540 354 Balance 540 354 Intake: Oral 540 354 Other: Voiding Method External Catheter External Catheter # Voids 1 1 # Bowel Movements 1 1 1 - Exam No acute distress, oriented 3. Currently on room air. Saturations are 98%. HEENT examination is grossly unremarkable. Mucous membranes are moist. No oral lesions. Neck supple. Full range of motion. No adenopathy thyromegaly or neck vein distention. Cardiovascular examination reveals regular rhythm rate. S1-S2 normal. No S3 or S4. No discernible murmur noted. Heart sounds are distant. Heart rate 89 bpm. Lungs reveal clear breath sounds. Breath sounds are equal bilaterally. No adventitious lung sounds including wheezes rhonchi or crackles. Saturations are 98% on room air. Abdomen soft with bowel sounds. No masses or tenderness. Extremities are intact. No cyanosis clubbing or edema. Skin is without rash or lesion. Neurologic examination is brief but nonfocal. - Labs CBC & Chem 7: 11/18/23 10:16 11/20/23 09:49 Labs: Abnormal Lab Results - Last 24 Hours (Table) 11/19/23 11/19/23 11/20/23 Range/Units 16:20 19:58 06:08 Chloride (98-107) mmol/L BUN (7-17) mg/dL Glucose (74-99) mg/dL POC Glucose (mg/dL) 193 H 228 H 143 H (70-110) mg/dL Calcium (8.4-10.2) mg/dL Magnesium (1.6-2.3) mg/dL 11/20/23 11/20/23 Range/Units 09:49 11:45 Chloride 111 H (98-107) mmol/L BUN 25 H (7-17) mg/dL Glucose 181 H (74-99) mg/dL POC Glucose (mg/dL) 181 H (70-110) mg/dL Calcium 8.2 L (8.4-10.2) mg/dL Magnesium 1.4 L (1.6-2.3) mg/dL Microbiology - Last 24 Hours (Table) 11/14/23 14:39 Blood Culture - Final Blood Assessment and Plan Assessment: Acute hypoxic respiratory failure secondary to acute pulmonary embolism. Right hip osteoarthritis status post right anterior total hip arthroplasty postoperative day #8. History of deep vein thrombosis. Hypotension secondary to acute blood loss anemia, hypovolemia and also secondary to pulmonary embolism, no clear-cut evidence of RV strain. Acute blood loss anemia, most likely secondary to recent surgery. Status post IVC filter placement because of contraindication for IV heparinongoing bleeding requiring multiple blood transfusions. Acute leukocytosis secondary to surgery/reactive. Acute TIA, resolved with left-sided weakness. Sinus tachycardia secondary to anemia and secondary to pulmonary embolism. Acute kidney injury. Acute on chronic deep vein thrombosis. Plan: Plan dated November 18, 2023. The patient is seen today in room 368. The patient continues on oxygen at 2 L. The patient is getting saline at 75 cc an hour. Labs, x-rays, medications are reviewed. The patient was in the intensive care unit, on Friday, but transferred out to the floor, later on that day. Labs, x-rays, medications are reviewed. We will continue to follow make recommendations along the way. Prognosis is thought to be guarded. Plan dated November 19, 2023. The patient is seen today in room 368. As mentioned above, she is sitting in the chair next to her hospital bed. She is on room air. She is not receiving any IV fluids. Labs, x-rays, medications are reviewed. From the pulmonary standpoint, the patient could be considered for possible discharge. We will continue to follow the patient, and make recommendations. Prognosis is certainly guarded, given her age. Plan dated November 20, 2023. The patient is seen today in room 368. The patient appears to be relatively stable. The patient is a DO NOT RESUSCITATE patient. The patient continues on oxygen at 2 L. She is getting saline at 10 cc an hour. Primary service has her on Zosyn, daily. We will continue to follow and make recommendations along the way. Labs, x-rays, and medications are reviewed. The patient's prognosis is guarded. Time with Patient: Less than 30
--- NOTE | 2023-11-20 15:17 | P.GSCN ---
History of Present Illness Consult date: 11/20/23 History of present illness: CHIEF COMPLAINT: Osteoarthritis HISTORY OF PRESENT ILLNESS: This is a 88-year-old female admitted to the hospital after a right hip total arthroplasty. Patient had acute blood loss anemia requiring blood transfusions. Also new PE status post [place] filter. Patient has had issues with dysphagia. She reports this is not new and has b een ongoing for years. Speech therapy does have her on a pured diet. But they did complete a modified barium swallow with speech therapy and they recommended a GI evaluation for esophageal disorder. Patient reports she is never had a EGD. She denies any nausea or vomiting. Denies any acid reflux. She does report that food gets stuck at the top of her throat. But she is able to work through it. Oral intake is decreased. Patient on Eliquis for afib and PE. PAST MEDICAL HISTORY: Diabetes Mellitus, Deep Vein Thrombosis (DVT), Hypertension, Osteoarthritis (OA), Pulmonary Embolus (PE) PAST SURGICAL HISTORY: Hysterectomy MEDICATIONS: See below ALLERGIES: See below SOCIAL HISTORY: No illicit drug use. REVIEW OF SYSTEMS: CONSTITUTIONAL: Denies fever or chills. HEENT: Denies blurred vision, vision changes, or eye pain. Denies hemoptysis CARDIOVASCULAR: Denies chest pain or pressure. RESPIRATORY: No shortness of breath. GASTROINTESTINAL: See HPI for pertinent findings HEMATOLOGIC: Denies bleeding disorders. GENITOURINARY: Denies any blood in urine or increased urinary frequency. SKIN: Denies pruitis. Denies rash. PHYSICAL EXAM: VITAL SIGNS: Reviewed GENERAL: Well-developed in no acute distress. HEENT: No sclera icterus. Extraocular movements grossly intact. Moist buccal mucosa. Head is atraumatic, normocephalic. No nasal drainage. ABDOMEN: Soft. Nondistended. Nontender NEUROLOGIC: Alert and oriented. Cranial nerves II through XII grossly intact. LABORATORY DATA: WBC 11.2 Hgb 7.8 platelets 163 Sodium is 139 potassium 4.9 creatinine 0.87 magnesium 1.4 Albumin 2.3 IMAGING: MBS reports no evidence of aspiration. Mild transient penetration. ASSESSMENT: 1. Dysphagia 2. Severe protein calorie malnutrition PLAN: -Patient tentatively scheduled for EGD with PEG tube placement on 11/24/[address] Maier Physician Racing Manager note has been reviewed by physician. Signing provider agrees with the documented findings, assessment, and plan of care. Past Medical History Past Medical History: Cancer, Diabetes Mellitus, Deep Vein Thrombosis (DVT), Hypertension, Osteoarthritis (OA) Additional Past Medical History / Comment(s): skin on back of leg, diet controlled dm, lft leg dvt 03/2023, bunion on rt foot with scab History of Any Multi-Drug Resistant Organisms: None Reported Past Surgical History: Hysterectomy Additional Past Surgical History / Comment(s): skin cancer removal from R leg, removal of blood clot from lft leg Past Anesthesia/Blood Transfusion Reactions: No Reported Reaction Smoking Status: Never smoker - Past Family History Daughter(s) Family Medical History: Cancer Additional Family Medical History / Comment(s): breast Father Family Medical History: Hypertension Mother Family Medical History: Hypertension Brother(s) Family Medical History: Cancer, Hypertension Medications and Allergies Home Medications Medication Instructions Recorded Confirmed Type Ibuprofen [Advil] 400 mg PO DAILY 05/24/19 11/06/23 History Metoprolol Succinate [Toprol XL] 25 mg PO DAILY 05/24/19 11/06/23 History hydroCHLOROthiazide [Hydrodiuril] 25 mg PO DAILY 05/24/19 11/06/23 History ramipriL [Ramipril] 10 mg PO HS 05/24/19 11/12/23 History ramipriL [Ramipril] 20 mg PO DAILY 05/24/19 11/06/23 History Apixaban [Eliquis] 5 mg PO BID 09/29/23 11/12/23 History Allergies Allergy/AdvReac Type Severity Reaction Status Date / Time No Known Allergies Allergy Verified 11/12/23 10:59 Surgical - Exam Vital Signs Temp Pulse Resp BP Pulse Ox 98.4 F 78 16 198/80 95 11/12/23 10:50 11/12/23 10:50 11/12/23 10:50 11/12/23 10:50 11/12/23 10:50 Results - Labs 11/18/23 10:16 11/20/23 09:49 Abnormal Lab Results - Last 24 Hours (Table) 11/19/23 11/19/23 11/19/23 Range/Units 11:44 16:20 19:58 Chloride (98-107) mmol/L BUN (7-17) mg/dL Glucose (74-99) mg/dL POC Glucose (mg/dL) 246 H 193 H 228 H (70-110) mg/dL Calcium (8.4-10.2) mg/dL Magnesium (1.6-2.3) mg/dL 11/20/23 11/20/23 Range/Units 06:08 09:49 Chloride 111 H (98-107) mmol/L BUN 25 H (7-17) mg/dL Glucose 181 H (74-99) mg/dL POC Glucose (mg/dL) 143 H (70-110) mg/dL Calcium 8.2 L (8.4-10.2) mg/dL Magnesium 1.4 L (1.6-2.3) mg/dL Microbiology - Last 24 Hours (Table) 11/14/23 14:39 Blood Culture - Final Blood Diabetes panel 11/20/23 Range/Units 09:49 Sodium 139 (137-145) mmol/L Potassium 4.9 (3.5-5.1) mmol/L Chloride 111 H (98-107) mmol/L Carbon Dioxide 24 (22-30) mmol/L BUN 25 H (7-17) mg/dL Creatinine 0.87 (0.52-1.04) mg/dL Glucose 181 H (74-99) mg/dL Calcium 8.2 L (8.4-10.2) mg/dL Calcium panel 11/20/23 Range/Units 09:49 Calcium 8.2 L (8.4-10.2) mg/dL Pituitary panel 11/20/23 Range/Units 09:49 Sodium 139 (137-145) mmol/L Potassium 4.9 (3.5-5.1) mmol/L Chloride 111 H (98-107) mmol/L Carbon Dioxide 24 (22-30) mmol/L BUN 25 H (7-17) mg/dL Creatinine 0.87 (0.52-1.04) mg/dL Glucose 181 H (74-99) mg/dL Calcium 8.2 L (8.4-10.2) mg/dL Adrenal panel 11/20/23 Range/Units 09:49 Sodium 139 (137-145) mmol/L Potassium 4.9 (3.5-5.1) mmol/L Chloride 111 H (98-107) mmol/L Carbon Dioxide 24 (22-30) mmol/L BUN 25 H (7-17) mg/dL Creatinine 0.87 (0.52-1.04) mg/dL Glucose 181 H (74-99) mg/dL Calcium 8.2 L (8.4-10.2) mg/dL
[2023-11-20 16:48] LABS: Glucose,Whole Blood 223 mg/dL (70-110)
[2023-11-20] MEDS: MAGNESIUM SULFATE-D5W PMX 1 GM in DEXTROSE/WATER 1 100ML.BAG IVPB SCH (17:14)
[2023-11-20 20:04] LABS: Glucose,Whole Blood 205 mg/dL (70-110)
--- NOTE | 2023-11-20 23:10 | P.PN ---
Subjective Progress Note Date: 11/20/23 Patient is a 88-year-old female was admitted to hospital after right hip total arthroplasty. Patient also Acute blood loss anemia requiring 4 units of PRBC transfusion. Also developed acute kidney injury and 11/17/2023 Patient is currently in the MICU. Sitting in the chair. Awake alert and oriented. Feels weak. Able to participate in physical therapy. Currently requiring 2 L oxygen via nasal cannula.Laboratory data showed WBC 10.9 hemoglobin 7.8 and platelets 137 Sodium 135 potassium 3.2 chloride 101 bicarb 32 BUN 41 and creatinine 2.03 and blood sugar 123 Calcium 7.1 albumin 2.3 11/18/2023 Patient is in the telemetry unit. Currently sitting on side of bed. Able to participate in physical therapy. No complaints of chest pain or shortness of breath. Patient otherwise went into atrial fibrillation with rapid ventricular rate this morning patient was started on amiodarone drip. Continued on metoprolol XL. Patient had a swallow evaluation today and recommended pured diet by dietitian. Laboratory data showed WBC 11.2 hemoglobin 7.8 and platelets 163 Sodium 137 potassium 3.5 chloride 108 bicarb is 26 BUN 31 and creatinine 1.23 and blood sugar 274. Cardiology and pulmonary is on board. 11/19/2023 Patient is currently sitting in the recliner. Awake alert and oriented x 3. Heart rate is controlled. Amiodarone drip was discontinued yesterday. Continued on metoprolol. Patient will be started on anticoagulation once cleared by orthopedic surgery. Hemoglobin is fairly stable. Patient is participating in physical therapy. Currently on pured diet. General surgery was consulted due to dysphagia. Laboratory data showed BUN 28 and creatinine 1.14 and blood sugar 135. Magnesi um and potassium replacement as per protocol. Cardiology, pulmonary and nephrology is on board. 11/20/2023 Patient is sitting in the chair. Awake alert and oriented x 3. Currently on 2 L oxygen via nasal cannula. Denies any complaints of chest pain or worsening shortness of breath. No headache or dizziness or lightheadedness.Patient was started back on Eliquis. Follow-up H&H. patient is still having issues with swallowing. General surgery was consulted for possible EGD. Laboratory data showed sodium 139 potassium 4.9 chloride 111 bicarb is 24 BUN 25 and creatinine 0.87 and blood sugar 181 and magnesium 1.4 Heart rate is controlled. Patient is being continued on metoprolol and Eliquis. Cardiology pulmonary and nephrology is on board. Current medications reviewed. Objective - Vital Signs Vital signs: Vital Signs Temp 98.2 F 11/20/23 08:15 Pulse 83 11/20/23 08:15 Resp 14 11/20/23 08:15 BP 137/71 11/20/23 08:15 Pulse Ox 98 11/20/23 08:15 FiO2 50 11/12/23 20:01 Intake & Output 11/19/23 11/20/23 11/20/23 18:59 06:59 18:59 Intake Total 540 118 Balance 540 118 Intake: Oral 540 118 Other: Voiding Method External Catheter # Voids 1 # Bowel Movements 1 1 - Exam PHYSICAL EXAMINATION: Patient is lying in the bed comfortably, no acute distress, awake alert and oriented. Became lethargic.. HEENT: Normocephalic. Neck is supple. Pupils reactive. Nostrils clear. Oral cavity is moist. Neck reveals no JVD, carotid bruits, or thyromegaly. CHEST EXAMINATION: Trachea is central. Symmetrical expansion. Bibasilar diminished sounds. CARDIAC: Normal S1, S2 with no gallops. No murmurs ABDOMEN: Soft. Bowel sounds normal. No organomegaly. No abdominal bruits. Extremities: reveal no edema. No clubbing or cyanosis Neurologically awake, alert, oriented x3. Able to move all extremities. No gross focal deficits noted Skin: No rash or skin lesions. Psychiatric: Coperative. Nonsuicidal Musculoskeletal: No joint swelling or deformity. - Labs CBC & Chem 7: 11/18/23 10:16 11/20/23 09:49 Labs: Abnormal Lab Results - Last 24 Hours (Table) 11/19/23 11/19/23 11/19/23 Range/Units 11:44 16:20 19:58 POC Glucose (mg/dL) 246 H 193 H 228 H (70-110) mg/dL 11/20/23 Range/Units 06:08 POC Glucose (mg/dL) 143 H (70-110) mg/dL Microbiology - Last 24 Hours (Table) 11/14/23 14:39 Blood Culture - Final Blood Assessment and Plan Assessment: New onset paroxysmal atrial fibrillation with RVR. Rate is controlled. Acute hypoxic respiratory failure secondary to acute pulmonary embolism. status post IVC filter placement because of contraindication for IV heparinongoing bleeding requiring multiple blood transfusions Acute blood loss anemia likely due to recent surgery. Hemoglobin is fairly stable now. Status post right total hip arthroplasty. Postoperative day 8 Left-sided weakness possible TIA resolved now. Acute kidney injury secondary to ATN due to hypotension and acute blood loss anemia. Improving. Possible bilateral pneumonia consider aspiration Labile hypertension and hypotension currently stable fairly Anemia Diabetes type 2 Elevated troponin level possible type II [place] History of DVT/PE on Eliquis at home. Hypokalemia. Replaced. DVT prophylaxis patient is on heparin subcu Plan: Currently on IV hydration and encourage oral intake. Heart rate is controlled. Imaging drip has been discontinued. Patient is being continued on metoprolol. Patient was started on Eliquis. Monitor H&H. Patient has been continued on metoprolol and DuoNeb's and antibiotics in the form of Zosyn for possible aspiration. Cardiac pain management. PT OT and follow-up closely. General surgery is planning for EGD due to dysphagia, patient was seen by AIRFRAME DESIGN ENGINEER and is on pured diet Cardiology, pulmonary and nephrology is on board. Time with Patient: Greater than 30
[2023-11-21 06:18] LABS: Glucose,Whole Blood 158 mg/dL (70-110)
[2023-11-21] MEDS: METOPROLOL SUCCINATE (ER) 50 MG TAB.ER.24H PO STA (06:46)
--- NOTE | 2023-11-21 09:17 | P.PN ---
Subjective Progress Note Date: 11/21/23 Principal diagnosis: Osteoarthritis right hip. Status post total right hip arthroplasty. This is a 88 year-old female post right total hip arthroplasty. This is post-op day 8. The patient denies nausea, vomiting, abdominal pain, shortness of breath, and chest pain this morning. She states her pain is controlled at this time. The patient has been up out of bed and sat in the chair yesterday. Nursing staff states that she went into a. fib with RVR last and cardiology will address anticoagulation. She had a IVC filter placed. She is not on oral anticoagulants but is on heparin subq now. She is awaiting physical therapy this morning. Objective - Vital Signs Vital signs: Vital Signs Temp 97.7 F 11/21/23 04:00 Pulse 112 H 11/21/23 09:11 Resp 19 11/21/23 04:00 BP 158/65 11/21/23 04:00 Pulse Ox 92 L 11/21/23 04:00 FiO2 50 11/12/23 20:01 Intake & Output 11/20/23 11/21/23 11/21/23 18:59 06:59 18:59 Intake Total 562 200 222 Output Total 275 400 Balance 287 -200 222 Weight 82.5 kg Intake: Oral 562 200 222 Output: Urine 275 400 Other: Voiding Method External Catheter External Catheter # Voids 1 # Bowel Movements 1 - Exam This is a pleasant 88-year-old female in no acute distress. She is alert and oriented x 3. Exam of the right hip reveals that her dressing is clean, dry and intact. There is mild to moderate soft tissue swelling about the hip and thigh. No erythema or ecchymosis. She has full foot and ankle motion without difficulty or pain. Neurovascular status to the lower extremity is intact. - Labs CBC & Chem 7: 11/18/23 10:16 11/20/23 09:49 Labs: Abnormal Lab Results - Last 24 Hours (Table) 11/20/23 11/20/23 11/20/23 Range/Units 09:49 11:45 16:45 Chloride 111 H (98-107) mmol/L BUN 25 H (7-17) mg/dL Glucose 181 H (74-99) mg/dL POC Glucose (mg/dL) 181 H 223 H (70-110) mg/dL Calcium 8.2 L (8.4-10.2) mg/dL Magnesium 1.4 L (1.6-2.3) mg/dL 11/20/23 11/21/23 Range/Units 20:02 06:16 Chloride (98-107) mmol/L BUN (7-17) mg/dL Glucose (74-99) mg/dL POC Glucose (mg/dL) 205 H 158 H (70-110) mg/dL Calcium (8.4-10.2) mg/dL Magnesium (1.6-2.3) mg/dL Microbiology - Last 24 Hours (Table) 11/15/23 13:43 Blood Culture - Final Blood Assessment and Plan (1) Osteoarthritis of right hip Current Visit: Yes Status: Acute Code(s): M16.11 - UNILATERAL PRIMARY O STEOARTHRITIS, RIGHT HIP SNOMED Code(s): 466425677390852 (2) Postoperative pulmonary embolism Current Visit: Yes Status: Acute Code(s): T81.718A - COMPLICATION OF ARTERY FOLLOWING A PROCEDURE, NEC, INIT; I26.99 - OTHER PULMONARY EMBOLISM WITHOUT ACUTE COR PULMONALE SNOMED Code(s): 443984057 (3) S/P total right hip arthroplasty Current Visit: Yes Status: Acute Code(s): Z96.641 - PRESENCE OF RIGHT ARTIFICIAL HIP JOINT SNOMED Code(s): 447569345603 Plan: The clinical findings are discussed with the patient. She is to continue with physical therapy. She may be discharged when cleared medically.
[2023-11-21] MEDS: METOPROLOL SUCCINATE (ER) 50 MG TAB.ER.24H PO SCH (09:26)
--- NOTE | 2023-11-21 10:31 | P.PN ---
Subjective Patient is seen in follow-up for acute kidney injury. Renal function improved. Oral intake fair. Nonoliguric. Denies chest pain or shortness of breath. No changes overnight. Vital signs are stable. General: No acute distress. HEENT: Head exam is unremarkable. On nasal cannula. LUNGS: No audible rhonchi or wheezes. HEART: Rate and Rhythm are regular. ABDOMEN: Nontender. EXTREMITITES: Trace edema. Objective - Vital Signs Vital signs: Vital Signs Temp 98.1 F 11/21/23 08:00 Pulse 110 H 11/21/23 09:23 Resp 18 11/21/23 08:00 BP 111/67 11/21/23 08:00 Pulse Ox 91 L 11/21/23 08:00 FiO2 50 11/12/23 20:01 Intake & Output 11/20/23 11/21/23 11/21/23 18:59 06:59 18:59 Intake Total 562 200 302 Output Total 275 400 Balance 287 -200 302 Weight 82.5 kg Intake: IV 80 .9 80 Oral 562 200 222 Output: Urine 275 400 Other: Voiding Method External Catheter External Catheter # Voids 1 # Bowel Movements 1 0 - Labs CBC & Chem 7: 11/18/23 10:16 11/20/23 09:49 Labs: Abnormal Lab Results - Last 24 Hours (Table) 11/20/23 11/20/23 11/20/23 Range/Units 09:49 11:45 16:45 Chloride 111 H (98-107) mmol/L BUN 25 H (7-17) mg/dL Glucose 181 H (74-99) mg/dL POC Glucose (mg/dL) 181 H 223 H (70-110) mg/dL Calcium 8.2 L (8.4-10.2) mg/dL Magnesium 1.4 L (1.6-2.3) mg/dL 11/20/23 11/21/23 Range/Units 20:02 06:16 Chloride (98-107) mmol/L BUN (7-17) mg/dL Glucose (74-99) mg/dL POC Glucose (mg/dL) 205 H 158 H (70-110) mg/dL Calcium (8.4-10.2) mg/dL Magnesium (1.6-2.3) mg/dL Microbiology - Last 24 Hours (Table) 11/15/23 13:43 Blood Culture - Final Blood Assessment and Plan Plan: Assessment: 1. Acute kidney injury secondary to ATN secondary to hypotension and acute blood loss anemia. No hydronephrosis noted on kidney ultrasound. UA fairly b enign. Renal function improving. Creatinine 0.87 yesterday. Nonoliguric. 2. Acute blood loss anemia status post blood transfusion this admission. 3. 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 4. Status post right total hip arthroplasty. 5. Metabolic acidosis secondary to acute kidney injury status post bicarb drip. Resolved. 6. Hypokalemia from intracellular shifting from IV bicarb. Replaced. Improved. 7. Hypomagnesemia from poor intake. On oral magnesium oxide. Also received IV magnesium replacement. 8. Benign hypertension. Better controlled. Plan: Off IV fluids. Encouraged oral intake. Avoid nephrotoxins. Replace electrolytes as needed.
[2023-11-21 10:33] LABS: African American GFR (CKD) 68 (>60 ml/min/1.73 sqM); Anion Gap 3 mmol/L; Blood Urea Nitrogen 23 mg/dL (7-17); Calcium 8.6 mg/dL (8.4-10.2); Carbon Dioxide 27 mmol/L (22-30); Chloride 107 mmol/L (98-107); Glucose 176 mg/dL (74-99); Magnesium 1.7 mg/dL (1.6-2.3); Non-African American GFR(CKD) 59 (>60 ml/min/1.73 sqM); Potassium 4.6 mmol/L (3.5-5.1); Sodium 137 mmol/L (137-145)
[2023-11-21 10:36] LABS: Basophils # (A) 0.1 k/uL (0-0.2); Basophils % (A) 0 %; Eosinophils # (A) 0.3 k/uL (0-0.7); Eosinophils % (A) 2 %; HCT 29.6 % (34.0-46.0); HGB 9.1 gm/dL (11.4-16.0); Hypochromasia Moderate; Lymphocytes # (A) 1.8 k/uL (1.0-4.8); Lymphocytes % (A) 10 %; MCH 30.4 pg (25.0-35.0); MCHC 30.6 g/dL (31.0-37.0); MCV 99.4 fL (80.0-100.0); Macrocytosis Slight; Mean Platelet Volume 8.9; Monocytes # (A) 1.1 k/uL (0-1.0); Monocytes % (A) 6 %; Neutrophils # (A) 13.9 k/uL (1.3-7.7); Neutrophils % (A) 80 %; Platelet Count 306 k/uL (150-450); RBC 2.98 m/uL (3.80-5.40); RDW 15.7 % (11.5-15.5); WBC 17.3 k/uL (3.8-10.6)
[2023-11-21] MEDS: DILTIAZEM DRIP BOLUS FROM BAG 1 MG SOLN IV ONE (11:02)
[2023-11-21] MEDS: DILTIAZEM 125 MG in SODIUM CHLORIDE 0.9% 100 ML IV SCH (11:03)
[2023-11-21 11:07] LABS: Glucose,Whole Blood 238 mg/dL (70-110)
--- NOTE | 2023-11-21 13:07 | P.PN ---
Subjective Progress Note Date: 11/21/23 Principal diagnosis: Arthritis, right hip. Patient is an 88-year-old white female with past medical history significant for hypertension, osteoarthritis, and right lower extremity DVT. Patient recently diagnosed with right lower extremity DVT in March,, and she was placed on Eliquis. Eliquis was placed on hold 5 days prior to an elective right total hip arthroplasty. Patient was brought in yesterday for an elective right direct anterior total hip arthroplasty. While in PACU postoperatively, the patient could not move her left arm. A code stroke was initiated. Noncontrast brain CT did not show any acute intracranial abnormality, no hemorrhage or mass effect. Brain CTA showed mild approximately 40% left ICA stenosis, otherwise no large vessel intracranial arterial occlusion or aneurysmal change. Patient was evaluated by neuro-interventionalists, and risks outweighed benefits for thrombolytics. There were also some incidental pulmonary findings, warranting a dedicated film. Chest CTA showed a couple small pulmonary emboli within the right upper and lower lung gonzalez. No CT evidence of right-sided heart strain. There is also some bilateral atelectasis. The surgeon and Dr. Saldana discussed CT findings and the patient was ultimately started on a heparin infusion per protocol. Patient was also hypertensive postoperatively, and started on a Cl eviprex infusion to be titrated to maintain systolic blood pressure of 170 or less to allow for permissive hypertension. Patient was transferred to the intensive care unit from PACU. Patient is currently lying in bed, on 6 L/min nasal cannula, in no acute distress. SpO2 currently 99%. Postoperative ABG showed a PaO2 of 77, pCO2 of 54, and pH of 7.25. She was temporarily on BiPAP support. No signs of hypercapnic encephalopathy. No focal neurological deficits. Patient's left upper extremity weakness has resolved. Overall, neurological exam is benign, consider TIA. Blood pressure is now normotensive. Heart rhythm is normal sinus on bedside monitor. Patient denies any chest pain. No lightheadedness or syncope. No coughing or hemoptysis. Postsurgical dressing is clean, dry, and intact. There is some nikki-incisional swelling. Neurovascular status intact. No obvious hematoma. Postoperative CBC: WBC count 15.8, hemoglobin 11.1, hematocrit 33.8, platelets 226. aPTT supratherapeutic, and heparin and was adjusted per protocol. Postoperative BMP: Sodium 137, testing 3.4, chloride 107, serum bicarb 22, BUN 21, creatinine 0.77, glucose 206. Magnesium 1.4. Electrolytes are being replaced. Troponins less 0.012. Patient will continue to be monitored in the intensive care unit at least overnight. Patient reevaluated today on 11/14/2023, patient remains in the ICU, she is marginal at best. Patient required close for 3 units of packed RBCs and her last hemoglobin is 7.3. Patient is still requiring norepinephrine at 0.07 mcg/kg/min IV fluid is running D5W with 3 A of bicarb at 75 cc/h. Last night she had to be on BiPAP 10/5/50%, presently on 8 L high flow nasal cannula blood pressure is 109/59, mean arterial pressure of 67. However the patient is requiring norepinephrine to adequately maintain good blood pressure. WBC count this morning is 21.9 hemoglobin is 7.3. PTT is 93.9. Her bicarb is 14 BUN is 32 creatinine is 2.19, blood sugar is 201 patient had normal creatinine on admission 11/12/2023, however the patient did develop acute kidney injury most likely secondary to episodes of hypotension requiring pressors. Chest x-ray this morning showed no evidence of congestive heart failure, no pneumonia, right hemidiaphragm seems to be relatively elevated. Patient was reevaluated today on 11/15/2023, patient remains in the ICU, continues to have ongoing bleeding with drop in hemoglobin down to 6.3 today, and I am recommending another unit of packed RBCs to be given today. Obviously the patient is unable to tolerate heparin considering her recent surgery, and she continues to have bleeding most likely into the surgical site/right hip. At this point I believe the patient has absolute current indication to heparin, and I am planning to arrange for vascular surgery to visit to see the patient for possible IVC filter. In addition the patient is developing worsening L kidney injury, and need to have nephrology consultation, her urine output is extremely poor and the patient is getting to be oliguric 60 mg of Lasix was ordered, patient received lots of fluids and blood products since admission. Procalcitonin level is 1.20, antibiotic cefazolin empirically. Patient is still requiring norepinephrine at 0.02 mcg/kg/min to maintain adequate blood pressure, and she is on bicarb drip at 75 cc/h. Heparin is presently on hold. Patient has received already 3 units of packed RBCs since admission to the ICU with acute pulmonary embolism. And DVT. WBC count is 20.1 hemoglobin 6.3 basic metabolic profile is normal BUN is 45 creatinine 3.09 PTT was 75 chest x-ray does not show any evidence of congestive heart failure, but does show left ba silar atelectasis Patient was reevaluated today on 11/16/2023, patient is feeling much better today. Her urine output has picked up on its own and now is about 50 cc/h. She had 200 cc in the last few hours. Patient is now off IV heparin, but I would recommend at least subcu heparin for now she had IVC filter placed. Her renal functioning is improving with creatinine down to 2.4. Hemoglobin is holding, it is today 8.7.However the patient did receive a total of 4 units of packed RBCs after her surgery for postoperative bleeding after she was placed on heparin. Patient is also off pressors, not requiring any norepinephrine, it is presently on hold she is on 2 L nasal cannula, she is on D5 4 5 at 75 cc/h her urine output again is excellent, patient remains on Zosyn today I added heparin subcu 5000 units subcu every 8 hours WBC count today 13.5 hemoglobin 8.7 platelets are 131 basic metabolic profile is normal BUN is 49 creatinine 2.47. Chest x-ray showed hypoventilatory changes, left basilar opacity/atelectasis, minimal prominence of the pulmonary vasculature but has improved compared to 2 days ago The patient is seen today November 17, 2023 in follow-up on the regular medical [facility] or. She is sitting up in bed. Awake and alert in no acute distress. Maintaining good O2 saturations in the 90s on 2 L/min per nasal cannula. She is status post 4 units of packed red blood cells this admission. Current hemoglobin 7.8. Platelets 137. White count 10.9. Sodium 135. Potassium 3.2. Bicarb 32. BUN 41. Creatinine 2.03. Glucose 123. She remains on bronchodilators. Antibiotics in the form of Zosyn. She remained stable and off pressors. Off Cleviprex. Progress note dated November 18, 2023. The patient is seen today in room 368. The patient is currently on 2 L of oxygen. She is getting saline at 75 cc an hour. She appears to be relatively comfortable. Earlier this week, she was in the intensive care unit. Current laboratory data includes a white count 11.2, hemoglobin 7.8, hematocrit 24.3, and platelet count 163,000. Sodium 137, potassium 3.5, chlorides 108, CO2 26, BUN 41, and creatinine 1.23. Glucose is 264. Calcium is 6.6. Blood cultures are currently negative. No recent chest x-ray to review. Progress note dated November 19, 2023. The patient is seen today in room 368. She is sitting in a chair next to her hospital bed. She is in no distress. She denies any shortness of breath or difficulty breathing. She is on room air. She is not receiving any IV fluids. She denies any chest pain or chest discomfort. She appears very stable. Current labs include a sodium 138, potassium 4.5, chlorides 108, CO2 26, BUN 28, creatinine 1.14. Glucose is 246. Calcium 8, and magnesium 1.6. Progress note dated November 20, 2023. 88-year-old female seen today in room 368. Currently, the patient is on 2 L of oxygen. She is getting saline at 10 cc an hour, she continues on Zosyn. She has no specific complaints today. Current labs include a sodium 139, potassium 4.9, chlorides 111, CO2 24, BUN 25, creatinine 0.87. Anion gap is 4. Glucose 181. Calcium 8.2, magnesium 1.4. Blood cultures are currently negative. No recent chest x-ray. Progress note dated November 21, 2023. 88-year-old female seen today in room 368. The patient appears to be doing relatively well. She continues on Zosyn. She is on 2 L of oxygen. She is getting saline at 10 cc an hour. She has no specific complaints today. She appears to be in a cheerful mood. White count of 17.3, hemoglobin 9.1, hematocrit 29.6, and platelet count was normal. Sodium 137, potassium 4.6, chlorides 107, CO2 27, BUN 23, creatinine 0.89. Glucose is 238. Calcium 8.6, magnesium 1.7. Blood cultures, were negative. Objective - Vital Signs Vital signs: Vital Signs Temp 98.1 F 11/21/23 08:00 Pulse 110 H 11/21/23 09:23 Resp 18 11/21/23 08:00 BP 111/67 11/21/23 08:00 Pulse Ox 91 L 11/21/23 08:00 FiO2 50 11/12/23 20:01 Intake & Output 11/20/23 11/21/23 11/21/23 18:59 06:59 18:59 Intake Total 562 200 302 Output Total 275 400 Balance 287 -200 302 Weight 82.5 kg Intake: IV 80 .9 80 Oral 562 200 222 Output: Urine 275 400 Other: Voiding Method External Catheter External Catheter # Voids 1 1 # Bowel Movements 1 0 - Exam No acute distress, oriented 3. Currently on 2 L, with saturations of 95%. HEENT examination is grossly unremarkable. Mucous membranes are moist. No oral lesions. Neck supple. Full range of motion. No adenopathy thyromegaly or neck vein distention. Cardiovascular examination reveals regular rhythm rate. S1-S2 normal. No S3 or S4. No discernible murmur noted. Heart sounds are distant. Heart rate 100 bpm. Lungs reveal clear breath sounds. Breath sounds are equal bilaterally. No adventitious lung sounds including wheezes rhonchi or crackles. Saturations are 95% on 2 L of oxygen by nasal cannula. Abdomen soft with bowel sounds. No masses or tenderness. Extremities are intact. No cyanosis clubbing or edema. Skin is without rash or lesion. Neurologic examination is brief but nonfocal. - Labs CBC & Chem 7: 11/21/23 09:05 11/21/23 09:05 Labs: Abnormal Lab Results - Last 24 Hours (Table) 11/20/23 11/20/23 11/21/23 Range/Units 16:45 20:02 06:16 WBC (3.8-10.6) k/uL RBC (3.80-5.40) m/uL Hgb (11.4-16.0) gm/dL Hct (34.0-46.0) % MCHC (31.0-37.0) g/dL RDW (11.5-15.5) % Neutrophils # (1.3-7.7) k/uL Monocytes # (0-1.0) k/uL BUN (7-17) mg/dL Glucose (74-99) mg/dL POC Glucose (mg/dL) 223 H 205 H 158 H (70-110) mg/dL 11/21/23 11/21/23 11/21/23 Range/Units 09:05 09:05 11:03 WBC 17.3 H (3.8-10.6) k/uL RBC 2.98 L (3.80-5.40) m/uL Hgb 9.1 L (11.4-16.0) gm/dL Hct 29.6 L (34.0-46.0) % MCHC 30.6 L (31.0-37.0) g/dL RDW 15.7 H (11.5-15.5) % Neutrophils # 13.9 H (1.3-7.7) k/uL Monocytes # 1.1 H (0-1.0) k/uL BUN 23 H (7-17) mg/dL Glucose 176 H (74-99) mg/dL POC Glucose (mg/dL) 238 H (70-110) mg/dL Microbiology - Last 24 Hours (Table) 11/15/23 13:43 Blood Culture - Final Blood Assessment and Plan Assessment: Acute hypoxic respiratory failure secondary to acute pulmonary embolism. Right hip osteoarthritis S/P right anterior total hip arthroplasty postoperative day #9. History of deep vein thrombosis. Hypotension secondary to acute blood loss anemia, hypovolemia and also secondary to pulmonary embolism, no clear-cut evidence of RV strain. Acute blood loss anemia, most likely secondary to recent surgery. Status post IVC filter placement because of contraindication for IV heparinongoing bleeding requiring multiple blood transfusions. Acute leukocytosis secondary to surgery/reactive. Acute TIA, resolved with left-sided weakness. Sinus tachycardia secondary to anemia and secondary to pulmonary embolism. Acute kidney injury. Acute on chronic deep vein thrombosis. Plan: Plan dated November 18, 2023. The patient is seen today in room 368. The patient continues on oxygen at 2 L. The patient is getting saline at 75 cc an hour. Labs, x-rays, medications are reviewed. The patient was in the intensive care unit, on Friday, but transferred out to the floor, later on that day. Labs, x-rays, medications are reviewed. We will continue to follow make recommendations along the way. Prognosis is thought to be guarded. Plan dated November 19, 2023. The patient is seen today in room 368. As mentioned above, she is sitting in the chair next to her hospital bed. She is on room air. She is not receiving any IV fluids. Labs, x-rays, medications are reviewed. From the pulmonary standpoint, the patient could be considered for possible discharge. We will continue to follow the patient, and make recommendations. Prognosis is certainly guarded, given her age. Plan dated November 20, 2023. The patient is seen today in room 368. The patient appears to be relatively stable. The patient is a DO NOT RESUSCITATE patient. The patient continues on oxygen at 2 L. She is getting saline at 10 cc an hour. Primary service has her on Zosyn, daily. We will continue to follow and make recommendations along the way. Labs, x-rays, and medications are reviewed. The patient's prognosis is guarded. Plan dated November 21, 2023. The patient appears to be doing relatively well. She continues on oxygen at 2 L. She is getting saline at 10 cc an hour. She continues on Zosyn. Labs, x- rays, and medications are reviewed. The patient denies any complaints today. She denies any chest pain or chest discomfort. She denies palpitations. She also denies any shortness of breath, cough, wheezing, chest tightness, or phlegm production. All in all, she appears to be doing well. Time with Patient: Less than 30
[2023-11-21] MEDS: NYSTATIN 100,000 UNIT/ML SUSP 500,000 UNIT/5 ML CUP PO SCH (14:53)
[2023-11-21] MEDS: AMIODARONE 200 MG TAB PO SCH (14:53)
[2023-11-21 16:21] LABS: Glucose,Whole Blood 264 mg/dL (70-110)
--- NOTE | 2023-11-21 16:29 | P.PN ---
Subjective Progress Note Date: 11/21/23 88-year-old white female with past medical history significant for hypertension, osteoarthritis, and right lower extremity DVT. Patient recently diagnosed with right lower extremity DVT in March,, and she was placed on Eliquis. Eliquis was placed on hold 5 days prior to an elective right total hip arthroplasty. Patient was brought in yesterday for an elective right direct anterior total hip arthroplasty. While in PACU postoperatively, the patient could not move her left arm. A code stroke was initiated. Noncontrast brain CT did not show any acute intracranial abnormality, no hemorrhage or mass effect. Brain CTA showed mild approximately 40% left ICA stenosis, otherwise no large vessel intracranial arterial occlusion or aneurysmal change. Patient was evaluated by neuro-interventionalists, and risks outweighed benefits for thrombolytics. There were also some incidental pulmonary findings, warranting a dedicated film. Chest CTA showed a couple small pulmonary emboli within the right upper and lower lung gonzalez. No CT evidence of right-sided heart strain. There is also some bilateral atelectasis. The surgeon and Dr. Saldana discussed CT findings and the patient was ultimately started on a heparin infusion per protocol. Patient was also hypertensive postoperatively, and started on a Cleviprex infusion to be titrated to maintain systolic blood pressure of 170 or less to allow for permissive hypertension. Patient was transferred to the intensive care unit from PACU. Patient is currently lying in bed, on 6 L/min nasal cannula, in no acute distress. SpO2 currently 99%. Postoperative ABG showed a PaO2 of 77, pCO2 of 54, and pH of 7.25. She was temporarily on BiPAP support. No signs of hypercapnic encephalopathy. No focal neurological deficits. Patient's left upper extremity weakness has resolved. Overall, neurological exam is benign, consider TIA. Blood pressure is now normotensive. Heart rhythm is normal sinus on bedside monitor. Patient denies any chest pain. No lightheadedness or syncope. No coughing or hemoptysis. Postsurgical dressing is clean, dry, and intact. There is some nikki-incisional swelling. Neurovascular status intact. No obvious hematoma. Postoperative CBC: WBC count 15.8, hemoglobin 11.1, hematocrit 33.8, platelets 226. aPTT supratherapeutic, and heparin and was adjusted per protocol. Postoperative BMP: Sodium 137, testing 3.4, chloride 107, serum bicarb 22, BUN 21, creatinine 0.77, glucose 206. Magnesium 1.4. Electrolytes are being replaced. Troponins less 0.012. Objective - Vital Signs Vital signs: Vital Signs Temp 98.1 F 11/21/23 08:00 Pulse 110 H 11/21/23 09:23 Resp 18 11/21/23 08:00 BP 111/67 11/21/23 08:00 Pulse Ox 91 L 11/21/23 08:00 FiO2 50 11/12/23 20:01 Intake & Output 11/20/23 11/21/23 11/21/23 18:59 06:59 18:59 Intake Total 562 200 302 Output Total 275 400 Balance 287 -200 302 Weight 82.5 kg Intake: IV 80 .9 80 Oral 562 200 222 Output: Urine 275 400 Other: Voiding Method External Catheter External Catheter # Voids 1 1 # Bowel Movements 1 0 - Exam Patient is lying in the bed comfortably, no acute distress, awake alert and oriented. Became lethargic.. HEENT: Normocephalic. Neck is supple. Pupils reactive. Nostrils clear. Oral cavity is moist. Neck reveals no JVD, carotid bruits, or thyromegaly. CHEST EXAMINATION: Trachea is central. Symmetrical expansion. Bibasilar diminished sounds. CARDIAC: Normal S1, S2 with no gallops. No murmurs ABDOMEN: Soft. Bowel sounds normal. No organomegaly. No abdominal bruits. Extremities: reveal no edema. No clubbing or cyanosis Neurologically awake, alert, oriented x3. Able to move all extremities. No gross focal deficits noted Skin: No rash or skin lesions. Psychiatric: Coperative. Nonsuicidal Musculoskeletal: No joint swelling or deformity. - Labs CBC & Chem 7: 11/21/23 09:05 11/21/23 09:05 Labs: Abnormal Lab Results - Last 24 Hours (Table) 11/20/23 11/20/23 11/20/23 Range/Units 09:49 11:45 16:45 WBC (3.8-10.6) k/uL RBC (3.80-5.40) m/uL Hgb (11.4-16.0) gm/dL Hct (34.0-46.0) % MCHC (31.0-37.0) g/dL RDW (11.5-15.5) % Neutrophils # (1.3-7.7) k/uL Monocytes # (0-1.0) k/uL Chloride 111 H (98-107) mmol/L BUN 25 H (7-17) mg/dL Glucose 181 H (74-99) mg/dL POC Glucose (mg/dL) 181 H 223 H (70-110) mg/dL Calcium 8.2 L (8.4-10.2) mg/dL Magnesium 1.4 L (1.6-2.3) mg/dL 11/20/23 11/21/23 11/21/23 Range/Units 20:02 06:16 09:05 WBC (3.8-10.6) k/uL RBC (3.80-5.40) m/uL Hgb (11.4-16.0) gm/dL Hct (34.0-46.0) % MCHC (31.0-37.0) g/dL RDW (11.5-15.5) % Neutrophils # (1.3-7.7) k/uL Monocytes # (0-1.0) k/uL Chloride (98-107) mmol/L BUN 23 H (7-17) mg/dL Glucose 176 H (74-99) mg/dL POC Glucose (mg/dL) 205 H 158 H (70-110) mg/dL Calcium (8.4-10.2) mg/dL Magnesium (1.6-2.3) mg/dL 11/21/23 11/21/23 Range/Units 09:05 11:03 WBC 17.3 H (3.8-10.6) k/uL RBC 2.98 L (3.80-5.40) m/uL Hgb 9.1 L (11.4-16.0) gm/dL Hct 29.6 L (34.0-46.0) % MCHC 30.6 L (31.0-37.0) g/dL RDW 15.7 H (11.5-15.5) % Neutrophils # 13.9 H (1.3-7.7) k/uL Monocytes # 1.1 H (0-1.0) k/uL Chloride (98-107) mmol/L BUN (7-17) mg/dL Glucose (74-99) mg/dL POC Glucose (mg/dL) 238 H (70-110) mg/dL Calcium (8.4-10.2) mg/dL Magnesium (1.6-2.3) mg/dL Microbiology - Last 24 Hours (Table) 11/15/23 13:43 Blood Culture - Final Blood Assessment and Plan Assessment: New onset paroxysmal atrial fibrillation with RVR. Rate is controlled. Acute hypoxic respiratory failure secondary to acute pulmonary embolism. status post IVC filter placement because of contraindication for IV heparinongoing bleeding requiring multiple blood transfusions Acute blood loss anemia likely due to recent surgery. Hemoglobin is fairly stable now. Status post right total hip arthroplasty. Postoperative day 8 Left-sided weakness possible TIA resolved now. Acute kidney injury secondary to ATN due to hypotension and acute blood loss anemia. Improving. Possible bilateral pneumonia consider aspiration Labile hypertension and hypotension currently stable fairly Anemia Diabetes type 2 Elevated troponin level possible type II UT History of DVT/PE on Eliquis at home. Hypokalemia. Replaced. DVT prophylaxis patient is on heparin subcu Plan: Currently on IV hydration and encourage oral intake. Heart rate is controlled. Imaging drip has been discontinued. Patient is being continued on metoprolol. Patient was started on Eliquis. Monitor H&H. Patient has been continued on metoprolol and DuoNeb's and antibiotics in the form of Zosyn for possible aspiration. Cardiac pain management. PT OT and follow-up closely. General surgery is planning for EGD due to dysphagia, patient was seen by DECONTAMINATOR and is on pured diet Cardiology, pulmonary and nephrology is on board.
--- NOTE | 2023-11-21 16:36 | P.PN ---
Subjective Progress Note Date: 11/21/23 CHIEF COMPLAINT: Osteoarthritis HISTORY OF PRESENT ILLNESS: Patient is status post a right total hip arth roplasty. Patient with multiple medical issues with new PE and atrial fibrillation. Surgical service following in regards to patient's dysphagia. She is tolerating the pured diet. However oral intake is diminished. Afebrile. WBC 17.3 Hgb 9.1 platelets 306 PHYSICAL EXAM: VITAL SIGNS: Reviewed. GENERAL: Well-developed in no acute distress. HEENT: No sclera icterus. Extraocular movements grossly intact. Moist buccal mucosa. Head is atraumatic, normocephalic. ABDOMEN: Soft. Nondistended. Nontender. NEUROLOGIC: Alert and oriented. Cranial nerves II through XII grossly intact. ASSESSMENT: 1. Dysphagia 2. Severe protein calorie malnutrition 3. Poor oral intake PLAN: -Dietitian consulted to start a 72-hour calorie count for evaluation of possible need of PEG tube placement for nutrition support -Patient is tentatively scheduled for PEG tube placement on 11/24/2023 Physician Laborer Hoisting note has been reviewed by physician. Signing provider agrees with the documented findings, assessment, and plan of care. Objective - Vital Signs Vital signs: Vital Signs Temp 98.1 F 11/21/23 08:00 Pulse 110 H 11/21/23 09:23 Resp 18 11/21/23 08:00 BP 111/67 11/21/23 08:00 Pulse Ox 91 L 11/21/23 08:00 FiO2 50 11/12/23 20:01 Intake & Output 11/20/23 11/21/23 11/21/23 18:59 06:59 18:59 Intake Total 562 200 302 Output Total 275 400 Balance 287 -200 302 Weight 82.5 kg Intake: IV 80 .9 80 Oral 562 200 222 Output: Urine 275 400 Other: Voiding Method External Catheter External Catheter # Voids 1 1 # Bowel Movements 1 0 - Labs CBC & Chem 7: 11/21/23 09:05 11/21/23 09:05 Labs: Abnormal Lab Results - Last 24 Hours (Table) 11/20/23 11/20/23 11/20/23 Range/Units 11:45 16:45 20:02 WBC (3.8-10.6) k/uL RBC (3.80-5.40) m/uL Hgb (11.4-16.0) gm/dL Hct (34.0-46.0) % MCHC (31.0-37.0) g/dL RDW (11.5-15.5) % Neutrophils # (1.3-7.7) k/uL Monocytes # (0-1.0) k/uL BUN (7-17) mg/dL Glucose (74-99) mg/dL POC Glucose (mg/dL) 181 H 223 H 205 H (70-110) mg/dL 11/21/23 11/21/23 11/21/23 Range/Units 06:16 09:05 09:05 WBC 17.3 H (3.8-10.6) k/uL RBC 2.98 L (3.80-5.40) m/uL Hgb 9.1 L (11.4-16.0) gm/dL Hct 29.6 L (34.0-46.0) % MCHC 30.6 L (31.0-37.0) g/dL RDW 15.7 H (11.5-15.5) % Neutrophils # 13.9 H (1.3-7.7) k/uL Monocytes # 1.1 H (0-1.0) k/uL BUN 23 H (7-17) mg/dL Glucose 176 H (74-99) mg/dL POC Glucose (mg/dL) 158 H (70-110) mg/dL 11/21/23 Range/Units 11:03 WBC (3.8-10.6) k/uL RBC (3.80-5.40) m/uL Hgb (11.4-16.0) gm/dL Hct (34.0-46.0) % MCHC (31.0-37.0) g/dL RDW (11.5-15.5) % Neutrophils # (1.3-7.7) k/uL Monocytes # (0-1.0) k/uL BUN (7-17) mg/dL Glucose (74-99) mg/dL POC Glucose (mg/dL) 238 H (70-110) mg/dL Microbiology - Last 24 Hours (Table) 11/15/23 13:43 Blood Culture - Final Blood
[2023-11-21 18:38] LABS: Appearance,Urine Clear (Clear); Bilirubin,Urine Negative (Negative); Blood,Urine Negative (Negative); Color,Urine Yellow; Glucose,Urine (UA) 2+ (Negative); Ketones,Urine Negative (Negative); Leukocyte Esterase,Urine Negative (Negative); Nitrite,Urine Negative (Negative); PH, Urine 5.5 (5.0-8.0); Protein,Urine Trace (Negative); Specific Gravity,Urine 1.018 (1.001-1.035); Urobilinogen,Urine <2.0 mg/dL (<2.0)
[2023-11-21 20:31] LABS: Glucose,Whole Blood 213 mg/dL (70-110)
--- NOTE | 2023-11-21 22:55 | P.CONS ---
History of Present Illness - Reason for Consult Consult date: 11/21/23 Worsening leukocytosis Requesting physician: Alexus Vera - Chief Complaint Right hip pain x few days - History of Present Illness Patient is a 88-year-old female past medical history significant for diabetes mellitus hypertension osteoarthritis DVT who was electively admitted to the hospital for right hip replacement that was completed on 11/12/2023 patient s rodo then has been in the hospital with multiple medical condition and has been evaluated by multiple consultants patient did not have any fever during this hospital stay except a low-grade fever of 99.8 on 11/16/2023 and then 10.7 on 11/17/2023 patient did have a normal white count admission did have that has subsequently gone up to 22.9 on 11/13/2023 he did came down to 10.9 on 11/17/2023 however the white count is up to 17.3 today that has prompted this consultation patient has been complaining of some weakness denies any headache or URI symptoms no chest pain or shortness with occasional cough some nausea no vomiting no abdominal pain no diarrhea patient complains of some swelling to the right hip area but denies any worsening pain incision is currently intact and there is no drainage besides elevated besides elevated white count patient did have a creatinine which is normal electrolytes are normal and did have normal liver enzymes patient did have blood culture done on 11/15/2023 as well as 11/13/2021 for those has been negative so far patient did have a swallow evaluation on 11/19/2023 did not show any evidence of aspiration patient is currently on empiric Zosyn per admitting Review of Systems Positive point and negatives has been mentioned in the HPI, complete review of systems was performed and all other systems are negative Past Medical History Past Medical History: Cancer, Diabetes Mellitus, Deep Vein Thrombosis (DVT), Hypertension, Osteoarthritis (OA) Additional Past Medical History / Comment(s): skin on back of leg, diet controlled dm, lft leg dvt 03/2023, bunion on rt foot with scab History of Any Multi-Drug Resistant Organisms: None Reported Past Surgical History: Hysterectomy Additional Past Surgical History / Comment(s): skin cancer removal from R leg, removal of blood clot from lft leg Past Anesthesia/Blood Transfusion Reactions: No Reported Reaction Smoking Status: Never smoker - Past Family History Daughter(s) Family Medical History: Cancer Additional Family Medical History / Comment(s): breast Father Family Medical History: Hypertension Mother Family Medical History: Hypertension Brother(s) Family Medical History: Cancer, Hypertension Medications and Allergies Home Medications Medication Instructions Recorded Confirmed Type ramipriL [Ramipril] 10 mg PO HS 05/24/19 11/12/23 History Apixaban [Eliquis] 5 mg PO BID 09/29/23 11/12/23 History Acetaminophen Tab [Tylenol] 650 mg PO Q4HR PRN tab 11/24/23 Rx Albuterol Inhaler [Ventolin Hfa 2 puff INHALATION Q6H PRN #1 each 11/24/23 Rx Inhaler] Amiodarone [Cordarone] 200 mg PO BID #60 tab 11/24/23 Rx Atorvastatin [Lipitor] 20 mg PO HS #30 tab 11/24/23 Rx Doxycycline [Vibramycin] 100 mg PO BID 7 Days #14 cap 11/24/23 Rx Fluticasone Propion/Salmeterol 1 puff INHALATION BID #1 each 11/24/23 Rx [Airduo Respiclick 113-14 Mcg] HYDROcodone/APAP 5-325MG [[place] 1 each PO Q6HR PRN #9 tab 11/24/23 Rx 5-325] Magnesium Hydroxide [Milk of 2,400 mg PO DAILY PRN ml 11/24/23 Rx Magnesia] Magnesium Oxide [Mag-Ox] 400 mg PO BID #60 tab 11/24/23 Rx Metoprolol Succinate (ER) [Toprol 50 mg PO BID #60 tab 11/24/23 Rx XL] Multivitamins, Thera [Multivitamin 1 each PO DAILY@1200 #30 tab 11/24/23 Rx (formulary)] Nystatin 100,000 Unit/ml Susp 500,000 unit PO QID 7 Days #140 ml 11/24/23 Rx [Mycostatin Oral Susp] Sennosides-Docusate Sodium 1 each PO HS PRN #30 tab 11/24/23 Rx [Senokot-S] amLODIPine [Norvasc] 10 mg PO DAILY #30 tab 11/24/23 Rx Allergies Allergy/AdvReac Type Severity Reaction Status Date / Time No Known Allergies Allergy Verified 11/12/23 10:59 Physical Exam Vitals: Vital Signs Temp Pulse Pulse Pulse Resp BP Pulse Ox 11/21/23 09:23 110 H 11/21/23 09:11 112 H 11/21/23 08:00 98.1 F 141 H 18 111/67 91 L 11/21/23 04:00 97.7 F 58 L 19 158/65 92 L 11/21/23 02:00 85 19 11/21/23 00:00 97.9 F 85 19 147/64 94 L 11/20/23 20:57 80 11/20/23 20:46 85 11/20/23 20:00 98.0 F 83 83 19 167/69 98 11/20/23 16:00 85 18 152/63 98 11/20/23 13:49 98 11/20/23 13:40 98 11/20/23 12:00 85 18 168/70 98 Intake and Output 11/20/23 11/21/23 11/21/23 22:59 06:59 14:59 Intake Total 208 200 302 Output Total 275 400 Balance -67 -200 302 Intake: IV 80 .9 80 Oral 208 200 222 Output: Urine 275 400 Other: Voiding Method External Catheter External Catheter # Voids 1 1 # Bowel Movements 1 0 Weight 82.5 kg GENERAL DESCRIPTION: Elderly female up in the chair, no distress. No tachypnea or accessory muscle of respiration use. HEENT: Shows Pallor , no scleral icterus. Oral mucous membrane is dry. No pharyngeal erythema mild thrush NECK: Trachea central, no thyromegaly. LUNGS: Unlabored breathing. Decreased breath sound the base HEART: S1, S2, regular rate and rhythm. No loud murmur ABDOMEN: Soft, no tenderness , guarding or rigidity, no organomegaly EXTREMITIES: Right hip incision is intact minimal swelling no redness SKIN: No rash, no masses palpable. NEUROLOGICAL: The patient is awake, alert, oriented x3, mood and affect normal. Results CBC & Chem 7: 11/24/23 12:49 11/24/23 09:37 Labs: Abnormal Lab Results - Last 24 Hours (Table) 11/20/23 11/20/23 11/21/23 Range/Units 16:45 20:02 06:16 WBC (3.8-10.6) k/uL RBC (3.80-5.40) m/uL Hgb (11.4-16.0) gm/dL Hct (34.0-46.0) % MCHC (31.0-37.0) g/dL RDW (11.5-15.5) % Neutrophils # (1.3-7.7) k/uL Monocytes # (0-1.0) k/uL BUN (7-17) mg/dL Glucose (74-99) mg/dL POC Glucose (mg/dL) 223 H 205 H 158 H (70-110) mg/dL 11/21/23 11/21/23 11/21/23 Range/Units 09:05 09:05 11:03 WBC 17.3 H (3.8-10.6) k/uL RBC 2.98 L (3.80-5.40) m/uL Hgb 9.1 L (11.4-16.0) gm/dL Hct 29.6 L (34.0-46.0) % MCHC 30.6 L (31.0-37.0) g/dL RDW 15.7 H (11.5-15.5) % Neutrophils # 13.9 H (1.3-7.7) k/uL Monocytes # 1.1 H (0-1.0) k/uL BUN 23 H (7-17) mg/dL Glucose 176 H (74-99) mg/dL POC Glucose (mg/dL) 238 H (70-110) mg/dL Microbiology - Last 24 Hours (Table) 11/15/23 13:43 Blood Culture - Final Blood Assessment and Plan (1) Leukocytosis Status: Acute Code(s): D72.829 - ELEVATED WHITE BLOOD CELL COUNT, UNSPECIFIED SNOMED Code(s): 793525485 (2) Thrush Status: Acute Code(s): B37.0 - CANDIDAL STOMATITIS SNOMED Code(s): 17097715 Plan: 1patient with elevated white count this patient electively presented to the hospital on 11/12/2023 about 10 days ago for right hip replacement which was completed now with evidence of elevated white count no significant fever patient does not look toxic lungs clear to auscultation surgical site with some swelling but no redness abdominal soft question reactive versus oropharyngeal candidiasis 2-we will check blood cultures CRP and procalcitonin 3-add nystatin swish and swallow May continue Zosyn while waiting for the culture to finalize We will follow on clinical condition and cultures to further adjust medication if needed Thank you for this consultation we will follow the patient along with you Dictation was produced using [employer] dictation software. please excuse any grammatical, word or spelling errors. Time with Patient: Greater than 30
--- NOTE | 2023-11-21 23:10 | CONS ---
CONSULTATION HISTORY OF PRESENT ILLNESS: This is an 88-year-old lady, whom I have been asked to see this morning secondary to atrial fibrillation with rapid ventricular rate. She has paroxysmal episodes of atrial fibrillation and developed an episode of atrial fibrillation with RVR. She has history of DVT and is currently on anticoagulant and she converted to sinus rhythm, as we were thinking of starting her on intravenous Cardizem. She is otherwise doing well and is free of symptoms. PHYSICAL EXAMINATION: GENERAL: Comfortable at rest. VITAL SIGNS: Stable. CHEST: Reveals good air entry bilaterally. HEART: Reveals first and second heart sounds. No gallop. EXTREMITIES: Did not reveal any edema. Peripheral pulses are felt. ASSESSMENT: Paroxysmal atrial fibrillation. PLAN: I will continue the Eliquis. Start her on amiodarone. MMODL / IJN: [id number] /
[2023-11-21] MEDS: PIPERACILLIN-TAZOBACTAM 3.375 GM in SODIUM CHLORIDE 0.9% 100 ML IVPB SCH (23:59)
[2023-11-22 06:17] LABS: Glucose,Whole Blood 150 mg/dL (70-110)
[2023-11-22 06:23] LABS: Basophils % (A) 0 %; Eosinophils # (A) 0.5 k/uL (0-0.7); Eosinophils % (A) 3 %; HGB 8.1 gm/dL (11.4-16.0); Hypochromasia Slight; Lymphocytes # (A) 1.8 k/uL (1.0-4.8); Lymphocytes % (A) 11 %; MCH 30.8 pg (25.0-35.0); MCHC 31.3 g/dL (31.0-37.0); MCV 98.5 fL (80.0-100.0); Macrocytosis Slight; Mean Platelet Volume 8.5; Monocytes % (A) 6 %; Neutrophils % (A) 78 %; Platelet Count 294 k/uL (150-450); RBC 2.64 m/uL (3.80-5.40); WBC 16.7 k/uL (3.8-10.6)
[2023-11-22 07:12] LABS: African American GFR (CKD) 79 (>60 ml/min/1.73 sqM); Anion Gap 2 mmol/L; Blood Urea Nitrogen 24 mg/dL (7-17); Calcium 8.3 mg/dL (8.4-10.2); Carbon Dioxide 27 mmol/L (22-30); Chloride 107 mmol/L (98-107); Glucose 131 mg/dL (74-99); Magnesium 1.6 mg/dL (1.6-2.3); Non-African American GFR(CKD) 69 (>60 ml/min/1.73 sqM); Potassium 4.7 mmol/L (3.5-5.1); Sodium 136 mmol/L (137-145)
--- NOTE | 2023-11-22 10:33 | P.PN ---
Progress Note - Text Progress Note Date: 11/22/23 Orthopedics: History of present illness: Patient is a very pleasant 88-year-old female who is seen and examined the bedside for follow-up evaluation of her right hip. She is status post right total hip arthroplasty performed on 11/12/2023. She currently does not have any complaints specifically in regards to her right hip. She has been able to mobilize with physical therapy. She has been able to utilize a walker to aid in ambulation. Dressing remains clean, dry, and intact over the right hip. Patient states IV was placed at her left hand and has since been removed. She is having some pain at the IV site with swelling throughout the fingers of the right hand, right hand, right wrist, right forearm, and up to the right humerus. She also has IV in place at the right cubital fossa. There is mild erythema at the back of the right hand but no obvious cellulitis radiating up the right upper extremity. Consultation was placed with Dr. Willis and infectious disease who saw the patient yesterday. Patient is currently on antibiotics. We would plan for infectious disease to continue managing antibiotic medications. We did discuss we do not see any obvious fluid collection at her right upper extremity in which incision and drainage would provide any significant benefit. We will continue with conservative treatment for her right upper extremity. Patient is known to have sustained a pulmonary embolism and had a [place] filter placed. She is being seen by multiple medical providers including medicine, pulmonology, general surgery, infectious disease, and nephrology. Documentation states patient has had some difficulty with swallowing is currently scheduled for PEG tube placement this coming 11/24/2023. Patient states currently she does not wish to have PEG tube placement. This will be further discussed with other medical providers on appropriate plan proceeding forward. Patient states when cleared by all medical providers, she is planning for discharge home. Physical Exam Total Hip Arthroplasty: Status post surgical day number 10 Patient is examined sitting bedside upright in a chair Patient is awake and alert, and oriented 3 Vital signs stable Good chest excursion with deep inspiration and expiration No signs or symptoms of DVT; no calf pain Lower extremity cuffs not currently in place bilaterally Dressing of the right hip is clean, dry, and intact; no erythema, purulence, or signs of infection Full range of motion of ankles bilaterally Dorsiflexion, plantarflexion, and extensor hallucis longus positive sustained bilaterally Neurovascularly intact bilateral lower extremities Evidence of swelling over the fingers of the right hand, right hand, right wrist, right forearm, and distal half of the right humerus Some pain with palpation over the dorsal aspect of the right hand near the previous IV site No palpable fluid collection with palpation over the right upper extremity Some induration around the right elbow Some erythema over the dorsum of the right hand without extension of the right upper extremity Assessment: Status post right total hip arthroplasty Pulmonary embolism Recent Nahum filter placement Right upper extremity swelling and pain status post IV placement at the right hand Mild erythema over the dorsum of the right hand near previous IV placement site Paroxysmal atrial fibrillation with RVR Acute hypoxic respiratory failure secondary to acute pulmonary embolism Acute kidney injury Anemia Type 2 diabetes 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 Patient to continue to be weight-bear as tolerated on the right lower extremity; patient may work with physical therapy to increase mobility and ambulation 2. Continue pain control 3. Patient states IV was placed at her left hand and has since been removed. She is having some pain at the IV site with swelling throughout the fingers of the right hand, right hand, right wrist, right forearm, and up to the right humerus. She also has IV in place at the right cubital fossa. There is mild erythema at the back of the right hand but no obvious cellulitis radiating up the right upper extremity. Consultation was placed with Dr. Willis and infectious disease who saw the patient yesterday. Patient is currently on antibiotics. We would plan for infectious disease to continue managing antibiotic medications. We did discuss we do not see any obvious fluid collection at her right upper extremity in which incision and drainage would provide any significant benefit. We will continue with conservative treatment for her right upper extremity. 4. Multiple medical providers will continue to follow the patient for her significant multiple other medical diagnoses 5. Continue with with anticoagulation therapy Eliquis as prescribed 6. Patient will continue be seen and examined by infectious disease who will manage her antibiotics and also further address her right upper extremity swelling with some erythema at the dorsum of the right hand without palpable fluid collection 7. Patient will continue to be seen and examined in regards to her difficulty with swallowing. They currently planning for PEG tube placement this coming Friday. Patient is not currently sure she would like to proceed forward with this. This will be discussed with further medical providers. 8. Patient will most likely remain in the hospital over the weekend until cleared by multiple other medical providers. Patient states she would like to be discharged home when cleared. 9. Patient can follow-up with Dr. Brownlee at [facility] in 2-3 weeks following discharge
--- NOTE | 2023-11-22 10:58 | P.PN ---
Subjective Progress Note Date: 11/22/23 Elevated cardiac enzymes The patient is an 88-year-old female patient with a past medical history signifi cant for history of DVT she was on oral anticoagulation as an outpatient. No prior cardiac history of coronary artery disease or congestive heart failure or cardiac arrhythmia. We asked to see the patient in a consultation in the intensive care unit for sinus tachycardia as well as abnormal cardiac enzymes. The patient was admitted to the hospital and underwent an elective right hip surgery which was uneventful. During her recovery it was noted that she was unable to move her left side. Initially it was felt secondary to stroke. Stroke code was called and the patient underwent a workup including CT scan of the brain as well as carotid workup and all of that came in to be unremarkable f or acute stroke. Also the workup including CT scan showed possible small pulmonary embolism. No history of pulmonary embolism in the past. She has history of DVT. She was not on oral anticoagulation because that was interrupted before the surgery. Subsequently the patient was admitted to the in tensive care unit. It was noted that she was hypotensive requiring norepinephrine but at the same time her hemoglobin dropped significantly and her last hemoglobin from this morning is around 7. Her previous hemoglobin was 13. Currently the patient is hypotensive requiring norepinephrine. She was started on heparin IV. When she was seen and evaluated this morning her main symptoms is being tired and fatigue and no symptoms of any chest pain or chest discomfort or shortness of breath. She underwent an echocardiogram which revealed normal LV systolic function with no significant wall motion abnormalities. Cardiac enzymes were checked and came in to be slightly abnormal. We only have 1 abnormal troponin and I am going to obtain 2 more sets of troponin for further clarification. Beside that she has no EKG. Stat EKG is in process to be done. The examination revealed regular rhythm with a distant heart sounds and diminished breathing sounds bilaterally and no edema was noted in the lower extremities. Beside that the patient is in renal failure likely secondary to anemia and hypotension November 15, 2023 The patient was seen and evaluated this morning. She was anemic and she is in process of receiving 1 unit of packed RBC. Her hemoglobin was 6. She was hypotensive requiring norepinephrine but that has improved and currently she is not on any vasopressors after she received the blood. The creatinine continues to be elevated and currently nephrology is consulted to see the patient. Because of the anemia which is secondary to the hematoma by the right hip the heparin was stopped the patient is in process of having an IVC filter placement. Otherwise she is not reporting any chest pain or chest discomfort at this point. The EKG showed LBBB. The echo showed normal LV systolic function with no wall motion abnormalities and no evidence of RV strain. The examination revealed regular rhythm with a systolic murmur and clear breathing sounds bilaterally and no edema was noted. November 16, 2023 The patient was seen and evaluated this morning. She is asymptomatic. She is maintaining normal sinus mechanism. She underwent an IVC filter placement yesterday. Currently she is not on any oral anticoagulation or IV anticoagulations since she underwent the filter placement. Hemoglobin is stable and she is not bleeding anymore. The right hip hematoma has been stable. Creatinine has been trending in the right direction. She is on a statin which we will continue. Hold adding any aspirin at this point giving the hematoma/bleeding. Consider starting the patient on small dose of beta-lindsay. The examination revealed regular rhythm with a systolic murmur and diminished breathing sounds bilaterally and she does have mild bilateral lower extremities edema noted. She was given Lasix yesterday. 11/16 Cardiology was reconsulted secondary to patient going in A. fib with RVR. Patient had IVC filter placed. She does have a history of prior DVT from March at [facility] and has been on anticoagulation at home. She has however had issues with anemia after her surgery and hematoma. Therefore anticoagulation has been on hold. She admits to feeling palpitations similar to last night about once a month and usually are fairly mild to moderate symptom verma. 11/17 Orthopedics has cleared the patient to resume Eliquis. Heart rate in the 70s, blood pressure 173/72 11/21 Yesterday, we were reconsulted regarding A-fib with RVR. Patient has subse quently converted to sinus rhythm. Yesterday, patient was started on amiodarone 200 mg twice daily. She has been maintained on Eliquis. Blood pressure 148/65, heart rate in the 80s. Repeat blood work reveals WBC 16.7, hemoglobin 9.1. Potassium 4.7, BUN 24 creatinine 0.79. Physical Examination Gen: This is an 88-year-old female in no acute distress HEENT: Head is atraumatic, normocephalic. Pupils equal, round. Sclerae is anicteric. LUNGS: Good air entry bilaterally. No intercostal retractions. HEART: Regular rate and rhythm. No murmur. EXTREMITIES: No pedal edema. No calf tenderness. NEUROLOGICAL: Patient is awake, alert. Assessment Status post right hip surgery Left-sided weakness which has improved. No acute stroke on the workup Recent diagnosis of small pulmonary embolism and deep venous thrombosis Anemia secondary to blood loss Status post IVC filter placement Evidence of myocardial injury likely secondary to anemia and type II myocardial infarction Renal failure new-onset paroxysmal atrial fibrillation with episodes of RVR Plan Continue patient on amiodarone 200 mg twice daily, and Eliquis 5 mg twice daily. Continue Toprol-XL 50 mg twice daily for rate control. Nurse practitioner note has been reviewed, I agree with documented findings and plan of care. Patient was seen and examined. Objective - Vital Signs Vital signs: Vital Signs Temp 98.5 F 11/22/23 08:04 Pulse 92 11/22/23 09:00 Resp 18 11/22/23 08:04 BP 148/65 11/22/23 08:04 Pulse Ox 96 11/22/23 08:04 FiO2 50 11/12/23 20:01 Intake & Output 11/21/23 11/22/23 11/22/23 18:59 06:59 18:59 Intake Total 840 96.667 Output Total 100 Balance 840 -3.333 Weight 82.5 kg 80.5 kg Intake: IV 160 .9 160 Intake, IV Titration 100 96.667 Amount Diltiazem 125 mg In 96.667 Sodium Chloride 0.9% 100 ml @ 5 MG/HR 5 mls/hr IV .Q24H [facility] Rx#:[id number] Piperacillin-Tazobactam 3 100 .375 gm In Sodium Chloride 0.9% 100 ml @ 25 mls/hr IVPB Q8HR [facility] Rx# :[id number] Oral 580 Output: Urine 100 Other: Voiding Method External Catheter # Voids 1 1 # Bowel Movements 0 1 - Labs CBC & Chem 7: 11/22/23 06:07 11/22/23 06:07 Labs: Abnormal Lab Results - Last 24 Hours (Table) 11/21/23 11/21/23 11/21/23 Range/Units 09:05 09:05 11:03 WBC 17.3 H (3.8-10.6) k/uL RBC 2.98 L (3.80-5.40) m/uL Hgb 9.1 L (11.4-16.0) gm/dL Hct 29.6 L (34.0-46.0) % MCHC 30.6 L (31.0-37.0) g/dL RDW 15.7 H (11.5-15.5) % Neutrophils # 13.9 H (1.3-7.7) k/uL Monocytes # 1.1 H (0-1.0) k/uL Sodium (137-145) mmol/L BUN 23 H (7-17) mg/dL Glucose 176 H (74-99) mg/dL POC Glucose (mg/dL) 238 H (70-110) mg/dL Calcium (8.4-10.2) mg/dL C-Reactive Protein (<1.0) mg/dL Procalcitonin (0.02-0.09) ng/mL Urine Protein (Negative) Urine Glucose (UA) (Negative) 11/21/23 11/21/23 11/21/23 Range/Units 15:24 15:24 16:17 WBC (3.8-10.6) k/uL RBC (3.80-5.40) m/uL Hgb (11.4-16.0) gm/dL Hct (34.0-46.0) % MCHC (31.0-37.0) g/dL RDW (11.5-15.5) % Neutrophils # (1.3-7.7) k/uL Monocytes # (0-1.0) k/uL Sodium (137-145) mmol/L BUN (7-17) mg/dL Glucose (74-99) mg/dL POC Glucose (mg/dL) 264 H (70-110) mg/dL Calcium (8.4-10.2) mg/dL C-Reactive Protein 7.1 H (<1.0) mg/dL Procalcitonin 0.16 H (0.02-0.09) ng/mL Urine Protein (Negative) Urine Glucose (UA) (Negative) 11/21/23 11/21/23 11/22/23 Range/Units 18:20 20:28 06:07 WBC (3.8-10.6) k/uL RBC (3.80-5.40) m/uL Hgb (11.4-16.0) gm/dL Hct (34.0-46.0) % MCHC (31.0-37.0) g/dL RDW (11.5-15.5) % Neutrophils # (1.3-7.7) k/uL Monocytes # (0-1.0) k/uL Sodium 136 L (137-145) mmol/L BUN 24 H (7-17) mg/dL Glucose 131 H (74-99) mg/dL POC Glucose (mg/dL) 213 H (70-110) mg/dL Calcium 8.3 L (8.4-10.2) mg/dL C-Reactive Protein (<1.0) mg/dL Procalcitonin (0.02-0.09) ng/mL Urine Protein Trace H (Negative) Urine Glucose (UA) 2+ H (Negative) 11/22/23 11/22/23 Range/Units 06:07 06:15 WBC 16.7 H (3.8-10.6) k/uL RBC 2.64 L (3.80-5.40) m/uL Hgb 8.1 L (11.4-16.0) gm/dL Hct 26.0 L (34.0-46.0) % MCHC (31.0-37.0) g/dL RDW 16.0 H (11.5-15.5) % Neutrophils # 13.0 H (1.3-7.7) k/uL Monocytes # (0-1.0) k/uL Sodium (137-145) mmol/L BUN (7-17) mg/dL Glucose (74-99) mg/dL POC Glucose (mg/dL) 150 H (70-110) mg/dL Calcium (8.4-10.2) mg/dL C-Reactive Protein (<1.0) mg/dL Procalcitonin (0.02-0.09) ng/mL Urine Protein (Negative) Urine Glucose (UA) (Negative)
[2023-11-22 11:22] LABS: Glucose,Whole Blood 244 mg/dL (70-110)
[2023-11-22] MEDS ORDERED: VANCOMYCIN IV PER PHARMACY 1 EACH MISC MISCELLANE PRN (11:41)
[2023-11-22] MEDS: VANCOMYCIN 1,500 MG in SODIUM CHLORIDE 0.9% 500 ML 500 ML IVPB SCH (12:31)
--- NOTE | 2023-11-22 14:02 | P.PN ---
Subjective Progress Note Date: 11/22/23 Patient is seen in follow-up for acute kidney injury. Renal function improved. Oral intake fair. Nonoliguric. Denies chest pain or shortness of breath. No changes overnight. Vital signs are stable. General: No acute distress. HEENT: Head exam is unremarkable. On nasal cannula. LUNGS: No audible rhonchi or wheezes. HEART: Rate and Rhythm are regular. ABDOMEN: Nontender. EXTREMITITES: Trace edema. Objective - Vital Signs Vital signs: Vital Signs Temp 98.5 F 11/22/23 08:04 Pulse 81 11/22/23 09:54 Resp 18 11/22/23 09:54 BP 148/65 11/22/23 08:04 Pulse Ox 96 11/22/23 08:04 FiO2 50 11/12/23 20:01 Intake & Output 11/21/23 11/22/23 11/22/23 18:59 06:59 18:59 Intake Total 840 96.667 Output Total 100 Balance 840 -3.333 Weight 82.5 kg 80.5 kg Intake: IV 160 .9 160 Intake, IV Titration 100 96.667 Amount Diltiazem 125 mg In 96.667 Sodium Chloride 0.9% 100 ml @ 5 MG/HR 5 mls/hr IV .Q24H [facility] Rx#:[id number] Piperacillin-Tazobactam 3 100 .375 gm In Sodium Chloride 0.9% 100 ml @ 25 mls/hr IVPB Q8HR [facility] Rx# :[id number] Oral 580 Output: Urine 100 Other: Voiding Method External Catheter External Catheter # Voids 1 1 # Bowel Movements 0 1 - Labs CBC & Chem 7: 11/22/23 06:07 11/22/23 06:07 Labs: Abnormal Lab Results - Last 24 Hours (Table) 11/21/23 11/21/23 11/21/23 Range/Units 15:24 15:24 16:17 WBC (3.8-10.6) k/uL RBC (3.80-5.40) m/uL Hgb (11.4-16.0) gm/dL Hct (34.0-46.0) % RDW (11.5-15.5) % Neutrophils # (1.3-7.7) k/uL Sodium (137-145) mmol/L BUN (7-17) mg/dL Glucose (74-99) mg/dL POC Glucose (mg/dL) 264 H (70-110) mg/dL Calcium (8.4-10.2) mg/dL C-Reactive Protein 7.1 H (<1.0) mg/dL Procalcitonin 0.16 H (0.02-0.09) ng/mL Urine Protein (Negative) Urine Glucose (UA) (Negative) 11/21/23 11/21/23 11/22/23 Range/Units 18:20 20:28 06:07 WBC (3.8-10.6) k/uL RBC (3.80-5.40) m/uL Hgb (11.4-16.0) gm/dL Hct (34.0-46.0) % RDW (11.5-15.5) % Neutrophils # (1.3-7.7) k/uL Sodium 136 L (137-145) mmol/L BUN 24 H (7-17) mg/dL Glucose 131 H (74-99) mg/dL POC Glucose (mg/dL) 213 H (70-110) mg/dL Calcium 8.3 L (8.4-10.2) mg/dL C-Reactive Protein (<1.0) mg/dL Procalcitonin (0.02-0.09) ng/mL Urine Protein Trace H (Negative) Urine Glucose (UA) 2+ H (Negative) 11/22/23 11/22/23 11/22/23 Range/Units 06:07 06:15 11:21 WBC 16.7 H (3.8-10.6) k/uL RBC 2.64 L (3.80-5.40) m/uL Hgb 8.1 L (11.4-16.0) gm/dL Hct 26.0 L (34.0-46.0) % RDW 16.0 H (11.5-15.5) % Neutrophils # 13.0 H (1.3-7.7) k/uL Sodium (137-145) mmol/L BUN (7-17) mg/dL Glucose (74-99) mg/dL POC Glucose (mg/dL) 150 H 244 H (70-110) mg/dL Calcium (8.4-10.2) mg/dL C-Reactive Protein (<1.0) mg/dL Procalcitonin (0.02-0.09) ng/mL Urine Protein (Negative) Urine Glucose (UA) (Negative) Assessment and Plan Plan: Assessment: 1. Acute kidney injury secondary to ATN secondary to hypotension and acute blood loss anemia. No hydronephrosis noted on kidney ultrasound. UA fairly benign. Renal function improving. Creatinine 0.87 yesterday. Nonoliguric. 2. Acute blood loss anemia status post blood transfusion this admission. 3. 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 4. Status post right total hip arthroplasty. 5. Metabolic acidosis secondary to acute kidney injury status post bicarb drip. Resolved. 6. Hypokalemia from intracellular shifting from IV bicarb. Replaced. Improved. 7. Hypomagnesemia from poor intake. On oral magnesium oxide. Also received IV magnesium replacement. 8. Benign hypertension. Better controlled. Plan: Off IV fluids. Encouraged oral intake. Avoid nephrotoxins. Replace electrolytes as needed.
--- NOTE | 2023-11-22 14:27 | P.PN ---
Subjective Progress Note Date: 11/22/23 88-year-old white female with past medical history significant for hypertension, osteoarthritis, and right lower extremity DVT. Patient recently diagnosed with right lower extremity DVT in March,, and she was placed on Eliquis. Eliquis was placed on hold 5 days prior to an elective right total hip arthroplasty. Patient was brought in yesterday for an elective right direct anterior total hip arthroplasty. While in PACU postoperatively, the patient could not move her left arm. A code stroke was initiated. Noncontrast brain CT did not show any acute intracranial abnormality, no hemorrhage or mass effect. Brain CTA showed mild approximately 40% left ICA stenosis, otherwise no large vessel intracranial arterial occlusion or aneurysmal change. Patient was evaluated by neuro-interventionalists, and risks outweighed benefits for thrombolytics. There were also some incidental pulmonary findings, warranting a dedicated film. Chest CTA showed a couple small pulmonary emboli within the right upper and lower lung gonzalez. No CT evidence of right-sided heart strain. There is also some bilateral atelectasis. The surgeon and Dr. Saldana discussed CT findings and the patient was ultimately started on a heparin infusion per protocol. Patient was also hypertensive postoperatively, and started on a Cleviprex infusion to be titrated to maintain systolic blood pressure of 170 or less to allow for permissive hypertension. Patient was transferred to the intensive care unit from PACU. Patient is currently lying in bed, on 6 L/min nasal cannula, in no acute distress. SpO2 currently 99%. Postoperative ABG showed a PaO2 of 77, pCO2 of 54, and pH of 7.25. She was temporarily on BiPAP support. No signs of hypercapnic encephalopathy. No focal neurological deficits. Patient's left upper extremity weakness has resolved. Overall, neurological exam is benign, consider TIA. Blood pressure is now normotensive. Heart rhythm is normal sinus on bedside monitor. Patient denies any chest pain. No lightheadedness or syncope. No coughing or hemoptysis. Postsurgical dressing is clean, dry, and intact. There is some nikki-incisional swelling. Neurovascular status intact. No obvious hematoma. Postoperative CBC: WBC count 15.8, hemoglobin 11.1, hematocrit 33.8, platelets 226. aPTT supratherapeutic, and heparin and was adjusted per protocol. Postoperative BMP: Sodium 137, testing 3.4, chloride 107, serum bicarb 22, BUN 21, creatinine 0.77, glucose 206. Magnesium 1.4. Electrolytes are being replaced. Troponins less 0.012. 24-hour interval change 11/22/2023 Patient is seen and evaluated in room at bedside; discussed with nursing staff; patient has been refusing PEG tube placement; according to chart, surgery is on board and patient is scheduled for PEG placement on Friday Patient continues to have very poor oral intake but insisting on no PEG tube placement Vital signs are reviewed and are stable Repeat blood work reveals WBC 16.7, hemoglobin 9.1. Potassium 4.7, BUN 24 creatinine 0.79. Patient remains on amiodarone 200 mg twice daily along with Toprol 50 mg twice daily for rate control and Eliquis 5 mg twice daily for anticoagulation --Currently on IV Zosyn for aspiration pneumonia; has been evaluated by RATING CLERK and failed modified barium swallow -- Patient remains adamant about no feeding tube placement Objective - Vital Signs Vital signs: Vital Signs Temp 98.5 F 11/22/23 08:04 Pulse 92 11/22/23 09:10 Resp 18 11/22/23 08:04 BP 148/65 11/22/23 08:04 Pulse Ox 96 11/22/23 08:04 FiO2 50 11/12/23 20:01 Intake & Output 11/21/23 11/22/23 11/22/23 18:59 06:59 18:59 Intake Total 840 96.667 Output Total 100 Balance 840 -3.333 Weight 82.5 kg 80.5 kg Intake: IV 160 .9 160 Intake, IV Titration 100 96.667 Amount Diltiazem 125 mg In 96.667 Sodium Chloride 0.9% 100 ml @ 5 MG/HR 5 mls/hr IV .Q24H [facility] Rx#:[id number] Piperacillin-Tazobactam 3 100 .375 gm In Sodium Chloride 0.9% 100 ml @ 25 mls/hr IVPB Q8HR [facility] Rx# :[id number] Oral 580 Output: Urine 100 Other: Voiding Method External Catheter # Voids 1 1 # Bowel Movements 0 1 - Exam Patient is lying in the bed comfortably, no acute distress, awake alert and oriented. Became lethargic.. HEENT: Normocephalic. Neck is supple. Pupils reactive. Nostrils clear. Oral cavity is moist. Neck reveals no JVD, carotid bruits, or thyromegaly. CHEST EXAMINATION: Trachea is central. Symmetrical expansion. Bibasilar diminished sounds. CARDIAC: Normal S1, S2 with no gallops. No murmurs ABDOMEN: Soft. Bowel sounds normal. No organomegaly. No abdominal bruits. Extremities: reveal no edema. No clubbing or cyanosis Neurologically awake, alert, oriented x3. Able to move all extremities. No gross focal deficits noted Skin: No rash or skin lesions. Psychiatric: Coperative. Nonsuicidal Musculoskeletal: No joint swelling or deformity. - Labs CBC & Chem 7: 11/22/23 06:07 11/22/23 06:07 Labs: Abnormal Lab Results - Last 24 Hours (Table) 11/21/23 11/21/23 11/21/23 Range/Units 09:05 09:05 11:03 WBC 17.3 H (3.8-10.6) k/uL RBC 2.98 L (3.80-5.40) m/uL Hgb 9.1 L (11.4-16.0) gm/dL Hct 29.6 L (34.0-46.0) % MCHC 30.6 L (31.0-37.0) g/dL RDW 15.7 H (11.5-15.5) % Neutrophils # 13.9 H (1.3-7.7) k/uL Monocytes # 1.1 H (0-1.0) k/uL Sodium (137-145) mmol/L BUN 23 H (7-17) mg/dL Glucose 176 H (74-99) mg/dL POC Glucose (mg/dL) 238 H (70-110) mg/dL Calcium (8.4-10.2) mg/dL C-Reactive Protein (<1.0) mg/dL Procalcitonin (0.02-0.09) ng/mL Urine Protein (Negative) Urine Glucose (UA) (Negative) 11/21/23 11/21/23 11/21/23 Range/Units 15:24 15:24 16:17 WBC (3.8-10.6) k/uL RBC (3.80-5.40) m/uL Hgb (11.4-16.0) gm/dL Hct (34.0-46.0) % MCHC (31.0-37.0) g/dL RDW (11.5-15.5) % Neutrophils # (1.3-7.7) k/uL Monocytes # (0-1.0) k/uL Sodium (137-145) mmol/L BUN (7-17) mg/dL Glucose (74-99) mg/dL POC Glucose (mg/dL) 264 H (70-110) mg/dL Calcium (8.4-10.2) mg/dL C-Reactive Protein 7.1 H (<1.0) mg/dL Procalcitonin 0.16 H (0.02-0.09) ng/mL Urine Protein (Negative) Urine Glucose (UA) (Negative) 11/21/23 11/21/23 11/22/23 Range/Units 18:20 20:28 06:07 WBC (3.8-10.6) k/uL RBC (3.80-5.40) m/uL Hgb (11.4-16.0) gm/dL Hct (34.0-46.0) % MCHC (31.0-37.0) g/dL RDW (11.5-15.5) % Neutrophils # (1.3-7.7) k/uL Monocytes # (0-1.0) k/uL Sodium 136 L (137-145) mmol/L BUN 24 H (7-17) mg/dL Glucose 131 H (74-99) mg/dL POC Glucose (mg/dL) 213 H (70-110) mg/dL Calcium 8.3 L (8.4-10.2) mg/dL C-Reactive Protein (<1.0) mg/dL Procalcitonin (0.02-0.09) ng/mL Urine Protein Trace H (Negative) Urine Glucose (UA) 2+ H (Negative) 11/22/23 11/22/23 Range/Units 06:07 06:15 WBC 16.7 H (3.8-10.6) k/uL RBC 2.64 L (3.80-5.40) m/uL Hgb 8.1 L (11.4-16.0) gm/dL Hct 26.0 L (34.0-46.0) % MCHC (31.0-37.0) g/dL RDW 16.0 H (11.5-15.5) % Neutrophils # 13.0 H (1.3-7.7) k/uL Monocytes # (0-1.0) k/uL Sodium (137-145) mmol/L BUN (7-17) mg/dL Glucose (74-99) mg/dL POC Glucose (mg/dL) 150 H (70-110) mg/dL Calcium (8.4-10.2) mg/dL C-Reactive Protein (<1.0) mg/dL Procalcitonin (0.02-0.09) ng/mL Urine Protein (Negative) Urine Glucose (UA) (Negative) Assessment and Plan Assessment: New onset paroxysmal atrial fibrillation with RVR. Rate is controlled. Acute hypoxic respiratory failure secondary to acute pulmonary embolism. status post IVC filter placement because of contraindication for IV heparinongoing bleeding requiring multiple blood transfusions Acute blood loss anemia likely due to recent surgery. Hemoglobin is fairly stable now. Status post right total hip arthroplasty. Postoperative day 8 Left-sided weakness possible TIA resolved now. Acute kidney injury secondary to ATN due to hypotension and acute blood loss anemia. Improving. Possible bilateral pneumonia consider aspiration Labile hypertension and hypotension currently stable fairly Anemia Diabetes type 2 Elevated troponin level possible type II [place] History of DVT/PE on Eliquis at home. Hypokalemia. Replaced. DVT prophylaxis patient is on heparin subcu Plan: Currently on IV hydration and encourage oral intake. Heart rate is controlled. Imaging drip has been discontinued. Patient is being continued on metoprolol. Patient was started on Eliquis. Monitor H&H. Patient has been continued on metoprolol and DuoNeb's and antibiotics in the form of Zosyn for possible aspiration. Cardiac pain management. PT OT and follow-up closely. General surgery is planning for EGD due to dysphagia, patient was seen by RATING CLERK and is on pured diet Cardiology, pulmonary and nephrology is on board.
--- NOTE | 2023-11-22 15:11 | P.PN ---
Subjective Progress Note Date: 11/22/23 Principal diagnosis: Arthritis, right hip. Patient is an 88-year-old white female with past medical history significant for hypertension, osteoarthritis, and right lower extremity DVT. Patient recently diagnosed with right lower extremity DVT in March,, and she was placed on Eliquis. Eliquis was placed on hold 5 days prior to an elective right total hip arthroplasty. Patient was brought in yesterday for an elective right direct anterior total hip arthroplasty. While in PACU postoperatively, the patient could not move her left arm. A code stroke was initiated. Noncontrast brain CT did not show any acute intracranial abnormality, no hemorrhage or mass effect. Brain CTA showed mild approximately 40% left ICA stenosis, otherwise no large vessel intracranial arterial occlusion or aneurysmal change. Patient was evaluated by neuro-interventionalists, and risks outweighed benefits for thrombolytics. There were also some incidental pulmonary findings, warranting a dedicated film. Chest CTA showed a couple small pulmonary emboli within the right upper and lower lung gonzalez. No CT evidence of right-sided heart strain. There is also some bilateral atelectasis. The surgeon and Dr. Saldana discussed CT findings and the patient was ultimately started on a heparin infusion per protocol. Patient was also hypertensive postoperatively, and started on a Cl eviprex infusion to be titrated to maintain systolic blood pressure of 170 or less to allow for permissive hypertension. Patient was transferred to the intensive care unit from PACU. Patient is currently lying in bed, on 6 L/min nasal cannula, in no acute distress. SpO2 currently 99%. Postoperative ABG showed a PaO2 of 77, pCO2 of 54, and pH of 7.25. She was temporarily on BiPAP support. No signs of hypercapnic encephalopathy. No focal neurological deficits. Patient's left upper extremity weakness has resolved. Overall, neurological exam is benign, consider TIA. Blood pressure is now normotensive. Heart rhythm is normal sinus on bedside monitor. Patient denies any chest pain. No lightheadedness or syncope. No coughing or hemoptysis. Postsurgical dressing is clean, dry, and intact. There is some nikki-incisional swelling. Neurovascular status intact. No obvious hematoma. Postoperative CBC: WBC count 15.8, hemoglobin 11.1, hematocrit 33.8, platelets 226. aPTT supratherapeutic, and heparin and was adjusted per protocol. Postoperative BMP: Sodium 137, testing 3.4, chloride 107, serum bicarb 22, BUN 21, creatinine 0.77, glucose 206. Magnesium 1.4. Electrolytes are being replaced. Troponins less 0.012. Patient will continue to be monitored in the intensive care unit at least overnight. Patient reevaluated today on 11/14/2023, patient remains in the ICU, she is marginal at best. Patient required close for 3 units of packed RBCs and her last hemoglobin is 7.3. Patient is still requiring norepinephrine at 0.07 mcg/kg/min IV fluid is running D5W with 3 A of bicarb at 75 cc/h. Last night she had to be on BiPAP 10/5/50%, presently on 8 L high flow nasal cannula blood pressure is 109/59, mean arterial pressure of 67. However the patient is requiring norepinephrine to adequately maintain good blood pressure. WBC count this morning is 21.9 hemoglobin is 7.3. PTT is 93.9. Her bicarb is 14 BUN is 32 creatinine is 2.19, blood sugar is 201 patient had normal creatinine on admission 11/12/2023, however the patient did develop acute kidney injury most likely secondary to episodes of hypotension requiring pressors. Chest x-ray this morning showed no evidence of congestive heart failure, no pneumonia, right hemidiaphragm seems to be relatively elevated. Patient was reevaluated today on 11/15/2023, patient remains in the ICU, continues to have ongoing bleeding with drop in hemoglobin down to 6.3 today, and I am recommending another unit of packed RBCs to be given today. Obviously the patient is unable to tolerate heparin considering her recent surgery, and she continues to have bleeding most likely into the surgical site/right hip. At this point I believe the patient has absolute current indication to heparin, and I am planning to arrange for vascular surgery to visit to see the patient for possible IVC filter. In addition the patient is developing worsening L kidney injury, and need to have nephrology consultation, her urine output is extremely poor and the patient is getting to be oliguric 60 mg of Lasix was ordered, patient received lots of fluids and blood products since admission. Procalcitonin level is 1.20, antibiotic cefazolin empirically. Patient is still requiring norepinephrine at 0.02 mcg/kg/min to maintain adequate blood pressure, and she is on bicarb drip at 75 cc/h. Heparin is presently on hold. Patient has received already 3 units of packed RBCs since admission to the ICU with acute pulmonary embolism. And DVT. WBC count is 20.1 hemoglobin 6.3 basic metabolic profile is normal BUN is 45 creatinine 3.09 PTT was 75 chest x-ray does not show any evidence of congestive heart failure, but does show left ba silar atelectasis Patient was reevaluated today on 11/16/2023, patient is feeling much better today. Her urine output has picked up on its own and now is about 50 cc/h. She had 200 cc in the last few hours. Patient is now off IV heparin, but I would recommend at least subcu heparin for now she had IVC filter placed. Her renal functioning is improving with creatinine down to 2.4. Hemoglobin is holding, it is today 8.7.However the patient did receive a total of 4 units of packed RBCs after her surgery for postoperative bleeding after she was placed on heparin. Patient is also off pressors, not requiring any norepinephrine, it is presently on hold she is on 2 L nasal cannula, she is on D5 4 5 at 75 cc/h her urine output again is excellent, patient remains on Zosyn today I added heparin subcu 5000 units subcu every 8 hours WBC count today 13.5 hemoglobin 8.7 platelets are 131 basic metabolic profile is normal BUN is 49 creatinine 2.47. Chest x-ray showed hypoventilatory changes, left basilar opacity/atelectasis, minimal prominence of the pulmonary vasculature but has improved compared to 2 days ago The patient is seen today November 17, 2023 in follow-up on the regular medical [facility] or. She is sitting up in bed. Awake and alert in no acute distress. Maintaining good O2 saturations in the 90s on 2 L/min per nasal cannula. She is status post 4 units of packed red blood cells this admission. Current hemoglobin 7.8. Platelets 137. White count 10.9. Sodium 135. Potassium 3.2. Bicarb 32. BUN 41. Creatinine 2.03. Glucose 123. She remains on bronchodilators. Antibiotics in the form of Zosyn. She remained stable and off pressors. Off Cleviprex. Progress note dated November 18, 2023. The patient is seen today in room 368. The patient is currently on 2 L of oxygen. She is getting saline at 75 cc an hour. She appears to be relatively comfortable. Earlier this week, she was in the intensive care unit. Current laboratory data includes a white count 11.2, hemoglobin 7.8, hematocrit 24.3, and platelet count 163,000. Sodium 137, potassium 3.5, chlorides 108, CO2 26, BUN 41, and creatinine 1.23. Glucose is 264. Calcium is 6.6. Blood cultures are currently negative. No recent chest x-ray to review. Progress note dated November 19, 2023. The patient is seen today in room 368. She is sitting in a chair next to her hospital bed. She is in no distress. She denies any shortness of breath or difficulty breathing. She is on room air. She is not receiving any IV fluids. She denies any chest pain or chest discomfort. She appears very stable. Current labs include a sodium 138, potassium 4.5, chlorides 108, CO2 26, BUN 28, creatinine 1.14. Glucose is 246. Calcium 8, and magnesium 1.6. Progress note dated November 20, 2023. 88-year-old female seen today in room 368. Currently, the patient is on 2 L of oxygen. She is getting saline at 10 cc an hour, she continues on Zosyn. She has no specific complaints today. Current labs include a sodium 139, potassium 4.9, chlorides 111, CO2 24, BUN 25, creatinine 0.87. Anion gap is 4. Glucose 181. Calcium 8.2, magnesium 1.4. Blood cultures are currently negative. No recent chest x-ray. Progress note dated November 21, 2023. 88-year-old female seen today in room 368. The patient appears to be doing relatively well. She continues on Zosyn. She is on 2 L of oxygen. She is getting saline at 10 cc an hour. She has no specific complaints today. She appears to be in a cheerful mood. White count of 17.3, hemoglobin 9.1, hematocrit 29.6, and platelet count was normal. Sodium 137, potassium 4.6, chlorides 107, CO2 27, BUN 23, creatinine 0.89. Glucose is 238. Calcium 8.6, magnesium 1.7. Blood cultures, were negative. Progress note dated November 22, 2023. 88-year-old female seen today in room 368. Currently, the patient is on 2 L of oxygen. She is getting lactated Ringer's at 20 cc an hour. Her procalcitonin level on November 20 was 0.16. She is currently now on vancomycin. She is manifesting no signs or symptoms of respiratory distress or any distress whatsoever. Current labs include a white count of 16.7, hemoglobin 8.1, hematocrit 26, and a platelet count that is normal. Sodium 136, potassium 4.7, chlorides 107, CO2 27, BUN 24, creatinine 0.79. Glucose is 244. Magnesium is 1.6. Blood cultures have been negative. Objective - Vital Signs Vital signs: Vital Signs Temp 98.5 F 11/22/23 08:04 Pulse 76 11/22/23 13:46 Resp 18 11/22/23 13:46 BP 146/74 11/22/23 12:07 Pulse Ox 90 L 11/22/23 12:07 FiO2 50 11/12/23 20:01 Intake & Output 11/21/23 11/22/23 11/22/23 18:59 06:59 18:59 Intake Total 840 96.667 Output Total 100 Balance 840 -3.333 Weight 82.5 kg 80.5 kg Intake: IV 160 .9 160 Intake, IV Titration 100 96.667 Amount Diltiazem 125 mg In 96.667 Sodium Chloride 0.9% 100 ml @ 5 MG/HR 5 mls/hr IV .Q24H [facility] Rx#:[id number] Piperacillin-Tazobactam 3 100 .375 gm In Sodium Chloride 0.9% 100 ml @ 25 mls/hr IVPB Q8HR [facility] Rx# :[id number] Oral 580 Output: Urine 100 Other: Voiding Method External Catheter External Catheter # Voids 1 1 # Bowel Movements 0 1 - Exam No acute distress, oriented 3. Currently on 2 L, with saturations of 94 %. HEENT examination is grossly unremarkable. Mucous membranes are moist. No oral lesions. Neck supple. Full range of motion. No adenopathy thyromegaly or neck vein distention. Cardiovascular examination reveals regular rhythm rate. S1-S2 normal. No S3 or S4. No discernible murmur noted. Heart sounds are distant. Heart rate 76 bpm. Lungs reveal clear breath sounds. Breath sounds are equal bilaterally. No adventitious lung sounds including wheezes rhonchi or crackles. Saturations are 94 % on 2 L of oxygen by nasal cannula. Abdomen soft with bowel sounds. No masses or tenderness. Extremities are intact. No cyanosis clubbing or edema. Skin is without rash or lesion. Neurologic examination is brief but nonfocal. - Labs CBC & Chem 7: 11/22/23 06:07 11/22/23 06:07 Labs: Abnormal Lab Results - Last 24 Hours (Table) 11/21/23 11/21/23 11/21/23 Range/Units 15:24 15:24 16:17 WBC (3.8-10.6) k/uL RBC (3.80-5.40) m/uL Hgb (11.4-16.0) gm/dL Hct (34.0-46.0) % RDW (11.5-15.5) % Neutrophils # (1.3-7.7) k/uL Sodium (137-145) mmol/L BUN (7-17) mg/dL Glucose (74-99) mg/dL POC Glucose (mg/dL) 264 H (70-110) mg/dL Calcium (8.4-10.2) mg/dL C-Reactive Protein 7.1 H (<1.0) mg/dL Procalcitonin 0.16 H (0.02-0.09) ng/mL Urine Protein (Negative) Urine Glucose (UA) (Negative) 11/21/23 11/21/23 11/22/23 Range/Units 18:20 20:28 06:07 WBC (3.8-10.6) k/uL RBC (3.80-5.40) m/uL Hgb (11.4-16.0) gm/dL Hct (34.0-46.0) % RDW (11.5-15.5) % Neutrophils # (1.3-7.7) k/uL Sodium 136 L (137-145) mmol/L BUN 24 H (7-17) mg/dL Glucose 131 H (74-99) mg/dL POC Glucose (mg/dL) 213 H (70-110) mg/dL Calcium 8.3 L (8.4-10.2) mg/dL C-Reactive Protein (<1.0) mg/dL Procalcitonin (0.02-0.09) ng/mL Urine Protein Trace H (Negative) Urine Glucose (UA) 2+ H (Negative) 11/22/23 11/22/23 11/22/23 Range/Units 06:07 06:15 11:21 WBC 16.7 H (3.8-10.6) k/uL RBC 2.64 L (3.80-5.40) m/uL Hgb 8.1 L (11.4-16.0) gm/dL Hct 26.0 L (34.0-46.0) % RDW 16.0 H (11.5-15.5) % Neutrophils # 13.0 H (1.3-7.7) k/uL Sodium (137-145) mmol/L BUN (7-17) mg/dL Glucose (74-99) mg/dL POC Glucose (mg/dL) 150 H 244 H (70-110) mg/dL Calcium (8.4-10.2) mg/dL C-Reactive Protein (<1.0) mg/dL Procalcitonin (0.02-0.09) ng/mL Urine Protein (Negative) Urine Glucose (UA) (Negative) Assessment and Plan Assessment: Acute hypoxic respiratory failure secondary to acute pulmonary embolism. Right hip osteoarthritis S/P right anterior total hip arthroplasty postoperative day #10. History of deep vein thrombosis. Hypotension secondary to acute blood loss anemia, hypovolemia and also secondary to pulmonary embolism, no clear-cut evidence of RV strain. Acute blood loss anemia, most likely secondary to recent surgery. Status post IVC filter placement because of contraindication for IV heparinongoing bleeding requiring multiple blood transfusions. Acute leukocytosis secondary to surgery/reactive. Acute TIA, resolved with left-sided weakness. Sinus tachycardia secondary to anemia and secondary to pulmonary embolism. Acute kidney injury. Acute on chronic deep vein thrombosis. Plan: Plan dated November 18, 2023. The patient is seen today in room 368. The patient continues on oxygen at 2 L. The patient is getting saline at 75 cc an hour. Labs, x-rays, medications are reviewed. The patient was in the intensive care unit, on Friday, but transferred out to the floor, later on that day. Labs, x-rays, medications are reviewed. We will continue to follow make recommendations along the way. Prognosis is thought to be guarded. Plan dated November 19, 2023. The patient is seen today in room 368. As mentioned above, she is sitting in the chair next to her hospital bed. She is on room air. She is not receiving any IV fluids. Labs, x-rays, medications are reviewed. From the pulmonary standpoint, the patient could be considered for possible discharge. We will continue to follow the patient, and make recommendations. Prognosis is certainly guarded, given her age. Plan dated November 20, 2023. The patient is seen today in room 368. The patient appears to be relatively stable. The patient is a DO NOT RESUSCITATE patient. The patient continues on oxygen at 2 L. She is getting saline at 10 cc an hour. Primary service has her on Zosyn, daily. We will continue to follow and make recommendations along the way. Labs, x-rays, and medications are reviewed. The patient's prognosis is guarded. Plan dated November 21, 2023. The patient appears to be doing relatively well. She continues on oxygen at 2 L. She is getting saline at 10 cc an hour. She continues on Zosyn. Labs, x- rays, and medications are reviewed. The patient denies any complaints today. She denies any chest pain or chest discomfort. She denies palpitations. She also denies any shortness of breath, cough, wheezing, chest tightness, or phlegm production. All in all, she appears to be doing well. Plan dated November 22, 2023. The patient is seen today in room 368. She is laying in bed, and is very comfortable. She denies any shortness of breath, cough, wheezing, chest tightness, or phlegm production. The patient on 2 L of oxygen. She is getting lactated Ringer's at 20 cc an hour. She continues on vancomycin. Her procalcitonin level on last check was 0.16. We will continue to follow the patient, and make recommendations along the way. Time with Patient: Less than 30
[2023-11-22 16:36] LABS: Glucose,Whole Blood 236 mg/dL (70-110)
--- NOTE | 2023-11-22 17:56 | P.PN ---
Subjective Progress Note Date: 11/22/23 Patient reports having difficulty with swallowing however she also reports eating everything before her. She reports an appetite. "I do not want a feeding tube." Abdomen: No peritonitis Plan: 1. Patient reports eating most of her meals over 50%. Tube feed placement may be on hold per request of the patient. 2. For dysphagia, may benefit from upper endoscopy with dilation. Objective - Vital Signs Vital signs: Vital Signs Temp 98.5 F 11/22/23 08:04 Pulse 75 11/22/23 16:53 Resp 18 11/22/23 16:53 BP 145/54 11/22/23 16:53 Pulse Ox 93 L 11/22/23 16:53 FiO2 50 11/12/23 20:01 Intake & Output 11/21/23 11/22/23 11/22/23 18:59 06:59 18:59 Intake Total 840 96.667 Output Total 100 Balance 840 -3.333 Weight 82.5 kg 80.5 kg Intake: IV 160 .9 160 Intake, IV Titration 100 96.667 Amount Diltiazem 125 mg In 96.667 Sodium Chloride 0.9% 100 ml @ 5 MG/HR 5 mls/hr IV .Q24H [facility] Rx#:[id number] Piperacillin-Tazobactam 3 100 .375 gm In Sodium Chloride 0.9% 100 ml @ 25 mls/hr IVPB Q8HR [facility] Rx# :[id number] Oral 580 Output: Urine 100 Other: Voiding Method External Catheter External Catheter # Voids 1 1 # Bowel Movements 0 1 - Labs CBC & Chem 7: 11/22/23 06:07 11/22/23 06:07 Labs: Abnormal Lab Results - Last 24 Hours (Table) 11/21/23 11/21/23 11/21/23 Range/Units 15:24 18:20 20:28 WBC (3.8-10.6) k/uL RBC (3.80-5.40) m/uL Hgb (11.4-16.0) gm/dL Hct (34.0-46.0) % RDW (11.5-15.5) % Neutrophils # (1.3-7.7) k/uL Sodium (137-145) mmol/L BUN (7-17) mg/dL Glucose (74-99) mg/dL POC Glucose (mg/dL) 213 H (70-110) mg/dL Calcium (8.4-10.2) mg/dL Procalcitonin 0.16 H (0.02-0.09) ng/mL Urine Protein Trace H (Negative) Urine Glucose (UA) 2+ H (Negative) 11/22/23 11/22/23 11/22/23 Range/Units 06:07 06:07 06:15 WBC 16.7 H (3.8-10.6) k/uL RBC 2.64 L (3.80-5.40) m/uL Hgb 8.1 L (11.4-16.0) gm/dL Hct 26.0 L (34.0-46.0) % RDW 16.0 H (11.5-15.5) % Neutrophils # 13.0 H (1.3-7.7) k/uL Sodium 136 L (137-145) mmol/L BUN 24 H (7-17) mg/dL Glucose 131 H (74-99) mg/dL POC Glucose (mg/dL) 150 H (70-110) mg/dL Calcium 8.3 L (8.4-10.2) mg/dL Procalcitonin (0.02-0.09) ng/mL Urine Protein (Negative) Urine Glucose (UA) (Negative) 11/22/23 11/22/23 Range/Units 11:21 16:34 WBC (3.8-10.6) k/uL RBC (3.80-5.40) m/uL Hgb (11.4-16.0) gm/dL Hct (34.0-46.0) % RDW (11.5-15.5) % Neutrophils # (1.3-7.7) k/uL Sodium (137-145) mmol/L BUN (7-17) mg/dL Glucose (74-99) mg/dL POC Glucose (mg/dL) 244 H 236 H (70-110) mg/dL Calcium (8.4-10.2) mg/dL Procalcitonin (0.02-0.09) ng/mL Urine Protein (Negative) Urine Glucose (UA) (Negative)
[2023-11-22] MEDS: LACTATED RINGERS 1,000 ML IV SCH (18:01)
[2023-11-22 20:11] LABS: Glucose,Whole Blood 167 mg/dL (70-110)
[2023-11-22] MEDS: ACETAMINOPHEN TAB 325 MG TAB PO PRN (21:36)
--- NOTE | 2023-11-22 21:58 | P.PN ---
Subjective Progress Note Date: 11/22/23 Principal diagnosis: Reason for follow-up with leukocytosis Patient is a 88-year-old female past medical history significant for diabetes mellitus hypertension osteoarthritis DVT who was electively admitted to the hospital for right hip replacement that was completed on 11/12/2023 patient since then has been in the hospital with multiple medical condition and has been evaluated by multiple consultants, patient did have a worsening acidosis prompting this consultation. Nursing staff reported patient had right arm IV went bad and did have some swelling and some erythema to the right hand. On today's evaluation that is 11/22/2023, Patient is afebrile patient is cu rrently on room air and denies having any shortness of breath, the patient denies any chest pain or cough, the patient denies any nausea vomiting did not have any abdominal pain and no diarrhea, denies any worsening pain to the right hip area minimal discomfort to the right hand. Patient white count 16.7, creatinine 0.79 blood cultures currently pending Objective - Vital Signs Vital signs: Vital Signs Temp 98.5 F 11/22/23 08:04 Pulse 81 11/22/23 09:54 Resp 18 11/22/23 09:54 BP 148/65 11/22/23 08:04 Pulse Ox 96 11/22/23 08:04 FiO2 50 11/12/23 20:01 Intake & Output 11/21/23 11/22/23 11/22/23 18:59 06:59 18:59 Intake Total 840 96.667 Output Total 100 Balance 840 -3.333 Weight 82.5 kg 80.5 kg Intake: IV 160 .9 160 Intake, IV Titration 100 96.667 Amount Diltiazem 125 mg In 96.667 Sodium Chloride 0.9% 100 ml @ 5 MG/HR 5 mls/hr IV .Q24H [facility] Rx#:[id number] Piperacillin-Tazobactam 3 100 .375 gm In Sodium Chloride 0.9% 100 ml @ 25 mls/hr IVPB Q8HR [facility] Rx# :[id number] Oral 580 Output: Urine 100 Other: Voiding Method External Catheter External Catheter # Voids 1 1 # Bowel Movements 0 1 - Exam GENERAL DESCRIPTION: An elderly female lying in bed in no distress RESPIRATORY SYSTEM: Unlabored breathing , decreased breath sounds at bases HEART: S1 S2 regular rate and rhythm , ABDOMEN: Soft , no tenderness EXTREMITIES: Right upper arm with minimal swelling right hand dorsum minimal redness did have some bruising to the left forearm - Labs CBC & Chem 7: 11/22/23 06:07 11/22/23 06:07 Labs: Abnormal Lab Results - Last 24 Hours (Table) 11/21/23 11/21/23 11/21/23 Range/Units 15:24 15:24 16:17 WBC (3.8-10.6) k/uL RBC (3.80-5.40) m/uL Hgb (11.4-16.0) gm/dL Hct (34.0-46.0) % RDW (11.5-15.5) % Neutrophils # (1.3-7.7) k/uL Sodium (137-145) mmol/L BUN (7-17) mg/dL Glucose (74-99) mg/dL POC Glucose (mg/dL) 264 H (70-110) mg/dL Calcium (8.4-10.2) mg/dL C-Reactive Protein 7.1 H (<1.0) mg/dL Procalcitonin 0.16 H (0.02-0.09) ng/mL Urine Protein (Negative) Urine Glucose (UA) (Negative) 11/21/23 11/21/23 11/22/23 Range/Units 18:20 20:28 06:07 WBC (3.8-10.6) k/uL RBC (3.80-5.40) m/uL Hgb (11.4-16.0) gm/dL Hct (34.0-46.0) % RDW (11.5-15.5) % Neutrophils # (1.3-7.7) k/uL Sodium 136 L (137-145) mmol/L BUN 24 H (7-17) mg/dL Glucose 131 H (74-99) mg/dL POC Glucose (mg/dL) 213 H (70-110) mg/dL Calcium 8.3 L (8.4-10.2) mg/dL C-Reactive Protein (<1.0) mg/dL Procalcitonin (0.02-0.09) ng/mL Urine Protein Trace H (Negative) Urine Glucose (UA) 2+ H (Negative) 04/11/22/23 11/22/23 Range/Units 06:07 06:15 11:21 WBC 16.7 H (3.8-10.6) k/uL RBC 2.64 L (3.80-5.40) m/uL Hgb 8.1 L (11.4-16.0) gm/dL Hct 26.0 L (34.0-46.0) % RDW 16.0 H (11.5-15.5) % Neutrophils # 13.0 H (1.3-7.7) k/uL Sodium (137-145) mmol/L BUN (7-17) mg/dL Glucose (74-99) mg/dL POC Glucose (mg/dL) 150 H 244 H (70-110) mg/dL Calcium (8.4-10.2) mg/dL C-Reactive Protein (<1.0) mg/dL Procalcitonin (0.02-0.09) ng/mL Urine Protein (Negative) Urine Glucose (UA) (Negative) Assessment and Plan (1) Leukocytosis Current Visit: Yes Status: Acute Code(s): D72.829 - ELEVATED WHITE BLOOD CELL COUNT, UNSPECIFIED SNOMED Code(s): 269317407 Plan: 1patient with elevated white count this patient electively presented to the hospital on 11/12/2023 about 10 days ago for right hip replacement which was completed now with evidence of elevated white count no significant fever patient does not look toxic lungs clear to auscultation surgical site with some swelling but no redness abdominal soft question reactive versus oropharyngeal candidiasis 2-we are currently waiting for the CRP and procalcitonin, patient to continue nystatin 3-with concern for possible right hand cellulitis we will discontinue Zosyn and add vancomycin and see clinical response Dictation was produced using [employer] dictation software. please excuse any grammatical, word or spelling errors. Time with Patient: Less than 30
[2023-11-23 06:15] LABS: Glucose,Whole Blood 154 mg/dL (70-110)
[2023-11-23 07:41] LABS: Basophils % (A) 0 %; Eosinophils # (A) 0.3 k/uL (0-0.7); Eosinophils % (A) 2 %; HCT 26.1 % (34.0-46.0); HGB 8.2 gm/dL (11.4-16.0); Hypochromasia Slight; Lymphocytes # (A) 1.5 k/uL (1.0-4.8); Lymphocytes % (A) 9 %; MCH 30.7 pg (25.0-35.0); MCHC 31.5 g/dL (31.0-37.0); MCV 97.6 fL (80.0-100.0); Macrocytosis Slight; Mean Platelet Volume 8.2; Monocytes # (A) 0.8 k/uL (0-1.0); Monocytes % (A) 5 %; Neutrophils # (A) 12.8 k/uL (1.3-7.7); Neutrophils % (A) 82 %; Platelet Count 329 k/uL (150-450); RBC 2.68 m/uL (3.80-5.40); RDW 15.9 % (11.5-15.5); WBC 15.7 k/uL (3.8-10.6)
[2023-11-23 08:01] LABS: African American GFR (CKD) 72 (>60 ml/min/1.73 sqM); Non-African American GFR(CKD) 63 (>60 ml/min/1.73 sqM)
[2023-11-23] MEDS: amLODIPine 5 MG TAB PO STA (09:16)
[2023-11-23] MEDS: amLODIPine 10 MG TAB PO SCH (09:17)
--- NOTE | 2023-11-23 10:06 | P.PN ---
Progress Note - Text Progress Note Date: 11/23/23 Orthopedics: History of present illness: Patient is a very pleasant 88-year-old female who is seen and examined the bedside for follow-up evaluation of her right hip. She is status post right total hip arthroplasty performed on 11/12/2023. She currently does not have any complaints specifically in regards to her right hip. She has been able to mobilize with physical therapy. She has been able to utilize a walker to aid in ambulation. Dressing remains clean, dry, and intact over the right hip. She has no new complaints in regards to her right hip. Patient states IV was placed at her left hand and has since been removed. She is having some pain at the IV site with swelling throughout the fingers of the right hand, right hand, right wrist, right forearm, and up to the right humerus. She also has IV in place at the right cubital fossa. There is mild erythema at the back of the right hand but no obvious cellulitis radiating up the right upper extremity. She has not had any significant change in regards to her right upper extremity. She continues to be seen and examined by Dr. Willis and infectious disease. He has changed her IV antibiotics to vancomycin. We would plan for infectious disease to continue managing antibiotic medications. We did discuss we do not see any obvious fluid collection at her right upper extremity in which incision and drainage would provide any significant benefit. We will continue with conservative treatment for her right upper extremity. Patient is known to have sustained a pulmonary embolism and had a [place] filter placed. She is being seen by multiple medical providers including medicine, pulmonology, general surgery, infectious disease, and nephrology. Documentation states patient has had some difficulty with swallowing is currently scheduled for PEG tube placement this coming 11/24/2023. Patient states currently she does not wish to have PEG tube placement. Patient was seen and examined by Dr. Olivarez yesterday and patient and nursing states she refused PEG tube placement for tomorrow. Patient states when cleared by all medical providers, she is planning for discharge home. Physical Exam Total Hip Arthroplasty: Status post surgical day number 11 Patient is examined sitting bedside upright in a chair Patient is awake and alert, and oriented 3 Vital signs stable Good chest excursion with deep inspiration and expiration No signs or symptoms of DVT; no calf pain Lower extremity cuffs not currently in place bilaterally Dressing of the right hip is clean, dry, and intact; no erythema, purulence, or signs of infection Full range of motion of ankles bilaterally Dorsiflexion, plantarflexion, and extensor hallucis longus positive sustained bilaterally Neurovascularly intact bilateral lower extremities Evidence of swelling over the fingers of the right hand, right hand, right wrist, right forearm, and distal half of the right humerus Some pain with palpation over the dorsal aspect of the right hand near the previous IV site No palpable fluid collection with palpation over the right upper extremity Some induration around the right elbow Some erythema over the dorsum of the right hand without extension of the right upper extremity Assessment: Status post right total hip arthroplasty Pulmonary embolism Recent [place] filter placement Right upper extremity swelling and pain status post IV placement at the right hand Mild erythema over the dorsum of the right hand near previous IV placement site Paroxysmal atrial fibrillation with RVR Acute hypoxic respiratory failure secondary to acute pulmonary embolism Acute kidney injury Anemia Type 2 diabetes 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 1. Patient to continue to be weight-bear as tolerated on the right lower extremity; patient may work with physical therapy to increase mobility and ambulation 2. Continue pain control 3. Patient states IV was placed at her left hand and has since been removed. She is having some pain at the IV site with swelling throughout the fingers of the right hand, right hand, right wrist, right forearm, and up to the right humerus. She also has IV in place at the right cubital fossa. There is mild erythema at the back of the right hand but no obvious cellulitis radiating up the right upper extremity. She has not had any significant change in regards to her right upper extremity. She continues to be seen and examined by Dr. Willis and infectious disease. He has changed her IV antibiotics to vancomycin. We would plan for infectious disease to continue managing antibiotic medications. We did discuss we do not see any obvious fluid collection at her right upper extremity in which incision and drainage would provide any significant benefit. We will continue with conservative treatment for her right upper extremity. 4. Multiple medical providers will continue to follow the patient for her significant multiple other medical diagnoses 5. Continue with with anticoagulation therapy Eliquis as prescribed 6. Patient will continue be seen and examined by infectious disease who will manage her antibiotics and also further address her right upper extremity swelling with some erythema at the dorsum of the right hand without palpable fluid collection. She is currently on vancomycin. 7. Patient will continue to be seen and examined in regards to her difficulty with swallowing. They currently planning for PEG tube placement this coming Friday. Patient is not currently sure she would like to proceed forward with this. Patient is currently refusing PEG tube placement. She will follow with general surgery. 8. Patient will most likely remain in the hospital over the weekend until cleared by multiple other medical providers. Patient states she would like to be discharged home when cleared. 9. Patient can follow-up with Dr. Brownlee at [facility] in 2-3 weeks following discharge
--- NOTE | 2023-11-23 10:58 | P.PN ---
Subjective Progress Note Date: 11/23/23 Patient is seen in follow-up for acute kidney injury. Renal function improved. Oral intake fair. Nonoliguric. Denies chest pain or shortness of breath. No new complaints. Vital signs are stable. General: No acute distress. HEENT: Head exam is unremarkable. On nasal cannula. LUNGS: No audible rhonchi or wheezes. HEART: Rate and Rhythm are regular. ABDOMEN: Nontender. EXTREMITITES: Trace edema. Objective - Vital Signs Vital signs: Vital Signs Temp 98.5 F 11/23/23 04:00 Pulse 76 11/23/23 09:03 Resp 19 11/23/23 07:58 BP 147/69 11/23/23 07:58 Pulse Ox 95 11/23/23 07:58 FiO2 50 11/12/23 20:01 Intake & Output 11/22/23 11/23/23 11/23/23 18:59 06:59 18:59 Intake Total 180 Output Total 200 Balance -20 Weight 85.5 kg Intake: Oral 180 Output: Urine 200 Other: Voiding Method External Catheter External Catheter # Voids 1 1 # Bowel Movements 1 1 - Labs CBC & Chem 7: 11/23/23 07:06 11/23/23 07:06 Labs: Abnormal Lab Results - Last 24 Hours (Table) 11/22/23 11/22/23 11/22/23 Range/Units 11:21 16:34 20:10 WBC (3.8-10.6) k/uL RBC (3.80-5.40) m/uL Hgb (11.4-16.0) gm/dL Hct (34.0-46.0) % RDW (11.5-15.5) % Neutrophils # (1.3-7.7) k/uL POC Glucose (mg/dL) 244 H 236 H 167 H (70-110) mg/dL 11/23/23 11/23/23 Range/Units 06:13 07:06 WBC 15.7 H (3.8-10.6) k/uL RBC 2.68 L (3.80-5.40) m/uL Hgb 8.2 L (11.4-16.0) gm/dL Hct 26.1 L (34.0-46.0) % RDW 15.9 H (11.5-15.5) % Neutrophils # 12.8 H (1.3-7.7) k/uL POC Glucose (mg/dL) 154 H (70-110) mg/dL Microbiology - Last 24 Hours (Table) 11/21/23 15:24 Blood Culture - Preliminary Blood Assessment and Plan Plan: Assessment: 1. Acute kidney injury secondary to ATN secondary to hypotension and acute blood loss anemia. No hydronephrosis noted on kidney ultrasound. UA fairly benign. Renal function improving. Creatinine 0.87. Nonoliguric. 2. Acute blood loss anemia status post blood transfusion this admission. 3. 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 4. Status post right total hip arthroplasty. 5. Metabolic acidosis secondary to acute kidney injury status post bicarb drip. Resolved. 6. Hypokalemia from intracellular shifting from IV bicarb. Replaced. Improved. 7. Hypomagnesemia from poor intake. On oral magnesium oxide. Also received IV magnesium replacement. 8. Benign hypertension. Better controlled. Plan: Off IV fluids. Encouraged oral intake. Avoid nephrotoxins. Replace electrolytes as needed. Clear for discharge form nephrology standpoint.
--- NOTE | 2023-11-23 10:59 | P.PN ---
Subjective Progress Note Date: 11/23/23 Elevated cardiac enzymes The patient is an 88-year-old female patient with a past medical history signifi cant for history of DVT she was on oral anticoagulation as an outpatient. No prior cardiac history of coronary artery disease or congestive heart failure or cardiac arrhythmia. We asked to see the patient in a consultation in the intensive care unit for sinus tachycardia as well as abnormal cardiac enzymes. The patient was admitted to the hospital and underwent an elective right hip surgery which was uneventful. During her recovery it was noted that she was unable to move her left side. Initially it was felt secondary to stroke. Stroke code was called and the patient underwent a workup including CT scan of the brain as well as carotid workup and all of that came in to be unremarkable f or acute stroke. Also the workup including CT scan showed possible small pulmonary embolism. No history of pulmonary embolism in the past. She has history of DVT. She was not on oral anticoagulation because that was interrupted before the surgery. Subsequently the patient was admitted to the in tensive care unit. It was noted that she was hypotensive requiring norepinephrine but at the same time her hemoglobin dropped significantly and her last hemoglobin from this morning is around 7. Her previous hemoglobin was 13. Currently the patient is hypotensive requiring norepinephrine. She was started on heparin IV. When she was seen and evaluated this morning her main symptoms is being tired and fatigue and no symptoms of any chest pain or chest discomfort or shortness of breath. She underwent an echocardiogram which revealed normal LV systolic function with no significant wall motion abnormalities. Cardiac enzymes were checked and came in to be slightly abnormal. We only have 1 abnormal troponin and I am going to obtain 2 more sets of troponin for further clarification. Beside that she has no EKG. Stat EKG is in process to be done. The examination revealed regular rhythm with a distant heart sounds and diminished breathing sounds bilaterally and no edema was noted in the lower extremities. Beside that the patient is in renal failure likely secondary to anemia and hypotension November 15, 2023 The patient was seen and evaluated this morning. She was anemic and she is in process of receiving 1 unit of packed RBC. Her hemoglobin was 6. She was hypotensive requiring norepinephrine but that has improved and currently she is not on any vasopressors after she received the blood. The creatinine continues to be elevated and currently nephrology is consulted to see the patient. Because of the anemia which is secondary to the hematoma by the right hip the heparin was stopped the patient is in process of having an IVC filter placement. Otherwise she is not reporting any chest pain or chest discomfort at this point. The EKG showed LBBB. The echo showed normal LV systolic function with no wall motion abnormalities and no evidence of RV strain. The examination revealed regular rhythm with a systolic murmur and clear breathing sounds bilaterally and no edema was noted. November 16, 2023 The patient was seen and evaluated this morning. She is asymptomatic. She is maintaining normal sinus mechanism. She underwent an IVC filter placement yesterday. Currently she is not on any oral anticoagulation or IV anticoagulations since she underwent the filter placement. Hemoglobin is stable and she is not bleeding anymore. The right hip hematoma has been stable. Creatinine has been trending in the right direction. She is on a statin which we will continue. Hold adding any aspirin at this point giving the hematoma/bleeding. Consider starting the patient on small dose of beta-lindsay. The examination revealed regular rhythm with a systolic murmur and diminished breathing sounds bilaterally and she does have mild bilateral lower extremities edema noted. She was given Lasix yesterday. 11/16 Cardiology was reconsulted secondary to patient going in A. fib with RVR. Patient had IVC filter placed. She does have a history of prior DVT from March at [facility] and has been on anticoagulation at home. She has however had issues with anemia after her surgery and hematoma. Therefore anticoagulation has been on hold. She admits to feeling palpitations similar to last night about once a month and usually are fairly mild to moderate symptom verma. 11/17 Orthopedics has cleared the patient to resume Eliquis. Heart rate in the 70s, blood pressure 173/72 11/21 Yesterday, we were reconsulted regarding A-fib with RVR. Patient has subse quently converted to sinus rhythm. Yesterday, patient was started on amiodarone 200 mg twice daily. She has been maintained on Eliquis. Blood pressure 148/65, heart rate in the 80s. Repeat blood work reveals WBC 16.7, hemoglobin 9.1. Potassium 4.7, BUN 24 creatinine 0.79. 11/22 Patient remains in sinus rhythm and maintained on amiodarone 200 mg twice daily. Her blood pressure 147/69. Repeat blood work reveals hemoglobin of 15.7, hemoglobin 8.2. Creatinine 0.85. Physical Examination Gen: This is an 88-year-old female in no acute distress HEENT: Head is atraumatic, normocephalic. Pupils equal, round. Sclerae is anicteric. LUNGS: Good air entry bilaterally. No intercostal retractions. HEART: Regular rate and rhythm. No murmur. EXTREMITIES: No pedal edema. No calf tenderness. NEUROLOGICAL: Patient is awake, alert. Assessment Status post right hip surgery Left-sided weakness which has improved. No acute stroke on the workup Recent diagnosis of small pulmonary embolism and deep venous thrombosis Anemia secondary to blood loss Status post IVC filter placement Evidence of myocardial injury likely secondary to anemia and type II myocardial infarction Renal failure new-onset paroxysmal atrial fibrillation with episodes of RVR Plan Continue patient on amiodarone 200 mg twice daily, and Eliquis 5 mg twice daily. Continue Toprol-XL 50 mg twice daily for rate control. Increase amlodipine to 10 mg daily for blood pressure control Continue other cardiac medications Nurse practitioner note has been reviewed, I agree with documented findings and plan of care. Patient was seen and examined. Objective - Vital Signs Vital signs: Vital Signs Temp 98.5 F 11/23/23 04:00 Pulse 76 11/23/23 07:58 Resp 19 11/23/23 07:58 BP 147/69 11/23/23 07:58 Pulse Ox 95 11/23/23 07:58 FiO2 50 11/12/23 20:01 Intake & Output 11/22/23 11/23/23 11/23/23 18:59 06:59 18:59 Intake Total 180 Output Total 200 Balance -20 Weight 85.5 kg Intake: Oral 180 Output: Urine 200 Other: Voiding Method External Catheter External Catheter # Voids 1 1 # Bowel Movements 1 1 - Labs CBC & Chem 7: 11/23/23 07:06 11/23/23 07:06 Labs: Abnormal Lab Results - Last 24 Hours (Table) 11/22/23 11/22/23 11/22/23 Range/Units 11:21 16:34 20:10 WBC (3.8-10.6) k/uL RBC (3.80-5.40) m/uL Hgb (11.4-16.0) gm/dL Hct (34.0-46.0) % RDW (11.5-15.5) % Neutrophils # (1.3-7.7) k/uL POC Glucose (mg/dL) 244 H 236 H 167 H (70-110) mg/dL 11/23/23 11/23/23 Range/Units 06:13 07:06 WBC 15.7 H (3.8-10.6) k/uL RBC 2.68 L (3.80-5.40) m/uL Hgb 8.2 L (11.4-16.0) gm/dL Hct 26.1 L (34.0-46.0) % RDW 15.9 H (11.5-15.5) % Neutrophils # 12.8 H (1.3-7.7) k/uL POC Glucose (mg/dL) 154 H (70-110) mg/dL Microbiology - Last 24 Hours (Table) 11/21/23 15:24 Blood Culture - Preliminary Blood
[2023-11-23 11:27] LABS: Glucose,Whole Blood 172 mg/dL (70-110)
--- NOTE | 2023-11-23 12:33 | P.PN ---
Subjective Progress Note Date: 11/23/23 patient [place] stable. She appears to be eating hher pured diet. On exam vital signs are stable. Abdomen soft. Patient will be observed. If she meets her caloric needs we will not place a PEG tube. Objective - Vital Signs Vital signs: Vital Signs Temp 98.5 F 11/23/23 04:00 Pulse 88 11/23/23 12:10 Resp 18 11/23/23 11:36 BP 148/65 11/23/23 11:33 Pulse Ox 91 L 11/23/23 11:36 FiO2 50 11/12/23 20:01 Intake & Output 11/22/23 11/23/23 11/23/23 18:59 06:59 18:59 Intake Total 180 120 Output Total 200 Balance -20 120 Weight 85.5 kg Intake: Oral 180 120 Output: Urine 200 Other: Voiding Method External Catheter External Catheter External Catheter # Voids 1 1 # Bowel Movements 1 1 - Labs CBC & Chem 7: 11/23/23 07:06 11/23/23 07:06 Labs: Abnormal Lab Results - Last 24 Hours (Table) 11/22/23 11/22/23 11/23/23 Range/Units 16:34 20:10 06:13 WBC (3.8-10.6) k/uL RBC (3.80-5.40) m/uL Hgb (11.4-16.0) gm/dL Hct (34.0-46.0) % RDW (11.5-15.5) % Neutrophils # (1.3-7.7) k/uL POC Glucose (mg/dL) 236 H 167 H 154 H (70-110) mg/dL 11/23/23 11/23/23 Range/Units 07:06 11:26 WBC 15.7 H (3.8-10.6) k/uL RBC 2.68 L (3.80-5.40) m/uL Hgb 8.2 L (11.4-16.0) gm/dL Hct 26.1 L (34.0-46.0) % RDW 15.9 H (11.5-15.5) % Neutrophils # 12.8 H (1.3-7.7) k/uL POC Glucose (mg/dL) 172 H (70-110) mg/dL Microbiology - Last 24 Hours (Table) 11/21/23 15:24 Blood Culture - Preliminary Blood
--- NOTE | 2023-11-23 13:03 | P.PN ---
Subjective Progress Note Date: 11/23/23 Principal diagnosis: Arthritis, right hip. Patient is an 88-year-old white female with past medical history significant for hypertension, osteoarthritis, and right lower extremity DVT. Patient recently diagnosed with right lower extremity DVT in March,, and she was placed on Eliquis. Eliquis was placed on hold 5 days prior to an elective right total hip arthroplasty. Patient was brought in yesterday for an elective right direct anterior total hip arthroplasty. While in PACU postoperatively, the patient could not move her left arm. A code stroke was initiated. Noncontrast brain CT did not show any acute intracranial abnormality, no hemorrhage or mass effect. Brain CTA showed mild approximately 40% left ICA stenosis, otherwise no large vessel intracranial arterial occlusion or aneurysmal change. Patient was evaluated by neuro-interventionalists, and risks outweighed benefits for thrombolytics. There were also some incidental pulmonary findings, warranting a dedicated film. Chest CTA showed a couple small pulmonary emboli within the right upper and lower lung gonzalez. No CT evidence of right-sided heart strain. There is also some bilateral atelectasis. The surgeon and Dr. Saldana discussed CT findings and the patient was ultimately started on a heparin infusion per protocol. Patient was also hypertensive postoperatively, and started on a Cl eviprex infusion to be titrated to maintain systolic blood pressure of 170 or less to allow for permissive hypertension. Patient was transferred to the intensive care unit from PACU. Patient is currently lying in bed, on 6 L/min nasal cannula, in no acute distress. SpO2 currently 99%. Postoperative ABG showed a PaO2 of 77, pCO2 of 54, and pH of 7.25. She was temporarily on BiPAP support. No signs of hypercapnic encephalopathy. No focal neurological deficits. Patient's left upper extremity weakness has resolved. Overall, neurological exam is benign, consider TIA. Blood pressure is now normotensive. Heart rhythm is normal sinus on bedside monitor. Patient denies any chest pain. No lightheadedness or syncope. No coughing or hemoptysis. Postsurgical dressing is clean, dry, and intact. There is some nikki-incisional swelling. Neurovascular status intact. No obvious hematoma. Postoperative CBC: WBC count 15.8, hemoglobin 11.1, hematocrit 33.8, platelets 226. aPTT supratherapeutic, and heparin and was adjusted per protocol. Postoperative BMP: Sodium 137, testing 3.4, chloride 107, serum bicarb 22, BUN 21, creatinine 0.77, glucose 206. Magnesium 1.4. Electrolytes are being replaced. Troponins less 0.012. Patient will continue to be monitored in the intensive care unit at least overnight. Patient reevaluated today on 11/14/2023, patient remains in the ICU, she is marginal at best. Patient required close for 3 units of packed RBCs and her last hemoglobin is 7.3. Patient is still requiring norepinephrine at 0.07 mcg/kg/min IV fluid is running D5W with 3 A of bicarb at 75 cc/h. Last night she had to be on BiPAP 10/5/50%, presently on 8 L high flow nasal cannula blood pressure is 109/59, mean arterial pressure of 67. However the patient is requiring norepinephrine to adequately maintain good blood pressure. WBC count this morning is 21.9 hemoglobin is 7.3. PTT is 93.9. Her bicarb is 14 BUN is 32 creatinine is 2.19, blood sugar is 201 patient had normal creatinine on admission 11/12/2023, however the patient did develop acute kidney injury most likely secondary to episodes of hypotension requiring pressors. Chest x-ray this morning showed no evidence of congestive heart failure, no pneumonia, right hemidiaphragm seems to be relatively elevated. Patient was reevaluated today on 11/15/2023, patient remains in the ICU, continues to have ongoing bleeding with drop in hemoglobin down to 6.3 today, and I am recommending another unit of packed RBCs to be given today. Obviously the patient is unable to tolerate heparin considering her recent surgery, and she continues to have bleeding most likely into the surgical site/right hip. At this point I believe the patient has absolute current indication to heparin, and I am planning to arrange for vascular surgery to visit to see the patient for possible IVC filter. In addition the patient is developing worsening L kidney injury, and need to have nephrology consultation, her urine output is extremely poor and the patient is getting to be oliguric 60 mg of Lasix was ordered, patient received lots of fluids and blood products since admission. Procalcitonin level is 1.20, antibiotic cefazolin empirically. Patient is still requiring norepinephrine at 0.02 mcg/kg/min to maintain adequate blood pressure, and she is on bicarb drip at 75 cc/h. Heparin is presently on hold. Patient has received already 3 units of packed RBCs since admission to the ICU with acute pulmonary embolism. And DVT. WBC count is 20.1 hemoglobin 6.3 basic metabolic profile is normal BUN is 45 creatinine 3.09 PTT was 75 chest x-ray does not show any evidence of congestive heart failure, but does show left ba silar atelectasis Patient was reevaluated today on 11/16/2023, patient is feeling much better today. Her urine output has picked up on its own and now is about 50 cc/h. She had 200 cc in the last few hours. Patient is now off IV heparin, but I would recommend at least subcu heparin for now she had IVC filter placed. Her renal functioning is improving with creatinine down to 2.4. Hemoglobin is holding, it is today 8.7.However the patient did receive a total of 4 units of packed RBCs after her surgery for postoperative bleeding after she was placed on heparin. Patient is also off pressors, not requiring any norepinephrine, it is presently on hold she is on 2 L nasal cannula, she is on D5 4 5 at 75 cc/h her urine output again is excellent, patient remains on Zosyn today I added heparin subcu 5000 units subcu every 8 hours WBC count today 13.5 hemoglobin 8.7 platelets are 131 basic metabolic profile is normal BUN is 49 creatinine 2.47. Chest x-ray showed hypoventilatory changes, left basilar opacity/atelectasis, minimal prominence of the pulmonary vasculature but has improved compared to 2 days ago The patient is seen today November 17, 2023 in follow-up on the regular [facility] or. She is sitting up in bed. Awake and alert in no acute distress. Maintaining good O2 saturations in the 90s on 2 L/min per nasal cannula. She is status post 4 units of packed red blood cells this admission. Current hemoglobin 7.8. Platelets 137. White count 10.9. Sodium 135. Potassium 3.2. Bicarb 32. BUN 41. Creatinine 2.03. Glucose 123. She remains on bronchodilators. Antibiotics in the form of Zosyn. She remained stable and off pressors. Off Cleviprex. Progress note dated November 18, 2023. The patient is seen today in room 368. The patient is currently on 2 L of oxygen. She is getting saline at 75 cc an hour. She appears to be relatively comfortable. Earlier this week, she was in the intensive care unit. Current laboratory data includes a white count 11.2, hemoglobin 7.8, hematocrit 24.3, and platelet count 163,000. Sodium 137, potassium 3.5, chlorides 108, CO2 26, BUN 41, and creatinine 1.23. Glucose is 264. Calcium is 6.6. Blood cultures are currently negative. No recent chest x-ray to review. Progress note dated November 19, 2023. The patient is seen today in room 368. She is sitting in a chair next to her hospital bed. She is in no distress. She denies any shortness of breath or difficulty breathing. She is on room air. She is not receiving any IV fluids. She denies any chest pain or chest discomfort. She appears very stable. Current labs include a sodium 138, potassium 4.5, chlorides 108, CO2 26, BUN 28, creatinine 1.14. Glucose is 246. Calcium 8, and magnesium 1.6. Progress note dated November 20, 2023. 88-year-old female seen today in room 368. Currently, the patient is on 2 L of oxygen. She is getting saline at 10 cc an hour, she continues on Zosyn. She has no specific complaints today. Current labs include a sodium 139, potassium 4.9, chlorides 111, CO2 24, BUN 25, creatinine 0.87. Anion gap is 4. Glucose 181. Calcium 8.2, magnesium 1.4. Blood cultures are currently negative. No recent chest x-ray. Progress note dated November 21, 2023. 88-year-old female seen today in room 368. The patient appears to be doing relatively well. She continues on Zosyn. She is on 2 L of oxygen. She is getting saline at 10 cc an hour. She has no specific complaints today. She appears to be in a cheerful mood. White count of 17.3, hemoglobin 9.1, hematocrit 29.6, and platelet count was normal. Sodium 137, potassium 4.6, chlorides 107, CO2 27, BUN 23, creatinine 0.89. Glucose is 238. Calcium 8.6, magnesium 1.7. Blood cultures, were negative. Progress note dated November 22, 2023. 88-year-old female seen today in room 368. Currently, the patient is on 2 L of oxygen. She is getting lactated Ringer's at 20 cc an hour. Her procalcitonin level on November 20 was 0.16. She is currently now on vancomycin. She is manifesting no signs or symptoms of respiratory distress or any distress whatsoever. Current labs include a white count of 16.7, hemoglobin 8.1, hematocrit 26, and a platelet count that is normal. Sodium 136, potassium 4.7, chlorides 107, CO2 27, BUN 24, creatinine 0.79. Glucose is 244. Magnesium is 1.6. Blood cultures have been negative. Progress note dated November 23, 2023. 88-year-old female seen today in room 368. The patient remains on 2 L of oxygen. She is receiving vancomycin. She is getting LR 20 cc an hour, and she continues on Cardizem for her atrial fibrillation at 5 mg an hour. She has no specific complaints today. She is hoping to be discharged soon. Current labs include a white count 15.7, hemoglobin 8.2, hematocrit 26.1, and a platelet count of 329,000. Creatinine is 0.85. Glucose is 172. All blood cultures have been negative. No recent chest x-ray. Objective - Vital Signs Vital signs: Vital Signs Temp 98.5 F 11/23/23 04:00 Pulse 88 11/23/23 12:10 Resp 18 11/23/23 11:36 BP 148/65 11/23/23 11:33 Pulse Ox 91 L 11/23/23 11:36 FiO2 50 11/12/23 20:01 Intake & Output 11/22/23 11/23/23 11/23/23 18:59 06:59 18:59 Intake Total 180 120 Output Total 200 Balance -20 120 Weight 85.5 kg Intake: Oral 180 120 Output: Urine 200 Other: Voiding Method External Catheter External Catheter External Catheter # Voids 1 1 # Bowel Movements 1 1 - Exam No acute distress, oriented 3. Currently on 2 L, with saturations of 92 %. HEENT examination is grossly unremarkable. Mucous membranes are moist. No oral lesions. Neck supple. Full range of motion. No adenopathy thyromegaly or neck vein distention. Cardiovascular examination reveals regular rhythm rate. S1-S2 normal. No S3 or S4. No discernible murmur noted. Heart sounds are distant. Heart rate 81 bpm. Lungs reveal clear breath sounds. Breath sounds are equal bilaterally. No adventitious lung sounds including wheezes rhonchi or crackles. Saturations are 92 % on 2 L of oxygen by nasal cannula. Abdomen soft with bowel sounds. No masses or tenderness. Extremities are intact. No cyanosis clubbing or edema. Skin is without rash or lesion. Neurologic examination is brief but nonfocal. - Labs CBC & Chem 7: 11/23/23 07:06 11/23/23 07:06 Labs: Abnormal Lab Results - Last 24 Hours (Table) 11/22/23 11/22/23 11/23/23 Range/Units 16:34 20:10 06:13 WBC (3.8-10.6) k/uL RBC (3.80-5.40) m/uL Hgb (11.4-16.0) gm/dL Hct (34.0-46.0) % RDW (11.5-15.5) % Neutrophils # (1.3-7.7) k/uL POC Glucose (mg/dL) 236 H 167 H 154 H (70-110) mg/dL 11/23/23 11/23/23 Range/Units 07:06 11:26 WBC 15.7 H (3.8-10.6) k/uL RBC 2.68 L (3.80-5.40) m/uL Hgb 8.2 L (11.4-16.0) gm/dL Hct 26.1 L (34.0-46.0) % RDW 15.9 H (11.5-15.5) % Neutrophils # 12.8 H (1.3-7.7) k/uL POC Glucose (mg/dL) 172 H (70-110) mg/dL Microbiology - Last 24 Hours (Table) 11/21/23 15:24 Blood Culture - Preliminary Blood Assessment and Plan Assessment: Acute hypoxic respiratory failure secondary to acute pulmonary embolism. Right hip osteoarthritis S/P right anterior total hip arthroplasty postoperative day #11. History of deep vein thrombosis. Hypotension secondary to acute blood loss anemia, hypovolemia and also secondary to pulmonary embolism, no clear-cut evidence of RV strain. Acute blood loss anemia, most likely secondary to recent surgery. Status post IVC filter placement because of contraindication for IV heparinongoing bleeding requiring multiple blood transfusions. Acute leukocytosis secondary to surgery/reactive. Acute TIA, resolved with left-sided weakness. Sinus tachycardia secondary to anemia and secondary to pulmonary embolism. Acute kidney injury. Acute on chronic deep vein thrombosis. Plan: Plan dated November 18, 2023. The patient is seen today in room 368. The patient continues on oxygen at 2 L. The patient is getting saline at 75 cc an hour. Labs, x-rays, medications are reviewed. The patient was in the intensive care unit, on Friday, but transferred out to the floor, later on that day. Labs, x-rays, medications are reviewed. We will continue to follow make recommendations along the way. Prognosis is thought to be guarded. Plan dated November 19, 2023. The patient is seen today in room 368. As mentioned above, she is sitting in the chair next to her hospital bed. She is on room air. She is not receiving any IV fluids. Labs, x-rays, medications are reviewed. From the pulmonary standpoint, the patient could be considered for possible discharge. We will continue to follow the patient, and make recommendations. Prognosis is certainly guarded, given her age. Plan dated November 20, 2023. The patient is seen today in room 368. The patient appears to be relatively stable. The patient is a DO NOT RESUSCITATE patient. The patient continues on oxygen at 2 L. She is getting saline at 10 cc an hour. Primary service has her on Zosyn, daily. We will continue to follow and make recommendations along the way. Labs, x-rays, and medications are reviewed. The patient's prognosis is guarded. Plan dated November 21, 2023. The patient appears to be doing relatively well. She continues on oxygen at 2 L. She is getting saline at 10 cc an hour. She continues on Zosyn. Labs, x- rays, and medications are reviewed. The patient denies any complaints today. She denies any chest pain or chest discomfort. She denies palpitations. She also denies any shortness of breath, cough, wheezing, chest tightness, or phlegm production. All in all, she appears to be doing well. Plan dated November 22, 2023. The patient is seen today in room 368. She is laying in bed, and is very comfortable. She denies any shortness of breath, cough, wheezing, chest tightness, or phlegm production. The patient on 2 L of oxygen. She is getting lactated Ringer's at 20 cc an hour. She continues on vancomycin. Her procalcitonin level on last check was 0.16. We will continue to follow the patient, and make recommendations along the way. Plan dated November 23, 2023. The patient is seen today in room 368. The patient continues on oxygen, at 2 L. In addition, she continues on vancomycin, lactated Ringer's at 20 cc an hour, and Cardizem drip at 5 mg an hour. We will continue to follow make recommendations where appropriate. Labs, x-rays, and medications are all reviewed. Prognosis is certainly guarded. Time with Patient: Less than 30
--- NOTE | 2023-11-23 15:35 | P.PN ---
Subjective Progress Note Date: 11/23/23 88-year-old white female with past medical history significant for hypertension, osteoarthritis, and right lower extremity DVT. Patient recently diagnosed with right lower extremity DVT in March,, and she was placed on Eliquis. Eliquis was placed on hold 5 days prior to an elective right total hip arthroplasty. Patient was brought in yesterday for an elective right direct anterior total hip arthroplasty. While in PACU postoperatively, the patient could not move her left arm. A code stroke was initiated. Noncontrast brain CT did not show any acute intracranial abnormality, no hemorrhage or mass effect. Brain CTA showed mild approximately 40% left ICA stenosis, otherwise no large vessel intracranial arterial occlusion or aneurysmal change. Patient was evaluated by neuro-interventionalists, and risks outweighed benefits for thrombolytics. There were also some incidental pulmonary findings, warranting a dedicated film. Chest CTA showed a couple small pulmonary emboli within the right upper and lower lung gonzalez. No CT evidence of right-sided heart strain. There is also some bilateral atelectasis. The surgeon and Dr. Saldana discussed CT findings and the patient was ultimately started on a heparin infusion per protocol. Patient was also hypertensive postoperatively, and started on a Cleviprex infusion to be titrated to maintain systolic blood pressure of 170 or less to allow for permissive hypertension. Patient was transferred to the intensive care unit from PACU. Patient is currently lying in bed, on 6 L/min nasal cannula, in no acute distress. SpO2 currently 99%. Postoperative ABG showed a PaO2 of 77, pCO2 of 54, and pH of 7.25. She was temporarily on BiPAP support. No signs of hypercapnic encephalopathy. No focal neurological deficits. Patient's left upper extremity weakness has resolved. Overall, neurological exam is benign, consider TIA. Blood pressure is now normotensive. Heart rhythm is normal sinus on bedside monitor. Patient denies any chest pain. No lightheadedness or syncope. No coughing or hemoptysis. Postsurgical dressing is clean, dry, and intact. There is some nikki-incisional swelling. Neurovascular status intact. No obvious hematoma. Postoperative CBC: WBC count 15.8, hemoglobin 11.1, hematocrit 33.8, platelets 226. aPTT supratherapeutic, and heparin and was adjusted per protocol. Postoperative BMP: Sodium 137, testing 3.4, chloride 107, serum bicarb 22, BUN 21, creatinine 0.77, glucose 206. Magnesium 1.4. Electrolytes are being replaced. Troponins less 0.012. 24-hour interval change 11/22/2023 Patient is seen and evaluated in room at bedside; discussed with nursing staff; patient has been refusing PEG tube placement; according to chart, surgery is on board and patient is scheduled for PEG placement on Friday Patient continues to have very poor oral intake but insisting on no PEG tube placement Vital signs are reviewed and are stable Repeat blood work reveals WBC 16.7, hemoglobin 9.1. Potassium 4.7, BUN 24 creatinine 0.79. Patient remains on amiodarone 200 mg twice daily along with Toprol 50 mg twice daily for rate control and Eliquis 5 mg twice daily for anticoagulation --Currently on IV Zosyn for aspiration pneumonia; has been evaluated by ROUNDHOUSE SUPERVISOR and failed modified barium swallow -- Patient remains adamant about no feeding tube placement 11/23/2023 Patient is seen and evaluated resting comfortably in bed; continues to refuse PEG tube Vital signs are reviewed and reveal temperature of 98.5, pulse 88, respiration 18 and blood pressure 148/65 with O2 saturation 95% on FiO2 of 50% Lab review shows WBC of 15.7, hemoglobin of 8.2 and platelet count of 329 --Patient is currently on IV Zosyn for aspiration pneumonia; diet has been modified per ROUNDHOUSE SUPERVISOR recommendations after modified barium swallow -Patient remains in atrial fibrillation with episodes of rapid ventricular response; currently on amiodarone 200 mg p.o. daily along with Eliquis Patient is recommended to continue metoprolol XL 50 mg twice daily; -- Cardiology recommending to increase amlodipine to 10 mg daily for SIMULATION DEVELOPER follow-up laceration control with Objective - Vital Signs Vital signs: Vital Signs Temp 98.5 F 11/23/23 04:00 Pulse 76 11/23/23 09:53 Resp 19 11/23/23 09:53 BP 147/69 11/23/23 07:58 Pulse Ox 95 11/23/23 07:58 FiO2 50 11/12/23 20:01 Intake & Output 11/22/23 11/23/23 11/23/23 18:59 06:59 18:59 Intake Total 180 120 Output Total 200 Balance -20 120 Weight 85.5 kg Intake: Oral 180 120 Output: Urine 200 Other: Voiding Method External Catheter External Catheter External Catheter # Voids 1 1 # Bowel Movements 1 1 - Exam Patient is lying in the bed comfortably, no acute distress, awake alert and oriented. Became lethargic.. HEENT: Normocephalic. Neck is supple. Pupils reactive. Nostrils clear. Oral cavity is moist. Neck reveals no JVD, carotid bruits, or thyromegaly. CHEST EXAMINATION: Trachea is central. Symmetrical expansion. Bibasilar diminished sounds. CARDIAC: Normal S1, S2 with no gallops. No murmurs ABDOMEN: Soft. Bowel sounds normal. No organomegaly. No abdominal bruits. Extremities: reveal no edema. No clubbing or cyanosis Neurologically awake, alert, oriented x3. Able to move all extremities. No gross focal deficits noted Skin: No rash or skin lesions. Psychiatric: Coperative. Nonsuicidal Musculoskeletal: No joint swelling or deformity. - Labs CBC & Chem 7: 11/23/23 07:06 11/23/23 07:06 Labs: Abnormal Lab Results - Last 24 Hours (Table) 11/22/23 11/22/23 11/22/23 Range/Units 11:21 16:34 20:10 WBC (3.8-10.6) k/uL RBC (3.80-5.40) m/uL Hgb (11.4-16.0) gm/dL Hct (34.0-46.0) % RDW (11.5-15.5) % Neutrophils # (1.3-7.7) k/uL POC Glucose (mg/dL) 244 H 236 H 167 H (70-110) mg/dL 11/23/23 11/23/23 Range/Units 06:13 07:06 WBC 15.7 H (3.8-10.6) k/uL RBC 2.68 L (3.80-5.40) m/uL Hgb 8.2 L (11.4-16.0) gm/dL Hct 26.1 L (34.0-46.0) % RDW 15.9 H (11.5-15.5) % Neutrophils # 12.8 H (1.3-7.7) k/uL POC Glucose (mg/dL) 154 H (70-110) mg/dL Microbiology - Last 24 Hours (Table) 11/21/23 15:24 Blood Culture - Preliminary Blood Assessment and Plan Assessment: New onset paroxysmal atrial fibrillation with RVR. Rate is controlled. Acute hypoxic respiratory failure secondary to acute pulmonary embolism. status post IVC filter placement because of contraindication for IV heparinongoing bleeding requiring multiple blood transfusions Acute blood loss anemia likely due to recent surgery. Hemoglobin is fairly stable now. Status post right total hip arthroplasty. Postoperative day 8 Left-sided weakness possible TIA resolved now. Acute kidney injury secondary to ATN due to hypotension and acute blood loss anemia. Improving. Possible bilateral pneumonia consider aspiration Labile hypertension and hypotension currently stable fairly Anemia Diabetes type 2 Elevated troponin level possible type II [place] History of DVT/PE on Eliquis at home. Hypokalemia. Replaced. DVT prophylaxis patient is on heparin subcu Plan: Currently on IV hydration and encourage oral intake. Heart rate is controlled. Imaging drip has been discontinued. Patient is being continued on metoprolol. Patient was started on Eliquis. Monitor H&H. Patient has been continued on metoprolol and DuoNeb's and antibiotics in the form of Zosyn for possible aspiration. Cardiac pain management. PT OT and follow-up closely. General surgery is planning for EGD due to dysphagia, patient was seen by ROUNDHOUSE SUPERVISOR and is on pured diet Cardiology, pulmonary and nephrology is on board.
[2023-11-23 16:27] LABS: Glucose,Whole Blood 211 mg/dL (70-110)
[2023-11-23 20:48] LABS: Glucose,Whole Blood 150 mg/dL (70-110)
[2023-11-24 06:10] LABS: Glucose,Whole Blood 137 mg/dL (70-110)
[2023-11-24 09:17] VITALS: BP 130/60; RESP 16; TEMP 97.9
[2023-11-24 11:03] LABS: African American GFR (CKD) 74 (>60 ml/min/1.73 sqM); Non-African American GFR(CKD) 64 (>60 ml/min/1.73 sqM)
[2023-11-24 11:31] LABS: Glucose,Whole Blood 188 mg/dL (70-110)
[2023-11-24 11:36] VITALS: BMI 34.4
--- NOTE | 2023-11-24 11:46 | P.PN ---
Subjective Progress Note Date: 11/23/23 Principal diagnosis: Reason for follow-up with leukocytosis Patient is a 88-year-old female past medical history significant for diabetes mellitus hypertension osteoarthritis DVT who was electively admitted to the hospital for right hip replacement that was completed on 11/12/2023 patient since then has been in the hospital with multiple medical condition and has been evaluated by multiple consultants, patient did have a worsening acidosis prompting this consultation. Nursing staff reported patient had right arm IV went bad and did have some swelling and some erythema to the right hand. On today's evaluation that is 11/23/2023, patient has been afebrile, patient is breathing comfortably and is currently on 3 L nasal cannula oxygen, patient denies having any significant cough no chest pain shortness of breath, patient denies nausea vomiting or diarrhea and no abdominal pain right hand swelling and pain has decreased. Patient white count is down to 15.7, creatinine 0.85 blood cultures are pending Objective - Vital Signs Vital signs: Vital Signs Temp 98.5 F 11/23/23 04:00 Pulse 88 11/23/23 12:10 Resp 18 11/23/23 11:36 BP 148/65 11/23/23 11:33 Pulse Ox 91 L 11/23/23 11:36 FiO2 50 11/12/23 20:01 Intake & Output 11/22/23 11/23/23 11/23/23 18:59 06:59 18:59 Intake Total 180 120 Output Total 200 Balance -20 120 Weight 85.5 kg Intake: Oral 180 120 Output: Urine 200 Other: Voiding Method External Catheter External Catheter External Catheter # Voids 1 1 # Bowel Movements 1 1 - Exam GENERAL DESCRIPTION: An elderly female lying in bed in no distress RESPIRATORY SYSTEM: Unlabored breathing , decreased breath sounds at bases HEART: S1 S2 regular rate and rhythm , ABDOMEN: Soft , no tenderness EXTREMITIES: Right upper arm with minimal swelling right hand dorsum minimal redness, but no drainage did have some bruising to the left forearm - Labs CBC & Chem 7: 11/23/23 07:06 11/24/23 09:37 Labs: Abnormal Lab Results - Last 24 Hours (Table) 11/22/23 11/22/23 11/23/23 Range/Units 16:34 20:10 06:13 WBC (3.8-10.6) k/uL RBC (3.80-5.40) m/uL Hgb (11.4-16.0) gm/dL Hct (34.0-46.0) % RDW (11.5-15.5) % Neutrophils # (1.3-7.7) k/uL POC Glucose (mg/dL) 236 H 167 H 154 H (70-110) mg/dL 11/23/23 11/23/23 Range/Units 07:06 11:26 WBC 15.7 H (3.8-10.6) k/uL RBC 2.68 L (3.80-5.40) m/uL Hgb 8.2 L (11.4-16.0) gm/dL Hct 26.1 L (34.0-46.0) % RDW 15.9 H (11.5-15.5) % Neutrophils # 12.8 H (1.3-7.7) k/uL POC Glucose (mg/dL) 172 H (70-110) mg/dL Microbiology - Last 24 Hours (Table) 11/21/23 15:24 Blood Culture - Preliminary Blood Assessment and Plan (1) Leukocytosis Current Visit: Yes Status: Acute Code(s): D72.829 - ELEVATED WHITE BLOOD CELL COUNT, UNSPECIFIED SNOMED Code(s): 672379430 Plan: 1patient with elevated white count this patient electively presented to the hospital on 11/12/2023 about 10 days ago for right hip replacement which was completed now with evidence of elevated white count no significant fever patient does not look toxic lungs clear to auscultation surgical site with some swelling but no redness abdominal soft question reactive versus oropharyngeal candidiasis ,patient to continue nystatin 2-patient CRP 7.1 and procalcitonin is 0.16, 3-with concern for possible right hand cellulitis w patient is covered with vancomycin and white count is trending down Dictation was produced using [employer] software. please excuse any grammatical, word or spelling errors. Time with Patient: Less than 30
--- NOTE | 2023-11-24 11:54 | P.PN ---
Subjective Progress Note Date: 11/24/23 Principal diagnosis: Reason for follow-up with leukocytosis Patient is a 88-year-old female past medical history significant for diabetes mellitus hypertension osteoarthritis DVT who was electively admitted to the hospital for right hip replacement that was completed on 11/12/2023 patient since then has been in the hospital with multiple medical condition and has been evaluated by multiple consultants, patient did have a worsening acidosis prompting this consultation. Nursing staff reported patient had right arm IV went bad and did have some swelling and some erythema to the right hand. On today's evaluation that is 11/24/2023,the patient denies any fever or any chills, patient is breathing comfortably on 2 L nasal cannula oxygen, the patient denies chest pain shortness of breath and no significant cough, patient denies abdominal pain, no nausea vomiting or diarrhea, the patient right hand pain and swelling has improved feeling better wants to go home. Patient did have a creatinine 0.83 white count is pending from this morning, blood culture so far negative Objective - Vital Signs Vital signs: Vital Signs Temp 97.9 F 11/24/23 08:00 Pulse 80 11/24/23 09:37 Resp 16 11/24/23 08:00 BP 130/60 11/24/23 08:00 Pulse Ox 94 L 11/24/23 09:25 FiO2 50 11/12/23 20:01 Intake & Output 11/23/23 11/24/23 11/24/23 18:59 06:59 18:59 Intake Total 120 118 Output Total 200 350 Balance -80 -350 118 Weight 85.5 kg Intake: Oral 120 118 Output: Urine 200 350 Other: Voiding Method External Catheter External Catheter # Voids 2 # Bowel Movements 2 - Exam GENERAL DESCRIPTION: An elderly female lying in bed in no distress RESPIRATORY SYSTEM: Unlabored breathing , decreased breath sounds at bases HEART: S1 S2 regular rate and rhythm , ABDOMEN: Soft , no tenderness EXTREMITIES: Right upper arm with minimal swelling right hand dorsum redness has improved and there is no drainage - Labs CBC & Chem 7: 11/23/23 07:06 11/24/23 09:37 Labs: Abnormal Lab Results - Last 24 Hours (Table) 11/23/23 11/23/23 11/24/23 Range/Units 16:25 20:46 06:09 POC Glucose (mg/dL) 211 H 150 H 137 H (70-110) mg/dL 11/24/23 Range/Units 11:28 POC Glucose (mg/dL) 188 H (70-110) mg/dL Microbiology - Last 24 Hours (Table) 11/21/23 15:24 Blood Culture - Preliminary Blood Assessment and Plan (1) Leukocytosis Current Visit: Yes Status: Acute Code(s): D72.829 - ELEVATED WHITE BLOOD CELL COUNT, UNSPECIFIED SNOMED Code(s): 499064676 (2) Cellulitis of right hand Current Visit: Yes Status: Acute Code(s): L03.113 - CELLULITIS OF RIGHT UPPER LIMB SNOMED Code(s): 10491609353313747 (3) Thrush Current Visit: Yes Status: Acute Code(s): B37.0 - CANDIDAL STOMATITIS SNOMED Code(s): 47774450 Plan: 1patient with elevated white count this patient electively presented to the hospital on 11/12/2023 about 10 days ago for right hip replacement which was completed now with evidence of elevated white count no significant fever patient does not look toxic lungs clear to auscultation surgical site with some swelling but no redness abdominal soft question reactive versus oropharyngeal candidiasis,patient to continue nystatin x 7 days on discharge 2-patient CRP 7.1 and procalcitonin is 0.16, 3-with concern for possible right hand cellulitis, the patient overall right hand swelling redness has improved white count is pending from this morning if trending down plan to finish therapy with doxycycline 100 twice daily for 7 days on discharge discussed with PARENT PARTNER for admitting team Dictation was produced using [employer] dictation software. please excuse any gramm atical, word or spelling errors. Time with Patient: Less than 30
--- NOTE | 2023-11-24 11:56 | P.PN ---
Subjective Patient is seen for follow-up for acute kidney injury. renal function has improved. serum creatinine at 0.8 mg/dL. no significant complaints today. Objective - Vital Signs Vital signs: Vital Signs Temp 97.9 F 11/24/23 08:00 Pulse 80 11/24/23 09:37 Resp 16 11/24/23 08:00 BP 130/60 11/24/23 08:00 Pulse Ox 94 L 11/24/23 09:25 FiO2 50 11/12/23 20:01 Intake & Output 11/23/23 11/24/23 11/24/23 18:59 06:59 18:59 Intake Total 120 118 Output Total 200 350 Balance -80 -350 118 Weight 85.5 kg Intake: Oral 120 118 Output: Urine 200 350 Other: Voiding Method External Catheter External Catheter # Voids 2 # Bowel Movements 2 - Exam patient is awake, comfortable, alert oriented x 3. Examination of the heart S1 and S2 Examination of the lungs bilateral breath sounds are heard Abdomen is soft nontender Examination of lower extremities shows no significant edema CONSTRUCTION AREA MANAGER exam grossly intact - Labs CBC & Chem 7: 11/23/23 07:06 11/24/23 09:37 Labs: Abnormal Lab Results - Last 24 Hours (Table) 11/23/23 11/23/23 11/24/23 Range/Units 16:25 20:46 06:09 POC Glucose (mg/dL) 211 H 150 H 137 H (70-110) mg/dL 11/24/23 Range/Units 11:28 POC Glucose (mg/dL) 188 H (70-110) mg/dL Microbiology - Last 24 Hours (Table) 11/21/23 15:24 Blood Culture - Preliminary Blood Assessment and Plan Assessment: 1. Acute kidney injury secondary to ATN secondary to hypotension and acute blood loss anemia. No hydronephrosis noted on kidney ultrasound. UA fairly benign. Renal function improving. Creatinine 0.79. Nonoliguric. 2. Acute blood loss anemia status post blood transfusion this admission. 3. 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 4. Status post right total hip arthroplasty. 5. Metabolic acidosis secondary to acute kidney injury status post bicarb drip. Resolved. 6. Hypokalemia from intracellular shifting from IV bicarb. Replaced. Improved. 7. Hypomagnesemia from poor intake. On oral magnesium oxide. Also received IV magnesium replacement. 8. Benign hypertension. Better controlled. Plan: continue to encourage increase oral intake Maintain off of IV fluids.
--- NOTE | 2023-11-24 12:31 | P.PN ---
Subjective Progress Note Date: 11/24/23 CHIEF COMPLAINT: Osteoarthritis HISTORY OF PRESENT ILLNESS: Patient is status post a right total hip arth roplasty. Patient with multiple medical issues with new PE and atrial fibrillation. Surgical service following in regards to patient's dysphagia. She is tolerating the pured diet. Patient is eating about 50% of her meals. Patient denies any difficulty swallowing. PHYSICAL EXAM: VITAL SIGNS: Reviewed. GENERAL: Well-developed in no acute distress. HEENT: No sclera icterus. Extraocular movements grossly intact. Moist buccal mucosa. Head is atraumatic, normocephalic. ABDOMEN: Soft. Nondistended. Nontender. NEUROLOGIC: Alert and oriented. Cranial nerves II through XII grossly intact. ASSESSMENT: 1. Dysphagia resolved. Tolerating diet 2. Severe protein calorie malnutrition PLAN: -Patient is tolerating pured diet. No need for PEG tube placement. -Medicine service is planning to discharge patient today. Physician Drafter Marine note has been reviewed by physician. Signing provider agrees with the documented findings, assessment, and plan of care. Objective - Vital Signs Vital signs: Vital Signs Temp 97.9 F 11/24/23 08:00 Pulse 80 11/24/23 09:37 Resp 16 11/24/23 08:00 BP 130/60 11/24/23 08:00 Pulse Ox 94 L 11/24/23 09:25 FiO2 50 11/12/23 20:01 Intake & Output 11/23/23 11/24/23 11/24/23 18:59 06:59 18:59 Intake Total 120 118 Output Total 200 350 Balance -80 -350 118 Weight 85.5 kg Intake: Oral 120 118 Output: Urine 200 350 Other: Voiding Method External Catheter External Catheter External Catheter # Voids 2 # Bowel Movements 2 - Labs CBC & Chem 7: 11/23/23 07:06 11/24/23 09:37 Labs: Abnormal Lab Results - Last 24 Hours (Table) 11/23/23 11/23/23 11/24/23 Range/Units 16:25 20:46 06:09 POC Glucose (mg/dL) 211 H 150 H 137 H (70-110) mg/dL 11/24/23 Range/Units 11:28 POC Glucose (mg/dL) 188 H (70-110) mg/dL Microbiology - Last 24 Hours (Table) 11/21/23 15:24 Blood Culture - Preliminary Blood
[2023-11-24 13:12] LABS: Anisocytosis Slight; Basophils # (A) 0.1 k/uL (0-0.2); Basophils % (A) 0 %; Eosinophils # (A) 0.2 k/uL (0-0.7); Eosinophils % (A) 2 %; HCT 28.1 % (34.0-46.0); HGB 8.7 gm/dL (11.4-16.0); Hypochromasia Slight; Lymphocytes # (A) 1.6 k/uL (1.0-4.8); Lymphocytes % (A) 10 %; MCH 30.3 pg (25.0-35.0); MCHC 30.9 g/dL (31.0-37.0); MCV 98.1 fL (80.0-100.0); Macrocytosis Slight; Mean Platelet Volume 8.9; Monocytes # (A) 0.8 k/uL (0-1.0); Monocytes % (A) 5 %; Neutrophils # (A) 13.1 k/uL (1.3-7.7); Neutrophils % (A) 82 %; Platelet Count 376 k/uL (150-450); RBC 2.86 m/uL (3.80-5.40); RDW 16.4 % (11.5-15.5); WBC 16.1 k/uL (3.8-10.6)
--- NOTE | 2023-11-24 13:57 | P.PN ---
Subjective HISTORY OF PRESENT ILLNESS: The patient is an 88-year-old female patient with a past medical history significant for history of DVT she was on oral anticoagulation as an outpatient. No prior cardiac history of coronary artery disease or congestive heart failure or cardiac arrhythmia. We asked to see the patient in a consultation in the intensive care unit for sinus tachycardia as well as abnormal cardiac enzymes. The patient was admitted to the hospital and underwent an elective right hip surgery which was uneventful. During her recovery it was noted that she was unable to move her left side. Initially it was felt secondary to stroke. Stroke code was called and the patient underwent a workup including CT scan of the brain as well as carotid workup and all of that came in to be unremarkable for acute stroke. Also the workup including CT scan showed possible small pulmonary embolism. No history of pulmonary embolism in the past. She has history of DVT. She was not on oral anticoagulation because that was interrupted before the surgery. Subsequently the patient was admitted to the intensive care unit. It was noted that she was hypotensive requiring norepinephrine but at the same time her hemoglobin dropped significantly and her last hemoglobin from this morning is around 7. Her previous hemoglobin was 13. Currently the patient is hypotensive requiring norepinephrine. She was started on heparin IV. When she was seen and evaluated this morning her main symptoms is being tired and fatigue and no symptoms of any chest pain or chest discomfort or shortness of breath. She underwent an echocardiogram which revealed normal LV systolic function with no significant wall motion abnormalities. Cardiac enzymes were checked and came in to be slightly abnormal. We only have 1 abnormal troponin and I am going to obtain 2 more sets of troponin for further clarification. Beside that she has no EKG. Stat EKG is in process to be done. The examination revealed regular rhythm with a distant heart sounds and dimini shed breathing sounds bilaterally and no edema was noted in the lower extremities. Beside that the patient is in renal failure likely secondary to anemia and hypotension November 15, 2023 The patient was seen and evaluated this morning. She was anemic and she is in process of receiving 1 unit of packed RBC. Her hemoglobin was 6. She was hypotensive requiring norepinephrine but that has improved and currently she is not on any vasopressors after she received the blood. The creatinine continues to be elevated and currently nephrology is consulted to see the patient. Because of the anemia which is secondary to the hematoma by the right hip the heparin was stopped the patient is in process of having an IVC filter placement. Otherwise she is not reporting any chest pain or chest discomfort at this point. The EKG showed LBBB. The echo showed normal LV systolic function with no wall motion abnormalities and no evidence of RV strain. The examination revealed regular rhythm with a systolic murmur and clear breathing sounds bilaterally and no edema was noted. November 16, 2023 The patient was seen and evaluated this morning. She is asymptomatic. She is maintaining normal sinus mechanism. She underwent an IVC filter placement yesterday. Currently she is not on any oral anticoagulation or IV anticoagulations since she underwent the filter placement. Hemoglobin is stable and she is not bleeding anymore. The right hip hematoma has been stable. Creatinine has been trending in the right direction. She is on a statin which we will continue. Hold adding any aspirin at this point giving the hematoma/bleeding. Consider starting the patient on small dose of beta-lindsay. The examination revealed regular rhythm with a systolic murmur and diminished breathing sounds bilaterally and she does have mild bilateral lower extremities edema noted. She was given Lasix yesterday. 11/16 Cardiology was reconsulted secondary to patient going in A. fib with RVR. Patient had IVC filter placed. She does have a history of prior DVT from March at and has been on anticoagulation at home. She has however had issues with anemia after her surgery and hematoma. Therefore anticoagulation has been on hold. She admits to feeling palpitations similar to last night about once a month and usually are fairly mild to moderate symptom verma. 11/17 Orthopedics has cleared the patient to resume Eliquis. Heart rate in the 70s, blood pressure 173/72 11/21 Yesterday, we were reconsulted regarding A-fib with RVR. Patient has subsequently converted to sinus rhythm. Yesterday, patient was started on amiodarone 200 mg twice daily. She has been maintained on Eliquis. Blood pressure 148/65, heart rate in the 80s. Repeat blood work reveals WBC 16.7, hemoglobin 9.1. Potassium 4.7, BUN 24 creatinine 0.79. 11/22 Patient remains in sinus rhythm and maintained on amiodarone 200 mg twice daily. Her blood pressure 147/69. Repeat blood work reveals hemoglobin of 15.7, hemoglobin 8.2. Creatinine 0.85. 11/24/2023 Patient examined this morning at the bedside. Patient denies chest pain or pressure. She denies shortness of breath. Telemetry reveals sinus mechanism. Echocardiogram completed revealing ejection fraction 50 to 55%. Vital signs are stable. PHYSICAL EXAM: VITAL SIGNS: Reviewed. GENERAL: Well-developed in no acute distress. NECK: Supple. No JVD or thyromegaly LUNGS: Respirations even and unlabored. Lungs essentially clear to auscultation bilaterally. HEART: Regular rate and rhythm. S1 and S2 heard. Systolic murmur noted. EXTREMITIES: Normal range of motion. No clubbing or cyanosis. Peripheral pulses intact. Trace bilateral lower extremity edema ASSESSMENT: Status post right hip surgery Left-sided weakness which has improved. No acute stroke on the workup Recent diagnosis of small pulmonary embolism and deep venous thrombosis Anemia secondary to blood loss Status post IVC filter placement Evidence of myocardial injury likely secondary to anemia and type II myocardial infarction Renal failure New-onset paroxysmal atrial fibrillation with episodes of RVR PLAN: Continue current cardiac medications Continue telemetry monitoring Patient is currently stable for a cardiac standpoint Further recommendations pending patient course Nurse practitioner note has been reviewed by physician. Signing provider agrees with the documented findings, assessment, and plan of care documented by SURGICAL SERVICES COORDINATOR as a scribe. Objective - Vital Signs Vital signs: Vital Signs Temp 97.9 F 11/24/23 08:00 Pulse 80 11/24/23 09:37 Resp 16 11/24/23 08:00 BP 130/60 11/24/23 08:00 Pulse Ox 94 L 11/24/23 09:25 FiO2 50 11/12/23 20:01 Intake & Output 11/23/23 11/24/23 11/24/23 18:59 06:59 18:59 Intake Total 120 118 Output Total 200 350 Balance -80 -350 118 Weight 85.5 kg Intake: Oral 120 118 Output: Urine 200 350 Other: Voiding Method External Catheter External Catheter External Catheter # Voids 2 # Bowel Movements 2 - Labs CBC & Chem 7: 11/24/23 12:49 11/24/23 09:37 Labs: Abnormal Lab Results - Last 24 Hours (Table) 11/23/23 11/23/23 11/24/23 Range/Units 16:25 20:46 06:09 WBC (3.8-10.6) k/uL RBC (3.80-5.40) m/uL Hgb (11.4-16.0) gm/dL Hct (34.0-46.0) % MCHC (31.0-37.0) g/dL RDW (11.5-15.5) % Neutrophils # (1.3-7.7) k/uL POC Glucose (mg/dL) 211 H 150 H 137 H (70-110) mg/dL 11/24/23 11/24/23 Range/Units 11:28 12:49 WBC 16.1 H (3.8-10.6) k/uL RBC 2.86 L (3.80-5.40) m/uL Hgb 8.7 L (11.4-16.0) gm/dL Hct 28.1 L (34.0-46.0) % MCHC 30.9 L (31.0-37.0) g/dL RDW 16.4 H (11.5-15.5) % Neutrophils # 13.1 H (1.3-7.7) k/uL POC Glucose (mg/dL) 188 H (70-110) mg/dL Microbiology - Last 24 Hours (Table) 11/21/23 15:24 Blood Culture - Preliminary Blood
[2023-11-24 15:20] VITALS: PULSE 82
--- NOTE | 2023-11-24 16:24 | P.PN ---
Subjective Progress Note Date: 11/24/23 Patient is an 88-year-old white female with past medical history significant for hypertension, osteoarthritis, and right lower extremity DVT. Patient recently diagnosed with right lower extremity DVT in March,, and she was placed on Eliquis. Eliquis was placed on hold 5 days prior to an elective right total hip arthroplasty. Patient was brought in yesterday for an elective right direct anterior total hip arthroplasty. While in PACU postoperatively, the patient could not move her left arm. A code stroke was initiated. Noncontrast brain CT did not show any acute intracranial abnormality, no hemorrhage or mass effect. Brain CTA showed mild approximately 40% left ICA stenosis, otherwise no large vessel intracranial arterial occlusion or aneurysmal change. Patient was evaluated by neuro-interventionalists, and risks outweighed benefits for thrombolytics. There were also some incidental pulmonary findings, warranting a dedicated film. Chest CTA showed a couple small pulmonary emboli within the right upper and lower lung gonzalez. No CT evidence of right-sided heart strain. There is also some bilateral atelectasis. The surgeon and Dr. Saldana discussed CT findings and the patient was ultimately started on a heparin infusion per protocol. Patient was also hypertensive postoperatively, and started on a Cleviprex infusion to be titrated to maintain systolic blood pressure of 170 or less to allow for permissive hypertension. Patient was transferred to the intensive care unit from PACU. Patient is currently lying in bed, on 6 L/min nasal cannula, in no acute distress. SpO2 currently 99%. Postoperative ABG showed a PaO2 of 77, pCO2 of 54, and pH of 7.25. She was temporarily on BiPAP support. No signs of hypercapnic encephalopathy. No focal neurological deficits. Patient's left upper extremity weakness has resolved. Overall, neurological exam is benign, consider TIA. Blood pressure is now normotensive. Heart rhythm is normal sinus on bedside monitor. Patient denies any chest pain. No lightheadedness or syncope. No coughing or hemoptysis. Postsurgical dressing is clean, dry, and intact. There is some nikki-incisional swelling. Neurovascular status intact. No obvious hematoma. Postoperative CBC: WBC count 15.8, hemoglobin 11.1, hematocrit 33.8, platelets 226. aPTT supratherapeutic, and heparin and was adjusted per protocol. Postoperative BMP: Sodium 137, testing 3.4, chloride 107, serum bicarb 22, BUN 21, creatinine 0.77, glucose 206. Magnesium 1.4. Electrolytes are being replaced. Troponins less 0.012. Patient will continue to be monitored in the intensive care unit at least overnight. Patient reevaluated today on 11/14/2023, patient remains in the ICU, she is marginal at best. Patient required close for 3 units of packed RBCs and her last hemoglobin is 7.3. Patient is still requiring norepinephrine at 0.07 mcg/kg/min IV fluid is running D5W with 3 A of bicarb at 75 cc/h. Last night she had to be on BiPAP 10/5/50%, presently on 8 L high flow nasal cannula blood pressure is 109/59, mean arterial pressure of 67. However the patient is requiring norepinephrine to adequately maintain good blood pressure. WBC count this morning is 21.9 hemoglobin is 7.3. PTT is 93.9. Her bicarb is 14 BUN is 32 creatinine is 2.19, blood sugar is 201 patient had normal creatinine on admission 11/12/2023, however the patient did develop acute kidney injury most likely secondary to episodes of hypotension requiring pressors. Chest x-ray this morning showed no evidence of congestive heart failure, no pneumonia, right hemidiaphragm seems to be relatively elevated. Patient was reevaluated today on 11/15/2023, patient remains in the ICU, continues to have ongoing bleeding with drop in hemoglobin down to 6.3 today, and I am recommending another unit of packed RBCs to be given today. Obviously the patient is unable to tolerate heparin considering her recent surgery, and she continues to have bleeding most likely into the surgical site/right hip. At this point I believe the patient has absolute current indication to heparin, and I am planning to arrange for vascular surgery to visit to see the patient for possible IVC filter. In addition the patient is developing worsening L kidney injury, and need to have nephrology consultation, her urine output is extremely poor and the patient is getting to be oliguric 60 mg of Lasix was ordered, patient received lots of fluids and blood products since admission. Procalcitonin level is 1.20, antibiotic cefazolin empirically. Patient is still requiring norepinephrine at 0.02 mcg/kg/min to maintain adequate blood pressure, and she is on bicarb drip at 75 cc/h. Heparin is presently on hold. Patient has received already 3 units of packed RBCs since admission to the ICU with acute pulmonary embolism. And DVT. WBC count is 20.1 hemoglobin 6.3 basic metabolic profile is normal BUN is 45 creatinine 3.09 PTT was 75 chest x-ray does not show any evidence of congestive heart failure, but does show left basilar atelectasis Patient was reevaluated today on 11/16/2023, patient is feeling much better today. Her urine output has picked up on its own and now is about 50 cc/h. She had 200 cc in the last few hours. Patient is now off IV heparin, but I would recommend at least subcu heparin for now she had IVC filter placed. Her renal functioning is improving with creatinine down to 2.4. Hemoglobin is holding, it is today 8.7.However the patient did receive a total of 4 units of packed RBCs after her surgery for postoperative bleeding after she was placed on heparin. Patient is also off pressors, not requiring any norepinephrine, it is presently on hold she is on 2 L nasal cannula, she is on D5 4 5 at 75 cc/h her urine output again is excellent, patient remains on Zosyn today I added heparin subcu 5000 units subcu every 8 hours WBC count today 13.5 hemoglobin 8.7 platelets are 131 basic metabolic profile is normal BUN is 49 creatinine 2.47. Chest x-ray showed hypoventilatory changes, left basilar opacity/atelectasis, minimal prominence of the pulmonary vasculature but has improved compared to 2 days ago The patient is seen today November 17, 2023 in follow-up on the regular medical floor. She is sitting up in bed. Awake and alert in no acute distress. Maintaining good O2 saturations in the 90s on 2 L/min per nasal cannula. She is status post 4 units of packed red blood cells this admission. Current hemoglobin 7.8. Platelets 137. White count 10.9. Sodium 135. Potassium 3.2. Bicarb 32. BUN 41. Creatinine 2.03. Glucose 123. She remains on bronchodilators. Antibiotics in the form of Zosyn. She remained stable and off pressors. Off Cleviprex. Progress note dated November 18, 2023. The patient is seen today in room 368. The patient is currently on 2 L of oxygen. She is getting saline at 75 cc an hour. She appears to be relatively comfortable. Earlier this week, she was in the intensive care unit. Current laboratory data includes a white count 11.2, hemoglobin 7.8, hematocrit 24.3, and platelet count 163,000. Sodium 137, potassium 3.5, chlorides 108, CO2 26, BUN 41, and creatinine 1.23. Glucose is 264. Calcium is 6.6. Blood cultures are currently negative. No recent chest x-ray to review. Progress note dated November 19, 2023. The patient is seen today in room 368. She is sitting in a chair next to her hospital bed. She is in no distress. She denies any shortness of breath or difficulty breathing. She is on room air. She is not receiving any IV fluids. She denies any chest pain or chest discomfort. She appears very stable. Current labs include a sodium 138, potassium 4.5, chlorides 108, CO2 26, BUN 28, creatinine 1.14. Glucose is 246. Calcium 8, and magnesium 1.6. Progress note dated November 20, 2023. 88-year-old female seen today in room 368. Currently, the patient is on 2 L of oxygen. She is getting saline at 10 cc an hour, she continues on Zosyn. She has no specific complaints today. Current labs include a sodium 139, potassium 4.9, chlorides 111, CO2 24, BUN 25, creatinine 0.87. Anion gap is 4. Glucose 181. Calcium 8.2, magnesium 1.4. Blood cultures are currently negative. No recent chest x-ray. Progress note dated November 21, 2023. 88-year-old female seen today in room 368. The patient appears to be doing relatively well. She continues on Zosyn. She is on 2 L of oxygen. She is getting saline at 10 cc an hour. She has no specific complaints today. She appears to be in a cheerful mood. White count of 17.3, hemoglobin 9.1, hematocrit 29.6, and platelet count was normal. Sodium 137, potassium 4.6, chlorides 107, CO2 27, BUN 23, creatinine 0.89. Glucose is 238. Calcium 8.6, magnesium 1.7. Blood cultures, were negative. Progress note dated November 22, 2023. 88-year-old female seen today in room 368. Currently, the patient is on 2 L of oxygen. She is getting lactated Ringer's at 20 cc an hour. Her procalcitonin level on November 20 was 0.16. She is currently now on vancomycin. She is manifesting no signs or symptoms of respiratory distress or any distress whatsoever. Current labs include a white count of 16.7, hemoglobin 8.1, hematocrit 26, and a platelet count that is normal. Sodium 136, potassium 4.7, chlorides 107, CO2 27, BUN 24, creatinine 0.79. Glucose is 244. Magnesium is 1.6. Blood cultures have been negative. Progress note dated November 23, 2023. 88-year-old female seen today in room 368. The patient remains on 2 L of oxygen. She is receiving vancomycin. She is getting LR 20 cc an hour, and she continues on Cardizem for her atrial fibrillation at 5 mg an hour. She has no specific complaints today. She is hoping to be discharged soon. Current labs include a white count 15.7, hemoglobin 8.2, hematocrit 26.1, and a platelet count of 329,000. Creatinine is 0.85. Glucose is 172. All blood cultures have been negative. No recent chest x-ray. On today's evaluation on 11/19/2023, I am seeing the patient for a follow-up. The patient is currently on 2 L of oxygen by nasal cannula. The patient has pulmonary embolism and the patient was given an IVC filter. At the same time, the patient is on anticoagulation with Eliquis 5 mg twice a day. Doing well. No specific complaints. The previous consult 16 with a hemoglobin 8.7 and a platelet count of 376. No signs of any respiratory distress at this point in time. She remains on 2 L of oxygen by nasal cannula. The patient is post right hip arthroplasty and the patient is postop day #12. She is known to have previous history of DVT and currently she has an IVC filter in place. The echocardiogram that was done during this current admission shows a preserved LV function, normal RV, no signs of any pulm hypertension. The Doppler of the lower extremities was done on 11/14/2023 showed a bilateral lower extremity deep vein thrombosis consistent with DVT. Objective - Vital Signs Vital signs: Vital Signs Temp 97.9 F 11/24/23 08:00 Pulse 80 11/24/23 09:37 Resp 16 11/24/23 08:00 BP 130/60 11/24/23 08:00 Pulse Ox 94 L 11/24/23 09:25 FiO2 50 11/12/23 20:01 Intake & Output 11/23/23 11/24/23 11/24/23 18:59 06:59 18:59 Intake Total 120 118 Output Total 200 350 Balance -80 -350 118 Weight 85.5 kg Intake: Oral 120 118 Output: Urine 200 350 Other: Voiding Method External Catheter External Catheter # Voids 2 # Bowel Movements 2 - Exam No acute distress, oriented 3. Currently on 2 L nasal cannula patient is calm and comfortable. HEENT examination is grossly unremarkable. Mucous membranes are moist. No oral lesions. Neck supple. Full range of motion. No adenopathy thyromegaly or neck vein distention. Cardiovascular examination reveals regular rhythm rate. S1-S2 normal. No S3 or S4. No discernible murmur noted. Heart sounds are distant. Lungs reveal clear breath sounds. Breath sounds are equal bilaterally. No adventitious lung sounds including wheezes rhonchi or crackles. Abdomen soft with bowel sounds. No masses or tenderness. Extremities are intact. No cyanosis clubbing or edema. Skin is without rash or lesion. Neurologic examination is brief but nonfocal. - Labs CBC & Chem 7: 11/24/23 12:49 11/24/23 09:37 Labs: Abnormal Lab Results - Last 24 Hours (Table) 11/23/23 11/23/23 11/24/23 Range/Units 16:25 20:46 06:09 POC Glucose (mg/dL) 211 H 150 H 137 H (70-110) mg/dL 11/24/23 Range/Units 11:28 POC Glucose (mg/dL) 188 H (70-110) mg/dL Microbiology - Last 24 Hours (Table) 11/21/23 15:24 Blood Culture - Preliminary Blood Assessment and Plan Plan: Acute hypoxic respiratory failure secondary to acute pulmonary embolism, currently on 2 L of oxygen by nasal cannula Right hip osteoarthritis S/P right anterior total hip arthroplasty postoperative day # 12. History of deep vein thrombosis, mar 2023 Hypotension secondary to acute blood loss anemia, hypovolemia and also secondary to pulmonary embolism, no clear-cut evidence of RV strain. The patient has a preserved LV function with a normal left-ventricular ejection fraction Acute blood loss anemia, most likely secondary to recent surgery. Hemoglobin stable for now Status post IVC filter placement because of contraindication for IV heparinongoing bleeding requiring multiple blood transfusions. Acute leukocytosis secondary to surgery/reactive. Acute TIA, resolved with left-sided weakness. Sinus tachycardia secondary to anemia and secondary to pulmonary embolism, recovered Acute kidney injury, recovered and the renal function normalized Acute on chronic deep vein thrombosis. Please refer to the Doppler of the lower extremities. Plan: he patient continues on oxygen, at 2 L. No interval worsening in oxygenation. Hemoglobin is stable. Renal function has normalized. Possible discharge home today. Arrange for home O2 and oxygenation to be followed up on outpatient basis.
--- NOTE | 2023-11-26 12:03 | P.PN ---
Progress Note - Text Acute pulmonary embolism and acute deep vein thrombosis is related to patient's co-morbid condition of: history of DVT and PE WELL a complication of the surgical procedure.
--- NOTE | 2023-11-28 07:24 | P.DS ---
Providers Date of admission: 11/13/23 11:34 Expected date of discharge: 11/24/23 Attending physician: Brody Brownlee Consults: 11/12/23 14:25 Consult Physician Routine Consulting Provider: Ruddy Villanueva Consult Reason/Comments: post op medical management Do you want consulting provider notified?: Yes 11/12/23 15:22 Consult Physician Routine Consulting Provider: Edvin Smith Consult Reason/Comments: stroke Do you want consulting provider notified?: Already Contacted 11/12/23 16:27 Consult Physician Stat Consulting Provider: Nancy Saldana Consult Reason/Comments: Code Stroke, Hypoxia, Request for ICU admission Do you want consulting provider notified?: Yes 11/15/23 08:23 Consult Physician Routine Consulting Provider: Ramya Jacobs Consult Reason/Comments: ELANA Do you want consulting provider notified?: Yes 11/19/23 14:58 Consult Physician Urgent Consulting Provider: Alan Maier Consult Reason/Comments: dysphagia Do you want consulting provider notified?: Yes 11/21/23 06:20 Consult Physician Stat Consulting Provider: Theodore Huggins Consult Reason/Comments: afib RVR Do you want consulting provider notified?: Already Contacted 11/21/23 11:38 Consult Physician Routine Consulting Provider: Darshan Willis Consult Reason/Comments: worsening leukocytosis Do you want consulting provider notified?: Yes Primary care physician: Jose M Sarkar Hospital Course: Final diagnosis New onset paroxysmal atrial fibrillation with RVR. Rate is controlled. Acute hypoxic respiratory failure secondary to acute pulmonary embolism. status post IVC filter placement because of contraindication for IV heparinongoing bleeding requiring multiple blood transfusions Acute blood loss anemia likely due to recent surgery. Hemoglobin is fairly stable now. Status post right total hip arthroplasty. Postoperative day 8 Left-sided weakness possible during hospitalization as well resolved now. Acute kidney injury secondary to ATN due to hypotension and acute blood loss anemia. Improving. Possible bilateral pneumonia consider aspiration Labile hypertension and hypotension currently stable fairly Anemia Diabetes type 2 Elevated troponin level possible type II DE History of DVT/PE on Eliquis at home. Hypokalemia. Replaced. DVT prophylaxis Discharge disposition Patient is being discharged in a stable condition with guarded prognosis to home with home care. Patient will follow-up with Dr. Sarkar in the outpatient setting upon discharge. Patient is to continue with current medications as mentioned below and close outpatient follow-up with cardiology as well as pulmonary and orthopedics as scheduled. Total time taken is greater than 35 minutes. Hospital course This is a 88-year-old female who was recently admitted with orthopedics for r ight total hip arthroplasty and had some complications requiring prolonged hospitalization. Patient was briefly in ICU with new onset A-fib RVR with acute hypoxic respiratory failure noted to have an acute pulmonary embolism. Patient having significant acute blood loss anemia requiring IVC filter placement as patient unable to tolerate anticoagulation. There were concerns of acute TIA during hospitalization as well and underwent neurological workup. Patient with significant weakness and prolonged hospitalization would benefit from ECF although patient is refusing reporting she will go home. Patient wishes to remain no code although was full code for the procedure. Patient has been resumed back on Eliquis and will continue with close outpatient follow-up with vascular surgery, cardiology, and orthopedics. Patient has been cleared by consultations and close outpatient follow-up. Please refer to consultation notes for further HPI. Currently no reports of chest pain, no worsening s hortness of breath, or palpitations. Patient is afebrile. No reports of nausea or vomiting and patient is tolerating diet. Patient will be discharged home today. Patient is adamant about going home and is extremely high risk for readmissions given patient's significant comorbidities. Physical exam: Gen: This is a 88-year-old female who is awake, alert and oriented x 3, well- developed, well-nourished, obese, elderly appearing HEENT: Head is atraumatic, normocephalic. Pupils equal, round. Sclerae is anicteric. NECK: Supple. No JVD. No lymphadenopathy. No thyromegaly. LUNGS: Diminished breath sounds bilaterally with some scattered rhonchi. No intercostal retractions. HEART: S1, S2 are muffled ABDOMEN: Soft. Obese bowel sounds are present. No masses. No tenderness. EXTREMITIES: No pedal edema. No calf tenderness., Right hip surgical dressing is dry and intact NEUROLOGICAL: Patient is awake, alert and oriented x3. Cranial nerves 2 through 12 are grossly intact. Diffusely weak Please refer to medication reconciliation sheet for a list of medications. The impression and plan of care has been dictated by Laly Sherman, Nurse Practitioner as directed. Dr. Danisha MD I have performed a history and examination and MDM of this patient, discussed the same with the dictator, and agree with the dictator's assessment and plan as written ,documented as a scribe. Based on total visit time, I have performed more than 50% of the visit. Patient Condition at Discharge: Fair Plan - Discharge Summary Discharge Rx Participant: No New Discharge Prescriptions: New Amiodarone [Cordarone] 200 mg PO BID #60 tab Atorvastatin [Lipitor] 20 mg PO HS #30 tab Magnesium Hydroxide [Milk of Magnesia] 2,400 mg PO DAILY PRN ml PRN Reason: Constipation HYDROcodone/APAP 5-325MG [[place] 5-325] 1 each PO Q6HR PRN #9 tab PRN Reason: Pain Scale 1 To 5 Metoprolol Succinate (ER) [Toprol XL] 50 mg PO BID #60 tab Doxycycline [Vibramycin] 100 mg PO BID 7 Days #14 cap Fluticasone Propion/Salmeterol [Airduo Respiclick 113-14 Mcg] 1 puff INHALATION BID #1 each Albuterol Inhaler [Ventolin Hfa Inhaler] 2 puff INHALATION Q6H PRN #1 each PRN Reason: Shortness Of Breath Magnesium Oxide [Mag-Ox] 400 mg PO BID #60 tab Multivitamins, Thera [Multivitamin (formulary)] 1 each PO DAILY@1200 #30 tab Nystatin 100,000 Unit/ml Susp [Mycostatin Oral Susp] 500,000 unit PO QID 7 Days #140 ml amLODIPine [Norvasc] 10 mg PO DAILY #30 tab Sennosides-Docusate Sodium [Senokot-S] 1 each PO HS PRN #30 tab PRN Reason: Constipation Acetaminophen Tab [Tylenol] 650 mg PO Q4HR PRN tab PRN Reason: Pain Scale 1 To 5 Continue ramipriL [Ramipril] 10 mg PO HS Apixaban [Eliquis] 5 mg PO BID Discontinued ramipriL [Ramipril] 20 mg PO DAILY Metoprolol Succinate [Toprol XL] 25 mg PO DAILY Ibuprofen [Advil] 400 mg PO DAILY hydroCHLOROthiazide [Hydrodiuril] 25 mg PO DAILY Discharge Medication List ramipriL [Ramipril] 10 mg PO HS 05/24/19 [History] Apixaban [Eliquis] 5 mg PO BID 09/29/23 [History] Acetaminophen Tab [Tylenol] 650 mg PO Q4HR PRN tab 11/24/23 [Rx] Albuterol Inhaler [Ventolin Hfa Inhaler] 2 puff INHALATION Q6H PRN #1 each 11/24/23 [Rx] Amiodarone [Cordarone] 200 mg PO BID #60 tab 11/24/23 [Rx] Atorvastatin [Lipitor] 20 mg PO HS #30 tab 11/24/23 [Rx] Doxycycline [Vibramycin] 100 mg PO BID 7 Days #14 cap 11/24/23 [Rx] Fluticasone Propion/Salmeterol [Airduo Respiclick 113-14 Mcg] 1 puff INHALATION BID #1 each 11/24/23 [Rx] HYDROcodone/APAP 5-325MG [[place] 5-325] 1 each PO Q6HR PRN #9 tab 11/24/23 [Rx] Magnesium Hydroxide [Milk of Magnesia] 2,400 mg PO DAILY PRN ml 11/24/23 [Rx] Magnesium Oxide [Mag-Ox] 400 mg PO BID #60 tab 11/24/23 [Rx] Metoprolol Succinate (ER) [Toprol XL] 50 mg PO BID #60 tab 11/24/23 [Rx] Multivitamins, Thera [Multivitamin (formulary)] 1 each PO DAILY@1200 #30 tab 11/24/23 [Rx] Nystatin 100,000 Unit/ml Susp [Mycostatin Oral Susp] 500,000 unit PO QID 7 Days #140 ml 11/24/23 [Rx] Sennosides-Docusate Sodium [Senokot-S] 1 each PO HS PRN #30 tab 11/24/23 [Rx] amLODIPine [Norvasc] 10 mg PO DAILY #30 tab 11/24/23 [Rx] Follow up Appointment(s)/Referral(s): Tapan Lizarraga MD [STAFF PHYSICIAN] - 1 Week (office will call with your appointment) Kevin Kidd DO [Doctor of Osteopathic Medicine] - 12/25/23 9:15 am Brody Brownlee MD [Medical Doctor] - 12/08/23 2:05 pm (Patient may follow-up with Dr. Brownlee at [facility] in 2-3 weeks following discharge. ) Patient Instructions/Handouts: Pulmonary Embolism (DC), Precautions after Total Joint Replacement Surgery (DC) Activity/Diet/Wound Care/Special Instructions: 1. Keep Optifoam dressing over the right hip intact over the next 7 days 2. Patient may shower with dressing intact over the surgical site of the right hip 3. Patient may shower without a dressing intact after 7 days his incision site remains clean and dry 4. Weight-bear as tolerated right lower extremity with a walker 5. Take medications as prescribed 6. Any questions or concerns patient may contact [facility] at [phone] Continue pured diet with aspiration precautions and slowly advance as tolerated to heart healthy Continue head of the bed elevated 30 to 45 degrees at all times and supervision with meals Continue taking antibiotics for 7 days and close outpatient follow-up Continue with home care Discharge Disposition: HOME WITH HOME HEALTH SERVICES
== END 2023-11-24 16:06 | disposition home health service (06) | DRG 981 ==
LOC: OR 10:23 → 4SSUR 14:44 → 2SICU 16:59 → OR 11-13 11:34 → 2SICU 11-13 11:34 → 3SCARD 11-17 13:16
PROVIDERS: ADMIT Hospitalist; ATTEND Orthopaedic Surgery
PROC: 3E0T33Z Introduction of Anti-inflammatory into Peripheral Nerves and Plexi, Percutaneous Approach (ICD-10-PCS; 2023-11-12)
PROC: 3E0T3BZ Introduction of Anesthetic Agent into Peripheral Nerves and Plexi, Percutaneous Approach (ICD-10-PCS; 2023-11-12)
PROC: 0SR902A Replacement of Right Hip Joint with Metal on Polyethylene Synthetic Substitute, Uncemented, Open Approach (ICD-10-PCS; principal; 2023-11-12 12:00)
PROC: 30233N1 Transfusion of Nonautologous Red Blood Cells into Peripheral Vein, Percutaneous Approach (ICD-10-PCS; 2023-11-13)
PROC: B51G1ZZ Fluoroscopy of Left Pelvic (Iliac) Veins using Low Osmolar Contrast (ICD-10-PCS; 2023-11-15)
PROC: B5191ZZ Fluoroscopy of Inferior Vena Cava using Low Osmolar Contrast (ICD-10-PCS; 2023-11-15)
PROC: 06H03DZ Insertion of Intraluminal Device into Inferior Vena Cava, Percutaneous Approach (ICD-10-PCS; 2023-11-15)
PROC: 05HC33Z Insertion of Infusion Device into Left Basilic Vein, Percutaneous Approach (ICD-10-PCS; 2023-11-21)
DX: I26.99 Other pulmonary embolism without acute cor pulmonale (principal); E43 Unspecified severe protein-calorie malnutrition; N17.0 Acute kidney failure with tubular necrosis; J96.01 Acute respiratory failure with hypoxia; I63.9 Cerebral infarction, unspecified; J69.0 Pneumonitis due to inhalation of food and vomit; I21.A1 Myocardial infarction type 2; I82.413 Acute embolism and thrombosis of femoral vein, bilateral; B37.0 Candidal stomatitis; E87.20 Acidosis, unspecified; D62 Acute posthemorrhagic anemia; G81.94 Hemiplegia, unspecified affecting left nondominant side; J98.11 Atelectasis; L03.113 Cellulitis of right upper limb; T82.848A Pain due to vascular prosthetic devices, implants and grafts, initial encounter; M16.11 Unilateral primary osteoarthritis, right hip; I95.9 Hypotension, unspecified; I97.3 Postprocedural hypertension; E11.65 Type 2 diabetes mellitus with hyperglycemia; I48.0 Paroxysmal atrial fibrillation; I10 Essential (primary) hypertension; I65.22 Occlusion and stenosis of left carotid artery; Z68.31 Body mass index [BMI] 31.0-31.9, adult; Z66 Do not resuscitate; E86.1 Hypovolemia; E83.42 Hypomagnesemia; E87.6 Hypokalemia; I44.7 Left bundle-branch block, unspecified; E78.5 Hyperlipidemia, unspecified; S70.01XA Contusion of right hip, initial encounter; Z79.01 Long term (current) use of anticoagulants; Z79.1 Long term (current) use of non-steroidal anti-inflammatories (NSAID); Z79.899 Other long term (current) drug therapy; Z86.711 Personal history of pulmonary embolism; Z86.718 Personal history of other venous thrombosis and embolism; Z85.828 Personal history of other malignant neoplasm of skin; Z71.3 Dietary counseling and surveillance; R29.713 NIHSS score 13; R13.10 Dysphagia, unspecified; Y84.8 Other medical procedures as the cause of abnormal reaction of the patient, or of later complication, without mention of misadventure at the time of the procedure; Y92.230 Patient room in hospital as the place of occurrence of the external cause
CPT/HCPCS: 36410; 36600; 37191; 64447; 70450; 70496; 70498; 71045; 71275; 73501; 74230; 76770; 76937; 80048; 80053; 80061; 81001; 81003; 82550; 82552; 82565; 82805; 83735; 84132; 84145; 84484; 85025; 85027; 85610; 85730; 86140; 86850; 86900; 86901; 86920; 87040; 93306; 93970; 94640; 94660; 94760

== ENCOUNTER → 2023-12-15 | Outpatient (CLI) | payer MEDICARE ==
[2023-12-16 02:42] LABS: Chol/HDL Ratio 3.14 Ratio
[2023-12-16 02:43] LABS: ALT 20 U/L (8-44); AST 26 U/L (13-35); LDL Cholesterol,Calculated 58.9 mg/dL (0.0-131.0)
== END | disposition home or self-care (01) ==
LOC: LABWHC1 15:04
PROVIDERS: ATTEND Internal Medicine Cardiovascular Disease
DX: E78.2 Mixed hyperlipidemia (principal)
CPT/HCPCS: 36415; 80061; 84443; 84450; 84460

== ENCOUNTER → 2023-12-30 | Outpatient (CLI) | payer MEDICARE ==
[2023-12-30 19:19] LABS: Basophils # (A) 0.07 X 10*3/uL (0.00-0.10); Basophils % (A) 0.7 %; Eosinophils # (A) 0.16 X 10*3/uL (0.04-0.35); Eosinophils % (A) 1.5 %; HCT 35.3 % (37.2-46.3); HGB 11.3 g/dL (12.0-15.0); Lymphocytes # (A) 2.22 X 10*3/uL (0.90-5.00); Lymphocytes % (A) 20.8 %; MCH 29.5 pg (27.0-32.0); MCV 92.2 FL (80.0-97.0); Mean Platelet Volume 11.6 FL (9.5-12.2); Monocytes # (A) 1.12 X 10*3/uL (0.20-1.00); Monocytes % (A) 10.5 %; NRBC Per 100 WBC 0.02 X 10*3/uL (0.00-0.01); Neutrophils # (A) 7.03 X 10*3/uL (1.80-7.70); Neutrophils % (A) 65.8 %; Platelet Count 306 X 10*3/uL (140-440); RBC 3.83 X 10*6/uL (4.10-5.20); RDW 16.9 % (11.5-14.5); WBC 10.68 X 10*3/uL (4.50-10.00)
[2023-12-31 01:59] LABS: % Iron Saturation 28.02 (12.00-45.00); ALT 29 U/L (8-44); AST 33 U/L (13-35); Alkaline Phosphatase 99 U/L (41-126); BUN/Creat Ratio 21.46 Ratio (12.00-20.00); Blood Urea Nitrogen 27.9 mg/dL (9.0-27.0); Calcium 8.8 mg/dL (8.7-10.3); Carbon Dioxide 21.8 mmol/L (21.6-31.8); Chloride 98 mmol/L (96-109); Globulin 2.1 g/dL (1.6-3.3); Glucose 159 mg/dL (70-110); Iron 58 UG/DL (50-170); Potassium 3.1 mmol/L (3.5-5.5); Sodium 137 mmol/L (135-145); Total Bilirubin 0.5 mg/dL (0.3-1.2); Total Iron Binding Capacity 207 UG/DL (228-460); Total Protein 6.1 g/dL (6.2-8.2)
== END | disposition home or self-care (01) ==
LOC: LABWHC1 14:43
PROVIDERS: ATTEND Family Medicine
DX: N18.31 Chronic kidney disease, stage 3a (principal); D63.1 Anemia in chronic kidney disease
CPT/HCPCS: 36415; 80053; 82728; 83540; 83550; 83970; 85025; 85045

== ENCOUNTER → 2024-02-06 | Outpatient (CLI) | payer MEDICARE ==
--- NOTE | 2024-02-06 12:48 | XR ---
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 FINDINGS: No evidence of any acute osseous pathology. No evidence of soft tissue swelling. Multifocal degenera tion changes throughout the joints of the foot with osteophyte formation and joint space narrowing. C alcaneal plantar spurring is present. Calcaneal Achilles enthesophyte. Mild hallux valgus. Surgical m etallic density in the base of the first digit phalanx on the left foot.. IMPRESSION: 1. No evidence of acute fracture. 2. Multifocal degeneration changes throughout the joints of the foot. 3. Mild hallux valgus bilaterally.
== END | disposition home or self-care (01) ==
LOC: RADXRMAIN 11:34
PROVIDERS: ATTEND Family Medicine
DX: M20.11 Hallux valgus (acquired), right foot (principal); M20.12 Hallux valgus (acquired), left foot

== ENCOUNTER 2024-02-11 10:59 | Inpatient (IN) | payer MEDICARE ==
--- NOTE | 2024-02-11 11:27 | ED ---
General Adult HPI - General Chief complaint: Shortness of Breath Stated complaint: SOB Time Seen by Provider: 02/11/24 11:27 Source: patient, RN notes reviewed Mode of arrival: ambulatory Limitations: no limitations - History of Present Illness Initial comments: 88-year-old female presents to the emergency department for evaluation of shortness of breath x 3 days. Patient notes that she has difficulty breathing and cough that is worse at night. No known COPD or CHF. She denies chest pain. Denies recent fever, chills. She does admit to bilateral leg swelling which she states is chronic. - Related Data Home Medications Medication Instructions Recorded Confirmed Apixaban [Eliquis] 5 mg PO BID 09/29/23 02/11/24 Amiodarone [Cordarone] 100 mg PO DAILY 02/11/24 02/11/24 Metoprolol Succinate (ER) [Toprol 50 mg PO DAILY 02/11/24 02/11/24 XL] hydroCHLOROthiazide [Hydrodiuril] 37.5 mg PO DAILY 02/11/24 02/11/24 methylPREDNISolone [Medrol Dose See Taper PO DIRECTED 02/11/24 02/11/24 Pack] Previous Rx's Medication Instructions Recorded Atorvastatin [Lipitor] 20 mg PO HS #30 tab 11/24/23 amLODIPine [Norvasc] 10 mg PO DAILY #30 tab 11/24/23 Amoxic-Pot Clav 875-125Mg 1 tab PO Q12HR #20 tab 02/11/24 [Augmentin 875-125] Doxycycline [Vibramycin] 100 mg PO BID #20 capsule 02/11/24 Allergies Allergy/AdvReac Type Severity Reaction Status Date / Time No Known Allergies Allergy Verified 02/11/24 11:02 Review of Systems ROS Statement: Those systems with pertinent positive or pertinent negative responses have been documented in the HPI. ROS Other: All systems not noted in ROS Statement are negative. Past Medical History Past Medical History: Cancer, Diabetes Mellitus, Deep Vein Thrombosis (DVT), Hypertension, Osteoarthritis (OA) Additional Past Medical History / Comment(s): skin on back of leg, diet controlled dm, lft leg dvt 03/2023, bunion on rt foot with scab History of Any Multi-Drug Resistant Organisms: None Reported Past Surgical History: Hysterectomy Additional Past Surgical History / Comment(s): skin cancer removal from R leg, removal of blood clot from lft leg Past Anesthesia/Blood Transfusion Reactions: No Reported Reaction Past Psychological History: No Psychological Hx Reported Smoking Status: Never smoker Past Alcohol Use History: None Reported Past Drug Use History: None Reported - Past Family History Daughter(s) Family Medical History: Cancer Additional Family Medical History / Comment(s): breast Father Family Medical History: Hypertension Mother Family Medical History: Hypertension Brother(s) Family Medical History: Cancer, Hypertension General Exam - General Exam Comments Initial Comments: Visual Physical Exam Vital signs reviewed General: Well-appearing, nontoxic, no acute distress. Head: Normocephalic, atraumatic Eyes: PERRLA, EOMI ENT: Airway patent Chest: Mildly dyspneic Skin: No visual rash, normal skin tone Neuro: Alert and oriented 3 Musculoskeletal: No gross abnormalities Limitations: no limitations General appearance: alert, in no apparent distress Head exam: Present: atraumatic, normocephalic, normal inspection Eye exam: Present: normal appearance, PERRL, EOMI. Absent: scleral icterus, conjunctival injection, periorbital swelling ENT exam: Present: normal exam, mucous membranes moist Respiratory exam: Present: rales. Absent: respiratory distress, wheezes, rhonchi, stridor Cardiovascular Exam: Present: regular rate, normal rhythm, normal heart sounds. Absent: systolic murmur, diastolic murmur, rubs, gallop, clicks Extremities exam: Present: full ROM, normal capillary refill, pedal edema. Absent: tenderness, joint swelling, calf tenderness Neurological exam: Present: alert, oriented X3 Psychiatric exam: Present: normal affect, normal mood Skin exam: Present: warm, dry, intact, normal color. Absent: rash Course Vital Signs 02/11/24 02/11/24 02/11/24 11:00 12:02 12:06 Temperature 97.7 F Pulse Rate 85 74 Respiratory 22 20 20 Rate Blood Pressure 145/63 150/72 O2 Sat by Pulse 95 95 Oximetry 02/11/24 02/11/24 02/11/24 13:00 13:05 13:53 Temperature Pulse Rate Respiratory Rate Blood Pressure O2 Sat by Pulse 90 L 95 89 L Oximetry 02/11/24 02/11/24 02/11/24 14:53 15:25 18:00 Temperature Pulse Rate 71 79 67 Respiratory 22 24 16 Rate Blood Pressure 149/70 128/79 O2 Sat by Pulse 94 L 97 94 L Oximetry Medical Decision Making - Medical Decision Making Quick note preformed and electronically signed by SHELTON Perdomo-Janeth Was pt. sent in by a medical professional or institution ([facility], HOSPITAL CNA, urgent care, hospital, or chcf...) When possible be specific @ -No Did you speak to anyone other than the patient for history (EMS, parent, family, police, friend...)? What history was obtained from this source @ -No Did you review nursing and triage notes (agree or disagree)? Why? @ -I reviewed and agree with nursing and triage notes Were old charts reviewed (outside hosp., previous admission, EMS record, old EKG, old radiological studies, urgent care reports/EKG's, chcf records)? Report findings @ -No old charts were reviewed Differential Diagnosis (chest pain, altered mental status, abdominal pain women, abdominal pain men, vaginal bleeding, weakness, fever, dyspnea, syncope, headache, dizziness, GI bleed, back pain, seizure, CVA, palpatations, mental health, musculoskeletal)? @ -Differential Dyspnea: Coronary syndrome, arrhythmia, tamponade, asthma, COPD, pulmonary embolism, pneumonia, pneumothorax, pulmonary effusion, anaphylaxis, diabetic ketoacidosis, flailed chest, pulmonary contusion, diaphragmatic rupture, anemia, neuromuscular, this is not meant to be an all-inclusive list. EKG interpreted by me (3pts min.). @ -EKG at 1109 shows sinus rhythm left bundle branch block which is old rate of 79, DC 205, QRS 178, QTQTc 324500 X-rays interpreted by me (1pt min.). @ -Chest x-ray shows possible developing pneumonia in the left lower lobe, CT interpreted by me (1pt min.). @ -None done U/S interpreted by me (1pt. min.). @ -None done What testing was considered but not performed or refused? (CT, X-rays, U/S, labs)? Why? @ -None What meds were considered but not given or refused? Why? @ -None Did you discuss the management of the patient with other professionals (professionals i.e. [facility], HOSPITAL CNA, lab, RT, psych nurse, floor worker well service, medical office technologist, teacher, amphibious operations officer, case managers)? Give summary @ -Case discussed with Jose M Sosa with [facility] who is accepting of the admission Was smoking cessation discussed for >3mins.? @ -No Was critical care preformed (if so, how long)? @ -No Were there social determinants of health that impacted care today? How? (Homelessness, low income, unemployed, alcoholism, drug addiction, transportation, low edu. Level, literacy, decrease access to med. care, half-way, rehab)? @ -No Was there de-escalation of care discussed even if they declined (Discuss DNR or withdrawal of care, Hospice)? DNR status @ -No What co-morbidities impacted this encounter? (DM, HTN, Smoking, COPD, CAD, Cancer, CVA, ARF, Chemo, Hep., AIDS, mental health diagnosis, sleep apnea, morbid obesity)? @ -None Was patient admitted / discharged? Hospital course, mention meds given and route, prescriptions, significant lab abnormalities, going to OR and other pertinent info. @ -Admitted patient presented to the emergency department for evaluation of shortness of breath, cough. Laboratory studies significant for leukocytosis of 16.9. Patient also has a BNP of 3500. X-ray of the chest was obtained which shows a developing pneumonia in the left lower lobe and a small pleural effusion. Patient is satting in the high 80s when off of oxygen. She does not utilize oxygen at home. Discussed with patient the need for observation for potential pneumonia versus CHF. Patient was provided initial dose of antibiotics while in the ED along with a dose of Lasix. Case was discussed with Jose M Sosa with [facility] was accepting of the admission. Undiagnosed new problem with uncertain prognosis? @ -No Drug Therapy requiring intensive monitoring for toxicity (Heparin, Nitro, Insulin, Cardizem)? @ -No Were any procedures done? @ -No Diagnosis/symptom? @ -CHF exacerbation, pneumonia Acute, or Chronic, or Acute on Chronic? @ -Acute Uncomplicated (without systemic symptoms) or Complicated (systemic symptoms)? @ -Uncomplicated Side effects of treatment? @ -No Exacerbation, Progression, or Severe Exacerbation? @ -No Poses a threat to life or bodily function? How? (Chest pain, [place], [place], pneumonia, PE, COPD, DKA, ARF, appy, cholecystitis, CVA, Diverticulitis, Homicidal, Suicidal, threat to staff... and all critical care pts) @ -No - Lab Data Result diagrams: 02/11/24 11:35 02/11/24 11:04 Lab Results 02/11/24 02/11/24 02/11/24 Range/Units 11:04 11:04 11:04 WBC (3.8-10.6) k/uL RBC (3.80-5.40) m/uL Hgb (11.4-16.0) gm/dL Hct (34.0-46.0) % MCV (80.0-100.0) fL MCH (25.0-35.0) pg MCHC (31.0-37.0) g/dL RDW (11.5-15.5) % Plt Count (150-450) k/uL MPV Neutrophils % % Lymphocytes % % Monocytes % % Eosinophils % % Basophils % % Neutrophils # (1.3-7.7) k/uL Lymphocytes # (1.0-4.8) k/uL Monocytes # (0-1.0) k/uL Eosinophils # (0-0.7) k/uL Basophils # (0-0.2) k/uL Anisocytosis PT 12.3 (10.0-12.5) sec INR 1.2 H (<1.2) APTT 29.1 (22.0-30.0) sec Sodium 139 (137-145) mmol/L Potassium 3.7 (3.5-5.1) mmol/L Chloride 104 (98-107) mmol/L Carbon Dioxide 26 (22-30) mmol/L Anion Gap 9 mmol/L BUN 29 H (7-17) mg/dL Creatinine 0.97 (0.52-1.04) mg/dL Est GFR (CKD-EPI)AfAm 61 (>60 ml/min/1.73 sqM) Est GFR (CKD-EPI)NonAf 53 (>60 ml/min/1.73 sqM) Glucose 164 H (74-99) mg/dL Lactic Ac Sepsis Rflx Plasma Lactic Acid Asher (0.7-2.0) mmol/L Calcium 10.0 (8.4-10.2) mg/dL Magnesium 1.9 (1.6-2.3) mg/dL Total Bilirubin 0.5 (0.2-1.3) mg/dL AST 48 H (14-36) U/L ALT 31 (4-34) U/L Alkaline Phosphatase 89 (38-126) U/L Troponin I <0.012 (0.000-0.034) ng/mL NT-Pro-B Natriuret Pep 3500 pg/mL Total Protein 6.8 (6.3-8.2) g/dL Albumin 4.2 (3.5-5.0) g/dL 02/11/24 02/11/24 02/11/24 Range/Units 11:35 11:35 12:26 WBC 16.7 H (3.8-10.6) k/uL RBC 3.80 (3.80-5.40) m/uL Hgb 11.4 (11.4-16.0) gm/dL Hct 35.8 (34.0-46.0) % MCV 94.3 (80.0-100.0) fL MCH 30.0 (25.0-35.0) pg MCHC 31.8 (31.0-37.0) g/dL RDW 17.5 H (11.5-15.5) % Plt Count 328 (150-450) k/uL MPV 9.3 Neutrophils % 77 % Lymphocytes % 15 % Monocytes % 7 % Eosinophils % 1 % Basophils % 0 % Neutrophils # 12.8 H (1.3-7.7) k/uL Lymphocytes # 2.5 (1.0-4.8) k/uL Monocytes # 1.2 H (0-1.0) k/uL Eosinophils # 0.1 (0-0.7) k/uL Basophils # 0.0 (0-0.2) k/uL Anisocytosis Slight PT (10.0-12.5) sec INR (<1.2) APTT (22.0-30.0) sec Sodium (137-145) mmol/L Potassium (3.5-5.1) mmol/L Chloride (98-107) mmol/L Carbon Dioxide (22-30) mmol/L Anion Gap mmol/L BUN (7-17) mg/dL Creatinine (0.52-1.04) mg/dL Est GFR (CKD-EPI)AfAm (>60 ml/min/1.73 sqM) Est GFR (CKD-EPI)NonAf (>60 ml/min/1.73 sqM) Glucose (74-99) mg/dL Lactic Ac Sepsis Rflx Y Plasma Lactic Acid Asher 2.1 H* (0.7-2.0) mmol/L Calcium (8.4-10.2) mg/dL Magnesium (1.6-2.3) mg/dL Total Bilirubin (0.2-1.3) mg/dL AST (14-36) U/L ALT (4-34) U/L Alkaline Phosphatase (38-126) U/L Troponin I (0.000-0.034) ng/mL NT-Pro-B Natriuret Pep pg/mL Total Protein (6.3-8.2) g/dL Albumin (3.5-5.0) g/dL 02/11/24 Range/Units 14:42 WBC (3.8-10.6) k/uL RBC (3.80-5.40) m/uL Hgb (11.4-16.0) gm/dL Hct (34.0-46.0) % MCV (80.0-100.0) fL MCH (25.0-35.0) pg MCHC (31.0-37.0) g/dL RDW (11.5-15.5) % Plt Count (150-450) k/uL MPV Neutrophils % % Lymphocytes % % Monocytes % % Eosinophils % % Basophils % % Neutrophils # (1.3-7.7) k/uL Lymphocytes # (1.0-4.8) k/uL Monocytes # (0-1.0) k/uL Eosinophils # (0-0.7) k/uL Basophils # (0-0.2) k/uL Anisocytosis PT (10.0-12.5) sec INR (<1.2) APTT (22.0-30.0) sec Sodium (137-145) mmol/L Potassium (3.5-5.1) mmol/L Chloride (98-107) mmol/L Carbon Dioxide (22-30) mmol/L Anion Gap mmol/L BUN (7-17) mg/dL Creatinine (0.52-1.04) mg/dL Est GFR (CKD-EPI)AfAm (>60 ml/min/1.73 sqM) Est GFR (CKD-EPI)NonAf (>60 ml/min/1.73 sqM) Glucose (74-99) mg/dL Lactic Ac Sepsis Rflx Plasma Lactic Acid Asher 1.5 (0.7-2.0) mmol/L Calcium (8.4-10.2) mg/dL Magnesium (1.6-2.3) mg/dL Total Bilirubin (0.2-1.3) mg/dL AST (14-36) U/L ALT (4-34) U/L Alkaline Phosphatase (38-126) U/L Troponin I (0.000-0.034) ng/mL NT-Pro-B Natriuret Pep pg/mL Total Protein (6.3-8.2) g/dL Albumin (3.5-5.0) g/dL Disposition Clinical Impression: Pneumonia, CHF exacerbation Disposition: HOME SELF-CARE Condition: Stable Instructions (If sedation given, give patient instructions): Community Acquired Pneumonia (ED) Additional Instructions: Hospitalization is recommended for further workup and treatment. Please citrus picker your antibiotics and take to completion. Follow up with your primary care provider. Prescriptions: Amoxic-Pot Clav 875-125Mg [Augmentin 875-125] 1 tab PO Q12HR #20 tab Doxycycline [Vibramycin] 100 mg PO BID #20 capsule Is patient prescribed a controlled substance at d/c from ED?: No Referrals: Jose M Sarkar MD [Primary Care Provider] - 1-2 days
[2024-02-11 11:32] LABS: INR 1.2 (<1.2); Partial Thromboplastin Time 29.1 sec (22.0-30.0); Prothrombin Time 12.3 sec (10.0-12.5)
[2024-02-11 11:53] LABS: ALT 31 U/L (4-34); AST 48 U/L (14-36); African American GFR (CKD) 61 (>60 ml/min/1.73 sqM); Albumin 4.2 g/dL (3.5-5.0); Alkaline Phosphatase 89 U/L (38-126); Anion Gap 9 mmol/L; Blood Urea Nitrogen 29 mg/dL (7-17); Carbon Dioxide 26 mmol/L (22-30); Chloride 104 mmol/L (98-107); Glucose 164 mg/dL (74-99); Magnesium 1.9 mg/dL (1.6-2.3); Non-African American GFR(CKD) 53 (>60 ml/min/1.73 sqM); Potassium 3.7 mmol/L (3.5-5.1); Sodium 139 mmol/L (137-145); Total Bilirubin 0.5 mg/dL (0.2-1.3); Total Protein 6.8 g/dL (6.3-8.2)
[2024-02-11 12:01] LABS: NT-Pro-B-Type Natriuretic Pept 3500 pg/mL
[2024-02-11 12:07] LABS: Anisocytosis Slight; Basophils % (A) 0 %; Eosinophils # (A) 0.1 k/uL (0-0.7); Eosinophils % (A) 1 %; HCT 35.8 % (34.0-46.0); HGB 11.4 gm/dL (11.4-16.0); Lymphocytes # (A) 2.5 k/uL (1.0-4.8); Lymphocytes % (A) 15 %; MCHC 31.8 g/dL (31.0-37.0); MCV 94.3 fL (80.0-100.0); Mean Platelet Volume 9.3; Monocytes # (A) 1.2 k/uL (0-1.0); Monocytes % (A) 7 %; Neutrophils # (A) 12.8 k/uL (1.3-7.7); Neutrophils % (A) 77 %; Platelet Count 328 k/uL (150-450); RDW 17.5 % (11.5-15.5); WBC 16.7 k/uL (3.8-10.6)
--- NOTE | 2024-02-11 12:46 | XR ---
EXAMINATION TYPE: XR chest 2V DATE OF EXAM: 02/11/2024 COMPARISON: 11/16/2023 INDICATION: Difficulty breathing due to TECHNIQUE: Frontal and lateral views of the chest are obtained. FINDINGS: The heart size is normal. The pulmonary vasculature is normal. Left lower lobe infiltrate is present. Minimal posterior pleural effusion is not excluded.. IMPRESSION: 1. Developing left lower lobe filtrate. Correlate for pneumonia. Follow-up is recommended. 2. Small posterior pleural effusion
[2024-02-11] MEDS: cefTRIAXone IN SWFI 1,000 MG/10 ML SYRINGE IVP STA (13:40)
[2024-02-11] MEDS: AZITHROMYCIN 500 MG in SODIUM CHLORIDE 0.9% 250 ML IVPB STA (13:44)
[2024-02-11] MEDS: FUROSEMIDE 10 MG/ML 4 ML VIAL IV STA (14:30)
[2024-02-11] MEDS ORDERED: KETOROLAC 15 MG/ML 1 ML VIAL IVP PRN (16:52)
[2024-02-11] MEDS ORDERED: NALOXONE 0.4 MG/ML 1 ML VIAL IV PRN (16:52)
[2024-02-11] MEDS ORDERED: IPRATROPIUM-ALBUTEROL 3 ML NEB INHALATION PRN (18:52)
[2024-02-11] MEDS: IPRATROPIUM-ALBUTEROL 3 ML NEB INHALATION STA (18:54)
[2024-02-11] MEDS: ATORVASTATIN 20 MG TAB PO SCH (23:13)
[2024-02-11] MEDS: ACETAMINOPHEN TAB 325 MG TAB PO PRN (23:13)
[2024-02-11] MEDS: APIXABAN 5 MG TAB PO SCH (23:13)
[2024-02-12] MEDS: AMIODARONE 100 MG TAB PO SCH (08:35)
[2024-02-12] MEDS: METOPROLOL SUCCINATE (ER) 50 MG TAB.ER.24H PO SCH (08:35)
[2024-02-12] MEDS: amLODIPine 10 MG TAB PO SCH (08:35)
--- NOTE | 2024-02-12 09:52 | P.HPIM ---
History of Present Illness This is a pleasant 88 years old female with multiple medical problems as below Presents because of dyspnea of 3 to 4 days duration associated with cough and detailed white phlegm Patient denies chest pain No GI or urinary complaint No confusion or weakness or numbness She denies smoking or illicit drugs. She drinks alcohol on the weekends only She is afebrile and hemodynamically stable, she was saturating 98% on 2 L oxygen but currently she is not tachypneic and she is on room air with good oxygen saturation Labs reviewed, she has leukocytosis 16 K, chronically WBC is elevated 10-17,000. Rest of CBC, INR, BMP, LFT and troponin were negative proBNP is elevated mildly 3500 EKG showing sinus rhythm at [address]-T changes Chest x-ray showing possible left lower lobe infiltrate Patient received antibiotics in the emergency room Review of Systems Review of systems CONSTITUTIONAL: No fever, no malaise, no fatigue. HEENT: No recent visual problems or hearing problems. Denied any sore throat. CARDIOVASCULAR: No orthopnea, PND, no palpitations, no syncope. PULMONARY: No chest wall tenderness, no hemoptysis. GASTROINTESTINAL: No diarrhea, no nausea, no vomiting, no abdominal pain. Normoactive bowel sounds. NEUROLOGICAL: No headaches, no weakness, no numbness. HEMATOLOGICAL: Denies any bleeding or petechiae. GENITOURINARY: Denies any burning micturition, frequency, or urgency. MUSCULOSKELETAL/RHEUMATOLOGICAL: Denies any joint pain, swelling, or any muscle pain. ENDOCRINE: Denies any polyuria or polydipsia. Past Medical History Past Medical History: Cancer, Diabetes Mellitus, Deep Vein Thrombosis (DVT), Hypertension, Osteoarthritis (OA) Additional Past Medical History / Comment(s): skin on back of leg, diet controlled dm, lft leg dvt 03/2023, bunion on rt foot with scab History of Any Multi-Drug Resistant Organisms: None Reported Past Surgical History: Hysterectomy Additional Past Surgical History / Comment(s): skin cancer removal from R leg, removal of blood clot from lft leg Past Anesthesia/Blood Transfusion Reactions: No Reported Reaction Past Psychological History: No Psychological Hx Reported Smoking Status: Never smoker Past Alcohol Use History: None Reported Additional Past Alcohol Use History / Comment(s): wekends a couple of glasses of wine Past Drug Use History: None Reported - Past Family History Daughter(s) Family Medical History: Cancer Additional Family Medical History / Comment(s): breast Father Family Medical History: Hypertension Mother Family Medical History: Hypertension Brother(s) Family Medical History: Cancer, Hypertension Medications and Allergies Home Medications Medication Instructions Recorded Confirmed Type Apixaban [Eliquis] 5 mg PO BID 09/29/23 02/11/24 History Atorvastatin [Lipitor] 20 mg PO HS #30 tab 11/24/23 02/11/24 Rx amLODIPine [Norvasc] 10 mg PO DAILY #30 tab 11/24/23 02/11/24 Rx Amiodarone [Cordarone] 100 mg PO DAILY 02/11/24 02/11/24 History Amoxic-Pot Clav 875-125Mg 1 tab PO Q12HR #20 tab 02/11/24 Rx [Augmentin 875-125] Doxycycline [Vibramycin] 100 mg PO BID #20 capsule 02/11/24 Rx Metoprolol Succinate (ER) [Toprol 50 mg PO DAILY 02/11/24 02/11/24 History XL] hydroCHLOROthiazide [Hydrodiuril] 37.5 mg PO DAILY 02/11/24 02/11/24 History methylPREDNISolone [Medrol Dose See Taper PO DIRECTED 02/11/24 02/11/24 History Pack] Allergies Allergy/AdvReac Type Severity Reaction Status Date / Time No Known Allergies Allergy Verified 02/11/24 11:02 Physical Exam Vitals: Vital Signs Temp Pulse Pulse Resp BP BP Pulse Ox 02/12/24 08:00 97.2 F L 69 16 118/62 93 L 02/12/24 04:00 97.9 F 109 H 19 117/82 91 L 02/12/24 02:00 103 H 19 02/11/24 22:22 97.7 F 72 20 150/70 92 L 02/11/24 21:30 65 18 133/66 95 02/11/24 18:00 67 16 128/79 94 L 02/11/24 15:25 79 24 97 02/11/24 14:53 71 22 149/70 94 L 02/11/24 13:53 89 L 02/11/24 13:05 95 02/11/24 13:00 90 L 02/11/24 12:06 20 02/11/24 12:02 74 20 150/72 95 02/11/24 11:00 97.7 F 85 22 145/63 95 Intake and Output 02/11/24 02/12/24 02/12/24 22:59 06:59 14:59 Intake Total 20 110 Output Total 850 300 Balance -850 -280 110 Intake: IV 20 Invasive Line 1 20 Oral 110 Output: Urine 850 300 Other: Voiding Method Bedside Commode Weight 72.575 kg 68.5 kg GENERAL: The patient is alert and oriented x3, not in any acute distress. Well developed, well nourished. HEENT: Pupils are round and equally reacting to light. EOMI. No scleral icterus. No conjunctival pallor. Normocephalic, atraumatic. No pharyngeal erythema. No thyromegaly. CARDIOVASCULAR: S1 and S2 present. No murmurs, rubs, or gallops. PULMONARY: Chest is clear to auscultation, no wheezing , no crackles. ABDOMEN: Soft, nontender, nondistended, normoactive bowel sounds. No palpable organomegaly. MUSCULOSKELETAL: No joint swelling or deformity. EXTREMITIES: No cyanosis, clubbing, or pedal edema. NEUROLOGICAL: Gross neurological examination did not reveal any focal deficits. SKIN: No rashes. no petechiae. Results CBC & Chem 7: 02/11/24 11:35 02/11/24 11:04 Labs: Abnormal Lab Results - Last 24 Hours (Table) 02/11/24 02/11/24 02/11/24 Range/Units 11:04 11:04 11:35 WBC 16.7 H (3.8-10.6) k/uL RDW 17.5 H (11.5-15.5) % Neutrophils # 12.8 H (1.3-7.7) k/uL Monocytes # 1.2 H (0-1.0) k/uL INR 1.2 H (<1.2) BUN 29 H (7-17) mg/dL Glucose 164 H (74-99) mg/dL Plasma Lactic Acid Asher (0.7-2.0) mmol/L AST 48 H (14-36) U/L 02/11/24 Range/Units 11:35 WBC (3.8-10.6) k/uL RDW (11.5-15.5) % Neutrophils # (1.3-7.7) k/uL Monocytes # (0-1.0) k/uL INR (<1.2) BUN (7-17) mg/dL Glucose (74-99) mg/dL Plasma Lactic Acid Asher 2.1 H* (0.7-2.0) mmol/L AST (14-36) U/L Thrombosis Risk Factor Assmnt - Choose All That Apply Any of the Below Risk Factors Present?: Yes Each Factor Represents 1 point: Swollen legs (current) Each Risk Factor Represents 3 Points: Age 75 years or older, History of DVT/PE Other congenital or acquired thrombophilia - If yes, enter type in comment: No Thrombosis Risk Factor Assessment Total Risk Factor Score: 7 Thrombosis Risk Factor Assessment Level: High Risk Assessment and Plan Assessment: Left lower lobe pneumonia Mild acute CHF exacerbation, unknown ejection fraction Diabetes mellitus Hypertension Hyperlipidemia History of osteoarthritis Hypothyroidism History of deep venous thrombosis Plan: Continue with ceftriaxone and doxycycline Patient is on home dose of Eliquis Patient does not require oxygen for now but keep monitoring Check procalcitonin Patient received 1 dose of IV Lasix and cardiology team, consulted Labs and medication were reviewed.. Continue same treatment. Continue with symptomatic treatment. Resume home medication. Monitor lytes and vitals. DVT and GI prophylaxis. Further recommendations depends on the clinical course of the patient DVT prophylaxis: on Eliquis GI Prophylaxis: Pepcid PT/OT: Pending Prognosis is guarded
--- NOTE | 2024-02-12 11:12 | P.CRDCN ---
History of Present Illness Consult date: 02/12/24 Consult reason: congestive heart failure History of present illness: This is an 88-year-old female patient of Dr. Kamaljit Huggins with past medical history of paroxysmal atrial fibrillation, dyslipidemia, peripheral vascular disease, hypertension. We have been asked to evaluate the patient for CHF. Patient states that she has been coughing all night that is nonproductive. No fever or chills. She has mild chronic lower extremity edema that is unchanged. She denies any chest pain. Blood pressure 118/62, heart rate 69, pulse ox 93% on room air. Telemetry is sinus rhythm. Blood pressure 118/62, heart rate 69, afebrile, pulse ox 93% on room air. Patient is s/p 1 dose of IV Lasix 40 mg and 1 dose each of azithromycin and ceftriaxone, nebulizer treatments have been started. EKG: Sinus rhythm with left bundle branch block Chest x-ray: Developing left lower lobe infiltrate concerning for pneumonia. Small posterior pleural effusion Laboratory studies: Troponin negative x 1, proBNP 3500. WBC 16.7, hemoglobin 9.4. Potassium 3.7, BUN 29, creatinine 0.97. AST 48. Lactic acid 2.1. Home cardiac medications: Amiodarone 100 mg daily, Norvasc 10 mg daily, atorvastatin 20 mg at bedtime, Eliquis 5 mg twice daily, magnesium 400 mg daily, metoprolol succinate 50 mg daily. Echocardiogram performed in October of this year revealed normal LV function. Review Of Systems: At the time of my exam: CONSTITUTIONAL: Denies fever or chills. HEENT: Denies blurred vision, vision changes, or eye pain. Denies hemoptysis CARDIOVASCULAR: Denies chest pain. Denies orthopnea. Denies PND. Denies palpitations RESPIRATORY: Denies shortness of breath. Reports cough, nonproductive. GASTROINTESTINAL: Denies abdominal pain. Denies nausea or vomiting. HEMATOLOGIC: Denies bleeding disorders. GENITOURINARY: Denies any blood in urine. SKIN: Denies puritis. Denies rash. Physical examination: Gen: This is an 88-year-old female in no acute distress. VS: reviewed HEENT: Head is atraumatic, normocephalic. Pupils equal, round. Sclerae is anicteric. NECK: Supple. No JVD. LUNGS: Diminished. No intercostal retractions. HEART: Regular rate and rhythm. No murmur. ABDOMEN: Soft No tenderness. EXTREMITIES: Mild pedal edema. No calf tenderness. NEUROLOGICAL: Patient is awake, alert and oriented x3. Assessment: Pneumonia left lower lobe Paroxysmal atrial fibrillation, currently in sinus rhythm Hypertension Hyperlipidemia Peripheral vascular disease No sign of heart failure Plan: Resume patient's home cardiac medications Continue treatment for pneumonia No need to repeat echocardiogram as this was done in October Monitor fluid intake to prevent iatrogenic fluid overload. At this time no sign of heart failure. Unsure why BNP was obtained. No further cardiac workup needed at this time. Cardiology will sign off this case and follow on an as-needed basis. Please reconsult for any new concerns. Patient may follow-up in the office in one to 2 weeks. Thank you kindly for this consultation. Nurse practitioner note has been reviewed, I agree with documented findings and plan of care. Patient was seen and examined. Past Medical History Past Medical History: Cancer, Diabetes Mellitus, Deep Vein Thrombosis (DVT), Hypertension, Osteoarthritis (OA) Additional Past Medical History / Comment(s): skin on back of leg, diet controlled dm, lft leg dvt 03/2023, bunion on rt foot with scab History of Any Multi-Drug Resistant Organisms: None Reported Past Surgical History: Hysterectomy Additional Past Surgical History / Comment(s): skin cancer removal from R leg, removal of blood clot from lft leg Past Anesthesia/Blood Transfusion Reactions: No Reported Reaction Past Psychological History: No Psychological Hx Reported Smoking Status: Never smoker Past Alcohol Use History: None Reported Additional Past Alcohol Use History / Comment(s): wekends a couple of glasses of wine Past Drug Use History: None Reported - Past Family History Daughter(s) Family Medical History: Cancer Additional Family Medical History / Comment(s): breast Father Family Medical History: Hypertension Mother Family Medical History: Hypertension Brother(s) Family Medical History: Cancer, Hypertension Medications and Allergies Home Medications Medication Instructions Recorded Confirmed Type Apixaban [Eliquis] 5 mg PO BID 09/29/23 02/11/24 History Atorvastatin [Lipitor] 20 mg PO HS #30 tab 11/24/23 02/11/24 Rx amLODIPine [Norvasc] 10 mg PO DAILY #30 tab 11/24/23 02/11/24 Rx Amiodarone [Cordarone] 100 mg PO DAILY 02/11/24 02/11/24 History Amoxic-Pot Clav 875-125Mg 1 tab PO Q12HR #20 tab 02/11/24 Rx [Augmentin 875-125] Doxycycline [Vibramycin] 100 mg PO BID #20 capsule 02/11/24 Rx Metoprolol Succinate (ER) [Toprol 50 mg PO DAILY 02/11/24 02/11/24 History XL] hydroCHLOROthiazide [Hydrodiuril] 37.5 mg PO DAILY 02/11/24 02/11/24 History methylPREDNISolone [Medrol Dose See Taper PO DIRECTED 02/11/24 02/11/24 History Pack] Allergies Allergy/AdvReac Type Severity Reaction Status Date / Time No Known Allergies Allergy Verified 02/11/24 11:02 Physical Exam Vitals: Vital Signs Temp Pulse Pulse Resp BP BP Pulse Ox 02/12/24 08:00 97.2 F L 69 16 118/62 93 L 02/12/24 04:00 97.9 F 109 H 19 117/82 91 L 02/12/24 02:00 103 H 19 02/11/24 22:22 97.7 F 72 20 150/70 92 L 02/11/24 21:30 65 18 133/66 95 02/11/24 18:00 67 16 128/79 94 L 02/11/24 15:25 79 24 97 02/11/24 14:53 71 22 149/70 94 L 02/11/24 13:53 89 L 02/11/24 13:05 95 02/11/24 13:00 90 L 02/11/24 12:06 20 02/11/24 12:02 74 20 150/72 95 02/11/24 11:00 97.7 F 85 22 145/63 95 Intake and Output 02/11/24 02/12/24 02/12/24 22:59 06:59 14:59 Intake Total 20 110 Output Total 850 300 Balance -850 -280 110 Intake: IV 20 Invasive Line 1 20 Oral 110 Output: Urine 850 300 Other: Voiding Method Bedside Commode Weight 72.575 kg 68.5 kg Results 02/11/24 11:35 02/11/24 11:04 Cardiac Enzymes 02/11/24 02/11/24 Range/Units 11:04 11:04 AST 48 H (14-36) U/L Troponin I <0.012 (0.000-0.034) ng/mL Coagulation 02/11/24 Range/Units 11:04 PT 12.3 (10.0-12.5) sec APTT 29.1 (22.0-30.0) sec CBC 02/11/24 Range/Units 11:35 WBC 16.7 H (3.8-10.6) k/uL RBC 3.80 (3.80-5.40) m/uL Hgb 11.4 (11.4-16.0) gm/dL Hct 35.8 (34.0-46.0) % Plt Count 328 (150-450) k/uL Comprehensive Metabolic Panel 02/11/24 Range/Units 11:04 Sodium 139 (137-145) mmol/L Potassium 3.7 (3.5-5.1) mmol/L Chloride 104 (98-107) mmol/L Carbon Dioxide 26 (22-30) mmol/L BUN 29 H (7-17) mg/dL Creatinine 0.97 (0.52-1.04) mg/dL Glucose 164 H (74-99) mg/dL Calcium 10.0 (8.4-10.2) mg/dL AST 48 H (14-36) U/L ALT 31 (4-34) U/L Alkaline Phosphatase 89 (38-126) U/L Total Protein 6.8 (6.3-8.2) g/dL Albumin 4.2 (3.5-5.0) g/dL Current Medications Generic Name Dose Route Start Last Admin Trade Name Freq PRN Reason Stop Dose Admin Acetaminophen 650 mg 02/11/24 16:52 02/11/24 23:13 Acetaminophen Tab 325 Mg Tab PO 650 mg Q6HR PRN Administration Mild Pain or Fever > 100.5 Albuterol/Ipratropium 3 ml 02/11/24 18:52 Ipratropium-Albuterol 3 Ml Neb INHALATION ONCE PRN Bronchospasm Amiodarone HCl 100 mg 02/12/24 09:00 02/12/24 08:35 Amiodarone 100 Mg Tab PO 100 mg DAILY KACI Administration Amlodipine Besylate 10 mg 02/12/24 09:00 02/12/24 08:35 Amlodipine 10 Mg Tab PO 10 mg DAILY KACI Administration Apixaban 5 mg 02/11/24 23:00 02/12/24 08:35 Apixaban 5 Mg Tab PO 5 mg BID KACI Administration Protocol Atorvastatin Calcium 20 mg 02/11/24 23:00 02/11/24 23:13 Atorvastatin 20 Mg Tab PO 20 mg HS KACI Administration Ketorolac Tromethamine 15 mg 02/11/24 16:52 Ketorolac 15 Mg/Ml 1 Ml Vial IVP 02/14/24 16:56 Q6HR PRN Moderate Pain (Scale 4 to 6) Metoprolol Succinate 50 mg 02/12/24 09:00 02/12/24 08:35 Metoprolol Succinate (Er) 50 Mg Tab.Er.24h PO 50 mg DAILY KACI Administration Naloxone HCl 0.2 mg 02/11/24 16:52 Naloxone 0.4 Mg/Ml 1 Ml Vial IV Q2M PRN Opioid Reversal Intake and Output 02/11/24 02/12/24 02/12/24 22:59 06:59 14:59 Intake Total 20 110 Output Total 850 300 Balance -850 -280 110 Intake: IV 20 Invasive Line 1 20 Oral 110 Output: Urine 850 300 Other: Voiding Method Bedside Commode Weight 72.575 kg 68.5 kg 02/11/24 11:35 02/11/24 11:04
[2024-02-12 11:42] VITALS: BMI 27.6
[2024-02-12] MEDS: DOXYCYCLINE 100 MG CAP PO SCH (19:42)
[2024-02-13] MEDS ORDERED: IPRATROPIUM-ALBUTEROL 3 ML NEB INHALATION PRN (02:04)
[2024-02-13 08:33] LABS: Anisocytosis Slight; Basophils % (A) 0 %; Eosinophils # (A) 0.2 k/uL (0-0.7); Eosinophils % (A) 2 %; HCT 37.1 % (34.0-46.0); HGB 11.4 gm/dL (11.4-16.0); Hypochromasia Moderate; Lymphocytes # (A) 2.2 k/uL (1.0-4.8); Lymphocytes % (A) 19 %; MCH 28.9 pg (25.0-35.0); MCHC 30.7 g/dL (31.0-37.0); MCV 94.3 fL (80.0-100.0); Monocytes # (A) 0.9 k/uL (0-1.0); Monocytes % (A) 8 %; Neutrophils # (A) 8.4 k/uL (1.3-7.7); Neutrophils % (A) 70 %; Platelet Count 338 k/uL (150-450); RBC 3.94 m/uL (3.80-5.40); RDW 17.5 % (11.5-15.5); WBC 11.9 k/uL (3.8-10.6)
[2024-02-13] MEDS: MAGNESIUM OXIDE 400 MG TAB PO SCH (08:50)
[2024-02-13 08:54] LABS: African American GFR (CKD) 52 (>60 ml/min/1.73 sqM); Anion Gap 7 mmol/L; Blood Urea Nitrogen 32 mg/dL (7-17); Calcium 9.2 mg/dL (8.4-10.2); Carbon Dioxide 28 mmol/L (22-30); Chloride 103 mmol/L (98-107); Glucose 203 mg/dL (74-99); Non-African American GFR(CKD) 45 (>60 ml/min/1.73 sqM); Potassium 3.5 mmol/L (3.5-5.1); Sodium 138 mmol/L (137-145)
[2024-02-13 08:56] VITALS: RESP 16
--- NOTE | 2024-02-13 16:34 | P.PN ---
Subjective Progress Note Date: 02/13/24 88 years old female with multiple medical problems as below Presents because of dyspnea of 3 to 4 days duration associated with cough and detailed white phlegm Patient denies chest pain No GI or urinary complaint No confusion or weakness or numbness She denies smoking or illicit drugs. She drinks alcohol on the weekends only She is afebrile and hemodynamically stable, she was saturating 98% on 2 L oxygen but currently she is not tachypneic and she is on room air with good oxygen saturation Labs reviewed, she has leukocytosis 16 K, chronically WBC is elevated 10-17,000. Rest of CBC, INR, BMP, LFT and troponin were negative proBNP is elevated mildly 3500 EKG showing sinus rhythm at [address]-T changes Chest x-ray showing possible left lower lobe infiltrate 02/13/2024 Patient is seen and evaluated in room at bedside; resting comfortably in bed; patient's daughter present in the room --Continues to have oxygen saturation around 90 on room air; does not wear oxygen at home -- Patient adamant on going home this afternoon; white blood count remains slightly elevated; patient desaturates easily to 90s with ambulation; patient recommended to continue with IV antibiotics for another 24 hours prior to discharge -- Patient will think about it and might decide to sign out AMA Objective - Vital Signs Vital signs: Vital Signs Temp 97.8 F 02/13/24 08:00 Pulse 76 02/13/24 08:00 Resp 16 02/13/24 08:00 BP 131/62 02/13/24 08:00 Pulse Ox 97 02/13/24 08:00 FiO2 Intake & Output 02/12/24 02/13/24 02/13/24 18:59 06:59 18:59 Intake Total 480 Output Total 500 500 Balance -20 -500 Weight 68.5 kg 68.9 kg Intake: IV 20 Invasive Line 1 20 Oral 460 Output: Urine 500 500 Other: Voiding Method Bedside Commode Bedside Commode # Voids 1 # Bowel Movements 1 - Exam GENERAL: The patient is alert and oriented x3, not in any acute distress. Well developed, well nourished. HEENT: Pupils are round and equally reacting to light. EOMI. No scleral icterus. No conjunctival pallor. Normocephalic, atraumatic. No pharyngeal erythema. No thyromegaly. CARDIOVASCULAR: S1 and S2 present. No murmurs, rubs, or gallops. PULMONARY: Chest is clear to auscultation, no wheezing , no crackles. ABDOMEN: Soft, nontender, nondistended, normoactive bowel sounds. No palpable organomegaly. MUSCULOSKELETAL: No joint swelling or deformity. EXTREMITIES: No cyanosis, clubbing, or pedal edema. NEUROLOGICAL: Gross neurological examination did not reveal any focal deficits. SKIN: No rashes. no petechiae. - Labs CBC & Chem 7: 02/13/24 08:08 02/13/24 08:08 Labs: Abnormal Lab Results - Last 24 Hours (Table) 02/13/24 02/13/24 Range/Units 08:08 08:08 WBC 11.9 H (3.8-10.6) k/uL MCHC 30.7 L (31.0-37.0) g/dL RDW 17.5 H (11.5-15.5) % Neutrophils # 8.4 H (1.3-7.7) k/uL BUN 32 H (7-17) mg/dL Creatinine 1.11 H (0.52-1.04) mg/dL Glucose 203 H (74-99) mg/dL Assessment and Plan Assessment: Left lower lobe pneumonia Mild acute CHF exacerbation, unknown ejection fraction Diabetes mellitus Hypertension Hyperlipidemia History of osteoarthritis Hypothyroidism History of deep venous thrombosis Plan: Continue with ceftriaxone and doxycycline Patient is on home dose of Eliquis Patient does not require oxygen for now but keep monitoring Check procalcitonin Patient received 1 dose of IV Lasix and cardiology team, consulted Labs and medication were reviewed.. Continue same treatment. Continue with symptomatic treatment. Resume home medication. Monitor lytes and vitals. DVT and GI prophylaxis. Further recommendations depends on the clinical course of the patient DVT prophylaxis: on Eliquis GI Prophylaxis: Pepcid
[2024-02-14 07:57] LABS: Anisocytosis Slight; Basophils % (A) 0 %; Eosinophils # (A) 0.1 k/uL (0-0.7); Eosinophils % (A) 1 %; HCT 33.8 % (34.0-46.0); Hypochromasia Slight; Lymphocytes % (A) 17 %; MCHC 32.4 g/dL (31.0-37.0); MCV 92.5 fL (80.0-100.0); Mean Platelet Volume 8.9; Monocytes # (A) 0.9 k/uL (0-1.0); Monocytes % (A) 8 %; Neutrophils # (A) 8.4 k/uL (1.3-7.7); Neutrophils % (A) 72 %; Platelet Count 299 k/uL (150-450); RBC 3.66 m/uL (3.80-5.40); RDW 17.5 % (11.5-15.5); WBC 11.6 k/uL (3.8-10.6)
[2024-02-14 08:25] LABS: African American GFR (CKD) 74 (>60 ml/min/1.73 sqM); Anion Gap 4 mmol/L; Blood Urea Nitrogen 23 mg/dL (7-17); Calcium 8.9 mg/dL (8.4-10.2); Carbon Dioxide 27 mmol/L (22-30); Chloride 106 mmol/L (98-107); Glucose 145 mg/dL (74-99); Non-African American GFR(CKD) 64 (>60 ml/min/1.73 sqM); Potassium 3.5 mmol/L (3.5-5.1); Sodium 137 mmol/L (137-145)
[2024-02-14 11:41] LABS: Glucose,Whole Blood 202 mg/dL (70-110)
[2024-02-14] MEDS: methylPREDNISolone SOD SUCCI 40 MG/ML 1 ML VIAL IV SCH (12:00)
[2024-02-14] MEDS: hydroCHLOROthiazide 25 MG TAB PO SCH (12:00)
[2024-02-14 12:04] VITALS: BP 133/75; PULSE 80; TEMP 98.2
--- NOTE | 2024-02-17 09:16 | CDI ---
Documentation Clarification Form Date: 02/17/24 From: Penelope Felix Admit Date: 02/11/2024 06:34:00 PM Patient Name: Lucina Roberts Visit Number: [id number] Discharge Date: 02/14/2024 03:04:00 PM ATTENTION: The Clinical Documentation Specialists (CDI) and [facility] Coding Staff appreciate your assistance in clarifying documentation. Please respond to the clarification below the line at the bottom and electronically sign. The CDI & [facility] Coding staff will review the response and follow-up if needed. Please note: Queries are made part of the Legal Health Record. If you have any questions, please contact the author of this message via ITS. Doctor Alexus Vera, Your patient has the documented diagnosis of unspecified CHF [insert date, location]. Additional information regarding the [type, acuity] of CHF is requested. History/Risk Factors: HTN, T2DM, Clinical Indicators: Presents because ofdyspneaof 3 to 4 days duration associated withcoughand detailed white phlegm. VS/Pulse OX: P 67, R 16, BP 128/79, O2 sat 94 NC 3L BNP: 3500 11/12/23 Echocardiogram Results: Left ventricular EF is estimated at 50-55%. Moderately increased septal wall thickness. Moderately increased posterior wall thickness. Mildly decreased left ventricular EF. Left ventricular cavity size normal. Atypical septal motion. Right ventricular systolic pressure within normal limits. Chest X Ray: Left lower lobe infiltrateis present.Minimal posteriorpleural effusionis not excluded. Treatment: Lasix 40 mg IV, Hydrochlorothiazide 25 mg tab 37.5 mg po daily In your professional opinion, can you please clarify the [acuity and type] of CHF if known? [ ] Acute Diastolic Heart Failure (preserved EF) [ ] Chronic Diastolic Heart Failure (preserved EF) [ ### ] Acute on Chronic Diastolic Heart Failure (preserved EF) [ ] Other, please specify [ ] Unable to determine MTDD
--- NOTE | 2024-02-18 19:44 | P.DS ---
Providers Date of admission: 02/11/24 18:34 Expected date of discharge: 02/14/24 Attending physician: Ruddy Villanueva Consults: 02/11/24 16:52 Consult Physician Routine Consulting Provider: Tapan Lizarraga Consult Reason/Comments: ?chf Do you want consulting provider notified?: Yes Primary care physician: Jose M Sarkar [facility] Course: 88 years old female with multiple medical problems as below Presents because of dyspnea of 3 to 4 days duration associated with cough and detailed white phlegm Patient denies chest pain No GI or urinary complaint No confusion or weakness or numbness She denies smoking or illicit drugs. She drinks alcohol on the weekends only She is afebrile and hemodynamically stable, she was saturating 98% on 2 L oxygen but currently she is not tachypneic and she is on room air with good oxygen saturation Labs reviewed, she has leukocytosis 16 K, chronically WBC is elevated 10-17,000. Rest of CBC, INR, BMP, LFT and troponin were negative proBNP is elevated mildly 3500 EKG showing sinus rhythm at [address]-T changes Chest x-ray showing possible left lower lobe infiltrate 02/13/2024 Patient is seen and evaluated in room at bedside; resting comfortably in bed; patient's daughter present in the room --Continues to have oxygen saturation around 90 on room air; does not wear oxygen at home -- Patient adamant on going home this afternoon; white blood count remains slightly elevated; patient desaturates easily to 90s with ambulation; patient recommended to continue with IV antibiotics for another 24 hours prior to discharge -- Patient will think about it and might decide to sign out AMA Left lower lobe pneumonia Mild acute CHF exacerbation, unknown ejection fraction Diabetes mellitus Hypertension Hyperlipidemia History of osteoarthritis Hypothyroidism History of deep venous thrombosis Continue with ceftriaxone and doxycycline Patient is on home dose of Eliquis Patient does not require oxygen for now but keep monitoring Check procalcitonin Patient received 1 dose of IV Lasix and cardiology team, consulted Labs and medication were reviewed.. Continue same treatment. Continue with symptomatic treatment. Resume home medication. Monitor lytes and vitals. DVT and GI prophylaxis. Further recommendations depends on the clinical course of the patient DVT prophylaxis: on Eliquis Patient responded well to antibiotics and was dc'ed in a stable condition Patient Condition at Discharge: Stable Plan - Discharge Summary Discharge Rx Participant: Yes New Discharge Prescriptions: New Doxycycline [Vibramycin] 100 mg PO BID #20 capsule Magnesium Oxide [Mag-Ox] 400 mg PO DAILY 30 Days #30 tab Doxycycline [Vibramycin] 100 mg PO BID cap Amoxic-Pot Clav 875-125Mg [Augmentin 875-125] 1 tab PO Q12HR #20 tab predniSONE 50 mg PO DAILY 5 Days #5 tablet Continue Apixaban [Eliquis] 5 mg PO BID Atorvastatin [Lipitor] 20 mg PO HS #30 tab hydroCHLOROthiazide [Hydrodiuril] 37.5 mg PO DAILY Metoprolol Succinate (ER) [Toprol XL] 50 mg PO DAILY amLODIPine [Norvasc] 10 mg PO DAILY #30 tab methylPREDNISolone [Medrol Dose Pack] See Taper PO DIRECTED Amiodarone [Cordarone] 100 mg PO DAILY Discharge Medication List Apixaban [Eliquis] 5 mg PO BID 09/29/23 [History] Atorvastatin [Lipitor] 20 mg PO HS #30 tab 11/24/23 [Rx] amLODIPine [Norvasc] 10 mg PO DAILY #30 tab 11/24/23 [Rx] Amiodarone [Cordarone] 100 mg PO DAILY 02/11/24 [History] Amoxic-Pot Clav 875-125Mg [Augmentin 875-125] 1 tab PO Q12HR #20 tab 02/11/24 [Rx] Doxycycline [Vibramycin] 100 mg PO BID #20 capsule 02/11/24 [Rx] Metoprolol Succinate (ER) [Toprol XL] 50 mg PO DAILY 02/11/24 [History] hydroCHLOROthiazide [Hydrodiuril] 37.5 mg PO DAILY 02/11/24 [History] methylPREDNISolone [Medrol Dose Pack] See Taper PO DIRECTED 02/11/24 [History] Doxycycline [Vibramycin] 100 mg PO BID cap 02/14/24 [Rx] Magnesium Oxide [Mag-Ox] 400 mg PO DAILY 30 Days #30 tab 02/14/24 [Rx] predniSONE 50 mg PO DAILY 5 Days #5 tablet 02/14/24 [Rx] Follow up Appointment(s)/Referral(s): Jose M Sarkar MD [Primary Care Provider] - 1-2 days (Patient to schedule appointment, as office is closed at time of discharge.) Patient Instructions/Handouts: Community Acquired Pneumonia (ED) Activity/Diet/Wound Care/Special Instructions: Hospitalization is recommended for further workup and treatment. Please supervisor picking crew your antibiotics and take to completion. Follow up with your primary care provider. Discharge Disposition: HOME SELF-CARE
== END 2024-02-14 15:04 | disposition home or self-care (01) | DRG 193 ==
LOC: EC 10:59 → 3SCARD 18:34
PROVIDERS: ADMIT Hospitalist; ATTEND Hospitalist
DX: J18.9 Pneumonia, unspecified organism (principal); I50.33 Acute on chronic diastolic (congestive) heart failure; I11.0 Hypertensive heart disease with heart failure; E11.51 Type 2 diabetes mellitus with diabetic peripheral angiopathy without gangrene; I48.0 Paroxysmal atrial fibrillation; E03.9 Hypothyroidism, unspecified; E78.5 Hyperlipidemia, unspecified; I44.7 Left bundle-branch block, unspecified; M19.90 Unspecified osteoarthritis, unspecified site; Z79.01 Long term (current) use of anticoagulants; Z79.899 Other long term (current) drug therapy; Z85.828 Personal history of other malignant neoplasm of skin; Z86.718 Personal history of other venous thrombosis and embolism
CPT/HCPCS: 36415; 71046; 80048; 80053; 83605; 83735; 83880; 84145; 84484; 85025; 85610; 85730; 93005; 94760; 96374; 96375; 99285

== ENCOUNTER → 2025-02-18 | Outpatient (CLI) | payer MEDICARE | END | disposition home or self-care (01) | LOC: LABWHC1 09:23 | PROVIDERS: ATTEND Internal Medicine Cardiovascular Disease | DX: E78.2 Mixed hyperlipidemia (principal) | CPT/HCPCS: 36415; 80061; 84450; 84460 ==